=== PATIENT | male | born 1960 | race Caucasian/White ===

== ENCOUNTER 2023-04-14 10:25 | Outpatient (OUT) | payer BC, SELFPAY ==
[2023-04-14 11:15] LABS: Estimated Average Glucose 94 mg/dL; Glycohemoglobin A1C 4.9 % (4.5-6.2)
[2023-04-14 11:43] LABS: Cholesterol 198 mg/dL (<=200); Free T3 2.49 pg/mL (2.18-3.98); HDL Cholesterol 66 mg/dL (40-60); Thyroid Stimulating Hormone 1.339 uIU/mL (0.358-3.740); Triglycerides 112 mg/dL (<=150); VLDL CHOLESTEROL 22.4 mg/dL
[2023-04-14 11:51] LABS: Prostate Specific Antigen Scrn 1.47 ng/mL (<=4.00)
[2023-04-15 11:09] LABS: Insulin 8.8 uIU/mL (2.6-24.9)
== END 2023-04-14 10:26 | disposition home or self-care (01) ==
LOC: LAB 10:29
PROVIDERS: PCP Family Medicine; Visit Provider Family Medicine
DX: Z00.00 Encounter for general adult medical examination without abnormal findings (principal); Z12.5 Encounter for screening for malignant neoplasm of prostate
CPT/HCPCS: 36415; 80061; 83036; 83525; 84436; 84443; 84481; G0103

== ENCOUNTER 2023-04-14 10:32 | Outpatient (OUT) | payer BC, SELFPAY ==
[2023-04-14 11:04] LABS: Basophils Percent Auto 0.5 % (0.2-2.0); Eosinophils Absolute Auto 0.1 10^3/uL (0.0-0.7); Eosinophils Percent Auto 2.1 % (0.9-7.0); Hematocrit 46.2 % (42.0-54.0); Hemoglobin 15.4 g/dL (14.0-18.0); Immature Granulocytes Abs Auto 0.01 10^3/uL (0.00-0.03); Immature Granulocytes Pct Auto 0.2 % (0.0-0.5); Lymphocytes Absolute Auto 2.3 10^3/uL (1.2-3.8); Lymphocytes Percent Auto 39.9 % (20.5-60.0); Mean Corpuscular HGB Conc 33.3 g/dL (29.9-35.2); Mean Corpuscular Hemoglobin 33.3 pg (25.9-34.0); Mean Corpuscular Volume 99.8 fL (80.0-94.0); Mean Platelet Volume 11.2 fL (9.5-13.5); Monocytes Absolute Auto 0.5 10^3/uL (0.3-0.8); Monocytes Percent Auto 9.3 % (1.7-12.0); Neutrophils Absolute Auto 2.8 10^3/uL (1.4-6.5); Platelet Count 226 10^3/uL (150-450); Red Blood Count 4.63 10^6/uL (4.70-6.10); Red Cell Distribution Width 13.1 % (11.0-15.0); White Blood Count 5.8 10^3/uL (4.0-11.0)
[2023-04-14 11:26] LABS: Percent Iron Saturation 47.8 %
[2023-04-14 11:32] LABS: Alanine Aminotransferase 27 U/L (16-63); Albumin Level 3.5 g/dL (3.4-5.0); Alkaline Phosphatase 116 U/L (46-116); Anion Gap 9.7; Aspartate Amino Transferase 23 U/L (15-37); BUN Creatinine Ratio 9.7; Bilirubin Total 0.7 mg/dL (0.2-1.0); Calcium 8.6 mg/dL (8.5-10.1); Carbon Dioxide 32.6 mmol/L (21.0-32.0); Chloride 104 mmol/L (98-107); Estimated GFR (African America >60 (>=60); Estimated GFR (Non-African Ame >60 (>=60); Globulin 3.4 g/dL; Glucose 93 mg/dL (74-106); Magnesium 2.2 mg/dL (1.8-2.4); Phosphorus 3.1 mg/dL (2.6-4.7); Potassium 4.3 mmol/L (3.5-5.1); Sodium 142 mmol/L (136-145); Total Protein 6.9 g/dL (6.4-8.2)
[2023-04-16 19:07] LABS: Vitamin B1 (Thiamine), Blood 147.8 nmol/L (66.5-200.0)
== END 2023-04-14 10:33 | disposition home or self-care (01) ==
LOC: LAB 10:33
PROVIDERS: PCP Family Medicine
DX: Z00.00 Encounter for general adult medical examination without abnormal findings (principal); Z98.84 Bariatric surgery status; K90.9 Intestinal malabsorption, unspecified; E78.5 Hyperlipidemia, unspecified; I10 Essential (primary) hypertension; E79.0 Hyperuricemia without signs of inflammatory arthritis and tophaceous disease; R60.9 Edema, unspecified
CPT/HCPCS: 36415; 80053; 80061; 82306; 82607; 82728; 82746; 83036; 83525; 83540; 83550; 83735; 84100; 84425; 84436; 84443; 84481; 85025; G0103

== ENCOUNTER 2023-04-15 11:25 | Outpatient (REF) | payer BC, SELFPAY ==
[2023-04-15 11:59] LABS: Occult Blood Negative
== END 2023-04-15 11:26 | disposition home or self-care (01) ==
LOC: LAB 11:25
PROVIDERS: PCP Family Medicine; Visit Provider Family Medicine
DX: Z00.00 Encounter for general adult medical examination without abnormal findings (principal)
CPT/HCPCS: G0328

== ENCOUNTER 2024-03-03 08:01 | Outpatient (OUT) | payer OTHER, SELFPAY ==
[2024-03-03 08:38] LABS: Basophils Absolute Auto 0.1 10^3/uL (0.0-0.1); Basophils Percent Auto 0.6 % (0.2-2.0); Eosinophils Absolute Auto 0.2 10^3/uL (0.0-0.7); Eosinophils Percent Auto 1.9 % (0.9-7.0); Hematocrit 43.6 % (42.0-54.0); Immature Granulocytes Abs Auto 0.02 10^3/uL (0.00-0.03); Immature Granulocytes Pct Auto 0.3 % (0.0-0.5); Lymphocytes Absolute Auto 2.8 10^3/uL (1.2-3.8); Lymphocytes Percent Auto 35.9 % (20.5-60.0); Mean Corpuscular HGB Conc 34.4 g/dL (29.9-35.2); Mean Corpuscular Hemoglobin 33.2 pg (25.9-34.0); Mean Corpuscular Volume 96.5 fL (80.0-94.0); Mean Platelet Volume 11.6 fL (9.5-13.5); Monocytes Absolute Auto 0.8 10^3/uL (0.3-0.8); Monocytes Percent Auto 10.8 % (1.7-12.0); Neutrophils Absolute Auto 3.9 10^3/uL (1.4-6.5); Neutrophils Percent Auto 50.5 % (43.0-75.0); Platelet Count 253 10^3/uL (150-450); Red Blood Count 4.52 10^6/uL (4.70-6.10); Red Cell Distribution Width 13.6 % (11.0-15.0); White Blood Count 7.7 10^3/uL (4.0-11.0)
[2024-03-03 09:37] LABS: Alanine Aminotransferase 30 U/L (16-63); Albumin Globulin Ratio 1.2; Albumin Level 3.5 g/dL (3.4-5.0); Alkaline Phosphatase 109 U/L (46-116); Anion Gap 11.2; Aspartate Amino Transferase 25 U/L (15-37); BUN Creatinine Ratio 9.4; Bilirubin Total 0.8 mg/dL (0.2-1.0); Calcium 8.8 mg/dL (8.5-10.1); Carbon Dioxide 30.9 mmol/L (21.0-32.0); Chloride 106 mmol/L (98-107); Chol HDL Ratio 2.9; Cholesterol 151 mg/dL (<=200); Estimated GFR (African America >60 (>=60); Estimated GFR (Non-African Ame >60 (>=60); Free T4 0.94 ng/dL (0.76-1.46); Glucose 96 mg/dL (74-106); HDL Cholesterol 52 mg/dL (40-60); LDL Cholesterol Calculated 83.4 mg/dL; Potassium 4.1 mmol/L (3.5-5.1); Sodium 144 mmol/L (136-145); Thyroid Stimulating Hormone 1.274 uIU/mL (0.358-3.740); Total Protein 6.5 g/dL (6.4-8.2); Triglycerides 78 mg/dL (<=150); VLDL CHOLESTEROL 15.6 mg/dL
[2024-03-03 09:45] LABS: Prostate Specific Antigen Scrn 0.97 ng/mL (<=4.00)
[2024-03-03 10:45] LABS: Estimated Average Glucose 97 mg/dL
== END 2024-03-03 08:02 | disposition home or self-care (01) ==
LOC: LAB 08:04
PROVIDERS: PCP Family Medicine; Visit Provider Family Medicine
DX: N40.0 Benign prostatic hyperplasia without lower urinary tract symptoms (principal); Z12.5 Encounter for screening for malignant neoplasm of prostate; E78.5 Hyperlipidemia, unspecified; R73.09 Other abnormal glucose
CPT/HCPCS: 36415; 80053; 80061; 83036; 84439; 84443; 85025; G0103

== ENCOUNTER 2024-05-24 08:59 | Outpatient (OUT) | payer OTHER, SELFPAY ==
--- OUTSIDE RECORDS SUMMARY | 2024-05-24 09:23 | XMS_ITS | CCD ---
Author Organization [facility] Care Team Providers Care Assistant Tennis Coach Name Role Phone JUAN, DR CASTILLO Admitting Unavailable HOY, DR CASTILLO Attending Unavailable HOY, DR CASTILLO Primary Care Unavailable HOY, DR CASTILLO Consulting Unavailable HOY, DR CASTILLO Admitting Unavailable HOY, DR CASTILLO Attending Unavailable HOY, DR CASTILLO Primary Care Unavailable HOY, DR CASTILLO Consulting Unavailable HOY, DR CASTILLO Admitting Unavailable HOY, DR CASTILLO Attending Unavailable HOY, DR CASTILLO Primary Care Unavailable HOY, DR CASTILLO Consulting Unavailable LALORPATRICIA Admitting Unavailable LALORPATRICIA Attending Unavailable HOY, DR CASTILLO Primary Care Unavailable LALORPATRICIA Consulting Unavailable JUANJOSEY, DR CASTILLO Admitting Unavailable HOY, DR CASTILLO Attending Unavailable HOY, DR CASTILLO Primary Care Unavailable HOY, DR CASTILLO Consulting Unavailable HOY, ANNA M Primary Care Unavailable CHELA HICKEY Attending Unavailable CHELA HICKEY Attending Unavailable CHELA HICKEY Referring Unavailable JUANJOSEYANNA M Primary Care Unavailable HOYANNA M Primary Care Unavailable STEFF FREGOSO Attending Unavailable SHAHLA REED Consulting Unavailable DEBBIE CARCAMO Admitting Unavailable KIM AMATO Consulting Unavailable Allergies Allergy Classification Reported Allergen(s) Allergy Type Date of Onset Reaction(s) Facility (1 source) Erythromycin Drug Allergy 6 [facility] Repository (2 sources) Erythromycin; Translations: [ERYTHROMYCIN LACTOBIONATE] Drug Allergy 1 [facility] Repository (2 sources) AMOXICILLIN-POT CLAVULANATE; Translations: [AMOXICILLIN-POT CLAVULANATE] Propensity to adverse reactions to drug (disorder) 4 [facility] Repository Problems Active Problems Problem Classification Problem Date Documented Da te Episodic/Chronic Abdominal pain (3 sources) Unspecified abdominal pain; Translations: [Flank pain] Onset: 02-16-2024 Episodic Disorders of lipid metabolism (1 source) Hyperlipidemia, unspecified; Translations: [HYPERLIPIDEMIA UNSPECIFIED] Onset: 04-16-2022 Chronic Essential hypertension (1 source) Essential (primary) hypertension; Translations: [ESSENTIAL PRIMARY HYPERTENSION] Onset: 04-16-2022 Chronic Intestinal obstruction without hernia (2 sources) Ileus, unspecified; Translations: [Ileus, unspecified] Onset: 02-16-2024 Episodic Other gastrointestinal disorders (1 source) Bariatric surgery status; Translations: [BARIATRIC SURGERY STATUS] Onset: 04-16-2022 Episodic Other nutritional; endocrine; and metabolic disorders (1 source) Hyperuricemia without signs of inflammatory arthritis and tophaceous disease; Translations: [HU W/O SIGNS IA AND TOPHACEOUS DZ] Onset: 04-16-2022 Episodic Other screening for suspected conditions (not mental disorders or infectious disease) (1 source) Encounter for screening for malignant neoplasm of prostate; Translations: [ENC SCREEN MALIG NEOPLASM PROSTATE] Onset: 04-16-2022 Episodic Residual codes; unclassified (1 source) Edema, unspecified; Translations: [EDEMA UNSPECIFIED] Onset: 04-16-2022 Episodic Unclassified (1 source) Flank Pain; Abdominal Pain Onset: 02-16-2024 Unclassified (1 source) abdominal pain, sent over from [facility] Onset: 02-17-2024 Past or Other Problems Problem Classification Problem Date Documented Da te Episodic/Chronic Other skin disorders (4 sources) Generalized hyperhidrosis; Translations: [GENERALIZED HYPERHIDROSIS] Onset: 06-27-2021 Episodic Results Test Name Value Interpretation Reference Range Facility CBC AND AUTO DIFFon 02-18-20 ABSOLUTE BASOPHIL 0.0 X10E9/L Normal 0.0-0.2 [facility] Comment on above: Performed By: #### C BCA, CMP #### [facility] ([id number]) [address] [place] [address] ABSOLUTE NEUTROPHIL 2.9 X10E9/L Normal 1.5-6.6 [facility] Comment on above: Performed By: #### C BCA, CMP #### [facility] ([id number]) [address], [address] [place] [address] Basophils/100 WBC (Bld) 0.5 % Normal [facility] Comment on above: Performed By: #### C JUAN, CMP #### [facility] ([id number]) [address], [address] [place] [address] Eosinophils (Bld) [#/Vol] 0.2 10*3/uL Normal 0.0-0.4 [facility] Comment on above: Performed By: #### C JUAN, CMP #### [facility] ([id number]) [address], [address] [place] [address] Eosinophils/100 WBC (Bld) 3.3 % Normal [facility] Comment on above: Performed By: #### C JUAN, CMP #### [facility] ([id number]) [address], [address] [place] [address] Erythrocyte distribution width (RBC) [Ratio] 13.5 % Normal 11.5-15.0 [facility] Comment on above: Performed By: #### Scot MARTINEZ, CMP #### [facility] ([id number]) [address], [address] [place] [address] Hematocrit (Bld) [Volume fraction] 39.4 % Normal 39-49 [facility] Comment on above: Performed By: #### C JUAN, CMP #### [facility] ([id number]) [address], [address] [place] [address] Hemoglobin (Bld) [Mass/Vol] 13.8 g/dL Normal 13.0-17.0 [facility] Comment on above: Performed By: #### C JUAN, CMP #### [facility] ([id number]) [address] [address] [place] [address] Lymphocytes (Bld) [#/Vol] 2.7 10*3/uL Normal 1.0-3.5 [facility] Comment on above: Performed By: #### C BCA, CMP #### [facility] ([id number]) [address], [address] [place] [address] Lymphocytes/100 WBC (Bld) 41.4 % Normal [facility] Comment on above: Performed By: #### C BCA, CMP #### [facility] ([id number]) [address], [address] [place] [address] MCH (RBC) [Entitic mass] 33.8 pg Normal 27-34 [facility] Comment on above: Performed By: #### C BCA, CMP #### [facility] ([id number]) [address], [address] [place] [address] MCHC (RBC) [Mass/Vol] 35.0 g/dL Normal 32-36 [facility] Comment on above: Performed By: #### C BCA, CMP #### [facility] ([id number]) [address], [address] [place] [address] MCV (RBC) [Entitic vol] 96 fL Normal 80-100 [facility] Comment on above: Performed By: #### C BCA, CMP #### [facility] ([id number]) [address], [address] [place] [address] Monocytes (Bld) [#/Vol] 0.6 10*3/uL Normal 0-0.9 [facility] Comment on above: Performed By: #### C BCA, CMP #### [facility] ([id number]) [address], [address] [place] [address] Monocytes/100 WBC (Bld) 9.7 % Normal [facility] Comment on above: Performed By: #### C BCA, CMP #### [facility] ([id number]) [address], [address] [place] [address] Neutrophils/100 WBC (Bld) 45.1 % Normal [facility] Comment on above: Performed By: #### C BCA, CMP #### [facility] ([id number]) [address], [facility] [address] [place] [address] Platelet mean volume (Bld) [Entitic vol] 9.6 fL Normal 7-12 [facility] Comment on above: Performed By: #### C BCA, CMP #### [facility] ([id number]) [address], [facility] [address] [place] [address] Platelets (Bld) [#/Vol] 180 10*3/uL Normal 150-450 [facility] Comment on above: Performed By: #### C BCA, CMP #### [facility] ([id number]) [address], [facility] [address] [place] [address] RBC COUNT 4.08 X10E12/L Low 4.10-5.70 [facility] Comment on above: Performed By: #### C BCA, CMP #### [facility] ([id number]) [address] [address] [place] [address] WBC (Bld) [#/Vol] 6.5 10*3/uL Normal 4.0-11.0 [facility] Comment on above: Performed By: #### C BCA, CMP #### [facility] ([id number]) [address], [address] [place] [address] COMPREHENSIVE METABOLIC PANE Ezekiel 02-18-2024 Albumin [Mass/Vol] 3.4 g/dL Normal 3.2-5.3 [facility] Comment on above: Performed By: #### C BCA, CMP #### [facility] ([id number]) [address], [address] [place] [address] ALP [Catalytic activity/Vol] 97 U/L Normal 39-130 [facility] Comment on above: Performed By: #### C BCA, CMP #### [facility] ([id number]) [address], [address] [place] [address] ALT [Catalytic activity/Vol] 25 U/L Normal 0-40 [facility] Comment on above: Performed By: #### C BCA, CMP #### [facility] ([id number]) [address], [address] [place] [address] Anion gap [Moles/Vol] 7 mmol/L Normal 5-15 [facility] Comment on above: Performed By: #### C BCA, CMP #### [facility] ([id number]) [address], [address] [place] [address] AST [Catalytic activity/Vol] 25 U/L Normal 0-41 [facility] Comment on above: Performed By: #### C BCA, CMP #### [facility] ([id number]) [address], [address] [place] [address] Bilirubin [Mass/Vol] 0.7 mg/dL Normal 0.3-1.2 [facility] Comment on above: Performed By: #### C BCA, CMP #### [facility] ([id number]) [address], [address] [place] [address] Calcium [Mass/Vol] 8.2 mg/dL Low 8.5-10.5 [facility] Comment on above: Performed By: #### C BCA, CMP #### [facility] ([id number]) [address], [address] [place] [address] Chloride [Moles/Vol] 107 mmol/L Normal 98-109 [facility] Comment on above: Performed By: #### C BCA, CMP #### [facility] ([id number]) [address], [address] [place] [address] CO2 [Moles/Vol] 27 mmol/L Normal 22-32 [facility] Comment on above: Performed By: #### C BCA, CMP #### [facility] ([id number]) [address] [address] [place] [address] Creatinine [Mass/Vol] 0.70 mg/dL Normal 0.60-1.30 [facility] Comment on above: Result Comment: METH OD TRACEABLE TO IDMS STANDARD Performed By: #### C BCA, CMP #### [facility] ([id number]) [address], [address] [place] [address] eGFR (CKD-EPI) NON-RACE DEPENDENT >90 Normal >59 [facility] Comment on above: Result Comment: Reported eGFR is based on the CKD-EPI 2020 equation that does not use a race coefficient. Performed By: #### C BCA, CMP #### [facility] ([id number]) [address] [address] [place] [address] Glucose [Mass/Vol] 69 mg/dL Normal 65-99 [facility] Comment on above: Performed By: #### C BCA, CMP #### [facility] ([id number]) [address] [address] [place] [address] Potassium [Moles/Vol] 3.9 mmol/L Normal 3.5-5.0 [facility] Comment on above: Performed By: #### C BCA, CMP #### [facility] ([id number]) [address] [address] [place] [address] Protein [Mass/Vol] 5.8 g/dL Low 6.0-8.0 [facility] Comment on above: Performed By: #### C BCA, CMP #### [facility] ([id number]) [address] [address] [place] [address] Sodium [Moles/Vol] 141 mmol/L Normal 134-146 [facility] Comment on above: Performed By: #### C BCA, CMP #### [facility] ([id number]) [address], [address] [place] [address] Urea nitrogen [Mass/Vol] 11 mg/dL Normal 5-27 [facility] Comment on above: Performed By: #### C ZANE MARTINEZ #### [facility] ([id number]) [address] [place] [address] XR ABDOM COMP SERIES W PA CH ESTon 02-18-2024 XR ABDOM COMP SERIES W PA CHEST XR ABDOM COMP SERIES W PA CHEST ABDOMEN RADIOGRAPH 02/18/2024 8:02 AM CLINICAL INDICATION: Abdominal distention, evaluate for obstruction. TECHNIQUE: Multiple abdominal radiographs obtained. Total 5 abdominal radiographs and PA chest. COMPARISON: No comparable prior. FINDINGS: Lungs: Chest radiograph shows normal cardiomediastinal silhouette. No hilar vascular congestion. Linear opacities at left lung base, likely atelectasis. Bilaterally no large effusion or pneumothorax. No focal infiltrates identified. Bowel: Air-filled bowel loops are noted in the epigastric region, where there are also multiple surgical clips clustered in the region of the gastroesophageal junction, and more inferiorly in the left mid abdomen. In both locations anastomotic suture lines are also visible. Compared to prior day's study, the degree of gaseous distention is significantly less. Bowel segments are measured up to 6 cm, and it appears to be transverse colon. Air noted within the distal colon. Single left mid abdomen small bowel loop containing small amount of air, but no air-fluid levels. No free air. No pneumatosis intestinalis. Bones / soft tissue: No acute bony abnormalities. Degenerative changes involving the hip joints and the lower lumbar spine. IMPRESSION: 1. No evident free air or definite obstruction. There are mildly prominent air-filled bowel loops in the epigastric region which appear to be transverse colon, although significantly decreased degree of distention since 02/17/2024. Finalized by [place] Vela MD on 02/18/2024 8:56 AM Normal [facility] CBC AND AUTO DIFFon 02-17-20 24 ABSOLUTE BASOPHIL 0.1 X10E9/L Normal 0.0-0.2 [facility] Comment on above: Performed By: #### C ZANE MARTINEZ, 3040-3 #### [facility] ([id number]) [address], [address] [place] [address] ABSOLUTE NEUTROPHIL 6.2 X10E9/L Normal 1.5-6.6 [facility] Comment on above: Performed By: #### C JUAN CMP, 3039-3 #### [facility] ([id number]) [address], [address] [place] [address] Basophils/100 WBC (Bld) 0.5 % Normal [facility] Comment on above: Performed By: #### C JUAN, CMP, 3039-3 #### [facility] ([id number]) [address], [address] [place] [address] Eosinophils (Bld) [#/Vol] 0.1 10*3/uL Normal 0.0-0.4 [facility] Comment on above: Performed By: #### Scot MARTINEZ CMP, 3039-3 #### [facility] ([id number]) [address], [address] [place] [address] Eosinophils/100 WBC (Bld) 1.2 % Normal [facility] Comment on above: Performed By: #### Scot MARTINEZ, CMP, 3039-3 #### [facility] ([id number]) [address], [address] [place] [address] Erythrocyte distribution width (RBC) [Ratio] 14.1 % Normal 11.5-15.0 [facility] Comment on above: Performed By: #### C JUAN, CMP, 3039-3 #### [facility] ([id number]) [address], [address] [place] [address] Hematocrit (Bld) [Volume fraction] 46.1 % Normal 39-49 [facility] Comment on above: Performed By: #### Scot MARTINEZ, CMP, 3039-3 #### [facility] ([id number]) [address], [address] [place] [address] Hemoglobin (Bld) [Mass/Vol] 15.8 g/dL Normal 13.0-17.0 [facility] Comment on above: Performed By: #### Scot MARTINEZ CMP, 3039-3 #### [facility] ([id number]) [address], [address] [place] [address] Lymphocytes (Bld) [#/Vol] 2.7 10*3/uL Normal 1.0-3.5 [facility] Comment on above: Performed By: #### Scot MARTINEZ CMP, 3039-3 #### [facility] ([id number]) [address], [facility] [address] [place] [address] Lymphocytes/100 WBC (Bld) 26.4 % Normal [facility] Comment on above: Performed By: #### Scot MARTINEZ CMP, 3039-3 #### [facility] ([id number]) [address], [address] [place] [address] MCH (RBC) [Entitic mass] 33.0 pg Normal 27-34 [facility] Comment on above: Performed By: #### Scot MARTINEZ CMP, 3039-3 #### [facility] ([id number]) [address], [address] [place] [address] MCHC (RBC) [Mass/Vol] 34.2 g/dL Normal 32-36 [facility] Comment on above: Performed By: #### Scot MARTINEZ CMP, 3039-3 #### [facility] ([id number]) [address], [address] [place] [address] MCV (RBC) [Entitic vol] 97 fL Normal 80-100 [facility] Comment on above: Performed By: #### Scot MARTINEZ CMP, 3039-3 #### [facility] ([id number]) [address], [address] [place] [address] Monocytes (Bld) [#/Vol] 1.2 10*3/uL High 0-0.9 [facility] Comment on above: Performed By: #### C BCA, CMP, 3039-3 #### [facility] ([id number]) [address], [address] [place] [address] Monocytes/100 WBC (Bld) 11.5 % Normal [facility] Comment on above: Performed By: #### C BCA, CMP, 3039-3 #### [facility] ([id number]) [address], [address] [place] [address] Neutrophils/100 WBC (Bld) 60.4 % Normal [facility] Comment on above: Performed By: #### C BCA, CMP, 3039-3 #### [facility] ([id number]) [address], [address] [place] [address] Platelet mean volume (Bld) [Entitic vol] 9.1 fL Normal 7-12 [facility] Comment on above: Performed By: #### Scot BCA, CMP, 3039-3 #### [facility] ([id number]) [address], [address] [place] [address] Platelets (Bld) [#/Vol] 194 10*3/uL Normal 150-450 [facility] Comment on above: Performed By: #### Scot BCA, CMP, 3039-3 #### [facility] ([id number]) [address], [address] [place] [address] RBC COUNT 4.78 X10E12/L Normal 4.10-5.70 [facility] Comment on above: Performed By: #### C BCA, CMP, 3039-3 #### [facility] ([id number]) [address], [address] [place] [address] WBC (Bld) [#/Vol] 10.3 10*3/uL Normal 4.0-11.0 [facility] Comment on above: Performed By: #### C BCA, CMP, 3040-3 #### [facility] ([id number]) [address], [address] [place] [address] COMPREHENSIVE METABOLIC PANE Ezekiel 02-17-2024 Albumin [Mass/Vol] 4.2 g/dL Normal 3.2-5.3 [facility] Comment on above: Performed By: #### C BCA, CMP, 3039-3 #### [facility] ([id number]) [address], [address] [place] [address] ALP [Catalytic activity/Vol] 101 U/L Normal 39-130 [facility] Comment on above: Performed By: #### C BCA, CMP, 3039-3 #### [facility] ([id number]) [address], [address] [place] [address] ALT [Catalytic activity/Vol] 27 U/L Normal 0-40 [facility] Comment on above: Performed By: #### C BCA, CMP, 3039-3 #### [facility] ([id number]) [address], [address] [place] [address] Anion gap [Moles/Vol] 9 mmol/L Normal 5-15 [facility] Comment on above: Performed By: #### C BCA, CMP, 3039-3 #### [facility] ([id number]) [address], [address] [place] [address] AST [Catalytic activity/Vol] 45 U/L High 0-41 [facility] Comment on above: Performed By: #### C BCA, CMP, 3039-3 #### [facility] ([id number]) [address], [address] [place] [address] Bilirubin [Mass/Vol] 0.7 mg/dL Normal 0.3-1.2 [facility] Comment on above: Performed By: #### C BCA, CMP, 0-3 #### [facility] ([id number]) [address], [address] [place] [address] Calcium [Mass/Vol] 8.2 mg/dL Low 8.5-10.5 [facility] Comment on above: Performed By: #### C BCA, CMP, 3040-3 #### [facility] ([id number]) [address] [facility] [address] [place] [address] Chloride [Moles/Vol] 107 mmol/L Normal 98-109 [facility] Comment on above: Performed By: #### C BCA, CMP, 0-3 #### [facility] ([id number]) [address] [address] [place] [address] CO2 [Moles/Vol] 25 mmol/L Normal 22-32 [facility] Comment on above: Performed By: #### C BCA, CMP, 3039-3 #### [facility] ([id number]) [address] [address] [place] [address] Creatinine [Mass/Vol] 0.79 mg/dL Normal 0.60-1.30 [facility] Comment on above: Result Comment: METH OD TRACEABLE TO IDMS STANDARD Performed By: #### C BCA, CMP, 3039-3 #### [facility] ([id number]) [address] [address] [place] [address] eGFR (CKD-EPI) NON-RACE DEPENDENT >90 Normal >59 [facility] Comment on above: Result Comment: Reported eGFR is based on the CKD-EPI 2020 equation that does not use a race coefficient. Performed By: #### C BCA, CMP, 3040-3 #### [facility] ([id number]) [address] [address] [place] [address] Glucose [Mass/Vol] 83 mg/dL Normal 65-99 [facility] Comment on above: Performed By: #### C BCA, CMP, 3040-3 #### [facility] ([id number]) [address] [address] [place] [address] Potassium [Moles/Vol] 4.0 mmol/L Normal 3.5-5.0 [facility] Comment on above: Performed By: #### C BCA, CMP, 3040-3 #### [facility] ([id number]) [address], [address] [place] [address] Protein [Mass/Vol] 6.8 g/dL Normal 6.0-8.0 [facility] Comment on above: Performed By: #### C BCA, CMP, 3040-3 #### [facility] ([id number]) [address], [address] [place] [address] Sodium [Moles/Vol] 141 mmol/L Normal 134-146 [facility] Comment on above: Performed By: #### C BCA, CMP, 3040-3 #### [facility] ([id number]) [address], [address] [place] [address] Urea nitrogen [Mass/Vol] 13 mg/dL Normal 5-27 [facility] Comment on above: Performed By: #### C BCA, CMP, 3040-3 #### [facility] ([id number]) [address], [address] [place] [address] CT ABDOMEN AND PELVIS WO CON Ton 02-17-2024 CT ABDOMEN AND PELVIS WO CONT CT ABDOMEN AND PELVIS WO CONT CLINICAL INFORMATION: Acute abdominal pain radiating to back, kidney stone suspected. TECHNIQUE: Abdominopelvic CT without contrast. All CT scans at this facility use dose modulation, iterative reconstruction, and/or weight based dosing when appropriate to reduce radiation dose to as low as reasonably achievable. COMPARISON: 02/04/2021. FINDINGS LOWER CHEST: Linear left basilar scarring/atelectasis. HEPATOBILIARY: Unenhanced liver unremarkable. Gallbladder surgically absent. No biliary dilation. PANCREAS: Unenhanced pancreas unremarkable. No pancreatic ductal dilation. SPLEEN: The unenhanced spleen is within normal limits. ADRENAL GLANDS: The unenhanced adrenal glands are within normal limits. KIDNEYS, URETERS, AND BLADDER: Unenhanced kidneys unremarkable. Multiple bilateral punctate nonobstructing renal calculi. No collecting system dilation. GI TRACT AND PERITONEUM: Edgar-en-Y gastric bypass. Prominent gas-filled large bowel. Cecum measures up to 12 cm. Transverse colon measures up to 6.2 cm. Sigmoid normal in caliber. No free air. VASCULATURE: Abdominal aorta is nonaneurysmal. Aortoiliac calcifications present. LYMPH NODES: Not enlarged. REPRODUCTIVE ORGANS: Prostate is unremarkable. MSK: Vertebral body heights and alignment maintained. IMPRESSION: * Gaseous distention of the cecum and proximal colon, may reflect ileus. No evidence of mechanical obstruction. No free air. * Punctate bilateral nonobstructing renal calculi. Approved by Resident Dorian Jordan DO on 02/17/2024 12:21 AM IPortillo MD have personally reviewed the image(s) and agree with and/or edited the report Finalized by Portillo Christopher MD on 02/17/2024 12:34 AM Normal [facility] LIPASEon 02-17-2024 Lipase [Catalytic activity/Vol] 14 U/L Normal - [facility] Comment on above: Performed By: #### C BCA, CMP, 3040-3 #### [facility] ([id number]) [address] [facility], [address] [place] [address] URN MACROSCOPIC NURon 2023 BILIRUBIN HECTOR Small Abnormal NEG [facility] Comment on above: Performed By: #### N UM #### [facility] ([id number]) [address] [place] [address] BLOOD/HGB HECTOR Negative Normal NEG [facility] Comment on above: Performed By: #### N UM #### [facility] ([id number]) [address] [place] [address] GLUCOSE HECTOR Negative Normal NEG [facility] Comment on above: Performed By: #### N UM #### [facility] ([id number]) [address] [place] [address] KETONES HECTOR 15 mg/dL Abnormal NEG [facility] Comment on above: Performed By: #### N UM #### [facility] ([id number]) [address] [place] [address] LEUKOCYTE ESTERASE HECTOR Negative Normal NEG [facility] Comment on above: Performed By: #### N UM #### [facility] ([id number]) [address] [place] [address] NITRITE HECTOR Negative Normal NEG [facility] Comment on above: Performed By: #### N UM #### [facility] ([id number]) [address] [place] [address] PH HECTOR 5.5 Normal 5.0-8.5 [facility] Comment on above: Performed By: #### N UM #### [facility] ([id number]) [address] [place] [address] PROTEIN HECTOR Negative Normal NEG [facility] Comment on above: Performed By: #### N UM #### [facility] ([id number]) [address] [place] [address] SPECIFIC GRAVITY HECTOR >=1.030 Normal 1.003-1.035 [facility] Comment on above: Performed By: #### N UM #### [facility] ([id number]) [address] [place] [address] UROBILINOGEN HECTOR 0.2 eu/dL Normal <1.1 [facility] Comment on above: Performed By: #### N UM #### [facility] ([id number]) [address] [place] [address] Urine collection deviceon ER EXTRA URINES ER EXTRA URINE ORDER IN PROCESS Normal [facility] XR ABDOMEN AP 1 VWon 024 XR ABDOMEN AP 1 VW XR ABDOMEN AP 1 VW Abdomen: HISTORY: Abdominal pain and distention. 4 views of the abdomen were obtained. There is gaseous colonic prominence. Colonic stool burden is moderate. Air-filled small bowel also appreciated. The right colon appears to be distended to approximately 12 cm. Lung bases are clear. IMPRESSION: Gaseous bowel distention, primarily colonic. Consider CT for further evaluation. Finalized by Josué Nielson MD on 02/17/2024 12:50 PM Normal [facility] CBC AND AUTO DIFFon 02-16-20 ABSOLUTE BASOPHIL 0.1 X10E9/L Normal 0.0-0.2 [facility] Comment on above: Performed By: #### C BCA, CMP #### [facility] ([id number]) [address] [place] [address] ABSOLUTE NEUTROPHIL 5.3 X10E9/L Normal 1.5-6.6 [facility] Comment on above: Performed By: #### C BCA, CMP #### [facility] ([id number]) [address] [place] [address]323 Basophils/100 WBC (Bld) 1.0 % Normal [facility] Comment on above: Performed By: #### C BCA, CMP #### [facility] ([id number]) [address] [place] [address]106 Eosinophils (Bld) [#/Vol] 0.1 10*3/uL Normal 0.0-0.4 [facility] Comment on above: Performed By: #### C BCA, CMP #### [facility] ([id number]) [address] [place] [address] 18075 Eosinophils/100 WBC (Bld) 0.8 % Normal [facility] Comment on above: Performed By: #### C BCA, CMP #### [facility] ([id number]) [address] [place] [address]89 Erythrocyte distribution width (RBC) [Ratio] 14.0 % Normal 11.5-15.0 [facility] Comment on above: Performed By: #### C BCA, CMP #### [facility] ([id number]) [address] [place] [address] Hematocrit (Bld) [Volume fraction] 45.5 % Normal 39-49 [facility] Comment on above: Performed By: #### C BCA, CMP #### [facility] ([id number]) [address] [place] [address] 21877 Hemoglobin (Bld) [Mass/Vol] 15.7 g/dL Normal 13.0-17.0 [facility] Comment on above: Performed By: #### C JUAN, CMP #### [facility] ([id number]) [address] [place] [address] 02298 Lymphocytes (Bld) [#/Vol] 2.5 10*3/uL Normal 1.0-3.5 [facility] Comment on above: Performed By: #### C JUAN, CMP #### [facility] ([id number]) [address] [place] [address] 92652 Lymphocytes/100 WBC (Bld) 27.8 % Normal [facility] Comment on above: Performed By: #### C JUAN, CMP #### [facility] ([id number]) [address] [place] [address]5429 MCH (RBC) [Entitic mass] 33.4 pg Normal 27-34 [facility] Comment on above: Performed By: #### C JUAN, CMP #### [facility] ([id number]) [address] [place] [address] [place] [address] MCHC (RBC) [Mass/Vol] 34.4 g/dL Normal 32-36 [facility] Comment on above: Performed By: #### C BCA, CMP #### [facility] ([id number]) [address] [place] [address] 92376 MCV (RBC) [Entitic vol] 97 fL Normal 80-100 [facility] Comment on above: Performed By: #### C JUAN, CMP #### [facility] ([id number]) [address] [place] [address] Monocytes (Bld) [#/Vol] 1.0 10*3/uL High 0-0.9 [facility] Comment on above: Performed By: #### C JUAN, CMP #### [facility] ([id number]) [address] [place] [address] 59915 Monocytes/100 WBC (Bld) 10.7 % Normal [facility] Comment on above: Performed By: #### C JUAN, CMP #### [facility] ([id number]) [address] [place] [address] 43727 Neutrophils/100 WBC (Bld) 59.7 % Normal [facility] Comment on above: Performed By: #### C JUAN, CMP #### [facility] ([id number]) [address] [place] [address] 99195 Platelet mean volume (Bld) [Entitic vol] 10.0 fL Normal 7-12 [facility] Comment on above: Performed By: #### C JUAN, CMP #### [facility] ([id number]) [address] [place] [address] 50696 Platelets (Bld) [#/Vol] 232 10*3/uL Normal 150-450 [facility] Comment on above: Performed By: #### C JUAN, CMP #### [facility] ([id number]) [address] [place] [address] 12977 RBC COUNT 4.69 X10E12/L Normal 4.10-5.70 [facility] Comment on above: Performed By: #### C JUAN, CMP #### [facility] ([id number]) [address] [place] [address] 07367 WBC (Bld) [#/Vol] 8.9 10*3/uL Normal 4.0-11.0 [facility] Comment on above: Performed By: #### C BCA, CMP #### [facility] ([id number]) [address] [place] [address] 28823 COMPREHENSIVE METABOLIC PANE Ezekiel 02-16-2024 Albumin [Mass/Vol] 4.3 g/dL Normal 3.2-5.3 [facility] Comment on above: Performed By: #### C BCA, CMP #### [facility] ([id number]) [address] [place] [address] 48675 ALP [Catalytic activity/Vol] 104 U/L Normal 39-130 [facility] Comment on above: Performed By: #### C BCA, CMP #### [facility] ([id number]) [address] [place] [address] 67367 ALT [Catalytic activity/Vol] 29 U/L Normal 0-40 [facility] Comment on above: Performed By: #### C BCA, CMP #### [facility] ([id number]) [address] [place] [address] 17821 Anion gap [Moles/Vol] 6 mmol/L Normal 5-15 [facility] Comment on above: Performed By: #### C BCA, CMP #### [facility] ([id number]) [address] [place] [address] 66699 AST [Catalytic activity/Vol] 31 U/L Normal 0-41 [facility] Comment on above: Performed By: #### C BCA, CMP #### [facility] ([id number]) [address] [place] [address] 61431 Bilirubin [Mass/Vol] 1.0 mg/dL Normal 0.3-1.2 [facility] Comment on above: Performed By: #### C BCA, CMP #### [facility] ([id number]) [address] [place] [address] [place] [address] Calcium [Mass/Vol] 8.4 mg/dL Low 8.5-10.5 [facility] Comment on above: Performed By: #### C BCA, CMP #### [facility] ([id number]) [address] [place] [address] 48863 Chloride [Moles/Vol] 105 mmol/L Normal 98-109 [facility] Comment on above: Performed By: #### C BCA, CMP #### [facility] ([id number]) [address] [place] [address] 11595 CO2 [Moles/Vol] 23 mmol/L Normal 22-32 [facility] Comment on above: Performed By: #### C BCA, CMP #### [facility] ([id number]) [address] [place] [address] 95722 Creatinine [Mass/Vol] 0.98 mg/dL Normal 0.70-1.20 [facility] Comment on above: Result Comment: METH OD TRACEABLE TO IDMS STANDARD Performed By: #### C BCA, CMP #### [facility] ([id number]) [address] [place] [address] 47829 GFR/1.73 sq M.predicted among non-blacks MDRD (S/P/Bld) [Vol rate/Area] 86 mL/min/{1.73_m2} Normal >59 [facility] Comment on above: Result Comment: Reported eGFR is based on the CKD-EPI 1 equation that does not use a race coefficient. Performed By: #### C BCA, CMP #### [facility] ([id number]) [address] [place] [address] 27516 Glucose [Mass/Vol] 99 mg/dL Normal 65-99 [facility] Comment on above: Performed By: #### C BCA, CMP #### [facility] ([id number]) [address] [place] [address] Potassium [Moles/Vol] 3.5 mmol/L Normal 3.5-5.0 [facility] Comment on above: Performed By: #### C BCA, CMP #### [facility] ([id number]) [address] [place] [address] 76415 Protein [Mass/Vol] 7.5 g/dL Normal 6.0-8.0 [facility] Comment on above: Performed By: #### C BCA, CMP #### [facility] ([id number]) [address] [place] [address] 82957 Sodium [Moles/Vol] 134 mmol/L Normal 134-146 [facility] Comment on above: Performed By: #### C BCA, CMP #### [facility] ([id number]) [address] [place] [address] 63784 Urea nitrogen [Mass/Vol] 15 mg/dL Normal 5-27 [facility] Comment on above: Performed By: #### C BCA, CMP #### [facility] ([id number]) [address] [place] [address] [place] [address] URN MACROSCOPIC NURon 2023 BILIRUBIN HECTOR Small Abnormal NEG [facility] Comment on above: Performed By: #### N UM #### [facility] ([id number]) [address] [place] [address] [place] [address] BLOOD/HGB HECTOR Negative Normal NEG [facility] Comment on above: Performed By: #### N UM #### [facility] ([id number]) [address] [place] [address] [place] [address] GLUCOSE HECTOR Negative Normal NEG [facility] Comment on above: Performed By: #### N UM #### [facility] ([id number]) [address] [place] [address] [place] [address] KETONES HECTRO Trace Abnormal NEG [facility] Comment on above: Performed By: #### N UM #### [facility] ([id number]) [address] [place] [address] 17901 LEUKOCYTE ESTERASE HECTOR Negative Normal NEG [facility] Comment on above: Performed By: #### N UM #### [facility] ([id number]) [address] [place] [address] 50970 NITRITE HECTOR Negative Normal NEG [facility] Comment on above: Performed By: #### N UM #### [facility] ([id number]) [address] [place] [address] 74350 PH HECTOR 5.5 Normal 5.0-8.5 [facility] Comment on above: Performed By: #### N UM #### [facility] ([id number]) [address] [place] [address] 16747 PROTEIN HECTOR Negative Normal NEG [facility] Comment on above: Performed By: #### N UM #### [facility] ([id number]) [address] [place] [address] 72103 SPECIFIC GRAVITY HECTOR >=1.030 Normal 1.003-1.035 [facility] Comment on above: Performed By: #### N UM #### [facility] ([id number]) [address] [place] [address] 75493 UROBILINOGEN HECTOR 0.2 eu/dL Normal <1.1 [facility] Comment on above: Performed By: #### N UM #### [facility] ([id number]) [address] [place] [address] 23447 OCC BLD IMMUNO SCREENon 04-06 OCCULT BLOOD Negative Normal NEGATIVE [facility] Comment on above: Performed By: #### C RP #### [facility] [address] [address] [address] Malika De Los Santos INSULINon 04-16-2022 Insulin 11.5 uIU/mL Normal 2.6-24.9 [facility] Comment on above: Performed By: #### C RP #### [facility] [address] [place] [address] Dr. Malika De Los Santos CBC AUTO DIFFon 04-15-2022 BASO # 0.0 103/ul Normal 0.0-0.1 [facility] Comment on above: Performed By: #### C RP #### [facility] [address] [place] [address] Dr. Malika De Los Santos Basophils/100 WBC (Bld) 0.3 % Normal 0.2-2.0 [facility] Comment on above: Performed By: #### C RP #### [facility] [address] [place] [address] Dr. Malika De Los Santos EO # 0.1 103/ul Normal 0.0-0.7 [facility] Comment on above: Performed By: #### C RP #### [facility] [address] [place] [address] Dr. Malika De Los Santos Eosinophils/100 WBC (Bld) 2.0 % Normal 0.9-7.0 [facility] Comment on above: Performed By: #### C RP #### [facility] [address] [place] [address] Dr. Malika De Los Santos Erythrocyte distribution width (RBC) [Ratio] 13.2 % Normal 11.0-15.0 [facility] Comment on above: Performed By: #### C RP #### [facility] [address] [place] [address] Dr. Malika De Los Santos Hematocrit (Bld) [Volume fraction] 44.8 % Normal 42.0-54.0 [facility] Comment on above: Performed By: #### C RP #### [facility] [address] [place] [address] Dr. Malika De Los Santos Hemoglobin (Bld) [Mass/Vol] 15.1 g/dL Normal 14.0-18.0 [facility] Comment on above: Performed By: #### C RP #### [facility] [address] [place] [address] Dr. Malika De Los Santos IG # 0.01 10e3/ul Normal 0.00-0.03 [facility] Comment on above: Performed By: #### C RP #### [facility] [address] [place] [address] Dr. Malika De Los Santos IG % 0.2 % Normal 0.0-0.5 [facility] Comment on above: Performed By: #### C RP #### [facility] [address] [place] [address] Dr. Malika De Los Santos LYMPH # 2.2 103/ul Normal 1.2-3.8 [facility] Comment on above: Performed By: #### C RP #### [facility] [address] [place] [address] Dr. Malika De Los Santos Lymphocytes/100 WBC (Bld) 36.9 % Normal 20.5-60.0 [facility] Comment on above: Performed By: #### C RP #### [facility] [address] [place] [address] Dr. Malika De Los Santos MANUAL DIFF REQ NO Normal [facility] Comment on above: Performed By: #### C RP #### [facility] [address] [place] [address] Dr. Malika De Los Santos MCH (RBC) [Entitic mass] 33.6 pg Normal 25.9-34.0 [facility] Comment on above: Performed By: #### C RP #### [facility] [address] [place] [address] Dr. Malika De Los Santos MCHC (RBC) [Mass/Vol] 33.7 g/dL Normal 29.9-35.2 [facility] Comment on above: Performed By: #### C RP #### [facility] [address] [place] [address] Dr. Malika De Los Santos MCV (RBC) [Entitic vol] 99.6 fL Critically high 80.0-94.0 [facility] Comment on above: Performed By: #### C RP #### [facility] [address] [place] [address] Dr. Malika De Los Santos MONO # 0.6 103/ul Normal 0.3-0.8 [facility] Comment on above: Performed By: #### C RP #### [facility] [address] [address] [address] Malika De Los Santos Monocytes/100 WBC (Bld) 10.3 % Normal 1.7-12.0 [facility] Comment on above: Performed By: #### C RP #### [facility] [address] [address] [address] Malika De Los Santos NEUT # 3.0 103/ul Normal 1.4-6.5 [facility] Comment on above: Performed By: #### C RP #### [facility] [address] [address] [address] Malika De Los Santos Neutrophils/100 WBC (Bld) 50.3 % Normal 43.0-75.0 [facility] Comment on above: Performed By: #### C RP #### [facility] [address] [place] [address] Dr. Malika De Los Santos Platelet mean volume (Bld) [Entitic vol] 11.5 fL Normal 9.5-13.5 [facility] Comment on above: Performed By: #### C RP #### [facility] [address] [place] [address] Dr. Malika De Los Santos PLT 226 103/ul Normal 150-450 [facility] Comment on above: Performed By: #### C RP #### [facility] [address] [place] [address] Dr. Malika De Los Santos RBC 4.50 106/ul Critically low 4.70-6.10 [facility] Comment on above: Performed By: #### C RP #### [facility] [address] [place] [address] Dr. Malika De Los Santos WBC 5.9 103/ul Normal 4.0-11.0 [facility] Comment on above: Performed By: #### C RP #### [facility] [address] [place] [address] Dr. Malika De Los Santos FERRITINon 04-15-2022 Ferritin [Mass/Vol] 199.0 ng/mL Normal 26.0-388.0 [facility] Comment on above: Performed By: #### B 12FOL, FETIBC, FERR, VITAD #### [facility] [address] [address] [address] Malika De Los Santos GLYCOHEMOGLOBIN A1Con 2021 ADA RECOMMENDATION SEE BELOW Normal [facility] Comment on above: Result Comment: ADA RECOMMENDED LIMIT 4.0 - 6.0 ADA THERAPEUTIC TARGET < 7.0 ACTION SUGGESTED > 7.0 Performed By: #### C RP #### [facility] [address] [address] [address] Malika De Los Santos Glucose [Mass/Vol] 97 mg/dL Normal [facility] Comment on above: Performed By: #### C RP #### [facility] [address] [address] [address] Malika De Los Santos HbA1c (Bld) [Mass fraction] 5.0 % Normal 4.5-6.2 [facility] Comment on above: Performed By: #### C RP #### [facility] [address] [address] [address] Malika De Los Santos IRON AND TIBCon 04-15-2022 % SATURATION 44.0 % Normal [facility] Comment on above: Performed By: #### B 12FOL, FETIBC, FERR, VITAD #### [facility] [address] [address] [address] Malika De Los Santos Iron [Mass/Vol] 131.0 ug/dL Normal 65.0-175.0 [facility] Comment on above: Performed By: #### B 12FOL, FETIBC, FERR, VITAD #### [facility] [address] [place] [address] Dr. Malika De Los Santos TIBC DIRECT 298.0 ug/dL Normal 250.0-450.0 [facility] Comment on above: Performed By: #### B 12FOL, FETIBC, FERR, VITAD #### [facility] [address] [address] [address] Malika De Los Santos LIPID PROFILEon 04-15-2022 CHOL-HDL RATIO NORM SEE BELOW Normal [facility] Comment on above: Result Comment: 3.3 - 4.4 LOW RISK 4.4 - 7.1 AVERAGE RISK 7.1 - 11.0 MODERATE RISK >11.0 HIGH RISK Performed By: #### C RP #### [facility] [address] [place] [address] Dr. Malika De Los Santos Cholesterol [Mass/Vol] 196 mg/dL Normal <=200 [facility] Comment on above: Performed By: #### C RP #### [facility] [address] [address] [address] Malika De Los Santos Cholesterol in HDL [Mass/Vol] 67 mg/dL Critically high 40-60 [facility] Comment on above: Performed By: #### C RP #### [facility] [address] [place] [address] Dr. Malika De Los Santos Cholesterol in LDL [Mass/Vol] 110.2 mg/dL Normal [facility] Comment on above: Performed By: #### C RP #### [facility] [address] [place] [address] Dr. Malika De Los Santos Cholesterol.total/Ch olesterol in HDL [Mass ratio] 2.9 {ratio} Normal [facility] Comment on above: Performed By: #### C RP #### [facility] [address] [place] [address] Dr. Malika De Los Santos HDL NORMAL > or = 60 mg/dl - LO W CARDIOVASCULAR RISK <40 mg/dl - HIGH CARDIOVASCULAR RISK Normal [facility] Comment on above: Performed By: #### C RP #### [facility] [address] [place] [address] Dr. Malika De Los Santos LDL CALC NORMAL SEE BELOW Normal [facility] Comment on above: Result Comment: <100 mg/dl OPTIMAL 100 - 129 mg/dl NEAR OR ABOVE OPTIMAL 130 - 159 mg/dl BORDERLINE HIGH 160 - 189 mg/dl HIGH >190 mg/dl VERY HIGH Performed By: #### C RP #### [facility] [address] [place] [address] Dr. Malika De Los Santos Triglyceride [Mass/Vol] 94 mg/dL Normal <=150 [facility] Comment on above: Performed By: #### C RP #### [facility] [address] [place] [address] Dr. Malika De Los Santos VLDL CALC 18.8 mg/dL Normal [facility] Comment on above: Performed By: #### C RP #### [facility] [address] [place] [address] Dr. Malika De Los Santos MAGNESIUMon 04-15-2022 Magnesium [Mass/Vol] 2.3 mg/dL Normal 1.8-2.4 [facility] Comment on above: Performed By: #### H IV12 #### [facility] [address] [place] [address] Dr. Malika De Los Santos PHOSPHORUSon 04-15-2022 Phosphate [Mass/Vol] 3.0 mg/dL Normal 2.6-4.7 [facility] Comment on above: Performed By: #### C RP #### [facility] [address] [place] [address] Dr. Malika De Los Santos PROF 14(COMP METB)on 022 Albumin [Mass/Vol] 3.6 g/dL Normal 3.4-5.0 [facility] Comment on above: Performed By: #### C RP #### [facility] [address] [place] [address] Dr. Malika De Los Santos Albumin/Globulin [Mass ratio] 1.1 {ratio} Normal [facility] Comment on above: Performed By: #### C RP #### [facility] [address] [place] [address] Dr. Malika De Los Santos ALP [Catalytic activity/Vol] 119 U/L Critically high 46-116 [facility] Comment on above: Performed By: #### C RP #### [facility] [address] [place] [address] Dr. Malika De Los Santos ALT [Catalytic activity/Vol] 29 U/L Normal 16-63 [facility] Comment on above: Performed By: #### C RP #### [facility] [address] [place] [address] Dr. Malika De Los Santos Anion gap [Moles/Vol] 8.1 mmol/L Normal [facility] Comment on above: Performed By: #### C RP #### [facility] [address] [address] [address] Malika De Los Santos AST [Catalytic activity/Vol] 19 U/L Normal 15-37 [facility] Comment on above: Performed By: #### C RP #### [facility] [address] [address] [address] Malika De Los Santos Bilirubin [Mass/Vol] 0.7 mg/dL Normal 0.2-1.0 [facility] Comment on above: Performed By: #### C RP #### [facility] [address] [place] [address] Dr. Malika De Los Santos Calcium [Mass/Vol] 8.5 mg/dL Normal 8.5-10.1 [facility] Comment on above: Performed By: #### C RP #### [facility] [address] [place] [address] Dr. Malika De Los Santos Chloride [Moles/Vol] 104 mmol/L Normal 98-107 [facility] Comment on above: Performed By: #### C RP #### [facility] [address] [place] [address] Dr. Malika De Los Santos CO2 [Moles/Vol] 32.2 mmol/L Critically high 21.0-32.0 [facility] Comment on above: Performed By: #### C RP #### [facility] [address] [place] [address] Dr. Malika De Los Santos Creatinine [Mass/Vol] 0.82 mg/dL Normal 0.70-1.30 [facility] Comment on above: Performed By: #### C RP #### [facility] [address] [place] [address] Dr. Malika De Los Santos EGFR-AF COLOMBIAN >60 Normal >=60 [facility] Comment on above: Performed By: #### C RP #### [facility] [address] [place] [address] Dr. Malika De Los Santos EGFR-NON AF COLOMBIAN >60 Normal >=60 [facility] Comment on above: Performed By: #### C RP #### [facility] [address] [place] [address] Dr. Malika De Los Santos Globulin (S) [Mass/Vol] 3.4 g/dL Normal [facility] Comment on above: Performed By: #### C RP #### [facility] [address] [place] [address] Dr. Malika De Los Santos Glucose [Mass/Vol] 94 mg/dL Normal 74-106 [facility] Comment on above: Performed By: #### C RP #### [facility] [address] [place] [address] Dr. Malika De Los Santos Potassium [Moles/Vol] 4.3 mmol/L Normal 3.5-5.1 [facility] Comment on above: Performed By: #### C RP #### [facility] [address] [place] [address] Dr. Malika De Los Santos Protein [Mass/Vol] 7.0 g/dL Normal 6.4-8.2 [facility] Comment on above: Performed By: #### C RP #### [facility] [address] [place] [address] Dr. Malika De Los Santos Sodium [Moles/Vol] 140 mmol/L Normal 136-145 [facility] Comment on above: Performed By: #### C RP #### [facility] [address] [place] [address] Dr. Malika De Los Santos Urea nitrogen [Mass/Vol] 11.0 mg/dL Normal 7.0-18.0 [facility] Comment on above: Performed By: #### C RP #### [facility] [address] [place] [address] Dr. Malika De Los Santos Urea nitrogen/Creatinine [Mass ratio] 13.4 mg/mg Normal [facility] Comment on above: Performed By: #### C RP #### [facility] [address] [place] [address] Dr. Malika De Los Santos URIC ACID SERUMon 04-15-2022 Urate [Mass/Vol] 5.9 mg/dL Normal 3.5-7.2 [facility] Comment on above: Performed By: #### C RP #### [facility] [address] [place] [address] Dr. Malika De Los Santos VIT B12 AND FOLATEon 022 Cobalamin (Vitamin B12) [Mass/Vol] 380.0 pg/mL Normal 193.0-986.0 [facility] Comment on above: Performed By: #### B 12FOL, FETIBC, FERR, VITAD #### [facility] [address] [place] [address] Dr. Malika De Los Santos FOLATE 13.90 ng/mL Normal 8.60-58.90 [facility] Comment on above: Performed By: #### B 12FOL, FETIBC, FERR, VITAD #### [facility] [address] [place] [address] Dr. Malika De Los Santos VITAMIN D 25 OHon 04-15-2022 VIT D 25-OH 33.9 ng/mL Normal [facility] Comment on above: Performed By: #### B 12FOL, FETIBC, FERR, VITAD #### [facility] [address] [place] [address] Dr. Malika De Los Santos VIT D RANGES SEE BELOW Normal [facility] Comment on above: Result Comment: <20 ng/mL Vit D deficient 20 - <30 ng/mL Vit D insufficient 30 - 100 ng/mL Vit D sufficient >100 ng/mL Potential Toxicity Performed By: #### B 12FOL, FETIBC, FERR, VITAD #### [facility] [address] [place] [address] Dr. Malika De Los Santos QUANTIFERON TB GOLD PLUS (NO N-INC)on 06-29-2021 Comment Incubation performed. Normal [facility] Comment on above: Performed By: #### Q NTTBG #### [facility] [address] [place] [address] Dr. Malika De Los Santos Criteria Comment Normal [facility] Comment on above: Result Comment: The QuantiFERON-TB Gold Plus result is determined by subtracting the Nil value from either TB antigen (Ag) tube. The mitogen tube serves as a control for the test. Performed By: #### Q NTTBG #### [facility] [address] [place] [address] Dr. Malika De Los Santos Mitogen Value >10.00 Normal [facility] Comment on above: Performed By: #### Q NTTBG #### [facility] [address] [address] [address] Malika De Los Santos Nill Value 0.02 IU/mL Normal [facility] Comment on above: Performed By: #### Q NTTBG #### [facility] [address] [address] [address] Malika De Los Santos Quantiferon Gold Plus Negative Normal Negative [facility] Comment on above: Result Comment: Chem iluminescence immunoassay methodology Performed By: #### Q NTTBG #### [facility] [address] [address] [address] Malika De Los Santos TB1 Ag Value 0.02 IU/mL Normal [facility] Comment on above: Performed By: #### Q NTTBG #### [facility] [address] [address] [address] Malika De Los Santos TB2 Ag Value 0.02 IU/mL Normal [facility] Comment on above: Performed By: #### Q NTTBG #### [facility] [address] [address] [address] Malika De Los Santos HIV 1 AND 2 WITH REFLEXon HIV Screen 4th Generation wRfx Non-Reactive Normal Non Reactive [facility] Comment on above: Performed By: #### H IV12 #### [facility] [address] [place] [address] Dr. Malika De Los Santos CRPon 06-27-2021 CRP 5.1 mg/dL Critically high <=1.0 [facility] Comment on above: Performed By: #### C RP #### [facility] [address] [address] [address] Malika De Los Santos SED RATE WESTERGRENon 2020 SED RATE 40 mm/hr Critically high <=20 [facility] Comment on above: Performed By: #### C RP #### [facility] [address] [place] [address] Dr. Malika De Los Santos TESTOSTERONE, TOTALon 2020 Testosterone [Mass/Vol] 801 ng/dL Normal 264-916 [facility] Comment on above: Result Comment: Adul t male reference interval is based on a population of healthy nonobese males (BMI <30) between 19 and 39 years old. joseph Luz.al. JCEM 2017,102;5483-9735. PMID: [id number]. Performed By: #### T ESTTOT #### [facility] [address] [address] [address] Malika De Los Santos CBC AUTO DIFFon 06-12-2021 BASO # 0.0 103/ul Normal 0.0-0.1 [facility] Comment on above: Performed By: #### C BC #### [facility] [address] [address] [address] Malika De Los Santos Basophils/100 WBC (Bld) 0.3 % Normal 0.2-2.0 [facility] Comment on above: Performed By: #### C BC #### [facility] [address] [place] [address] Dr. Malika De Los Santos EO # 0.1 103/ul Normal 0.0-0.7 [facility] Comment on above: Performed By: #### C BC #### [facility] [address] [address] [address] Malika De Los Santos Eosinophils/100 WBC (Bld) 1.9 % Normal 0.9-7.0 [facility] Comment on above: Performed By: #### C BC #### [facility] [address] [place] [address] Dr. Malika De Los Santos Erythrocyte distribution width (RBC) [Ratio] 13.5 % Normal 11.0-15.0 [facility] Comment on above: Performed By: #### C BC #### [facility] [address] [place] [address] Dr. Malika De Los Santos Hematocrit (Bld) [Volume fraction] 44.3 % Normal 42.0-54.0 [facility] Comment on above: Performed By: #### C BC #### [facility] [address] [place] [address] Dr. Malika De Los Santos Hemoglobin (Bld) [Mass/Vol] 14.9 g/dL Normal 14.0-18.0 [facility] Comment on above: Performed By: #### C BC #### [facility] [address] [place] [address] Dr. Malika De Los Santos IG # 0.01 10e3/ul Normal 0.00-0.03 [facility] Comment on above: Performed By: #### C BC #### [facility] [address] [place] [address] Dr. Malika De Los Santos IG % 0.1 % Normal 0.0-0.5 [facility] Comment on above: Performed By: #### C BC #### [facility] [address] [place] [address] Dr. Malika De Los Santos LYMPH # 2.4 103/ul Normal 1.2-3.8 [facility] Comment on above: Performed By: #### C BC #### [facility] [address] [place] [address] Dr. Malika De Los Santos Lymphocytes/100 WBC (Bld) 35.5 % Normal 20.5-60.0 [facility] Comment on above: Performed By: #### C BC #### [facility] [address] [place] [address] Dr. Malika De Los Santos MANUAL DIFF REQ NO Normal [facility] Comment on above: Performed By: #### C BC #### [facility] [address] [place] [address] Dr. Malika De Los Santos MCH (RBC) [Entitic mass] 32.7 pg Normal 25.9-34.0 [facility] Comment on above: Performed By: #### C BC #### [facility] [address] [place] [address] Dr. Malika De Los Santos MCHC (RBC) [Mass/Vol] 33.6 g/dL Normal 29.9-35.2 [facility] Comment on above: Performed By: #### C BC #### [facility] [address] [place] [address] Dr. Malika De Los Santos MCV (RBC) [Entitic vol] 97.1 fL Critically high 80.0-94.0 [facility] Comment on above: Performed By: #### C BC #### [facility] [address] [address] [address] Malika De Los Santos MONO # 0.7 103/ul Normal 0.3-0.8 [facility] Comment on above: Performed By: #### C BC #### [facility] [address] [address] [address] Malika De Los Santos Monocytes/100 WBC (Bld) 10.2 % Normal 1.7-12.0 [facility] Comment on above: Performed By: #### C BC #### [facility] [address] [address] [address] Malika De Los Santos NEUT # 3.6 103/ul Normal 1.4-6.5 [facility] Comment on above: Performed By: #### C BC #### [facility] [address] [place] [address] Dr. Malika De Los Santos Neutrophils/100 WBC (Bld) 52.0 % Normal 43.0-75.0 [facility] Comment on above: Performed By: #### C BC #### [facility] [address] [place] [address] Dr. Malika De Los Santos Platelet mean volume (Bld) [Entitic vol] 11.8 fL Normal 9.5-13.5 [facility] Comment on above: Performed By: #### C BC #### [facility] [address] [place] [address] Dr. Malika De Los Santos PLT 224 103/ul Normal 150-450 [facility] Comment on above: Performed By: #### C BC #### [facility] [address] [address] [address] Malika De Los Santos RBC 4.56 106/ul Critically low 4.70-6.10 [facility] Comment on above: Performed By: #### C BC #### [facility] [address] [address] [address] Malika De Los Santos WBC 6.8 103/ul Normal 4.0-11.0 [facility] Comment on above: Performed By: #### C BC #### [facility] [address] [place] [address] Dr. Malika De Los Santos PROF 14(COMP METB)on 021 Albumin [Mass/Vol] 3.5 g/dL Normal 3.5-5.0 [facility] Comment on above: Performed By: #### C RP #### [facility] [address] [place] [address] Dr. Malika De Los Santos Albumin/Globulin [Mass ratio] 1.1 {ratio} Normal [facility] Comment on above: Performed By: #### C RP #### [facility] [address] [place] [address] Dr. Malika De Los Santos ALP [Catalytic activity/Vol] 122 U/L Normal 38-126 [facility] Comment on above: Performed By: #### C RP #### [facility] [address] [place] [address] Dr. Malika De Los Santos ALT [Catalytic activity/Vol] 26 U/L Normal 21-72 [facility] Comment on above: Performed By: #### C RP #### [facility] [address] [place] [address] Dr. Malika De Los Santos Anion gap [Moles/Vol] 8.9 mmol/L Normal [facility] Comment on above: Performed By: #### C RP #### [facility] [address] [place] [address] Dr. Malika De Los Santos AST [Catalytic activity/Vol] 18 U/L Normal 17-59 [facility] Comment on above: Performed By: #### C RP #### [facility] [address] [place] [address] Dr. Malika De Los Santos Bilirubin [Mass/Vol] 0.8 mg/dL Normal 0.2-1.3 [facility] Comment on above: Performed By: #### C RP #### [facility] [address] [place] [address] Dr. Malika De Los Santos Calcium [Mass/Vol] 8.8 mg/dL Normal 8.4-10.2 [facility] Comment on above: Performed By: #### C RP #### [facility] [address] [address] [address] Malika De Los Santos Chloride [Moles/Vol] 104 mmol/L Normal 98-107 [facility] Comment on above: Performed By: #### C RP #### [facility] [address] [place] [address] Dr. Malika De Los Santos CO2 [Moles/Vol] 31.1 mmol/L Critically high 22.0-30.0 [facility] Comment on above: Performed By: #### C RP #### [facility] [address] [place] [address] Dr. Malika De Los Santos Creatinine [Mass/Vol] 0.90 mg/dL Normal 0.66-1.25 [facility] Comment on above: Performed By: #### C RP #### [facility] [address] [place] [address] Dr. Malika De Los Santos EGFR-AF COLOMBIAN >60 Normal >=60 [facility] Comment on above: Performed By: #### C RP #### [facility] [address] [place] [address] Dr. Malika De Los Santos EGFR-NON AF COLOMBIAN >60 Normal >=60 [facility] Comment on above: Performed By: #### C RP #### [facility] [address] [place] [address] Dr. Malika De Los Santos Globulin (S) [Mass/Vol] 3.1 g/dL Normal [facility] Comment on above: Performed By: #### C RP #### [facility] [address] [place] [address] Dr. Malika De Los Santos Glucose [Mass/Vol] 93 mg/dL Normal 74-106 [facility] Comment on above: Performed By: #### C RP #### [facility] [address] [place] [address] Dr. Malika De Los Santos Potassium [Moles/Vol] 4.0 mmol/L Normal 3.4-5.0 [facility] Comment on above: Performed By: #### C RP #### [facility] [address] [place] [address] Dr. Malika De Los Santos Protein [Mass/Vol] 6.6 g/dL Normal 6.1-8.2 [facility] Comment on above: Performed By: #### C RP #### [facility] [address] [address] [address] Malika De Los Santos Sodium [Moles/Vol] 140 mmol/L Normal 137-145 [facility] Comment on above: Performed By: #### C RP #### [facility] [address] [address] [address] Malika De Los Santos Urea nitrogen [Mass/Vol] 18.0 mg/dL Normal 9.0-20.0 [facility] Comment on above: Performed By: #### C RP #### [facility] [address] [address] [address] Malika De Los Santos Urea nitrogen/Creatinine [Mass ratio] 20.0 mg/mg Normal [facility] Comment on above: Performed By: #### C RP #### [facility] [address] [address] [address] Malika De Los Santos Intra[employer] Documentson 1 07-28-2020 [employer] [id number] 1.00CD:127 Normal [facility] Coding Summary.on 05-25-2021 Coding Summary. CD:[id number] G h0bWw+PGhlYWQ+UI1RNAY yU39tkQEcqU3VP2xYBH6P QINMUWJNAP8ISR8nyRD7Y RgxD0TlvaGq TidqgLJuXL57CRx3NHL3d GqbXNihxC1ysTDfM4s2Gq ZaUM50cW48ZGnaFLOvZtM 3LjZpbjsgbWFy L7ccDuXbwLRoKfh+PHRhY mxlIHdpZHRoPScxMDAlJy JofPphQP4wTq7lYODwWOR vbGxhcHNlOiBj z0osRODuURmpJV3gfZclQ 6ZruXK5MWIvj8g7Nr94xI I+QOTaMME6rDweDPizt54 8DfLvn7ahQAU7 mAHmIVpaGVG2X51sw4S6S XZdQHWfKPB0cVS9yD6hmE lksuxuQ4AzxLNsNsN3TZT 0cSLejV5gvNei okowlO9lYgz+P22XJL8RI HICOY3PTiq8F5QgOimmtM I+KJ27EBCcRI75nHZcnHK sa2zpdRj6CiZn MXSjCHB5pGxyAFwwy0IcI OPlC33mlYWqd5R8OIBowQ lkzVRuHbLcoWA1aE4fUAa getsxi4qibzol Adoss4vjxg74sR40F62aZ NdoJYIpOKK4KEQgMFKmmA ehnb4iwS7pOt5+LPhun4x iq8bllFm1JqUx JYKujgDyyJsjOWC4o0SwP w51F4FygEnst4IySqy6ck 68fVBfh2A2sTH0XEmtDXQ nyI3jLRxiVqU4 MWIoOqVxnT63iLVuDYjaZ d3xkBlfjMstGA7gTWDemi rfUAWtkX3lYBHbjPSdfGl vGD8cRNWtpveu x660FhGlCLI5QXOjjGAyL 1BjlH7cEfJiZPSrWXTyW4 VojPCrJOtfA520OEboSeM 6BQCtgqMhW8Hq TTPtqYowNjW4r7E5Pl7Zf 8IexhqlXZW5VUqkLNFlXd J7IqSzBeP7N7PhJyp0ZEB vaCrkJT1aK4Kk NJPufiijtpbfpDI2ELUpQ KEwfX98rHKoFVbyDa6sw4 B6g870UKQkIEZeeW85Uh7 udDogMTBwdCBU lP1trfrfb2fpvahzRtDgH RCvZOt5KLe2GRWnfBfwUe IcAQD5ZqP8QBN8aDUwmO1 hsUzsrhysaT1e Oyc+R97obM7gZHP8MTR1k qqqSODiocVbRV14QF34F0 RyPjwvdGFibGU+PGRpdiB rlUsmUV0oNbGd f1ios0BdIUbnP6KaAPZnB BdvXxc2KJWxLCW8eAF5kG 6eQPSxGKwfd0I2tKG7A9D ogpLsbp5xc4xy TABqATodA34eiGRez5O1A POpzFD7ZVEcbFnbUrYqrH 93Oyc+KIJhdGkqk0VvGgh qb0khg3ostEi9 IlEzSNUupeTfcErkYPP5g 4PtFa66C51aQRxsSCEwXF KxBNZbLXYvhFsiie3arG9 wIi8+PGNvbCB3 bKS2aI2pRXVfRzA0EFxkI 851DxFlxNKsQknac5dfd6 bbuJd9GdOvVLChmjJmeMk yFUL0y1PfIm28 I05mPKruFQUeESSkWJHvT SVijVdkzv0azQ0tWh9+PC 8hr2rcmz73bU47hTF+PHR gTYP0uLmdHOkm NLPiyH0qLHhgWzO1NXCbZ wCqwE41qCXlVIbjLg2uwP ziwUxoDC0bFBEqyczja31 5DuHsx4dcLBXw vTKeIWxwBPL5G46fj0F9Y YUyOTVoWSE4dEK1lH0zuE lnbjogbGVmdDsgdmVydGl lYCkjBBrdM691 IHRvcDsnPlBhdGllbnQgT pAtVEv5Q5BkPes0ABFmxP uuFN0tcZIjOPevOq0yuCn pzFcmGN7lSWEh gczty361CkTqc6woUOPlm VGxEQdbKMC2C59rd4D3OP IgJZTaJKC2kGY9xP7ueCh nbjogbGVmdDsg ebJeyIcqBYybZIenH710C HRvcDsnPkJpcnRoIERhdG X6XF32ZC17sDXye1J1lJR 0N3CaBXWcbuea vqhweKH2INDjCPQiyS45X t4pfBjoUi3eMSFgHAC7FF UzlZUsG7ErfN8oWuGmJZI gMGZhN6JxsMGc AEgeV922ZPsiNpQ9MBAnq wRrO6SuZNGczQhoCaD2q0 Q3Ou1XN8A8WN03HF82wBY hc8M3wRJ3C8Yr SILzeildxlemjQZ0FKDoD QXueO35Pg0zkSvfXw9fAL FkSAZ6XGKlsYHwY2NxiG9 yOiAjMDAwMDAw V1RwlRMtTQqjC013LXroO iE9IAWwyxArR1KeMKYizD prDgJ6p4R1Nx2LDHt1NX5 5ZA76zEMoq9M6 lOF1E8JoGCQokcumgfpru CA6VHJcLKHupZ25Ub9mbZ bpJs2fYJYuVSW7UANvuID aC3WhwZ5rPlDd GFZjEVHgM6CwqCOwSBydL 912YXwwEbX7YUBxvvRiL3 AjMOXpnAjwDiV3h7F3Lh6 HTMJrXC57SAU4 iWP2QX19RJ29W3PkYtdqp GFibGU+PHRhYmxlIHdpZH RoPScxMDAlJyBzdHlsZT0 rBk9hVCOgITVz sIqoeYZgYcIqd5deOJZpA HxzZU8xsZgcK4EbnZW3SL Xln8d6Nf33T79aH1RniKG +NCKymUL2cBH9 cD6qHxEvCtL9XCubD659D dZprYVzCexck5fax1zuxO o6DxH5YYXxgsVgvMkpDVA 9p0KuYf93O10i IHdpZHRoPSIxNSUiIHZhb Kdbug8ilZ7wTi3+PGNvbC Y8pUH7kS1aGxUcGnB0CWi xL016PyGjbOZu Dofvk7yfb9gpeUm3WuDjX BJyscXeqAqbENU9g8JjEa 71M9HjdXcty6RcJms3ni9 3pXUrm3O6zJU9 P9DqYPNtkuhmoOEwtSuuL R6eJHOhbhqfKHJucY8pEJ GmQ5e1SzBzViF7LVbsE3P zuyG2LXPctMYy MRfjVOJ4C22pe5C4VZNuR SWsRUC0iLY7xN9inJbjdg ogbGVmdDsgdmVydGljYWw nHJzxP500PMLj mTgcXHSbjA3bOWLzbNXic ElkKR1dCOErgszzZhMBTL CVDNXXRN1BDTPsWfgjcMV +QYGwTRA6sLuj PFunWBTdrJ8tAPFrQ6a9P xTbOqL8TGnzT2TgSFKffv bqRd33tB3gPmHzYbV7ASa lM3BnqsV2GATg uVSwNVmrILD6C59uf4E6C WLeEWUpKRE3bJI2fW3qzH lnbjogbGVmdDsgdmVydGl hNLqmRXzeB781 WDCdnEqcEdE4XvX3SdZ0E Xk6E1UlRaz1ZNZppUreSI 9cnLYrDAovBy5vpLljcSk xQK0jNLUolmpy JCAbqM9uAXUvuVCqyMheK T7zTKIjepeml716SiYrDU U6FPLhiYVeA3JjuF5yXtJ aZFFxUDLtA7Qb oLVfXOvmB231WBeiLfH2B DIkysAzN5GqSGXvrGwuKh U7n1B4Qf80PdJPMRFkkqi vdGQ+PHRkIHN0 gBrvAFouUSZogZ2nKUPuU 8k0QbJoLaG1HRmyW1HpLY BmsghhIt14cC2uHzAsAwA 9UMhfG0MgwwV5 KXMroLWtKDbtHON6T13al 3R9ZQIwJVGlSHD2lMU9jL 1hbGlnbjogbGVmdDsgdmV ydGljYWwtYWxp B493GRLhuTepKd0xrPB8M 9KeTph0JUQtdBmkPL5wfS XyXBbqBc3veEeaeMrsCD8 wNTBpbjtwYWRk sE3oTRYenQCtqSbzHM3oK QZsqbghb586FbLfZAS0JS WxfNCkB1XyxC3rOfUzIQH iKLKrK6OpwKXs BUocU032PUvoJeZ8DRXer bShL7AwEZPyhUlpDkF6a7 O0Vt7KxBG3jFJ2x4I0I4N taTImGOZ5PDN5 widhjxd7L4UuHrghxLG+P J18DBVhNL94gKQgeIVdj9 gskIv0RoJyVBIvSMX7wSa uAJqje1MwWNIt L68vsKUik8Q5IYYpkAvqg EWyWbVdtBZ4sW9rZXrxaa zrh5rnfmcfHgrmg0svdn7 8fE84K56yJRuv ZHRoPSIzMCUiIHZhbGlnb b2yuL8mIr9+WUIaeRN0uS C5mI3kPmAlZuT2LRhgP60 9InRvcCIvPjxj n1iiy1ugxVt3XnZnHCKpe lNsiCfgKDO9k0YiSx30L6 9sIHdpZHRoPSIyMCUiIHZ aoPzcfa6bdG3y Ii8+FO3ue0ciyj32aZ82d HI+BDTmZKS5nQduCMlpOV UryR7vLBkxIjB9WUXqWlU fqK51kIFuORdf Ye9cdAhskPbbZE3pMPXme jmxj656YmKfz5ooJTBqvX NpXCbdNUN5M49fp0U1WVB wFMMwHXX0iCX7 jW2opObwyulskHLjaRlfq rFxcZzfECvgEFdhY750SU AzsMyzWsWduZIxK3skdiY LEW2aRerpqYY+ QOGiOZM9sOqmFIygSJOcj W5wRDAvQ8o6FlZhXoH4AU boF3ChjmK5KOVmhGSlFAM vfHMGzM3rixye k9pghckoDeNzGXSaEVd9I Ir3YTMrgIouKpCuGYI7Xo Q6EXX1jXGncT5gzSpchti tbP2mVtv+RklO OjwvdGQ+OTQdKCD5hFceF YjtHVNvcR1sCEHfJ6d1Ha KhOoR4VTjrH9BwkaG5EZC vbGQgMTBwdCBU eB4uicdcc3iplbksUxXcV FLaMJq6AWr8JASwwGrbBz PyIEE7LbK0SMD9uZOabQ9 avLmylumhgY2g Oyc+TVJOOjwvdGQ+PHRkI ZK4sYhqESxdPXRhbT5eOB ChF3j9ClOqQdW3CJjuJ6G alfA2CKHstOVz SJNxcRCOkI4vupima5vij imnWwCwUGJrGOf4TJj0RM PihBinZhIrZSB5NgW9AAR 8xOCzqN8gbXvt qaxjdV9iHxc+GEK3DEU2O M55OU09J2LuZfbcmIGxiW U+PHRhYmxlIHdpZHRoPSc xMDAlJyBzdHls ZT0n (more content not included)... Normal [facility] Coding Summary.on 05-24-2021 Coding Summary. CD:[id number] G h0bWw+PGhlYWQ+VX0YIOC pV45leCUqwZ8KM8xVVO2Y UZTLBIJTTH8LOW0ohOC3A HjqX8DjxvDm GywdySEqXB87IHy4LUB0r EvzAGftqB7juUNnJ8n7Bm CvDY28kM24RYtcFIUyUbW 3LjZpbjsgbWFy X8ixMxJqtXDhWiu+PHRhY mxlIHdpZHRoPScxMDAlJy IvyDncQY0cPw5rSQHcIBB vbGxhcHNlOiBj v0cwGWOkBVpyYV4ulIonD 7AljNH6SENiz3a5Bp47iW I+KLMlORL3sJsmKMlhn91 6YuBpt9lzLJA4 eKXuKVrcCLY1N80lz6H2Y KMaTVMxXDY9hOX2sJ6baE vyyplcG0YqlUNfWyP7GTJ 5aWTqsK1guTso obdntH9nBje+V20LWV4LI KZNJY8CHqh6X9AnLnkniX I+EX83FSHgHK16hPWtdZQ sc4hezCc3ZtXj BKNyUOH3xFyaODnkw8BaY LGyA14jtGNyt6H8GRWumF wyyKOhSeQwyPG7qW7oPXb mimtij1iitxtw Ppawg3lydb80dQ66Q54cI CcrWOSbVKV1KFQlMIJmhY ybzf4nzZ6pQm4+TDomq8e co2oelLz3AzRa LQCbydHziFxqCZU6e0RhN n75Z0WjwBldv0OzBun0yd 98lWPbb9N7hJH8ARriUNC usJ9dUWhbVxA1 ZFFwSyQxyJ44nJYbSMtoH i4ntOagcHytVZ0bZTWwns iuFJIhpE7rUTVtkNJjuNh yMJ0oQLTwetds k644DhWnLHQ5SISrkKPpU 3AbnX1qMmNuYMGeWUAlU7 QdwQZcNFcvQ380BQutMgJ 9NBDpfePzV7Hg IPJhgEurFsC7c0V5Uz4Xl 8DsapfvTGB1AWvnRDSuWa D9CzYkOpC1U7CsVop5KQV lqEptAC9hC9Wf SWZjsimoeohljKN9ULCbH ZWfpU04gISpVKccOb7wd7 F0y115PMVqGIDttM73Nv2 udDogMTBwdCBU wH6ndtkvu3hfnbleWaSkM GPiWDm8FJg3ECLxcHoySn QlMNV6YiF5LWN6eWIriJ0 sqNxcebeedC6h Oyc+Q85ahC5kFAP9MMF5i acyHDYdmmWrAO04XJ83D1 RyPjwvdGFibGU+PGRpdiB zeOlsSK4pZkNu w8tld6WeYBprL0WlRQWmG DwyKve7YRSaQVE4kVM4vT 1hASCkRBnxi0P8oMA0T7D avlXfjl0za8su KIZkEYtmE99hnMIsa7U5T YWvgKQ6IUOnaStaDzLqpP 93Oyc+FMSxoGzeh7CtXam hi0qwd5cwgIx9 NwWyKPNerbIoeVnhDNL6b 2XyYy56I01bBJleHNZyMG CvVWTjUHDtpNbpcn0myF1 wIi8+PGNvbCB3 xOY2lH0kDPRrFpT9HSyuN 560IdBuuPJjKlauw2qdd9 qfdNw9BgWkEKYucpScrRg sXKN4b0EdNx33 L37rOTykJVYsVMYaGEQcV QBpaSgoil8wvP6uPh9+PC 9jx4eoof22aV62rDG+PHR oFAS8rIvdMBqn VEOqiY8aLUtlWqE3MVPeI rKksC13kZLyVUjnIn9xdS bgqPszVB5hWDRukwquq84 9RiQlg6ztPTAf cEAgOIhbBZH2X92bj0Q6C ZMxGIKkKUG8xGM0rA3xmY lnbjogbGVmdDsgdmVydGl yNMszGBlkY823 IHRvcDsnPlBhdGllbnQgT hFlXTj0G5NwDlo1NZVqoP dgGQ2mqESqTDaiKy2hlLy oiUbiEN0wVENb ptcvn252HlMlc0pwITRpx PKhSHxjCAA2H47qa8V5ZK DmZQVjPNY5fHB0aX5raTf nbjogbGVmdDsg ygGlkAonDAotISnwA906G HRvcDsnPkJpcnRoIERhdG S8PK61RV42rXRqv3T4oGA 6X2QfLPUsxmav lfcspUI6ZKAgOMKffR98L w7uxKioNu4tMMInEZC2DJ GkaGPrG1AasM6pJvIuRJR cVRCbY5YidERy CGlmV484NFmcQnG7MASwr aErY1UiQUReuBfsSuF2t1 G0Zb5LH9I4IU84RB97iMA zv2A1sRH0Z6Pj BSNyjqqolyvrcSJ9DOPaU IKsjM15Ju5uiYeaCq6jAY DqBXG6PQOnjLQsD4CteT1 yOiAjMDAwMDAw C1BmkZBcQTtvF435WOsiD dR1KECuqmXuJ4JiZUSyoD coXwS2d3O9Qi8JTYk9YX8 4SZ03kCPol8Q1 lGV6K0BtKDAjaxoghgxqi IX0IWDwUFXjlP14Qw0vyZ loUd9cCPOvQMC3TYHjyVC vE2DklH6uQqYr OLXsRCYhD4ZplBDnPYiiS 867IZljZnX9LNZifcYrI2 PiCJHlsXofRdC6a2E1Qa9 GUGRsMT34IIO8 wCF0YF31LC71G8HbVhyxl GFibGU+PHRhYmxlIHdpZH RoPScxMDAlJyBzdHlsZT0 wOv5oKUGeQLKd cHvrsBSwEqPtt3dsPHDaM DctGS8gsWbkG0KxoXU8PO Txx6j6Px65Z07vE4UngXR +SHCtqGD0rMG6 kX2jEqGjXkC1QBdtT404A dIpjTQcQbxyg1kkz2ggfL u7HmN8WZMbijIszYzuINE 6h7MxOt54O56y IHdpZHRoPSIxNSUiIHZhb Bxmuc3kdI3tUl0+PGNvbC W7oWN6mL1bHrLxPaL2AEr bX745TzNinXZz Kcmda2uyt9xmcCj8SfIcT WUincFpuXyfGMY6k0IhLg 43N5BcoHprq0HcHwy5sl6 3cKDwg5C4nOB0 O7TlEJUqhksraWGkfAnyU L8dXLNxocqcPOFklM4xTM OfT7l6MsEqPdN3HRudY2B revZ5RLBewDVp BBdbBZB4H26za2E9GKQgA CCnLXT2cHW1sD6weVheph ogbGVmdDsgdmVydGljYWw kTEzmX406SWNj dMopAWCccV4wRCXjjRBbv EmtDF3nHYJxlkkuPzHHWT CHUVKCQZ2YCMTrMzqyhJF +DASuDTC8cWnp ZItxEDYugC7cPTXwB8c5D hLmXjR5KSiqM5UcKFAtex rzDh51dF6uGzUhXpS3HUn yM1VrbwV1UWAv pHCqWTctGLM1L31la7F2J NUhAVOvIDX3lCN8oF8zdH lnbjogbGVmdDsgdmVydGl yLQoaQZzzN708 XOVmyLrjWeD9UmM6AvG0E Pm2L7YlAyp1ZUZquGzbKP 3ncQEwUYdzKw4szLvgjRo dFQ1eENTjcugf MNCyrH7mQUXogDXlgIycN U0gTNBizzrmh541UgImSF C6QRWfcHJtG2RasQ2tBmD yBIFtQAXcP0Dx wNXuTIssQ693OSszWdE2Q TUixcNyN3WwMLTlnBdxFx M3h6J7Cd02YgFVXQJklmc vdGQ+PHRkIHN0 oDarCUhfHIGyhF3yZFIfX 7p1RcHvCcH2TFrrM3OtZD KyfybjGh76wN1tQsIjQmM 5DKskJ9MzkqL2 JHIkyNEsNVwnOJY4U02dy 7G1GZAiSHNhLNB8lZV2uM 1hbGlnbjogbGVmdDsgdmV ydGljYWwtYWxp S727DXQksMcrOg2iwDF8M 7GlTcd3XCBzzLgoXU9osH JwLUbhLx4deTxprPapYE6 wNTBpbjtwYWRk sK2jXCCifMPgeQiyML3lW EPqfnptj847YjAgYRP6LJ VlwTHbJ2XskU7bTiApWFI kHNHiI9YgtUNg HObfE987HXkyLyR1OFGvy yZqT8HtFFPgjNvyBfM9h3 Z0Jm4GcJApDMBhWR05AS0 1LU72T1EcYycu dGFibGU+PHRhYmxlIHdpZ HRoPScxMDAlJyBzdHlsZT 9fYl8mORBcREYedPbytBO mEgZvt6puMTPv ERcsSU2cpIelK5KchWD2F GThg8k8Jy49C33kG4JvbO A+OWPphYP9wYS1lQ2xBfY vKnD7JNkiN079 FpZyvJLcJhcxc7phs2qzs Pf8OzThCILtscBacMbcBJ K4b8CcJg42J23fSKpeMIM oPSIyMCUiIHZh hOwqcf7goK1hMw0+PGNvb QO1hXO0lG2yScJlKaB0RX pmR546UlRtpXXrHcbgI85 yD1CadWN+PHRy Rwc3OCDhjGbnVC5agKUhG SpzQh3uSUI2NgVjAwBsTS seE2FiWEXoeflwkrltxNT 0CCQuXHBxuX90 Wu4niLhwDq4uFMUbNFZ5J XOdeSUpV2TbqA7wUvUlMW WlZNOeZ7SsuWQsAYlcF54 4NCqjVvI4EWQd nlXwS7HcUXJneWzgPlD3v 0M4Gx7SsMwyvNQjOJ7sNh YlWAo1N8KuCiu2XQGhdRj sSQ1kbRMwIJku Oy9euMlvcDzwZJ7sADTop qhjv291OoMni3lwQUNdrU CnXWzpIOI0F71cv9N6UMB zNBInIBM4oVU1 yQ9fvPlcokuqsKEpaBgij iDogXslOKlxZSftI739YU VdpWfhUrQDMux3Y3EeUrl 8AGOlfLvqRU8o dQPsLIagXb9owKimhKonK W9sMLUlchiel725KhHdm4 onEHPiqKPaRCuvXJF7C25 nf4P6CAJvIEUz QQE1vFN8hK0hqNtowaoyf GVmdDsgdmVydGljYWwtYW tdN212WHWufYxnMf2KRmw 0Y4SvMjb3NTLw qMnxBL4edNQsYZemHf7ps CbygQlsJS0kXTMipnnmj1 11NaPfg6poJJNtcWNbFOl pZCB7V41nj0E2 KIOjUUYcCPM3qAK5lX0zb GlnbjogbGVmdDsgdmVydG ygJAdbYJeoT216QJLsgSh nPlBheWVyOjwv dGQ+YR60lu92H3HkPchlQ rp1KIEiHAX0xQL3gS2fUS JhPLyfz2D8lLX9E6YywnB fbw5ur2ssWNVw ZTog (more content not included)... Normal [facility] Consent for Anesthesiaon Consent for Anesthesia [id number]# 1.00CD:127 [facility] Consent for Procedure/Surger yon 05-23-2021 Consent for Procedure/Surgery [id number]#1 .00CD:127 [facility] Consent for Procedure/Surgery [id number]# 1.00CD:127 [facility] Discharge Instructionson Discharge Instructions [id number]#1 .00CD:127 [facility] IntraOperative Documentson 1 07-23-2020 IntraOperative Documents [id number]#1 .00CD:127 [facility] IntraOperative Documents [id number]# 1.00CD:127 [facility] Main OR Intraoperative Recor don 05-23-2021 Main OR Intraoperative Record IntraOp Document Type FT Summary Primary Physician: Steven AMBRIZ MD Finalized Date/Time: 05/23/21 14:23:39 Pt. Name: JLOSMAN/Sex: 1960 Male Med Rec #: [id number] Physician: Steven AMBRIZ MD Financial #: [id number] Pt. Type: A Room/Bed: N3/01 Admit/Disch: 05/21/21 15:41:50 - 05/22/21 14:28:00 Institution: Case Times FT Entry 1 Patient Times In Room 05/21/21 19:37:00 Out Room 05/21/21 20:09:00 Procedure Times Start 05/21/21 19:50:00 Stop 05/21/21 20:03:00 Anesthesia Times Start 05/21/21 19:37:00 Stop 05/21/21 20:09:00 Last Modified By: Ross CID, Cassy Squires 05/21/21 20:09:14 General Comments: 05/23/21 Chart opened to review and send charges Bishnu LECHUGA Case Attendance FT Entry 1 Entry 2 Entry 3 Case Attendee Jose Luis Deng DO, Moshe AMBRIZ MD, Steven Freire PRINTING PRESS MACHINIST, Mary Castellon Role Performed Anesthesiologist of Surgeon - Primary Scrub - Primary Record Time In 05/21/21 19:37:00 05/21/21 19:48:00 05/21/21 19:37:00 Time Out 05/21/21 20:09:00 05/21/21 20:05:00 05/21/21 20:09:00 Procedure CYSTOSCOPY W/ HOMIUM CYSTOSCOPY W/ HOMIUM CYSTOSCOPY W/ HOMIUM LASER(Unknown) LASER(Unknown) LASER(Unknown) Comments Last Modified By: Ross RN, Cassy Hawkins RN, Cassy Hawkins RN, Cassy Squires 05/21/21 20:09:18 05/21/21 20:09:18 05/21/21 20:09:18 Entry 4 Entry 5 Entry 6 Case Attendee Ross CID, Cassy Jama RN, Kaitlyn Almeida RT(R), Sandra Davidson Role Performed Outside Parts Sales - Primary Outside Parts Sales - Primary Cylinder Worker Time In 05/21/21 19:37:00 05/21/21 19:37:00 05/21/21 19:37:00 Time Out 05/21/21 20:09:00 05/21/21 20:09:00 05/21/21 20:05:00 Procedure CYSTOSCOPY W/ HOMIUM CYSTOSCOPY W/ HOMIUM CYSTOSCOPY W/ HOMIUM LASER(Unknown) LASER(Unknown) LASER(Unknown) Comments Orientation Precepting Last Modified By: Ross RN, Cassy Hawkins RN, Cassy Hawkins RN, Cassy Squires 05/21/21 20:09:18 05/21/21 20:09:18 05/21/21 20:09:18 Perioperative Protocols FT Pre-Care Text: Implements protective measures prior to operative or invasive procedure, confirms identity before the operative or invasive procedure, verifies operative procedure, surgical site, and laterality Entry 1 Procedure(s) CYSTOSCOPY W/ HOMIUM Patient Identity Birthday, ID Band LASER(Unknown) Verified (select at Check, Patient least 2): Participation Consents / H and P Anesthesia Consent, Operative Site N/A Verified HandP, Surgery/Procedure Marking Verified Consent, Transfusion Consent Surgical Site Yes Laterality Verified Yes Verified Procedure Verified Yes Correct Patient Yes Position Verified Availability Equipment, Medication, Prep Dry n/a Verified (If X-ray Applicable) PreOp Antibiotic No Time Out Jose Luis Deng DOMoshe Given Participants G, NAKIA BELTRE, Steven Ruffin, Tani PRINTING PRESS MACHINIST, Mary E, Ross CID, Cassy Squires, Evita RN, Juan Pablo Morrissey RT(R), Sandra Davidson Time Out Complete 05/21/21 19:49:00 Outcomes Met? Yes Last Modified By: Cassy Hawkins RN 05/21/21 19:50:54 Post-Care Text: The patient is free from signs and symptoms of injury caused by extraneous objects Allergy Information FT Pre-Care Text: Verifies allergies Entry 1 Allergies Reviewed? Yes Allergies Reviewed Self/Patient With Outcomes Met? Yes Last Modified By: Cassy Hawkins RN 05/21/21 19:20:45 Post-Care Text: The patient received appropriate medication(s) safely administered during the perioperative period Surgical Procedures FT Entry 1 Procedure Description Procedure CYSTOSCOPY W/ HOMIUM Modifiers Unknown LASER Surgeon Description CYSTOSCOPY, URETEROSCOPY, REMOVAL RETAINED LEFT URETERAL STENT Primary Procedure Yes Primary Surgeon Steven AMBRIZ MD Start 05/21/21 19:50:00 Stop 05/21/21 20:03:00 Anesthesia Type General Surgical Service Urology Wound Class 2 - Clean-Contaminated Last Modified By: Cassy Hawkins RN 05/21/21 20:06:00 General Case Data FT Pre-Care Text: Classifies surgical wound, implements aseptic technique, initiates traffic control Entry 1 Case Information OR OR 1 FT Case Level Level 3 Wound Class 2 - Clean-Contaminated Specialty Urology ASA Class 3 Preop Diagnosis RETAINED LEFT URETERAL Postop Same As Preop Yes STENT Postop Diagnosis RETAINED LEFT URETERAL Outcomes Met? Yes STENT Last Modified By: Cassy Hawkins RN 05/21/21 20:05:44 Post-Care Text: The patient is free from signs and symptoms of infection Skin Assessment (Pre Procedure) FT Pre-Care Text: Implements protective measures to prevent skin/ tissue injury due to thermal or mechanical sources Evaluates for signs and symptoms of physical injury to skin and tissue Entry 1 Skin Integrity Intact, [place], Warm, and Skin Abnormality No Dry Outcomes Met? Yes Last Modified By: Cassy Hawkins RN 05/21/21 19:29:33 Post-Care Text: The patient is free from signs and symptoms of injury caused by extraneous objects Patient Positioning (more content not included)... Normal [facility] Inpatient Clinical Summaryon 05-22-2021 Inpatient Clinical Summary [address] [address] Clinical Summary Person Information: Name: OSMAN PARIKH Age: 61 Years : 1960 Sex: Male PCP: Anna Martinez MD Marital Status: Race: White Ethnicity: Non- or Language: Malaysian MRN: Visit Id: Visit Reason: RETAIN L URETHRAL STENT Speciality: Acuity: Enc Type: Ambulatory/Same Day Surgery Med Service: Medical Arrival: 05/21/2021 15:41:50 Discharge: Dispo Type: Address: [address] [place] [id number] Provider Notes: Diagnosis: Problems Active BMI 31.0-31.9,adult Nocturia Frequency of urination Gross hematuria Dysuria Hyperlipidemia Hypertension Deafness Gall stone Hydronephrosis with ureteral calculus BPH with urinary obstruction Kidney stone Anxiety Hypercholesterolemia Benign essential hypertension Impotence Smoking Status: Never Smoker Functional Status: Sensory Deficits: Hearing deficit, left ear, Hearing deficit, right ear History of Falls: Mobility Assistance Prior to Admission: Independent ADLs: Independent Current Level of Assistance for Self-Care/Mobility: Cognitive Status: Allergies erythromycin (Rash) NSAIDs (Gastric bypass operation) Measurements: Height: 172.72 cm Weight: 96.4 kg Blood Pressure: 157 mmHg / 71 mmHg BMI: 32.31 kg/m2 Procedures Cystoscopy (05/21/2021) Immunizations No Immunizations Documented This Visit Final Med List: allopurinol (allopurinol 100 mg Tab) 100 Milligram By Mouth every day. amlodipine (Norvasc) 5 Milligram By Mouth every day. calcium carbonate (calcium 500 mg tablets) 1 Tablets By Mouth every day. ciprofloxacin (Cipro 500 mg Tab) 1 Tablets By Mouth 2 times a day. Refills: 0. ciprofloxacin (Cipro 500 mg Tab) Take 1 tab day prior to procedure and 1 tab day of procdure - afterwards. Refills: 0. hyoscyamine (Levsin 0.125 mg oral tablet) 1 Tablets By Mouth 4 times a day as needed for spasm. Refills: 0. multivitamin with minerals (Multivitamin, Therapeutic w/ Minerals) 1 Tablets By Mouth every day. ondansetron (Zofran 4 mg Tab) 1 Tablets By Mouth every 8 hours as needed Nausea/Vomiting. Refills: 0. simvastatin (simvastatin 5 mg Tab) 20 Milligram By Mouth once a day (at bedtime). tamsulosin (Flomax) 0.4 Milligram By Mouth every day. tramadol (traMADOL 50 mg Tab) 1 Tablets By Mouth every 12 hours as needed for pain. Refills: 0. Care Team Members: Attending Physician: Steven AMBRIZ MD Consulting Physician: Referring Physician: Follow up: With: Address: When: Steven AMBRIZ [address] [place], [place] [id number] Business (1) Comments: Call for followup appointment in about six months with an abdominal X-ray prior to your visit. With: Address: When: Anna Martinez [address] [place] [address], [facility] [place] [address] Business (1) Patient Education Information: Cipro Normal [facility] Inpatient Patient Summaryon 05-22-2021 Inpatient Patient Summary [place] [id number] Patient Discharge Instructions PERSON INFORMATION Name: OSMAN PARIKH Date of : 1960 Current Date: 05/22/2021 13:57:46 PHYSICIANS Admitting Physician: Steven AMBRIZ MD Primary Care Physician: Anna Martinez MD PCP Comment: Discharge Diagnosis: Condition at Discharge: Improved OSMAN PARIKH has been given the following list of follow-up instructions, prescriptions, and patient education materials: PATIENT FOLLOW-UP INFORMATION Diet: Regular Discharge Activity: Discharge Restrictions: Wound Care Instructions: Remove Your Dressing In Days Call Your Doctor For: Persistent or heavy bleeding, Temperature above 101.5 degrees IF UNABLE TO CONTACT YOUR PHYSICIAN AND YOU FEEL IT IS AN EMERGENCY, GO TO THE NEAREST EMERGENCY ROOM OR CALL 911 Home Treatment: Devices/Equipment: Special Services: Additional Instructions: Primary Care Physician to provide the following pending test results: None Follow up: With: Address: When: Steven GONZALEZ, [address], [facility] [address] [place] [address] Business (1) Comments: Call for followup appointment in about six months with an abdominal X-ray prior to your visit. With: Address: When: Anna Martinez [address] [place] [address], [place] [address] Business (1) In the event that this physician does not participate in your insurance network, please consult with your insurance company to find a nearby participating provider. Comment: JL Carlson THOMAS W, have received the attached patient education materials/instruction s and have verbalized understanding: Patient Signature Date Clinican/Nurse Signature Date HERE ARE THE MEDICATION CHANGES THAT OCCURRED DURING YOUR HOSPITAL STAY Medications to Continue Taking That Have Changed [employer] [id number], [address] [place], [place] [id number], [phone] START: ciprofloxacin (Cipro 500 mg Tab) 1 Tablets By Mouth 2 times a day. Refills: 0. Last Dose: ____Next Dose: ____ Other Medications START: ciprofloxacin (Cipro 500 mg Tab) Take 1 tab day prior to procedure and 1 tab day of procdure - afterwards. Refills: 0. Last Dose: ____Next Dose: ____ Medications to Continue with No Changes Other Medications allopurinol (allopurinol 100 mg Tab) 100 Milligram By Mouth every day. Last Dose: ____Next Dose: ____ amlodipine (Norvasc) 5 Milligram By Mouth every day. Last Dose: ____Next Dose: ____ calcium carbonate (calcium 500 mg tablets) 1 Tablets By Mouth every day. Last Dose: ____Next Dose: ____ hyoscyamine (Levsin 0.125 mg oral tablet) 1 Tablets By Mouth 4 times a day as needed for spasm. Refills: 0. Last Dose: ____Next Dose: ____ multivitamin with minerals (Multivitamin, Therapeutic w/ Minerals) 1 Tablets By Mouth every day., Opurity multivitamin specific for gastric bypass patients Last Dose: ____Next Dose: ____ ondansetron (Zofran 4 mg Tab) 1 Tablets By Mouth every 8 hours as needed Nausea/Vomiting. Refills: 0. Last Dose: ____Next Dose: ____ simvastatin (simvastatin 5 mg Tab) 20 Milligram By Mouth once a day (at bedtime). Last Dose: ____Next Dose: ____ tamsulosin (Flomax) 0.4 Milligram By Mouth every day. Last Dose: ____Next Dose: ____ tramadol (traMADOL 50 mg Tab) 1 Tablets By Mouth every 12 hours as needed for pain. Refills: 0. Last Dose: ____Next Dose: ____ Comment: MEDICATION LIST PROVIDED FOR YOU IS A LIST OF YOUR CURRENT MEDICATIONS. PLEASE CARRY THIS WITH YOU AT ALL TIMES. allopurinol (allopurinol 100 mg Tab) 100 Milligram By Mouth every day. amlodipine (Norvasc) 5 Milligram By Mouth every day. calcium carbonate (calcium 500 mg tablets) 1 Tablets By Mouth every day. ciprofloxacin (Cipro 500 mg Tab) 1 Tablets By Mouth 2 times a day. Refills: 0. ciprofloxacin (Cipro 500 mg Tab) Take 1 tab day prior to procedure and 1 tab day of procdure - afterwards. Refills: 0. hyoscyamine (Levsin 0.125 mg oral tablet) 1 Tablets By Mouth 4 times a day as needed for spasm. Refills: 0. multivitamin with minerals (Multivitamin, Therapeutic w/ Minerals) 1 Tablets By Mouth every day. ondansetron (Zofran 4 mg Tab) 1 Tablets By Mouth every 8 hours as needed Nausea/Vomiting. Refills: 0. simvastatin (simvastatin 5 mg Tab) 20 Milligram By Mouth once a day (at bedtime). tamsulosin (Flomax) 0.4 Milligram By Mouth every day. tramadol (traMADOL 50 mg Tab) (more content not included)... Normal [facility] Patient Education - Texton 1 07-22-2020 Patient Education - Text ciprofloxacin (oral) (SIP eugenio FLOX a sin) Cipro, Proquin XR What is the most important information I should know about ciprofloxacin? Ciprofloxacin can cause serious side effects, including tendon problems, nerve damage, serious mood or behavior changes, or low blood sugar. Stop using this medicine and call your doctor at once if you have: headache, hunger, irritability, numbness, tingling, burning pain, confusion, agitation, paranoia, problems with memory or concentration, thoughts of suicide, or sudden pain or movement problems in any of your joints. In rare cases, ciprofloxacin may cause damage to your aorta, which could lead to dangerous bleeding or . Get emergency medical help if you have severe and constant pain in your chest, stomach, or back. What is ciprofloxacin? Ciprofloxacin is a fluoroquinolone (usjb-i-SNKU-o-lone) antibiotic, it is used to treat different types of bacterial infections. It is also used to treat people who have been exposed to anthrax or certain types of plague. Ciprofloxacin extended-release is only approved for use in adults. Fluoroquinolone antibiotics can cause serious or disabling side effects that may not be reversible. Ciprofloxacin should be used only for infections that cannot be treated with a safer antibiotic. Ciprofloxacin may also be used for purposes not listed in this medication guide. What should I discuss with my healthcare provider before taking ciprofloxacin? You should not use ciprofloxacin if you are allergic to it, or if: ?? you also take tizanidine; or ? you are allergic to other fluoroquinolones (levofloxacin, moxifloxacin, norfloxacin, ofloxacin). Ciprofloxacin may cause swelling or tearing of a tendon (the fiber that connects bones to muscles in the body), especially in the Achilles' tendon of the heel. This can happen during treatment or several months after you stop taking ciprofloxacin. Tendon problems may be more likely in children and older adults, or people who use steroid medicine or have had an organ transplant. Tell your doctor if you have ever had: ?? arthritis or problems with your tendons, bones or joints (especially in children); ? diabetes, low blood sugar; ? nerve problems; ? an aneurysm or blood circulation problems; ? heart problems, or a heart attack; ? muscle weakness, myasthenia gravis; ? liver or kidney disease; ? a seizure, head injury, or brain tumor; ? trouble swallowing pills; ? long QT syndrome (in you or a family member); or ? low levels of potassium in your blood (hypokalemia). Do not give this medicine to a child without medical advice. It is not known whether this medicine will harm an unborn baby. Tell your doctor if you are . You should not breastfeed while taking ciprofloxacin and for 2 days after your last dose. Ask your doctor about if you take ciprofloxacin for anthrax exposure. How should I take ciprofloxacin? Follow all directions on your prescription label and read all medication guides or instruction sheets. Use the medicine exactly as directed. Take ciprofloxacin at the same time each day, with or without food. Shake the oral suspension (liquid) for 15 seconds before you measure a dose. Use the dosing syringe provided, or use a medicine dose-measuring device (not a kitchen spoon). Do not give ciprofloxacin oral suspension through a feeding tube. Swallow the extended-release tablet whole and do not crush, chew, or break it. Drink plenty of liquids while you are taking ciprofloxacin. Use this medicine for the full prescribed length of time, even if your symptoms quickly improve. Skipping doses can increase your risk of infection that is resistant to medication. Ciprofloxacin will not treat a viral infection such as the flu or a common cold. Do not share ciprofloxacin with another person. Store at room temperature away from moisture and heat. Do not allow the liquid medicine to freeze. Throw away any unused liquid after 14 days. What happens if I miss a dose? If you take regular tablets or oral suspension: Take the medicine as soon as you can, but skip the missed dose if your next dose is due in less than 6 hours. If you take extended-release tablets: Take the medicine as soon as you can, but skip the missed dose if your next dose is due in less than 8 hours. Do not take two doses at one time. What happens if I overdose? Seek emergency medical attention or call the Poison Help line at . What should I avoid while taking ciprofloxacin? Do not take ciprofloxacin with dairy products such as milk or yogurt, or with calcium-fortified juice. You may eat or drink these products with your meals, but do not use them alone when taking ciprofloxacin. Antibiotic medicines can cause diarrhea, which may be a sign of a new infection. If you have diarrhea that is watery or bloody, call your doctor before using anti-diarrhea medicine. Ciprofloxacin could make you sunburn more easily. Avoid sunligh (more content not included)... Normal [facility] Pre-Authorization for Medica l Treatmenton 05-22-2021 Pre-Authorization for Medical Treatment [id number] .00CD:127 Normal [facility] Progress Note-Physicianon Progress Note-Physician Patient: OSMAN PARIKH Age: 61 years Sex: Male : 1960 Associated Diagnoses: None Author: Moshe Amaya Jr., DO Postoperative Information Post Operative Note: Post Anesthesia Care Unit. Anesthetic utilized: General. Health Status Allergies: Allergic Reactions (Selected) Severity Not Documented Erythromycin- Rash. NSAIDs- Gastric bypass operation. Problem list: All Problems Impotence / SNOMED CT 8963181437 / Confirmed Benign essential hypertension / SNOMED CT 1339829 / Confirmed Hypercholesterolemia / SNOMED CT 90431176 / Confirmed Anxiety / SNOMED CT 22088888 / Confirmed Kidney stone / SNOMED CT 457221648 / Confirmed BPH with urinary obstruction / SNOMED CT 8787511099 / Confirmed Hydronephrosis with ureteral calculus / SNOMED CT 6574060146 / Confirmed Gall stone / SNOMED CT 522295773 / Confirmed Deafness / SNOMED CT 84313105 / Confirmed Hypertension / SNOMED CT 9319757224 / Confirmed Hyperlipidemia / SNOMED CT 85771912 / Confirmed Dysuria / SNOMED CT 80118947 / Confirmed Gross hematuria / SNOMED CT 589806899 / Confirmed Frequency of urination / SNOMED CT 127320973 / Confirmed Nocturia / SNOMED CT 045732350 / Confirmed BMI 31.0-31.9,adult / SNOMED CT 818905925 / Confirmed Canceled: Impingement syndrome of shoulder / SNOMED CT 363720246 Canceled: Lipoma of arm / SNOMED CT 4960394716 Physical Examination Vital Signs 05/21/2021 20:36 EST Temperature Temporal Artery 36.6 DegC Heart Rate Monitored 49 bpm LOW Respiratory Rate Monitored 16 br/min Systolic Blood Pressure 154 mmHg HI Diastolic Blood Pressure 77 mmHg Blood Pressure Location Right arm SpO2 97 % 05/21/2021 20:26 EST Heart Rate Monitored 48 bpm LOW Respiratory Rate Monitored 14 br/min Systolic Blood Pressure 153 mmHg HI Diastolic Blood Pressure 75 mmHg Blood Pressure Location Right arm SpO2 98 % 05/21/2021 20:21 EST Heart Rate Monitored 47 bpm LOW Respiratory Rate Monitored 12 br/min Systolic Blood Pressure 147 mmHg HI Diastolic Blood Pressure 77 mmHg Blood Pressure Location Right arm SpO2 98 % 05/21/2021 20:16 EST Heart Rate Monitored 53 bpm LOW Respiratory Rate Monitored 14 br/min Systolic Blood Pressure 145 mmHg HI Diastolic Blood Pressure 79 mmHg Blood Pressure Location Right arm SpO2 99 % 05/21/2021 20:11 EST Temperature Temporal Artery 36.6 DegC Heart Rate Monitored 51 bpm LOW Respiratory Rate Monitored 18 br/min (Modified) Systolic Blood Pressure 144 mmHg HI Diastolic Blood Pressure 73 mmHg Blood Pressure Location Right arm SpO2 97 % Pain assessment: Pain Assessment 05/21/2021 20:36 EST Pain Symptoms Self Report No, able to self report Patient Preferred Pain Tool Numeric rating Numeric Pain Scale 0 = No pain Numeric Pain Score 0 05/21/2021 20:11 EST Pain Symptoms Self Report No, able to self report Patient Preferred Pain Tool Numeric rating Numeric Pain Scale 0 = No pain Numeric Pain Score 0 , Controlled. General: Alert and oriented, No acute distress, No nausea. Adequate hydration.. Respiratory: Adequate air exchange.. Cardiovascular: stable. Neurologic: Normal sensory. Review / Management Condition: Stable. Assessment Anesthetic outcome No anesthetic complications noted. Plan Transfer/ Discharge: Condition stable. Normal [facility] Comment on above: Result Comment: Elec tronically Signed By: Moshe Amaya Jr., DO\.br\Date and Time Signed: 05/22/21 07:43 EST XR Abdomen 1 Viewon 05-22-20 21 XR Abdomen 1 View Exam Date/Time: 05/21/2021 20:24 EST Reason for Exam: kidney stones Report IMPRESSION: Fluoroscopic assistance provided for operative guidance EXAM:XR Abdomen 1 View HISTORY: kidney stones History: A total of 2 fluoroscopic images were obtained by Steven Staples during the left retrograde urogram.. Please refer to operative report for further details. The fluoroscopy time was 0.7 minutes FINAL REPORT Dictated: 05/22/2021 2:00 pm Catalino Ahmadi MD Signed (Electronic Signature): 05/22/2021 2:00 pm Signed by: Catalino Ahmadi MD Transcribed by: ODALIS Technologist: GEORGE Technical Comments Radiation Dose: Ka,r in mGy = 5.2 Normal [facility] Consent for Treatmenton 05-07 Consent for Treatment [id number] .00CD:127 Normal [facility] Consent for Treatment [id number] .00CD:127 Normal [facility] Inpatient Patient Summaryon 05-21-2021 Inpatient Patient Summary [place] [id number] Clinical Summary Person Information Name: OSMAN PARIKH Age: 61 Years : 1960 Sex: Male PCP: Anna Martinez MD Marital Status: Race: White Ethnicity: Non- or Language: Malaysian Visit Id: Visit Reason: KIDNEY STONE Speciality: Acuity: Enc Type: Outpatient Med Service: Surgery Arrival: 05/21/2021 13:35:37 Discharge: Dispo Type: Address: [address] [place] [id number] Provider Notes: Diagnosis: Problems Active BMI 31.0-31.9,adult Nocturia Frequency of urination Gross hematuria Dysuria Hyperlipidemia Hypertension Deafness Gall stone Hydronephrosis with ureteral calculus BPH with urinary obstruction Kidney stone Anxiety Hypercholesterolemia Benign essential hypertension Impotence Smoking Status: Functional Status: Sensory Deficits: History of Falls: Mobility Assistance Prior to Admission: ADLs: Current Level of Assistance for Self-Care/Mobility: Cognitive Status: Allergies erythromycin (Rash) NSAIDs (Gastric bypass operation) Laboratory or Other Results This Visit (last charted value for your 05/21/2021 visit) No Laboratory or Other Results This Visit Measurements: Height: 175 cm Weight: Blood Pressure: Not Valued / Not Valued BMI: Procedures No Procedures Documented Immunizations No Immunizations Documented This Visit Final Med List: amlodipine (Norvasc) 5 Milligram By Mouth every day. calcium carbonate (calcium 500 mg tablets) 1 Tablets By Mouth every day. ciprofloxacin (Cipro 500 mg Tab) Take 1 tab day prior to procedure and 1 tab day of procdure - afterwards. Refills: 0. hyoscyamine (Levsin 0.125 mg oral tablet) 1 Tablets By Mouth 4 times a day as needed for spasm. Refills: 0. multivitamin with minerals (Multivitamin, Therapeutic w/ Minerals) 1 Tablets By Mouth every day. ondansetron (Zofran 4 mg Tab) 1 Tablets By Mouth every 8 hours as needed Nausea/Vomiting. Refills: 0. tamsulosin (Flomax) 0.4 Milligram By Mouth every day. tramadol (traMADOL 50 mg Tab) 1 Tablets By Mouth every 12 hours as needed for pain. Refills: 0. Care Team Members: Attending Physician: Steven AMBRIZ MD Consulting Physician: Referring Physician: Steven AMBRIZ MD Follow up: With: Address: When: Steven AMBRIZ [address], [address], [facility] [address] [place] [address] Business (1) Comments: We will admit you to the hospital and obtain an abdominal X-ray. I will then decide upon the next step. Please do not eat or drink anything for now. Patient Education Information: [facility] Main OR Intraoperative Recor don 05-21-2021 Main OR Intraoperative Record IntraOp Document Type FTURO Summary Primary Physician: Steven AMBRIZ MD Finalized Date/Time: 05/21/21 16:14:24 Pt. Name: OSMAN PARIKH Moshe /Sex: 1960 Male Med Rec #: [id number] Physician: Steven AMBRIZ MD Financial #: [id number] Pt. Type: O Room/Bed: / Admit/Disch: 05/21/21 13:35:37 - Institution: Case Times FTURO Entry 1 Patient Times In Room 05/21/21 14:31:00 Out Room 05/21/21 15:10:00 Procedure Times Start 05/21/21 14:35:00 Stop 05/21/21 14:57:00 Anesthesia Times Last Modified By: Iza RN, CNOR, Anitra Arevalo 05/21/21 15:14:26 General Comments: pateint dressed and sitting in room. stent stuck half in and out. aviles inserted. dr ambriz checking surgical schedulle. pt family called by patient. 1513 r nakia speaking with patient, 1518 PATIENT TO DIRECT ADMIT TO HOSPITAL PER DR AMBRIZ Case Attendance FTURO Entry 1 Entry 2 Entry 3 Case Attendee Steven AMBRIZ MD PRINTING PRESS MACHINIST, Mary Couch RN, CNOR, Anitra Arevalo Role Performed Surgeon - Primary Scrub - Primary Outside Parts Sales - Primary Time In 05/21/21 14:31:00 05/21/21 14:31:00 05/21/21 14:31:00 Time Out 05/21/21 15:02:00 05/21/21 15:02:00 05/21/21 15:02:00 Procedure CYSTOSCOPY LOCAL WITH CYSTOSCOPY LOCAL WITH CYSTOSCOPY LOCAL WITH STENT REMOVAL(Left) STENT REMOVAL(Left) STENT REMOVAL(Left) Comments Last Modified By: Iza RN, FLACOOR, Anitra Couch RN, FLACOOR, Anitra Couch RN, FLACOORAnitra 05/21/21 15:02:33 05/21/21 15:02:33 05/21/21 15:02:33 Surgical Procedures FTURO Entry 1 Procedure Description Procedure CYSTOSCOPY LOCAL WITH Modifiers Left STENT REMOVAL Surgeon Description CYSTOSCOPY LOCAL WITH STENT REMOVAL Primary Procedure Yes Primary Surgeon Steven AMBRIZ MD Start 05/21/21 14:35:00 Stop 05/21/21 14:57:00 Anesthesia Type Local Surgical Service Urology Wound Class 2 - Clean-Contaminated Last Modified By: Iza CID, FLACOOR, Anitra Arevalo 05/21/21 15:02:09 General Case Data FTURO Pre-Care Text: Classifies surgical wound, implements aseptic technique, initiates traffic control Entry 1 Case Information OR URO 2 FT Case Level None Wound Class 2 - Clean-Contaminated Specialty Urology Preop Diagnosis KIDNEY STONE- post Postop Same As Preop No stent placement Postop Diagnosis KIDNEY STONE- post Outcomes Met? Yes stent placement Last Modified By: DAMIAN Couch RN, Lou Ann 05/21/21 14:56:24 Post-Care Text: The patient is free from signs and symptoms of infection EU IntraOp - FTURO Pre-Care Text: Implements protective measures prior to operative or invasive procedure, confirms identity before the operative or invasive procedure, verifies operative procedure, surgical site, and laterality Entry 1 EU Perioperative Protocols Procedure(s) CYSTOSCOPY LOCAL WITH Patient Identity ID Band Check, Patient STENT REMOVAL(Left) Verified (select at Participation least 2): Consents / H and P HandP, Surgery/Procedure Operative Site N/A Verified Consent Marking Verified Surgical Site Yes Laterality Verified Yes Verified Procedure Verified Yes Correct Patient Yes Position Verified Availability Equipment, Medication Time Out Steven AMBRIZ MD, Verified (If Participants Plum BranchMary camilo CST, Applicable) DAMIAN Couch RN, Lou Ann Time Out Complete 05/21/21 14:35:00 Allergies Reviewed? Yes Allergies Reviewed Self/Patient With Body Position Supine Prep Area PENIS Prep Agents Betadine Solution Skin. Condition Warm, Unable to Description CLOTHING ON Visualize Additional Other (See Comment) Specimens Comment STENT DISPOSED OF Specimens Collected Vitals - EU Blood Pressure 162/84 Pulse 78 bpm Respirations 16 br/min SPO2 EBL 0 IandO - EU Total Intake 0 mL Total Output 0 mL Outcomes Met? Yes Last Modified By: DAMIAN Couch RN, Lou Ann 05/21/21 14:35:53 Post-Care Text: The patient is free from signs and symptoms of injury caused by extraneous objects Sign Out FTURO Entry 1 Before Patient Leaves OR Nurse verbally Yes Nurse verbally n/a confirms with the confirms with the team the name of team that the procedure(s) instrument, sponge, recorded and needle counts are correct (or N/A) Nurse verbally n/a Nurse verbally Yes confirms with the confirms with the team how the team whether there specimen is labeled are any equipment (including patient problems to be name), if applicable addressed Sign Out Complete 05/21/21 14:57:00 Last Modified By: DAMIAN Couch RN, Lou Ann 05/21/21 14:57:08 Case Comments Finalized By: DAMIAN Couch RN, Lou Ann Document Signatures Signed By: DAMIAN Couch RN, Lou Ann 05/21/21 15:14 DAMIAN Couch RN, Lou Ann 05/21/21 16:13 DAMIAN Couch RN, Lou Ann 05/21/21 16:14 Normal [facility] Main OR PACU I Recordon 05-07 Main OR PACU I Record PACU Phase I Document Type FT Summary Primary Physician: Steven AMBRIZ MD Finalized Date/Time: 05/21/21 21:07:52 Pt. Name: OSMAN PARIKH/Sex: 1960 Male Med Rec #: [id number] Physician: Steven AMBRIZ MD Financial #: [id number] Pt. Type: O Room/Bed: [facility]/01 Admit/Disch: 05/21/21 15:41:50 - Institution: Case Times PACU I FT Pre-Care Text: Identifies barriers to communication and implements measures to provide psychological support Develops individualized plan of care, and ensures continuity of care Maintains patient's dignity and privacy, and maintains patient confidentiality Identifies and reports philosophical, cultural, and spiritual beliefs and values Identifies individual values and wishes concerning care Implements aseptic technique, and administers prescribed antibiotic therapy and immunizing agents as ordered Evaluates postoperative tissue perfusion Implements thermoregulation measures, and monitors body temperature Evaluates postoperative respiratory status Evaluates postoperative cardiac status Evaluates postoperative neurological status Assesses pain control, collaborated in initiating patient-controlled analgesia and implements alternative methods of pain control Verifies allergies, administers prescribed medications and solutions, evaluates response to medications Entry 1 In PACU I 05/21/21 20:11:00 Discharge from PACU 05/21/21 20:41:00 I Outcomes Met? Yes Last Modified By: Shelia Canales RN 05/21/21 21:07:35 Post-Care Text: The patient demonstrates knowledge of the expected response to the operative or invasive procedure The patient's care is consistent with the individualized perioperative plan of care The patient's right to privacy is maintained The patient's value system, lifestyle, ethnicity, and culture are considered, respected, and incorporated into the perioperative plan of care The patient participates in decisions affecting his or her perioperative plan of care The patient is free from signs and symptoms of infection The patient has wound/tissue perfusion consistent with or improved from baseline levels established preoperatively The patient is at or returning to normothermia at the conclusion of the immediate postoperative period The patient's respiratory function is consistent with or improved from baseline levels established preoperatively The patient's cardiovascular status is consistent with or improved from baseline levels established preoperatively The patient's cardiovascular status is consistent with or improved from baseline levels established preoperatively The patient demonstrates and/or reports adequate pain control throughout the perioperative period The patient received appropriate medication(s), safely administered during the perioperative period Acuity Level PACU I FT Entry 1 Start Time 05/21/21 20:11:00 Stop Time 05/21/21 20:41:00 Acuity Level Acuity Level I Last Modified By: Shelia Canales RN 05/21/21 21:07:51 Finalized By: Shelia Canales RN Document Signatures Signed By: Shelia Canales RN 05/21/21 21:07 Normal [facility] Main OR Preoperative Recordo n 05-21-2021 Main OR Preoperative Record PreOp Document Type FT Summary Primary Physician: Steven AMBRIZ MD Finalized Date/Time: 05/21/21 20:10:54 Pt. Name: OSMAN PARIKH/Sex: 1960 Male Med Rec #: [id number] Physician: Steven AMBRIZ MD Financial #: [id number] Pt. Type: O Room/Bed: 05/ Admit/Disch: 05/21/21 15:41:50 - Institution: Case Times PreOp FT Pre-Care Text: Verifies consent for planned procedure, identifies individual values and wishes concerning care, includes family members in perioperative teaching Entry 1 Patient Times. In Pre Surgery 05/21/21 18:30:00 Out Pre Surgery 05/21/21 19:35:00 Outcomes Met? Yes Last Modified By: Cassy Hawkins RN 05/21/21 20:10:52 Post-Care Text: The patient participates in decisions affecting his or her perioperative plan of care Finalized By: Cassy Hawkins RN Document Signatures Signed By: Cassy Hawkins RN 05/21/21 20:10 Normal [facility] Main OR Preoperative Record Holding Area Document Type FTURO Summary Primary Physician: Steven AMBRIZ MD Finalized Date/Time: 05/21/21 14:33:05 Pt. Name: OSMAN PARIKH/Sex: 1960 Male Med Rec #: [id number] Physician: Steven AMBRIZ MD Financial #: [id number] Pt. Type: O Room/Bed: / Admit/Disch: 05/21/21 13:35:37 - Institution: Case Times Holding FTURO Pre-Care Text: Verifies consent for planned procedure, identifies individual values and wishes concerning care, includes family members in perioperative teaching Secures patient's records' belongings, and valuables, maintains patient's dignity and privacy, and maintains patient confidentiality Entry 1 In Holding 05/21/21 13:53:00 Outcomes Met? Yes Last Modified By: Douglas Arita LPN 05/21/21 13:53:46 Post-Care Text: The patient participates in decisions affecting his or her perioperative plan of care The patient's right to privacy is maintained Surgery Checklist FTURO Entry 1 Patient Birthday, ID Band Procedure History and Physical, Identification: Check, Patient Verification: Surgical Consent, With Participation Patient NPO after Midnight: n/a Personal Items: Glasses, Jewelry Personal Items ring, watch Complaints of Pain: No Comment: Skin Integrity Unable to Visualize Vitals - EU Blood Pressure 162/84 Pulse 78 bpm Respirations 16 br/min SPO2 Additional None RN Reviewed Yes Specimens Collected Last Modified By: DAMIAN Couch RN, Lou Ann 05/21/21 14:33:04 General Comments: Temp 36.4 Finalized By: DAMIAN Couch RN, Lou Ann Document Signatures Signed By: Douglas Arita LPN 05/21/21 14:00 DAMIAN Couch RN, Lou Ann 05/21/21 14:33 Normal [facility] Monitor Recordon 05-21-2021 Monitor Record [id number]# [id number] Normal [facility] Operative Reporton Operative Report Patient: OSMAN PARIKH Age: 61 years Sex: Male : 1960 Associated Diagnoses: None Author: Steven AMBRIZ MD Postoperative Information Date/ Time: 05/21/2021 20:09:00 Postoperative Diagnosis: Kidney stones (TQD46-AY N20.0, Working, Medical), Foreign body in bladder, initial encounter (XHE82-AD T19.1XXA, Working, Medical). Performed by: Steven Ambriz MD. Findings: Procedure: Cystoscopy Left ureteroscopy with basket extraction calculi fragments Removal retained left ureteral stent Anesthesia: General, LMA, Dr. Amaya, 2% Xylocaine jelly per urethra Indications: This is a 61-year-old white male status post cystoscopy left stent and then subsequently ESWL x2. In the hospital outpatient department earlier this afternoon, an attempt was made to for cystoscopy and stent removal but this stent became stuck and could not be removed. Aviles catheter was replaced. I felt it indicated to proceed to the operating room under anesthesia for cystoscopy ureteroscopy possible laser ablation possible stent replacement in an attempt to remove this retained stent. Full informed consent as part of the record. Preoperative antibiotics administered. The patient and his are in agreement with the plan. Procedure: Patient was brought back to the operating room and a timeout was performed. All were in agreement with the operative plan. After the successful induction of general anesthesia by Dr. Amaya, the patient was placed in the modified dorsolithotomy position, prepped in usual fashion with Betadine solution and 2% Xylocaine jelly is placed per urethra. This was after the indwelling Aviles catheter had been removed. The stent was still indwelling. I placed a hemostat onto the end of the stent so as to provide some moderate downward traction. I elected to immediately proceed with ureteroscopy. The ureteroscope was passed into the bladder and although this was a difficult to see I was able to gain access with the aid of a safety wire going up the left orifice. Scope was removed and then replaced into the bladder to go alongside the wire. All the while I was placing gentle traction on the stent and it was beginning to release. Ureteroscopy was carried up into the left distal ureter following the wire and again with gentle traction the entire retained stent was removed. Due to the suspicion that perhaps stone fragments were preventing the early release of this retained stent, I elected to perform ureteroscopy. This was performed all the way up to the level of the kidney. No large stone fragments were noted. There were a fair amount of stent encrustation sediment which had previously been attached to the stent. These were subsequently retrieved later in the case by basket extractor and removed without difficulty. Ureteroscopy had been carried all the way up to the left ureteropelvic junction. The ureter appears intact without any evidence of rent or injury. I elected not to replace the stent. Real-time fluoroscopic imaging demonstrated no evidence of any retained stone fragments either in the kidney or along the course of the ureter. Scope was brought back down into the bladder and subsequently removed. Cystoscope replaced into the bladder to empty the bladder of its contents and the procedure was terminated. He tolerates it well. He is transferred back to PACU in satisfactory condition, stable vital signs. Plan to be for transfer to the floor for postoperative management. He will be monitored overnight and hopefully discharge home in the morning. Plan will be for outpatient antibiotics and a follow-up in about 6 months with a KUB. Discussed all this with his postop and she is in agreement with the plan.. Estimated Blood Loss: 0 ml. Complications: None. Anesthesia type: General. Normal [facility] Comment on above: Result Comment: Elec tronically Signed By: Steven AMBRIZ MD\.br\Date and Time Signed: 05/21/21 20:14 EST Operative Report Patient: OSMAN PARIKH Age: 61 years Sex: Male : 1960 Associated Diagnoses: None Author: Steven AMBRIZ MD Procedure Operative Information Details: Date/ Time: 05/21/2021 15:03:00. Pre-Op Dx: Urethral Stricture - Other Retained ureteral stent, left. Post-Op Dx: Same. Anesthesia Type: Local. Procedure: Local Cystoscopy, attempted stent removal without success. Aviles placement. . Complications: None. Risks/Benefits/Inform ed Consent: Surgical risks, benefits, details of the procedure have been explained to the patient, Full informed consent has been obtained. Intraoperative Information Prepped: Patient is brought back to the endoscopy suite, Patient is placed in supine position, Patient prepped in the usual fashion with Betadine solution, 2% Xylocaine Jelly is placed per Urethra, After waiting several minutes the Cystoscope is introduced. The Urethra is: Normal. The Prostatic Urethra is: Moderate Hypertrophy. The Bladder is: Trabeculated Mild (1), No tumor, no stones. Moderate irritation around left orifice. . The ureteral orifices: Show efflux of clear urine. Devices Implanted. Removal: Cystoscope is removed, Grasped end of stent, removed to level of urethral meatus but could not pull stent further. Initial attempt at Aviles placement unsuccessful, then able to place. Stent tied to Aviles. . Aviles to leg bag. Due to retained stent, will admit to hospital. May need ureteroscopy, laser ablation. Will look at surgical schedule for today or tomorrow. . Postoperative Information Discharge: Patient is discharged home with antibiotic coverage, Follow up arranged. Normal [facility] Comment on above: Result Comment: Elec tronically Signed By: Steven AMBRIZ MD\.br\Date and Time Signed: 05/21/21 15:14 EST Outpatient Surgery Discharge Instructionon 05-21-2021 Outpatient Surgery Discharge Instruction [address] [address] Patient Discharge Instructions PERSON INFORMATION Name: OSMAN PARIKH Date of : 1960 Current Date: 05/21/2021 15:03:45 PHYSICIANS Admitting Physician: Steven AMBRIZ MD Comment: Discharge Diagnosis: OSMAN PARIKH has been given the following list of follow-up instructions, prescriptions, and patient education materials: IF UNABLE TO CONTACT YOUR PHYSICIAN AND YOU FEEL IT IS AN EMERGENCY, GO TO THE NEAREST EMERGENCY ROOM OR CALL 911 Follow up: With: Address: When: Steven AMBRIZ [address] [place] [address], [address], [place] [id number] Business (1) Comments: We will admit you to the hospital and obtain an abdominal X-ray. I will then decide upon the next step. Please do not eat or drink anything for now. Comment: PATIENT EDUCATION INFORMATION Instructions: I, PARIKHOSMAN, have received the attached patient education materials/instruction s and have verbalized understanding: May we do a follow up call? Yes No I was present when discharge instructions were given Patient Signature Date Clinican/Nurse Signature Date You may receive a survey from [employer] asking you to rate your care experience. Your feedback is important and will help us understand what we do well and how we can improve the quality of care we provide to you, your loved ones and our community. It?s an honor to serve you. Thank you for choosing [facility] Normal [facility] Patient Educationon 05-21-20 Patient Education Normal [facility] Progress Note-Physicianon Progress Note-Physician Patient: OSMAN PARIKH Age: 61 years Sex: Male : 1960 Associated Diagnoses: None Author: Moshe Amaya Jr., DO Preoperative Information Time patient last ate or drank:=== (NPO since midnight) Anesthesia history: Patient History: No prior problems with anesthesia.. Re-eval prior to induction: Inital eval reviewed: No significant interval change, Surgical H&P documented and on chart. Surgical consent signed and on chart.. Anesthesia results Review of Systems Cardiovascular: Negative except as documented in history of present illness. Respiratory: Negative. Neurologic: Negative. Health Status Allergies: Allergic Reactions (Selected) Severity Not Documented Erythromycin- Rash. NSAIDs- Gastric bypass operation., Allergies (2) Active Reaction erythromycin Rash NSAIDs Gastric bypass operation Current medications: (Selected) Inpatient Medications Ordered Dilaudid 1 mg/mL injectable solution: 0.5 mg = 0.5 mL, Injection, IV Push, q4hr PRN Pain, Routine, Start date 05/21/21 16:37:00 EST, 05/21/21 16:37:00 EST HYDROmorphone 1 mg/mL injectable solution: 0.4 mg = 0.4 mL, Injection, IV Push, q4min PRN Pain for 5 dose(s), Stop date Limited # of times, Routine, Start date 05/21/21 18:35:00 EST, 05/21/21 18:35:00 EST Lactated Ringers IV Emily 1000 mL 1,000 mL: 1,000 mL, IV, 100 mL/hr, Routine, Start date 05/21/21 18:35:00 EST, 10 hour(s), Total volume (mL): 1,000, 96.4 kg, 2.15, m2 Lactated Ringers IV Emily 1000 mL 1,000 mL: 1,000 mL, IV, 150 mL/hr, Routine, Start date 05/21/21 15:59:00 EST, 6.7 hour(s), Total volume (mL): 1,000, 96 kg, 2.16, m2 Levsin 0.125 mg SL Tab: 0.125 mg = 1 tab(s), Tab, SubLingual, q4hr PRN Pain, Routine, Start date 05/21/21 16:42:00 EST, 05/21/21 16:42:00 EST Norvasc 5 mg Tab: 5 mg = 1 tab(s), Tab, Oral, Daily, Routine, Start date 05/22/21 9:00:00 EST, 05/21/21 16:56:00 EST Phenergan 25 mg/mL Injection: 12.5 mg = 0.5 mL, Injection, IV Push, q2min PRN Other (see comment) for 2 dose(s), Stop date Limited # of times, Routine, Start date 05/21/21 18:35:00 EST, 05/21/21 18:35:00 EST Sodium Chloride 0.9% intravenous solution 1,000 mL: 1,000 mL, IV, 100 mL/hr, Routine, Start date 05/21/21 16:46:00 EST, 10 hour(s), Total volume (mL): 1,000, 96.4 kg, 2.15, m2 Prescriptions Prescribed Cipro 500 mg Tab: See Instructions, Take 1 tab day prior to procedure and 1 tab day of procdure - afterwards, # 2 tab(s), Refills(s) 0, Pharmacy: [id number], 175, cm, 05/01/21 13:21:00 EDT, Height/Length Dosing, 96, kg, 05/01/21 13:21:00 EDT, Weight Dosing... Levsin 0.125 mg oral tablet: 0.125 mg = 1 tab(s), Oral, QID, PRN for spasm, # 40 tab(s), Refills(s) 0, Pharmacy: [id number] Zofran 4 mg Tab: 4 mg = 1 tab(s), Oral, q8hr, PRN Nausea/Vomiting, # 30 tab(s), Refills(s) 0, Pharmacy: [id number] traMADOL 50 mg Tab: 50 mg = 1 tab(s), Oral, q12hr, PRN for pain, # 10 tab(s), Refills(s) 0, Pharmacy: [id number], 172.7, cm, 03/08/21 9:22:00 EDT, Height/Length Dosing, 95.2, kg, 03/08/21 9:22:00 EDT, Weight Dosing Documented Medications Documented Flomax: 0.4 mg, Oral, Daily, Refills(s) 0, Urinary discomfort Multivitamin, Therapeutic w/ Minerals: 1 tab(s), Oral, Daily, Prophylaxis Norvasc: 5 mg, Oral, Daily, Refills(s) 0, High blood pressure allopurinol 100 mg Tab: 100 mg, Oral, Daily, Refills(s) 0 calcium 500 mg tablets: 1,250 mg = 1 tab(s), Oral, Daily, Prophylaxis simvastatin 5 mg Tab: 20 mg, Oral, Once a day (at bedtime), Refills(s) 0 Histories Past Medical History: No active or resolved past medical history items have been selected or recorded. Family History: Asthma Mother Hypertension Father Mother Primary malignant neoplasm of lung Father Diabetes mellitus type 2 Father COPD Mother Primary malignant neoplasm of female breast Mother Hyperlipidemia Father Heart disease Father Diabetes Grandparent Procedure history: ESWL - Extracorporeal shockwave lithotripsy for renal calculus ([id number]) on 04/19/2021 at 61 Years. ESWL (extracorporeal shockwave lithotripsy) of ureteric calculus ([id number]) on 04/19/2021 at 61 Years. ESWL (extracorporeal shockwave lithotripsy) of ureteric calculus ([id number]) on 03/22/2021 at 61 Years. ESWL (extracorporeal shockwave lithotripsy) of ureteric calculus ([id number]) on 03/22/2021 at 61 Years. Cystoscopy ([id number]) on 02/04/2021 at 61 Years. Cystoscopic insertion of ureteric stent ([id number]) on 02/04/2021 at 61 Years. Cholecystectomy ([id number]). Renal lithotripsy ([id number]). Gastric bypass ([id number]). Cholecystectomy ([id number]). Social History Social & Psychosocial Habits Alcohol 02/04/2021 Use: Current Type: Beer, Liquor Frequency: 1-2 times per month Substance Abuse 11/10/2019 Risk Assessment: Denies Substance Abuse Comment: denies - 02/04/2021 14:53 - Christina CID, Norma Squires Tobacco 02/04/2021 Risk Assessment: (more content not included)... [facility] Comment on above: Result Comment: Elec tronically Signed By: Jose Luis Deng DO, Moshe Dumas\.br\Date and Time Signed: 05/21/21 18:38 EST XR Abdomen 1 Viewon 05-21-20 21 XR Abdomen 1 View Exam Date/Time: 05/21/2021 17:09 EST Reason for Exam: Other (please specify) Report IMPRESSION: THE LEFT URETERAL STENT HAS MIGRATED INFERIORLY AND L2 EXTENDING OUT OF THE URINARY MEATUS CLINICAL HISTORY: COMPARISON: KUB from 04/19/2021 FINDINGS: The bowel gas pattern is unremarkable. There are no dilated loops of bowel. There are surgical clips in the region of the GE junction in the right and left upper quadrants. There is thin tubing in the distal portion of the left ureter which mostly migration of the previously noted left urinary stent which is extending through the bladder and penis and out the urinary meatus. FINAL REPORT Dictated: 05/21/2021 5:26 pm Roger Cevallos MD, V. Signed (Electronic Signature): 05/21/2021 5:26 pm Signed by: Roger Cevallos MD, V. Transcribed by: ODALIS Technologist: JED [facility] Pre-Authorization for Medica l Treatmenton 05-02-2021 Pre-Authorization for Medical Treatment [id number]. 00CD:127 [facility] Patient Educationon 05-01-20 Patient Education Kidney Stones Kidney stones are rock-like masses that form inside of the kidneys. Kidneys are organs that make pee (urine). A kidney stone may move into other parts of the urinary tract, including: ? The tubes that connect the kidneys to the bladder (ureters). ? The bladder. ? The tube that carries urine out of the body (urethra). Kidney stones can cause very bad pain and can block the flow of pee. The stone usually leaves your body (passes) through your pee. You may need to have a doctor take out the stone. What are the causes? Kidney stones may be caused by: ? A condition in which certain glands make too much parathyroid hormone (primary hyperparathyroidism). ? A buildup of a type of crystals in the bladder made of a chemical called uric acid. The body makes uric acid when you eat certain foods. ? Narrowing (stricture) of one or both of the ureters. ? A kidney blockage that you were born with. ? Past surgery on the kidney or the ureters, such as gastric bypass surgery. What increases the risk? You are more likely to develop this condition if: ? You have had a kidney stone in the past. ? You have a family history of kidney stones. ? You do not drink enough water. ? You eat a diet that is high in protein, salt (sodium), or sugar. ? You are overweight or very overweight (obese). What are the signs or symptoms? Symptoms of a kidney stone may include: ? Pain in the side of the belly, right below the ribs (flank pain). Pain usually spreads (radiates) to the groin. ? Needing to pee often or right away (urgently). ? Pain when going pee (urinating). ? Blood in your pee (hematuria). ? Feeling like you may vomit (nauseous). ? Vomiting. ? Fever and chills. How is this treated? Treatment depends on the size, location, and makeup of the kidney stones. The stones will often pass out of the body through peeing. You may need to: ? Drink more fluid to help pass the stone. In some cases, you may be given fluids through an IV tube put into one of your veins at the hospital. ? Take medicine for pain. ? Make changes in your diet to help keep kidney stones from coming back. Sometimes, medical procedures are needed to remove a kidney stone. This may involve: ? A procedure to break up kidney stones using a beam of light (laser) or shock waves. ? Surgery to remove the kidney stones. Follow these instructions at home: Medicines ? Take tpof-cej-xohfwob and prescription medicines only as told by your doctor. ? Ask your doctor if the medicine prescribed to you requires you to avoid driving or using heavy machinery. Eating and drinking ? Drink enough fluid to keep your pee pale yellow. You may be told to drink at least 8?10 glasses of water each day. This will help you pass the stone. ? If told by your doctor, change your diet. This may include: ? Limiting how much salt you eat. ? Eating more fruits and vegetables. ? Limiting how much meat, poultry, fish, and eggs you eat. ? Follow instructions from your doctor about eating or drinking restrictions. General instructions ? Collect pee samples as told by your doctor. You may need to collect a pee sample: ? 24 hours after a stone comes out. ? 8?12 weeks after a stone comes out, and every 6?12 months after that. ? Strain your pee every time you pee (urinate), for as long as told. Use the strainer that your doctor recommends. ? Do not throw out the stone. Keep it so that it can be tested by your doctor. ? Keep all follow-up visits as told by your doctor. This is important. You may need follow-up tests. How is this prevented? To prevent another kidney stone: ? Drink enough fluid to keep your pee pale yellow. This is the best way to prevent kidney stones. ? Eat healthy foods. ? Avoid certain foods as told by your doctor. You may be told to eat less protein. ? Stay at a healthy weight. Where to find more information ? National Kidney Foundation (NKF): www.kidney.org ? [employer] (UCF): www.urologyhealth.org Contact a doctor if: ? You have pain that gets worse or does not get better with medicine. Get help right away if: ? You have a fever or chills. ? You get very bad pain. ? You get new pain in your belly (abdomen). ? You pass out (faint). ? You cannot pee. Summary ? Kidney stones are rock-like masses that form inside of the kidneys. ? Kidney stones can cause very bad pain and can block the flow of pee. ? The stones will often pass out of the body through peeing. ? Drink enough fluid to keep your pee pale yellow. This information is not intended to replace advice given to you by your health care provider. Make sure you discuss any questions you have with your health care provider. Document Released: 12/09/2008 Document Revised: 11/09/2019 Document Reviewed: 11/09/2019 [email or web address] Patient Education ? 2019 [employer]. Urology Kidney Stones (Inserted (more content not included)... Normal [facility] Urology Office/Clinic Noteon 05-01-2021 Urology Office/Clinic Note Chief Complaint Pt is here for a PO ESWL HPI Staff Osman is a 61 y.o. male here for PO ESWL. Previous Dx: BPH w/ urinary obstruction, dysuria, frequency of urination, gross hematuria, hydronephrosis w/ ureteral calculus, impotence, kidney stone, nocturia. S/P ESWL done on 04/19/21. KUB done today, image only. Dysuria: a little Incomplete bladder emptying: denies Hematuria: denies Frequency: yes Urgency: denies Nocturia: 3-4x a night Stream: steady stream Leaking: denies Post void dripping: denies Wearing pads/ Depends: denies Urge incontinence: denies Stress incontinence: denies Incontinence without Sensory Awareness: denies Abdominal pain: denies Flank pain: denies Sexual complaints: _ History of Present Illness staff HPI reviewed and agree. Review of Systems PHQ Score Initial Depression Screen Score: 0 no fever, chills, malaise, myalgia. no rash/lesions. no chest pain, palpitations, or SOB. no abdominal pain, nausea, vomiting. no unilateral calf swelling, redness, pain Physical Exam Vitals & Measurements HR: 72(Peripheral) BP: 140/87 HT: 175.0 cm HT: 175 cm WT: 96.0 kg WT: 96 kg BMI: 31.35 General: nontoxic, NAD Mouth: moist mucosa Lungs: normal respiratory effort Cardio: regular rate, good distal perfusion Abdomen: nondistended, no suprapubic distention or tenderness, no CVA tenderness Neurologic: Grossly normal Skin: No rashes or suspicious lesions Assessment/Plan 1. Kidney stone (N20.0: Calculus of kidney) KUB done today at [facility] reviewed by myself and [facility] at today's visit - stones broke up nicely, difficult to see any remaining fragments. no indication for further lithotripsy. will schedule for stent removal. pt is gastric bypass pt - will need metabolic work-up ordered after stent removed. Ordered: Office Visit No Charge Follow-up With When Contact Information Juan BELTRE, [address] [place] [address]- Additional Instructions: Patient Education Kidney Stones, [id number] Kidney Stones, Yarp-ww-Dxbo Problem List/Past Medical History Ongoing Anxiety Benign essential hypertension BMI 31.0-31.9,adult BPH with urinary obstruction Deafness Dysuria Frequency of urination Gall stone Gross hematuria Hydronephrosis with ureteral calculus Hypercholesterolemia Hyperlipidemia Hypertension Impotence Kidney stone Nocturia Historical No qualifying data Procedure/Surgical History ESWL (extracorporeal shockwave lithotripsy) of ureteric calculus (04/19/2021), ESWL - Extracorporeal shockwave lithotripsy for renal calculus (04/19/2021), ESWL (extracorporeal shockwave lithotripsy) of ureteric calculus (03/22/2021), ESWL (extracorporeal shockwave lithotripsy) of ureteric calculus (03/22/2021), Cystoscopic insertion of ureteric stent (02/04/2021), Cystoscopy (02/04/2021), Cholecystectomy, Cholecystectomy, Gastric bypass, Renal lithotripsy. Medications calcium 500 mg tablets, 1250 mg= 1 tab(s), Oral, Daily Flomax, 0.4 mg, Oral, Daily Levsin 0.125 mg oral tablet, 0.125 mg= 1 tab(s), Oral, QID, PRN Multivitamin, Therapeutic w/ Minerals, 1 tab(s), Oral, Daily Norvasc, 5 mg, Oral, Daily oxybutynin 5 mg Tab, 5 mg= 1 tab(s), Oral, BID, 1 refills traMADOL 50 mg Tab, 50 mg= 1 tab(s), Oral, q12hr, PRN, Not taking Zofran 4 mg Tab, 4 mg= 1 tab(s), Oral, q8hr, PRN, Not taking Allergies NSAIDs (Gastric bypass operation) erythromycin (Rash) Social History Alcohol Current, Beer, Liquor, 1-2 times per month, 02/04/2021 Substance Abuse - Denies Substance Abuse, 11/10/2019 Tobacco - Denies Tobacco Use, 02/04/2021 Never (less than 100 in lifetime) Tobacco Use:. Never Smokeless Tobacco Use:., 05/01/2021 Never (less than 100 in lifetime) Tobacco Use:. Never Smokeless Tobacco Use:., 02/20/2021 Family History Asthma: Mother. COPD: Mother. Diabetes: Grandparent. Diabetes mellitus type 2: Father. Heart disease: Father. Hyperlipidemia: Father. Hypertension: Mother and Father. Primary malignant neoplasm of female breast: Mother. Primary malignant neoplasm of lung: Father. Immunizations Vaccine Date Status SARS-CoV-2 (COVID-19) Ad26 vaccine 10/31/2020 Recorded SARS-CoV-2 (COVID-19) Ad26 vaccine 10/12/2020 Recorded Normal [facility] Comment on above: Result Comment: Elec tronically Signed By: SREEDHAR THORNTON PA-C\.br\Date and Time Signed: 05/01/21 14:20 EDT IntraOperative Documentson 1 IntraOperative Documents [id number] .00CD:127 Normal [facility] Coding Summary.on 04-24-2021 Coding Summary. [id number] G h0bWw+PGhlYWQ+VI8SUZM zR91iqPNasY8WI4oCBR0L UBGOAAYBNV4RFV9riFW5Q JbxL0TateEd ZyaplAJmBS86WNi8VYG4d LslULfabZ6smFReK7c7Sw JlZS72uL21HMvoGNCaUeY 3LjZpbjsgbWFy U4ckArOlfSZgEdd+PHRhY mxlIHdpZHRoPScxMDAlJy JazYqzWK1hBj5jFJUwZGC vbGxhcHNlOiBj c3miYEGqKFyvMG7knZmeO 9QtyRK4YFUfk7b0Ni53pO I+GRIwVNM3zNkhKBdse62 1LxDen2viEIL6 eFXiCMyvWYX3M76th0R2U IVvGKFwWHI7sAT8vB4eyL nrkwjlX7DvvLQnEtG2HEN 5yBGehW5qoIqj dggbrJ8aSve+A72WPT0CM PSTSB5SOrv8R8VwBvmgcY I+TZ03QMVxMP57zRQjhFO so0nahOk9HgIi DIZhTMP0qEswECxdg6GaS ZJmZ21unEEnb8Z6HUNrjU sewXLuTsXriRD8xA8yNIc tjewpg0gheyfd Qfiur0smjl69gM90I58zQ SkzBWLqWMP6XYZnEIHjoU klzh1njI2dEo2+IRfct9l th3pvpNv5ApYj TOPpsfCevQuvTSS5l2ByT y96C2GrzQnzm7YsSbd2kk 52zSVep7H4wID3MCnsEHX qdA7jJGrwMzS5 LLFfAgQwnR15bDSsMQgsV p1ujPqjiPfwDZ4rLPTkak qfOWYceE7rSMLruHEdoTv gAY6oZHFuibji v694BgJnKDV3NPIfnVUmV 7IvvJ0wAaCiAJLtHXQvO8 OcfXVqMDmbP024CLqtKrY 6JMBctuFpQ1Zl LYXybNdgWqM5p3R2Tj8Vf 7NlxznyFQO5YQgsXIUyQz W7LaTpJdZ7K3MgWwx3CIY abLvnIU3wJ1Ae BWWychojfrgpfJS7BLBsV RPieG44oNElRLrjSj5lf8 K4l946YOPbQOHziN18Co4 udDogMTBwdCBU xD1jlbvvh1rbcsqwOfUjH LCrTDo9DBp2LSObzYftKh BvUJS8WlO6CBW5tJPsaZ0 eqTvpdbwpsQ6y Oyc+R39luP8bQNQ5IFK3m lyoVWBohzTcAO06ZI31W2 RyPjwvdGFibGU+PGRpdiB pnQjnZH0tJsFo z6ozn5TiWFclN2DvGCKgT KdjCuw4MBAjAUV0dBB2cE 1iSJFzVNhlk9U1cHX5T2L yeqZovc1zp8na MMXtBWwdT85xnZGzu5A2Z YCjhOH6LHPnuCeqXoFjmV 93Oyc+EQZxjEyiu5KjDpd bs3mtu2rxfYv8 FxNqUZJhxgWakBcmZXG4k 5ZtMd90J26rLTfjDXVfGX TpHHPdDSAfjWepmd1hdB6 wIi8+PGNvbCB3 mGG6hR3pRZVqTkG5CJdpX 506VvFqwAClFesjn7yzy5 ehfZi1CaStMTKpwuKrhIu lUKD8j9SyNv06 M57pZArlPHFiLZGkFLQoD DAefTrpgi3qkO3vJm0+PC 7bw4yvtl84qX64bPO+PHR yVDH7wOnxJDae XBHfyP5kDJcqBoS8MMDjR nJioV00qIAlJGzkOm5rwS dwfPlvJM6lKLCwlafdc47 3AvLkr9ntCVXc mTJrKXuyFVD4J57ny8U4U KOkGFTrTIC4uNB3dN2mlH lnbjogbGVmdDsgdmVydGl jKNbxIIimH929 IHRvcDsnPlBhdGllbnQgT cLaTWt9F5WzTpx5ERCkyE hlRV1oaMOxMFvdLw9qzBw poSgoFI4bZVGw hhuoi235TuDbk9yvNLUal VQyUJqxYDG2F59fa3Y7DA CaGFAlHMO3eIX7iI1ajDj nbjogbGVmdDsg xlLrnGchYYheHJzeA617H HRvcDsnPkJpcnRoIERhdG G1VA53SH12jDOms7Q5uPF 1C6EqRQJpfgea yecgsQZ5YKIwVOQrpV30W q8eeJfeYb7aGFMpZJK9AX AnvEXyT8RmwB1cUkWjIFV aAKEjX2KqcZVf SVzxN823DOupDyD3RRYuo tBpA0LwFPBicRrpLfQ3u5 D0Uw7YT6X0IJ82RA63tIB xg8Z6rHL3V5Jg PMLmimeqbvbymOV3WMIoA FNdtV56Sn8jqWyjNc0oYN XaTQW0FCEimRTfW4KrfN8 yOiAjMDAwMDAw P4XfjNYqZJzjI559JYliG bC2IFTpahPnR1DuATVbvJ nxQhA9m2M3Ui5NFEo1SF7 3NS75hWKbm0M1 zZA9S7RwGEEtuxnqzuzze WR5WIIoHFYikQ15Ty4iaP wrCi1nSYYmPYM0RPDcgHU xH7AwyM0gBpIg IGCtCSWpJ5JiaHCeSEbiM 816PUdwJrY0GBQjkeEwN7 CdNPDnqQrxWuB7m1O8Cm2 PHHTvWW92MRP3 xWV8LW08TU32S8NuFpanq GFibGU+PHRhYmxlIHdpZH RoPScxMDAlJyBzdHlsZT0 dYn1eHWUmEMJk oEjciVPuTiRyj3qbBUOzG RyjIX2lrJyrF6JhjOF5HD Rfw8j4Nb59Y34oS4OpmXN +AZDzlDH1zMB5 eT9oLuFjVrW3JEarH901D eEvoOLlMlxio0plg9ujcM n9LoD7CCBlweUdfRvoEWU 1w3TbOa34E27a IHdpZHRoPSIxNSUiIHZhb Vgbla3csX0iJp9+PGNvbC M9aZF7vX8dAhSuCmD0ICx nX893GjYicABu Hebuv8amf6ugrHj0TwPyN EPyesKukPcbZSY4w1NyHd 33M8WgkRhyz1MtVsb1dc0 2tQRad0I6oLI1 Y7PrZNFoqnqnyHWvyZdnJ J9mXZSnjpsdRHZgxL2aEX TcV3w7VmZjFcP6ZQjdW4B asmR7LVEqlDPe MUswMXS2L21mk1U2NCTzD UAiSPK7iJD2uE1boKyffw ogbGVmdDsgdmVydGljYWw uODivK404OQWx fLmaIGQtkU7yPUFovFImk LfgOV2gLJQvloihCiSEFS ZLELPILM0WUPWsQlczhLE +WUDnKVZ2qLbw ZXucGHHapX1yQZYlC7z3Q vQlMaD2HQxbH9SmTHUggt sfWi61kB0nVdYiKsB9THv xG1EanmE2YKRw fCCeKOuaFCT2W43qi7Y8G TMnXEKlOMQ1sRO9mG4umJ lnbjogbGVmdDsgdmVydGl oHWjnXStqO643 IHDwwHrbWcW1ToV0IvN5A Ha2L7ZkDgv0ORCwfQorMX 3gyBFwMDpeWd0rgHnebQk aMR2vBXFeqxmv GWBnfI5jVCLacDOgkErbF Y3pGTPgcimhv294VsAsAP U3SFMubNYhN9TtzG8rFuT qVLGyPNDbZ9Xv uOCrIUozM704DHfeZnT9A VKiwxOdO9KfTVPuwFbuUg C6o6T3Up58LdOHGZPrjdb vdGQ+PHRkIHN0 rXjeMCbiYKRajO2qOFGiC 9a3BuUpJlP1ZIptV5DdCG QzdbqfBh22dC6wGcMvGnK 2HGqxA2GuijL8 GBSuiUApTFiyRKH1D92lb 8X2PIQdWXUzYYK5iDR9eT 1hbGlnbjogbGVmdDsgdmV ydGljYWwtYWxp N588ESYsgUznZz9tvPE4V 9LnVao8YDIumOycHT4puE StZBjfDm7vuPulvMkiKB4 wNTBpbjtwYWRk xA1lKDOseZQeoNsyOV8lA HCmbxrws075LyObQOE6HZ RghPSoZ9DckJ4wTbVtSYX jRZYxA0EimOUh PEkoL363KSfeJcZ2LUHix tBnV7RiRCAptPzqXmS4y3 R7Ti8EwSP2pRV1w4L8L9X ttAObUOA0FYZ9 ndogtdx0U6MvJerrwUG+P U49QPSdWG46iDUmqUHrk8 ixuEl6KyEnPWVvMCB1gAq bUCbjt4KpESUx O26mcQDor7L1SYLfzKdef EKgFrNtlRS6kX5vVUthik ggy4scocfiPlxga5qbtm9 8bW04C90jMTac ZHRoPSIzMCUiIHZhbGlnb n3iaA8vCt9+CQNabZA5hW S6bO4sYzXyVoG7LWbjV76 9InRvcCIvPjxj j3rtf4lauEf5IqKhFEKzv dDgdGqxCYO8o9GjNp10Z8 9sIHdpZHRoPSIyMCUiIHZ qdUennc8xiF3p Ii8+TV7ec8qbpk78uO05i HI+KOPdQOF2uDyvGGmzIF ZiyX6cNFueYjE8LZUpMuJ djN45vJNuGPfy Ug1igDyhlNekIE6eKMFbk unpm502OjLvn6rcPWWsyN BfCKfpEMO3N37mb8A1FHB wQTEvXHM3jYM2 aX6qfCimrzkvfLXfrUtca zLbmAecNYvcYDqvX653CI MhxZteKnMkuLBwN3cjyuR BRO5bMceqvOE+ OYXwTVE9pUjlYUehNFWtp P2wMOCgA1p7ZrAwQwB1WE caW3WwarL8OFZsmSLeCUO hdMRAtX2lkrum b2mqggovToOmEKHuFDk9E Pv7CROynCbnZgBgPWX2Ep Q3ONK0uONubH9ccEyninj trK0aKfh+RklO OjwvdGQ+VKYsAQV3aXqxU XtlTNWjhS1vZQBgL3r2Px ReIwT4OZdtF7LuhfW3FIM vbGQgMTBwdCBU cL5aoedtp4gdixmgVhMnF MHpVXa9PWq7STWzmHamWf LcIGG5VrB8PTB1iCLrpY7 ogQihdghzsK9r Oyc+TVJOOjwvdGQ+PHRkI LA3fAnjPVpbGRVelJ2tGU BqH6e6GmKmVqO0LPyhQ6T zzaZ3DAFjuROb FNRkpCXIqZ1kmvhbq2ehx gzyJsCqBHVkFOa5MAk1EK IvoTcfVcKoIOY6ZxE2QEM 6oHOzcR6sxXif xmzgxI9bRod+AKX3OJJ2J I82OB05I5OcCbfsuLRlkQ U+PHRhYmxlIHdpZHRoPSc xMDAlJyBzdHls ZT0n (more content not included)... Normal [facility] Main OR Intraoperative Recor don 04-24-2021 Main OR Intraoperative Record IntraOp Document Type FT Summary Primary Physician: Steven AMBRIZ MD Finalized Date/Time: 04/24/21 13:57:51 Pt. Name: OSMAN PARIKHO.B./Sex: 1960 Male Med Rec #: [id number] Physician: Steven AMBRIZ MD Financial #: [id number] Pt. Type: A Room/Bed: [facility] Admit/Disch: 04/19/21 10:55:06 - 04/19/21 15:00:00 Institution: Case Times FT Entry 1 Patient Times In Room 04/19/21 12:34:00 Out Room 04/19/21 13:08:00 Procedure Times Start 04/19/21 12:42:00 Stop 04/19/21 13:05:00 Anesthesia Times Start 04/19/21 12:34:00 Stop 04/19/21 13:08:00 Last Modified By: Shamika Victor RN, I 04/19/21 13:08:54 General Comments: 04/24/21 Chart opened to review and send charges Bishnu LECHUGA Case Attendance FT Entry 1 Entry 2 Entry 3 Case Attendee NAKIA BELTRE, Steven Wilson RN, Aisha Fisher CST, Yuliet Squires Role Performed Surgeon - Primary [employer] - Primary Scrub - Primary Time In 04/19/21 12:34:00 04/19/21 12:34:00 04/19/21 12:34:00 Time Out 04/19/21 13:08:00 04/19/21 13:08:00 04/19/21 13:08:00 Procedure EXTRACORPOREAL SHOCK EXTRACORPOREAL SHOCK EXTRACORPOREAL SHOCK WAVE LITHOTRIPSY(Left) WAVE LITHOTRIPSY(Left) WAVE LITHOTRIPSY(Left) Comments Last Modified By: Shamika Victor RN, RN, Shamika Curiel RN, I 04/19/21 13:08:56 04/19/21 13:08:56 04/19/21 13:08:56 Entry 4 Entry 5 Case Attendee Arturo RUBIO, Shamika Dawson RN, I Role 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 Ball Last Modified By: Shamika Victor RN, RN, Dana I 04/19/21 13:08:56 04/19/21 13:08:56 General Comments: Vendor : Dilan Mahmood ESWL Perioperative Protocols FT Pre-Care Text: Implements protective measures prior to operative or invasive procedure, confirms identity before the operative or invasive procedure, verifies operative procedure, surgical site, and laterality Entry 1 Procedure(s) EXTRACORPOREAL SHOCK Patient Identity Birthday, ID Band WAVE LITHOTRIPSY(Left) Verified (select at Check, Patient least 2): Participation Consents / H and P Anesthesia Consent, Operative Site Other/See Comments Verified HandP, Surgery/Procedure Marking Verified Consent Surgical Site Yes Laterality Verified Yes Verified Procedure Verified Yes Correct Patient Yes Position Verified Availability Equipment, X-ray Prep Dry n/a Verified (If Applicable) PreOp Antibiotic Yes Time Out Aisha Wilson RN, Given Participants Shamika Vitcor RN, I, Maya Soto COOK MD, Gregory P Time Out Complete 04/19/21 12:40:00 Outcomes Met? Yes Last Modified By: Shamika Victor RN, I 04/19/21 12:52:36 Post-Care Text: The patient is free from signs and symptoms of injury caused by extraneous objects General Comments: laterality verified verbally during time out - dic 002 Allergy Information FT Pre-Care Text: Verifies allergies Entry 1 Allergies Reviewed? Yes Allergies Reviewed Self/Patient With Outcomes Met? Yes Last Modified By: Shamika Victor RN, I 04/19/21 12:44:34 Post-Care Text: The patient received appropriate medication(s) safely administered during the perioperative period Surgical Procedures FT Entry 1 Procedure Description Procedure EXTRACORPOREAL SHOCK Modifiers Left WAVE LITHOTRIPSY Surgeon Description LEFT ESWL Primary Procedure Yes Primary Surgeon Steven AMBRIZ MD Start 04/19/21 12:42:00 Stop 04/19/21 13:05:00 Anesthesia Type MAC Surgical Service Urology Wound Class 1 - Clean Last Modified By: Shamika Victor RN, I 04/19/21 13:06:11 General Case Data FT Pre-Care Text: Classifies surgical wound, implements aseptic technique, initiates traffic control Entry 1 Case Information OR OR 5 FT Case Level Level 2 Wound Class 1 - Clean Specialty Urology ASA Class 2 Preop Diagnosis LEFT KIDNEY STONE Postop Same As Preop Yes Postop Diagnosis LEFT KIDNEY STONE Outcomes Met? Yes Last Modified By: Shamika Victor RN, I 04/19/21 12:44:53 Post-Care Text: The patient is free from signs and symptoms of infection Skin Assessment (Pre Procedure) FT Pre-Care Text: Implements protective measures to prevent skin/ tissue injury due to thermal or mechanical sources Evaluates for signs and symptoms of physical injury to skin and tissue Entry 1 Skin Integrity Intact, [place], Warm, and Skin Abnormality No Dry Outcomes Met? Yes Last Modified By: Shamika Victor RN, I 04/19/21 12:45:37 Post-Care Text: The patient is free from signs and symptoms of injury caused by extraneous objects Patient Positioning FT Pre-Care Text: Identifies physical alterations that require additional precautions for procedure-specific positioning, verifies presence of prosthetics or corrective devices, positions the patient, evaluates the patient for signs (more content not included)... Normal [facility] Postoperative Documentson Postoperative Documents [id number] 1.00CD:127 Normal [facility] Progress Note-Physicianon Progress Note-Physician Patient: OSMAN PARIKH Age: 61 years Sex: Male : 1960 Associated Diagnoses: None Author: Dandre Ball MD Preoperative Information Anesthesia history: Patient History: No personal or Family history of problems with anesthesia. Re-eval prior to induction: Inital eval reviewed: No significant interval change. Review of Systems Constitutional: Negative. Cardiovascular: Cardiovascular risk stratafacation reviewed, 1 FOS without difficulty, No chest pain. Respiratory: No SOB. Hematology/Lymphatics : Negative. Gastrointestinal: Negative. Musculoskeletal: Negative. Neurologic: Negative. Health Status Allergies: Allergic Reactions (Selected) Severity Not Documented Erythromycin- Rash. NSAIDs- Gastric bypass operation. Current medications: (Selected) Inpatient Medications Ordered Lactated Ringers IV Emily 1000 mL 1,000 mL: 1,000 mL, IV, 150 mL/hr, Routine, Start date 04/19/21 11:00:00 EDT, 6.7 hour(s), Total volume (mL): 1,000, 96 kg, 2.14, m2 Prescriptions Prescribed Levsin 0.125 mg oral tablet: 0.125 mg = 1 tab(s), Oral, QID, PRN for spasm, # 40 tab(s), Refills(s) 0, Pharmacy: [id number] Zofran 4 mg Tab: 4 mg = 1 tab(s), Oral, q8hr, PRN Nausea/Vomiting, # 30 tab(s), Refills(s) 0, Pharmacy: [id number] oxybutynin 5 mg Tab: 5 mg = 1 tab(s), Oral, BID, X 30 day(s), # 60 tab(s), Refills(s) 1, Pharmacy: [id number], 175, cm, 02/20/21 8:55:00 EDT, Height/Length Dosing, 96.4, kg, 02/20/21 8:55:00 EDT, Weight Dosing traMADOL 50 mg Tab: 50 mg = 1 tab(s), Oral, q12hr, PRN for pain, # 10 tab(s), Refills(s) 0, Pharmacy: [id number], 172.7, cm, 03/08/21 9:22:00 EDT, Height/Length Dosing, 95.2, kg, 03/08/21 9:22:00 EDT, Weight Dosing Documented Medications Documented Flomax: 0.4 mg, Oral, Daily, Refills(s) 0, Urinary discomfort Multivitamin, Therapeutic w/ Minerals: 1 tab(s), Oral, Daily, Prophylaxis Norvasc: 5 mg, Oral, Daily, Refills(s) 0, High blood pressure calcium 500 mg tablets: 1,250 mg = 1 tab(s), Oral, Daily, Prophylaxis Problem list: All Problems Hypertension / SNOMED CT 3634292436 / Confirmed Kidney stone / SNOMED CT 740098745 / Confirmed Impotence / SNOMED CT 4394336273 / Confirmed Nocturia / SNOMED CT 268890614 / Confirmed Hypercholesterolemia / SNOMED CT 11338506 / Confirmed Frequency of urination / SNOMED CT 264494752 / Confirmed BMI 31.0-31.9,adult / SNOMED CT 667374002 / Confirmed Deafness / SNOMED CT 76809331 / Confirmed Gross hematuria / SNOMED CT 945684842 / Confirmed Benign essential hypertension / SNOMED CT 1113473 / Confirmed Hydronephrosis with ureteral calculus / SNOMED CT 5841022870 / Confirmed Gall stone / SNOMED CT 790779617 / Confirmed BPH with urinary obstruction / SNOMED CT 7690572249 / Confirmed Anxiety / SNOMED CT 69087221 / Confirmed Dysuria / SNOMED CT 62532953 / Confirmed Hyperlipidemia / SNOMED CT 10165832 / Confirmed Canceled: Impingement syndrome of shoulder / SNOMED CT 915474741 Canceled: Lipoma of arm / SNOMED CT 3940585976 Histories Past Medical History: No active or resolved past medical history items have been selected or recorded. Procedure history: ESWL (extracorporeal shockwave lithotripsy) of ureteric calculus ([id number]) on 03/22/2021 at 61 Years. ESWL (extracorporeal shockwave lithotripsy) of ureteric calculus (0754242154) on 03/22/2021 at 61 Years. Cystoscopy (08634943) on 02/04/2021 at 61 Years. Cystoscopic insertion of ureteric stent (594354776) on 02/04/2021 at 61 Years. Cholecystectomy (45699415). Renal lithotripsy (021805961). Gastric bypass (2958551959). Cholecystectomy (74090154). Social History Social & Psychosocial Habits Alcohol 02/04/2021 Use: Current Type: Beer, Liquor Frequency: 1-2 times per month Substance Abuse 11/10/2019 Risk Assessment: Denies Substance Abuse Comment: angelika - 02/04/2021 14:53 Norma Britt RN Tobacco 02/04/2021 Risk Assessment: Denies Tobacco Use 02/20/2021 Tobacco Use: Never (less than 100 in l Smokeless tobacco use: Never Comment: angelika - 02/04/2021 14:53 Norma Britt RN 03/30/2021 Tobacco Use: Never (less than 100 in l Smokeless tobacco use: Never . Physical Examination Pain assessment: Self-reports no pain. Airway: Mallampati classification: II (soft palate, fauces, uvula visible). Distance: Adequate. Mouth: Adequate opening. Neck: Full range of motion. Respiratory: Respirations are non-labored. Cardiovascular: Regular rhythm. Neurologic: Alert, Oriented. Review / Management Results review: No qualifying data available . Plan [place] [employer] (ASA) physical status classification: Class II. Anesthetic Preoperative Plan Anesthesia: General. . Anesthetic plan, risks, benefits, and alternatives discussed with the patient and/or family. Patient verbalized understanding. Pt agrees with anesthet (more content not included)... Normal [facility] Comment on above: Result Comment: Elec tronically Signed By: Dandre Ball MD\.br\Date and Time Signed: 04/23/21 16:41 EDT Progress Note-Physician Patient: OSMAN PARIKH Age: 61 years Sex: Male : 1960 Associated Diagnoses: None Author: Dandre Ball MD Postoperative Information Post Operative Note: Post Anesthesia Care Unit. Anesthetic utilized: General. Health Status Allergies: Allergic Reactions (All) Severity Not Documented Erythromycin- Rash. NSAIDs- Gastric bypass operation. Canceled/Inactive Reactions (All) No Known Allergies Problem list: All Problems Hypertension / SNOMED CT 7231118390 / Confirmed Kidney stone / SNOMED CT 241396491 / Confirmed Impotence / SNOMED CT 1663024709 / Confirmed Nocturia / SNOMED CT 518026552 / Confirmed Hypercholesterolemia / SNOMED CT 18900417 / Confirmed Frequency of urination / SNOMED CT 146973151 / Confirmed BMI 31.0-31.9,adult / SNOMED CT 850497752 / Confirmed Deafness / SNOMED CT 44991990 / Confirmed Gross hematuria / SNOMED CT 866690227 / Confirmed Benign essential hypertension / SNOMED CT 1896459 / Confirmed Hydronephrosis with ureteral calculus / SNOMED CT 9424283978 / Confirmed Gall stone / SNOMED CT 544606949 / Confirmed BPH with urinary obstruction / SNOMED CT 3822725330 / Confirmed Anxiety / SNOMED CT 16185004 / Confirmed Dysuria / SNOMED CT 60201028 / Confirmed Hyperlipidemia / SNOMED CT 88122937 / Confirmed Canceled: Impingement syndrome of shoulder / SNOMED CT 843236413 Canceled: Lipoma of arm / SNOMED CT 3383548643 Physical Examination Intake and Output adequate hydration Vital Signs 04/19/2021 14:43 EDT Temperature Oral 36.5 DegC Heart Rate Monitored 45 bpm LOW Respiratory Rate 16 br/min Systolic Blood Pressure 148 mmHg HI Diastolic Blood Pressure 79 mmHg Blood Pressure Location Right arm Mean Arterial Pressure, Monitered 102 mmHg SpO2 97 % 04/19/2021 14:43 EDT BP/Pulse Patient Position Supine 04/19/2021 13:50 EDT Temperature Oral 36.4 DegC Heart Rate Monitored 42 bpm LOW Respiratory Rate 16 br/min Systolic Blood Pressure 167 mmHg HI Diastolic Blood Pressure 84 mmHg Blood Pressure Location Right arm Mean Arterial Pressure, Monitered 112 mmHg SpO2 100 % BP/Pulse Patient Position Supine 04/19/2021 13:35 EDT Temperature Temporal Artery 36.2 DegC LOW Heart Rate Monitored 44 bpm LOW Respiratory Rate Monitored 15 br/min Systolic Blood Pressure 160 mmHg HI Diastolic Blood Pressure 77 mmHg Blood Pressure Location Right arm SpO2 99 % 04/19/2021 13:25 EDT Heart Rate Monitored 44 bpm LOW Respiratory Rate Monitored 13 br/min Systolic Blood Pressure 142 mmHg HI Diastolic Blood Pressure 79 mmHg Blood Pressure Location Right arm SpO2 96 % 04/19/2021 13:20 EDT Heart Rate Monitored 48 bpm LOW Respiratory Rate Monitored 19 br/min Systolic Blood Pressure 143 mmHg HI Diastolic Blood Pressure 80 mmHg Blood Pressure Location Right arm SpO2 96 % 04/19/2021 13:15 EDT Heart Rate Monitored 49 bpm LOW Respiratory Rate Monitored 18 br/min Systolic Blood Pressure 133 mmHg Diastolic Blood Pressure 90 mmHg Blood Pressure Location Right arm SpO2 96 % 04/19/2021 13:10 EDT Temperature Temporal Artery 36.4 DegC Heart Rate Monitored 52 bpm LOW Respiratory Rate Monitored 20 br/min Systolic Blood Pressure 126 mmHg Diastolic Blood Pressure 79 mmHg Blood Pressure Location Right arm SpO2 94 % Pain assessment: Self-reports no pain. General: Alert and oriented, No acute distress. HENT: Oral mucosa is moist, dentition unchanged. Respiratory: Respirations: Are within normal limits. Pattern: Regular. Cardiovascular: Normal rate. Neurologic: Alert, Oriented. Review / Management Lines and Tubes: Peripheral catheter. ECG interpretation: Within normal limits. Condition: Stable. Assessment Anesthetic outcome No anesthetic complications noted. Adequate pain relief. No Complaint of nausea and vomiting. Plan Transfer/ Discharge: Patient can be discharged from PACU when criteria met, Patient can be discharged from anesthesia care. Condition stable. Normal [facility] Comment on above: Result Comment: Elec tronically Signed By: Quinn BELTRE, Dandre\.br\Date and Time Signed: 04/23/21 16:39 EDT Consent for Anesthesiaon Consent for Anesthesia [id number] .00CD:127 Normal [facility] Discharge Instructionson Discharge Instructions [id number]#1 .00CD:127 Normal [facility] IntraOperative Documentson 1 IntraOperative Documents [id number] .00CD:127 [facility] Preoperative Documentson Preoperative Documents [id number]#1 .00CD:127 [facility] Consent for Procedure/Surger yon 04-19-2021 Consent for Procedure/Surgery [id number]# 1.00CD:127 [facility] Consent for Treatmenton 04-06 Consent for Treatment [id number]#1 .00CD:127 [facility] H&P Updateon 04-19-2021 H&P Update [id number] .00CD:127 [facility] Inpatient Patient Summaryon 04-19-2021 Inpatient Patient Summary [place] [id number] [facility] Clinical Discharge Instructions PERSON INFORMATION Name: OSMAN PARIKH PHYSICIANS Admitting Physician: Steven AMBRIZ MD Attending Physician: Steven AMBRIZ MD PCP: Juan BELTRE, Anna Discharge Diagnosis: Comment: PATIENT EDUCATION INFORMATION Instructions: Lithotripsy, Care After; Post Op Patient Instructions - FT (CUSTOM) Medication Leaflets: Follow up: With: Address: When: Steven AMBRIZ [address], [address], [facility] [address] [place] [address] Business (1) Within 7 to 10 days Comments: Call for followup appointment with an abdominal X-ray prior to that visit. MEDICATION LIST New Medications [facility]72, [address] [place] [id number], [phone] acetaminophen-hydroco done (acetaminophen-hydroc odone 325 mg-5 mg oral tablet) 1 Tablets By Mouth every 4 hours as needed Pain for 3 Days. N20.0. Refills: 0. Medications to Continue with No Changes Other Medications amlodipine (Norvasc) 5 Milligram By Mouth every day. calcium carbonate (calcium 500 mg tablets) 1 Tablets By Mouth every day. hyoscyamine (Levsin 0.125 mg oral tablet) 1 Tablets By Mouth 4 times a day as needed for spasm. Refills: 0. multivitamin with minerals (Multivitamin, Therapeutic w/ Minerals) 1 Tablets By Mouth every day., Opurity multivitamin specific for gastric bypass patients ondansetron (Zofran 4 mg Tab) 1 Tablets By Mouth every 8 hours as needed Nausea/Vomiting. Refills: 0. oxybutynin (oxybutynin 5 mg Tab) 1 Tablets By Mouth 2 times a day for 30 Days. Refills: 1. tamsulosin (Flomax) 0.4 Milligram By Mouth every day. tramadol (traMADOL 50 mg Tab) 1 Tablets By Mouth every 12 hours as needed for pain. Refills: 0. Comment: Manda [facility] Main OR PACU I Recordon 04-06 Main OR PACU I Record PACU Phase I Document Type FT Summary Primary Physician: Steven AMBRIZ MD Finalized Date/Time: 04/19/21 14:08:13 Pt. Name: OSMAN PARIKH/Sex: 1960 Male Med Rec #: [id number] Physician: Steven AMBRIZ MD Financial #: [id number] Pt. Type: A Room/Bed: Admit/Disch: 04/19/21 10:55:06 - Institution: Case Times PACU I FT Pre-Care Text: Identifies barriers to communication and implements measures to provide psychological support Develops individualized plan of care, and ensures continuity of care Maintains patient's dignity and privacy, and maintains patient confidentiality Identifies and reports philosophical, cultural, and spiritual beliefs and values Identifies individual values and wishes concerning care Implements aseptic technique, and administers prescribed antibiotic therapy and immunizing agents as ordered Evaluates postoperative tissue perfusion Implements thermoregulation measures, and monitors body temperature Evaluates postoperative respiratory status Evaluates postoperative cardiac status Evaluates postoperative neurological status Assesses pain control, collaborated in initiating patient-controlled analgesia and implements alternative methods of pain control Verifies allergies, administers prescribed medications and solutions, evaluates response to medications Entry 1 In PACU I 04/19/21 13:10:00 Discharge from PACU 04/19/21 13:40:00 I Outcomes Met? Yes Last Modified By: Beth Wolff RN 04/19/21 14:07:35 Post-Care Text: The patient demonstrates knowledge of the expected response to the operative or invasive procedure The patient's care is consistent with the individualized perioperative plan of care The patient's right to privacy is maintained The patient's value system, lifestyle, ethnicity, and culture are considered, respected, and incorporated into the perioperative plan of care The patient participates in decisions affecting his or her perioperative plan of care The patient is free from signs and symptoms of infection The patient has wound/tissue perfusion consistent with or improved from baseline levels established preoperatively The patient is at or returning to normothermia at the conclusion of the immediate postoperative period The patient's respiratory function is consistent with or improved from baseline levels established preoperatively The patient's cardiovascular status is consistent with or improved from baseline levels established preoperatively The patient's cardiovascular status is consistent with or improved from baseline levels established preoperatively The patient demonstrates and/or reports adequate pain control throughout the perioperative period The patient received appropriate medication(s), safely administered during the perioperative period Acuity Level PACU I FT Entry 1 Start Time 04/19/21 13:10:00 Stop Time 04/19/21 13:40:00 Acuity Level Acuity Level I Last Modified By: Beth Wolff RN 04/19/21 14:08:12 Finalized By: Beth Wolff RN Document Signatures Signed By: Beth Wolff RN 04/19/21 14:08 [facility] Main OR PACU II Recordon Main OR PACU II Record PACU Phase II Document Type FT Summary Primary Physician: Steven AMBRIZ MD Finalized Date/Time: 04/19/21 15:12:28 Pt. Name: OSMAN PARIKH /Sex: 1960 Male Med Rec #: [id number] Physician: Steven AMBRIZ MD Financial #: [id number] Pt. Type: A Room/Bed: 02 Admit/Disch: 04/19/21 10:55:06 - Institution: Case Times PACU II FT Pre-Care Text: Identifies barriers to communication and implements measures to provide psychological support and determines knowledge level Develops individualized plan of care, and ensures continuity of care Maintains patient's dignity and privacy, and maintains patient confidentiality Identifies and reports philosophical, cultural, and spiritual beliefs and values Identifies individual values and wishes concerning care administers prescribed antibiotic therapy and immunizing agents as ordered, Evaluates postoperative tissue perfusion Implements thermoregulation measures, and monitors body temperature Evaluates postoperative respiratory status Evaluates postoperative cardiac status Evaluates postoperative neurological status Assesses pain control, collaborated in initiating patient-controlled analgesia and implements alternative methods of pain control Verifies allergies, administers prescribed medications and solutions, evaluates response to medications Entry 1 In PACU II 04/19/21 13:45:00 Discharge from PACU 04/19/21 15:00:00 II Outcomes Met? Yes Last Modified By: Freda Ndiaye RN 04/19/21 15:09:46 Post-Care Text: The patient demonstrates knowledge of the expected response to the operative or invasive procedure The patient's care is consistent with the individualized perioperative plan of care The patient's right to privacy is maintained The patient's value system, lifestyle, ethnicity, and culture are considered, respected, and incorporated into the perioperative plan of care The patient participates in decisions affecting his or her perioperative plan of care. The patient is free from signs and symptoms of infection The patient has wound/tissue perfusion consistent with or improved from baseline levels established preoperatively The patient is at or returning to normothermia at the conclusion of the immediate postoperative period The patient's respiratory function is consistent with or improved from baseline levels established preoperatively The patient's cardiovascular status is consistent with or improved from baseline levels established preoperatively The patient's neurological status is consistent with or improved from baseline levels established preoperatively The patient demonstrates and/or reports adequate pain control throughout the perioperative period The patient received appropriate medication(s), safely administered during the perioperative period Finalized By: Esha Victoria RN Document Signatures Signed By: Esha Victoria RN 04/19/21 15:12 Normal [facility] Main OR Preoperative Recordo n 04-19-2021 Main OR Preoperative Record PreOp Document Type FT Summary Primary Physician: Steven AMBRIZ MD Finalized Date/Time: 04/19/21 12:58:00 Pt. Name: OSMAN PARIKH /Sex: 1960 Male Med Rec #: [id number] Physician: Steven AMBRIZ MD Financial #: [id number] Pt. Type: A Room/Bed: [place] [address] Admit/Disch: 04/19/21 10:55:06 - Institution: Case Times PreOp FT Pre-Care Text: Verifies consent for planned procedure, identifies individual values and wishes concerning care, includes family members in perioperative teaching Entry 1 Patient Times. In Pre Surgery 04/19/21 11:25:00 Out Pre Surgery 04/19/21 12:31:00 Outcomes Met? Yes Last Modified By: Shamika Victor RN, I 04/19/21 12:57:53 Post-Care Text: The patient participates in decisions affecting his or her perioperative plan of care Finalized By: Shamika Victor RN, I Document Signatures Signed By: Shamika Victor RN, I 04/19/21 12:57 Normal [facility] Monitor Recordon 04-19-2021 Monitor Record [id number]# 1.00CD:127 Normal [facility] Operative Reporton Operative Report Patient: OSMAN PARIKH Age: 61 years Sex: Male : 1960 Associated Diagnoses: None Author: Steven AMBRIZ MD Postoperative Information Date/ Time: 04/19/2021 13:17:00 Postoperative Diagnosis: Kidney stones (FCG15-EQ N20.0, Working, Medical). Performed by: Steven Ambriz MD. Findings: Procedure: ESWL left renal calculi Anesthesia:MAC, Dr. Ball Indications: This is a 61-year-old male with multiple stones in the left kidney. He originally had a left-sided UPJ calculus which had been pushed into the kidney at the time of stent placement. Approximately 1 month ago he had a ESWL of the left upper pole renal calculus which now resides as fragments in the lower pole along with 2 other stones. I extensively discussed the options with the patient and his and they wish me to proceed with the recommended ESWL of the left lower pole calculi with the inherent risk of bleeding, infection, bleeding around the kidney, need for additional procedures, heart and lung problems under anesthesia, among others. He understands the remote risk of exposure to COVID-19 virus while hospitalized as well. Despite all these risks he wishes to proceed and agrees with the plan. He did receive preoperative antibiotics he does have sequential compression devices in place and functional in the bilateral lower extremities throughout the case. Procedure: The patient was brought back to the operating room and after a timeout was performed, all were in agreement with the operative plan. After the successful induction of monitored anesthesia with IV sedation, he is placed in the supine position on the Dornier delta 3 lithotripsy table. The stones were easily seen in the left lower pole. A total of 2500 shocks are given, per protocol up to level 10. Shocks are dispersed mainly amongst the lower pole and the lower midportion of the left kidney. There appears to be excellent stone fragmentation. He tolerates it well. He is transferred to the [place] and then back to PACU in satisfactory condition, stable vital signs. Plan IV for discharge home with plans to follow-up in the office within the next 2 to 3 weeks with a KUB. Discussed all this with the patient's postoperatively and she is in agreement with the plan. I did provide a refill of 10 pills of [place] for postoperative pain management.. Estimated Blood Loss: 0 ml. Complications: None. Anesthesia type: General. Shock level should read: up to level 7 Normal [facility] Comment on above: Result Comment: Elec tronically Signed By: Steven AMBRIZ MD\.br\Date and Time Signed: 04/19/21 14:02 EDT Outpatient Surgery Discharge Instructionon 10-14-2021 Outpatient Surgery Discharge Instruction [address] [address] Patient Discharge Instructions PERSON INFORMATION Name: OSMAN PARIKH Date of : 1960 Current Date: 04/19/2021 14:02:26 PHYSICIANS Admitting Physician: Steven AMBRIZ MD Discharge Diagnosis: OSMAN PARIKH has been given the following list of follow-up instructions, prescriptions, and patient education materials: PATIENT FOLLOW-UP INFORMATION Diet: Regular Discharge Activity: Arrange for a responsible adult supervision for 24 hours, Expect mild pain, Expect minimal amount of drainage and/or bleeding Discharge Restrictions: No driving, Do not operate machinery or tools, Do not make important decisions for 24 hours, Do not drink alcoholic beverages for 24 hours Call Your Doctor For: Persistent or heavy bleeding, Temperature above 101.5 degrees Additional Instructions: No strenuous activity. Push the fluids to keep the urine clear. I did send a prescription to your pharmacy for some pain medication. I will see you next week with an abdominal x-ray prior to the visit. IF UNABLE TO CONTACT YOUR PHYSICIAN AND YOU FEEL IT IS AN EMERGENCY, GO TO THE NEAREST EMERGENCY ROOM OR CALL 911 I, PARIKHOSMAN HAYNES, have received the attached patient education materials/instruction s and have verbalized understanding: May we do a follow up call? Yes No I was present when discharge instructions were given Patient Signature Date Clinican/Nurse Signature Date Follow up: With: Address: When: Steven AMBRIZ [address] [place] [address] [address], [address], [address] [address] Business (1) Within 7 to 10 days Comments: Call for followup appointment with an abdominal X-ray prior to that visit. Pharmacy Information: Other: [facility] You may receive a survey from [facility] asking you to rate your care experience. Your feedback is important and will help us understand what we do well and how we can improve the quality of care we provide to you, your loved ones and our community. It?s an honor to serve you. Thank you for choosing [facility] HERE ARE THE MEDICATION CHANGES THAT OCCURRED DURING YOUR HOSPITAL STAY New Medications [facility]72, [address] [place] [id number], [phone] acetaminophen-hydroco done (acetaminophen-hydroc odone 325 mg-5 mg oral tablet) 1 Tablets By Mouth every 4 hours as needed Pain for 3 Days. N20.0. Refills: 0. Medications to Continue with No Changes Other Medications amlodipine (Norvasc) 5 Milligram By Mouth every day. calcium carbonate (calcium 500 mg tablets) 1 Tablets By Mouth every day. hyoscyamine (Levsin 0.125 mg oral tablet) 1 Tablets By Mouth 4 times a day as needed for spasm. Refills: 0. multivitamin with minerals (Multivitamin, Therapeutic w/ Minerals) 1 Tablets By Mouth every day., Opurity multivitamin specific for gastric bypass patients ondansetron (Zofran 4 mg Tab) 1 Tablets By Mouth every 8 hours as needed Nausea/Vomiting. Refills: 0. oxybutynin (oxybutynin 5 mg Tab) 1 Tablets By Mouth 2 times a day for 30 Days. Refills: 1. tamsulosin (Flomax) 0.4 Milligram By Mouth every day. tramadol (traMADOL 50 mg Tab) 1 Tablets By Mouth every 12 hours as needed for pain. Refills: 0. PATIENT EDUCATION INFORMATION Instructions: Lithotripsy, Care After This sheet gives you information about how to care for yourself after your procedure. Your health care provider may also give you more specific instructions. If you have problems or questions, contact your health care provider. What can I expect after the procedure? After the procedure, it is common to have: ? Some blood in your urine. This should only last for a few days. ? Soreness in your back, sides, or upper abdomen for a few days. ? Blotches or bruises on your back where the pressure wave entered the skin. ? Pain, discomfort, or nausea when pieces (fragments) of the kidney stone move through the tube that carries urine from the kidney to the bladder (ureter). Stone fragments may pass soon after the procedure, but they may continue to pass for up to 4?8 weeks. ? If you have severe pain or nausea, contact your health care provider. This may be caused by a large stone that was not broken up, and this may mean that you need more treatment. ? Some pain or discomfort during urination. ? Some pain or discomfort in the lower abdomen or (in men) at the base of the penis. Follow these instructions at home: Medicines ? Take [id number] and prescription medicines only as told by your health care provider. ? If you were prescribed an antibiotic medici (more content not included)... Normal [facility] Patient Education - Texton 1 Patient Education - Text Nephrology Lithotripsy, Care After This sheet gives you information about how to care for yourself after your procedure. Your health care provider may also give you more specific instructions. If you have problems or questions, contact your health care provider. What can I expect after the procedure? After the procedure, it is common to have: ? Some blood in your urine. This should only last for a few days. ? Soreness in your back, sides, or upper abdomen for a few days. ? Blotches or bruises on your back where the pressure wave entered the skin. ? Pain, discomfort, or nausea when pieces (fragments) of the kidney stone move through the tube that carries urine from the kidney to the bladder (ureter). Stone fragments may pass soon after the procedure, but they may continue to pass for up to 4?8 weeks. ? If you have severe pain or nausea, contact your health care provider. This may be caused by a large stone that was not broken up, and this may mean that you need more treatment. ? Some pain or discomfort during urination. ? Some pain or discomfort in the lower abdomen or (in men) at the base of the penis. Follow these instructions at home: Medicines ? Take ylyy-vnh-hrqxccq and prescription medicines only as told by your health care provider. ? If you were prescribed an antibiotic medicine, take it as told by your health care provider. Do not stop taking the antibiotic even if you start to feel better. ? Do not drive for 24 hours if you were given a medicine to help you relax (sedative). ? Do not drive or use heavy machinery while taking prescription pain medicine. Eating and drinking ? Drink enough water and fluids to keep your urine clear or pale yellow. This helps any remaining pieces of the stone to pass. It can also help prevent new stones from forming. ? Eat plenty of fresh fruits and vegetables. ? Follow instructions from your health care provider about eating and drinking restrictions. You may be instructed: ? To reduce how much salt (sodium) you eat or drink. Check ingredients and nutrition facts on packaged foods and beverages. ? To reduce how much meat you eat. ? Eat the recommended amount of calcium for your age and gender. Ask your health care provider how much calcium you should have. General instructions ? Get plenty of rest. ? Most people can resume normal activities 1?2 days after the procedure. Ask your health care provider what activities are safe for you. ? Your health care provider may direct you to lie in a certain position (postural drainage) and tap firmly (percuss) over your kidney area to help stone fragments pass. Follow instructions as told by your health care provider. ? If directed, strain all urine through the strainer that was provided by your health care provider. ? Keep all fragments for your health care provider to see. Any stones that are found may be sent to a medical lab for examination. The stone may be as small as a grain of salt. ? Keep all follow-up visits as told by your health care provider. This is important. Contact a health care provider if: ? You have pain that is severe or does not get better with medicine. ? You have nausea that is severe or does not go away. ? You have blood in your urine longer than your health care provider told you to expect. ? You have more blood in your urine. ? You have pain during urination that does not go away. ? You urinate more frequently than usual and this does not go away. ? You develop a rash or any other possible signs of an allergic reaction. Get help right away if: ? You have severe pain in your back, sides, or upper abdomen. ? You have severe pain while urinating. ? Your urine is very dark red. ? You have blood in your stool (feces). ? You cannot pass any urine at all. ? You feel a strong urge to urinate after emptying your bladder. ? You have a fever or chills. ? You develop shortness of breath, difficulty breathing, or chest pain. ? You have severe nausea that leads to persistent vomiting. ? You faint. Summary ? After this procedure, it is common to have some pain, discomfort, or nausea when pieces (fragments) of the kidney stone move through the tube that carries urine from the kidney to the bladder (ureter). If this pain or nausea is severe, however, you should contact your health care provider. ? Most people can resume normal activities 1?2 days after the procedure. Ask your health care provider what activities are safe for you. ? Drink enough water and fluids to keep your urine clear or pale yellow. This helps any remaining pieces of the stone to pass, and it can help prevent new stones from forming. ? If directed, strain your urine and keep all fragments for your health care provider to see. Fragments or stones may be as small as a grain of salt. ? Get help ri (more content not included)... Normal [facility] XR Abdomen 1 Viewon 04-19-20 21 XR Abdomen 1 View Exam Date/Time: 04/19/2021 11:27 EDT Reason for Exam: Kidney stone Report IMPRESSION: A FEW BILATERAL RENAL CALCULI MEASURING UP TO 8 MM. CLINICAL HISTORY: Kidney stone COMPARISON: 03/22/2021. FINDINGS: AP supine abdomen using 2 images shows left ureteral stent in place. There are a few renal calculi measuring up to 8 mm in the lower portion of the left kidney. A tiny punctate renal calculus in the middle portion of the right kidney. There are multiple surgical clips in the bilateral upper abdomen and a few surgical clips in the right middle and left pelvic abdomen. Gas pattern of bowel is unremarkable. FINAL REPORT Dictated: 04/19/2021 11:38 am Gilbert Gaxiola M.D. Signed (Electronic Signature): 04/19/2021 11:38 am Signed by: Gilbert Gaxiola M.D. Transcribed by: ODALIS Technologist: JED Singleton [facility] Progress Note-Physicianon Progress Note-Physician Patient: OSMAN PARIKH Age: 61 years Sex: Male : 1960 Associated Diagnoses: None Author: Dandre Ball MD Preoperative Information Anesthesia history: Patient History: No personal or Family history of problems with anesthesia. Re-eval prior to induction: Inital eval reviewed: No significant interval change. Review of Systems Constitutional: Negative. Cardiovascular: Cardiovascular risk stratafacation reviewed, 1 FOS without difficulty, No chest pain. Respiratory: No SOB. Hematology/Lymphatics : Negative. Gastrointestinal: Negative. Musculoskeletal: Negative. Neurologic: Negative. Health Status Allergies: Allergic Reactions (Selected) Severity Not Documented Erythromycin- Rash. NSAIDs- Gastric bypass operation. Current medications: (Selected) Inpatient Medications Ordered Lactated Ringers IV Emily 1000 mL 1,000 mL: 1,000 mL, IV, 150 mL/hr, Routine, Start date 04/19/21 11:00:00 EDT, 6.7 hour(s), Total volume (mL): 1,000, 96 kg, 2.14, m2 Prescriptions Prescribed Levsin 0.125 mg oral tablet: 0.125 mg = 1 tab(s), Oral, QID, PRN for spasm, # 40 tab(s), Refills(s) 0, Pharmacy: [id number] Zofran 4 mg Tab: 4 mg = 1 tab(s), Oral, q8hr, PRN Nausea/Vomiting, # 30 tab(s), Refills(s) 0, Pharmacy: [id number] oxybutynin 5 mg Tab: 5 mg = 1 tab(s), Oral, BID, X 30 day(s), # 60 tab(s), Refills(s) 1, Pharmacy: [id number], 175, cm, 02/20/21 8:55:00 EDT, Height/Length Dosing, 96.4, kg, 02/20/21 8:55:00 EDT, Weight Dosing traMADOL 50 mg Tab: 50 mg = 1 tab(s), Oral, q12hr, PRN for pain, # 10 tab(s), Refills(s) 0, Pharmacy: [id number], 172.7, cm, 03/08/21 9:22:00 EDT, Height/Length Dosing, 95.2, kg, 03/08/21 9:22:00 EDT, Weight Dosing Documented Medications Documented Flomax: 0.4 mg, Oral, Daily, Refills(s) 0, Urinary discomfort Multivitamin, Therapeutic w/ Minerals: 1 tab(s), Oral, Daily, Prophylaxis Norvasc: 5 mg, Oral, Daily, Refills(s) 0, High blood pressure calcium 500 mg tablets: 1,250 mg = 1 tab(s), Oral, Daily, Prophylaxis Problem list: All Problems Hypertension / SNOMED CT 0759608657 / Confirmed Kidney stone / SNOMED CT 389283226 / Confirmed Impotence / SNOMED CT 7978545748 / Confirmed Nocturia / SNOMED CT 922882900 / Confirmed Hypercholesterolemia / SNOMED CT 37386211 / Confirmed Frequency of urination / SNOMED CT 763218384 / Confirmed BMI 31.0-31.9,adult / SNOMED CT 032787284 / Confirmed Deafness / SNOMED CT 47330403 / Confirmed Gross hematuria / SNOMED CT 230833015 / Confirmed Benign essential hypertension / SNOMED CT 9224944 / Confirmed Hydronephrosis with ureteral calculus / SNOMED CT 6379256119 / Confirmed Gall stone / SNOMED CT 818249689 / Confirmed BPH with urinary obstruction / SNOMED CT 9649299380 / Confirmed Anxiety / SNOMED CT 64048259 / Confirmed Dysuria / SNOMED CT 33990993 / Confirmed Hyperlipidemia / SNOMED CT 24013904 / Confirmed Canceled: Impingement syndrome of shoulder / SNOMED CT 692500251 Canceled: Lipoma of arm / SNOMED CT 3561167718 Histories Past Medical History: No active or resolved past medical history items have been selected or recorded. Procedure history: ESWL (extracorporeal shockwave lithotripsy) of ureteric calculus (9651504150) on 03/22/2021 at 61 Years. ESWL (extracorporeal shockwave lithotripsy) of ureteric calculus (7026090532) on 03/22/2021 at 61 Years. Cystoscopy (42496675) on 02/04/2021 at 61 Years. Cystoscopic insertion of ureteric stent ([id number]) on 02/04/2021 at 61 Years. Cholecystectomy (48458175). Renal lithotripsy (279166373). Gastric bypass (3518896638). Cholecystectomy (25351302). Social History Social & Psychosocial Habits Alcohol 02/04/2021 Use: Current Type: Beer, Liquor Frequency: 1-2 times per month Substance Abuse 11/10/2019 Risk Assessment: Denies Substance Abuse Comment: angelika - 02/04/2021 14:53 - Norma Vasquez RN Tobacco 02/04/2021 Risk Assessment: Denies Tobacco Use 02/20/2021 Tobacco Use: Never (less than 100 in l Smokeless tobacco use: Never Comment: angelika - 02/04/2021 14:53 Norma Britt RN 03/30/2021 Tobacco Use: Never (less than 100 in l Smokeless tobacco use: Never . Physical Examination Pain assessment: Self-reports no pain. Airway: Mallampati classification: II (soft palate, fauces, uvula visible). Distance: Adequate. Mouth: Adequate opening. Neck: Full range of motion. Respiratory: Respirations are non-labored. Cardiovascular: Regular rhythm. Neurologic: Alert, Oriented. Review / Management Results review: No qualifying data available . Plan [place] [employer] (ASA) physical status classification: Class II. Anesthetic Preoperative Plan Anesthesia: General. . Anesthetic plan, risks, benefits, and alternatives discussed with the patient and/or family. Patient verbalized understanding. Pt agrees with anesthet (more content not included)... Normal [facility] Comment on above: Result Comment: Elec tronically Signed By: Dandre Ball MD 04-03-2021 [facility] [id number] .[id number]:127 Normal [facility] Ambulatory Clinical Summaryo n 03-30-2021 Ambulatory Clinical Summary {[id number]}CD:[id number] Normal [facility] Patient Educationon 03-30-20 Patient Education Nutrition Calorie Counting for Weight Loss Calories are units of energy. Your body needs a certain amount of calories from food to keep you going throughout the day. When you eat more calories than your body needs, your body stores the extra calories as fat. When you eat fewer calories than your body needs, your body durbin fat to get the energy it needs. Calorie counting means keeping track of how many calories you eat and drink each day. Calorie counting can be helpful if you need to lose weight. If you make sure to eat fewer calories than your body needs, you should lose weight. Ask your health care provider what a healthy weight is for you. For calorie counting to work, you will need to eat the right number of calories in a day in order to lose a healthy amount of weight per week. A dietitian can help you determine how many calories you need in a day and will give you suggestions on how to reach your calorie goal. ? A healthy amount of weight to lose per week is usually 1?2 lb (0.5?0.9 kg). This usually means that your daily calorie intake should be reduced by 500?750 calories. ? Eating 1,200 ? 1,500 calories per day can help most women lose weight. ? Eating 1,500 ? 1,800 calories per day can help most men lose weight. What is my plan? My goal is to have calories per day. If I have this many calories per day, I should lose around pounds per week. What do I need to know about calorie counting? In order to meet your daily calorie goal, you will need to: ? Find out how many calories are in each food you would like to eat. Try to do this before you eat. ? Decide how much of the food you plan to eat. ? Write down what you ate and how many calories it had. Doing this is called keeping a food log. To successfully lose weight, it is important to balance calorie counting with a healthy lifestyle that includes regular activity. Aim for 150 minutes of moderate exercise (such as walking) or 75 minutes of vigorous exercise (such as running) each week. Where do I find calorie information? The number of calories in a food can be found on a Nutrition Facts label. If a food does not have a Nutrition Facts label, try to look up the calories online or ask your dietitian for help. Remember that calories are listed per serving. If you choose to have more than one serving of a food, you will have to multiply the calories per serving by the amount of servings you plan to eat. For example, the label on a package of bread might say that a serving size is 1 slice and that there are 90 calories in a serving. If you eat 1 slice, you will have eaten 90 calories. If you eat 2 slices, you will have eaten 180 calories. How do I keep a food log? Immediately after each meal, record the following information in your food log: ? What you ate. Don't forget to include toppings, sauces, and other extras on the food. ? How much you ate. This can be measured in cups, ounces, or number of items. ? How many calories each food and drink had. ? The total number of calories in the meal. Keep your food log near you, such as in a small notebook in your pocket, or use a mobile tamika or website. Some programs will calculate calories for you and show you how many calories you have left for the day to meet your goal. What are some calorie counting tips? ? Use your calories on foods and drinks that will fill you up and not leave you hungry: ? Some examples of foods that fill you up are nuts and nut butters, vegetables, lean proteins, and high-fiber foods like whole grains. High-fiber foods are foods with more than 5 g fiber per serving. ? Drinks such as sodas, specialty coffee drinks, alcohol, and juices have a lot of calories, yet do not fill you up. ? Eat nutritious foods and avoid empty calories. Empty calories are calories you get from foods or beverages that do not have many vitamins or protein, such as candy, sweets, and soda. It is better to have a nutritious high-calorie food (such as an avocado) than a food with few nutrients (such as a bag of chips). ? Know how many calories are in the foods you eat most often. This will help you calculate calorie counts faster. ? Pay attention to calories in drinks. Low-calorie drinks include water and unsweetened drinks. ? Pay attention to nutrition labels for low fat or fat free foods. These foods sometimes have the same amount of calories or more calories than the full fat versions. They also often have added sugar, starch, or salt, to make up for flavor that was removed with the fat. ? Find a way of tracking calories that works for you. Get creative. Try different apps or programs if writing down calories does not work for you. What are some portion control tips? ? Know how many calories are in a serving. This will help you know how many servings of a certain food you can have. ? Use a measuring cup to measure serving sizes. You could (more content not included)... Normal [facility] Pre-Authorization for Medica l Treatmenton 03-30-2021 Pre-Authorization for Medical Treatment [id number]# 1.00CD:127 Normal [facility] Urology Office/Clinic Noteon 03-30-2021 Urology Office/Clinic Note Chief Complaint Pt is here for PO ESWL w/ KUB HPI Staff Osman is a 61 y.o. male here for PO LT ESWL w/ KUB. Previous Dx: BPH w/ urinary obstruction, dysuria, frequency of urination, gross hematuria, hydronephrosis w/ ureteral calculus, impotence, kidney stone, nocturia. S/P ESWL done on 03/22/21. KUB done on 03/30/21. Dysuria: yes burning Incomplete bladder emptying: denies Hematuria: denies Frequency: yes Urgency: denies Nocturia: yes Stream: steady stream Leaking: denies Post void dripping: denies Wearing pads/ Depends: denies Urge incontinence: denies Stress incontinence: denies Incontinence without Sensory Awareness: denies Abdominal pain: denies Flank pain: denies Sexual complaints: _ History of Present Illness Reviewed KUB. There have been no associated fever, chills, flank pain or blood in the urine. Pt. denies any pain/burning with urination at this time. Review of Systems PHQ Score Initial Depression Screen Score: 0 ROS - Provider Constitutional: denies weight loss, denies hot flashes. Eyes: denies eye problems. Gastrointestinal: denies nausea, denies vomiting. Cardiovascular: denies chest pain or angina. Integumentary: no dryness Musculoskeletal: denies musculoskeletal symptoms. ENMT: denies otolaryngeal symptoms. Respiratory: no shortness of breath. Heme/Lymph: denies easy bleeding tendency, denies easy bruising tendency. Psychiatric: no confusion, no anxiety. Genitourinary: denies dysuria, denies hematuria, denies discharge, denies urinary frequency, denies urinary hesitancy, denies nocturia, denies incontinence, denies genital sores, denies decreased libido, and denies erectile dysfunction. Physical Exam Vitals & Measurements HR: 68(Peripheral) BP: 140/82 HT: 175 cm HT: 175.0 cm WT: 96 kg WT: 96.0 kg BMI: 31.35 General Appearance: alert, no distress, well nourished, well developed male. Genitourinary: normal scrotum, normal testes, normal urethra, normal epididymis, normal vas deferens/spermatic cord. Flank Pain: none. Bladder: nonpalpable Assessment/Plan 1. Kidney stone (N20.0: Calculus of kidney) S/P Lt ESWL done on 03/22/2021. Current KUB report shows few left renal calculi measuring up to 8mm. There were previously three stones, now there are two. Will schedule left ESWL. The procedure risks, benefits, details and treatment alternatives have been discussed with the patient. These include blood in the urine, infection, bleeding around the kidney, kidney bruising, inability to break up the stone, need for blood transfusion, blockage from stone fragments, and need for additional procedures, among others. Full informed consent has been obtained. Will order General anesthesia. 2. BPH with urinary obstruction (N40.1: Benign prostatic hyperplasia with lower urinary tract symptoms) Continue Flomax 0.4mg QD. I have reviewed the previous health record information and history for this pt. from Dr. Ambriz. The patient is here with his today. I had a long discussion with them comparing the preoperative KUB to the current KUB. At the time of the lithotripsy there were 3 stones within the kidney itself. I now only see 2. I believe that the mid renal calculus which most likely reside within the renal pelvis now lies in the lower pole which is in the exact location of the previously treated calculus. In summary we now have 2 kidney stones to deal with and fragments from the treated stone. I feel this justifies a repeat lithotripsy with a tentative plan to split the shocks between the upper pole and lower pole calculus. They still understand that a ureteroscopic and nephroscopic approach may still be indicated with possible laser ablation and basket extraction in the future. Follow-up With When Contact Information NAIKA BELTRE, Steven Ruffin, URL [address] [facility] [address]- Additional Instructions: Patient Education Calorie Counting for Weight Loss ITonja , personally scribed for Dr. Ambriz on 03/30/2021 10:51:11. . Documentation recorded by the scribe, Tonja Moeller, accurately reflects the services(s) I performed and decisions made by me. Authenticated by Dr. Ambriz on 03/30/2021 10:57:13. Problem List/Past Medical History Ongoing Anxiety Benign essential hypertension BMI 31.0-31.9,adult BPH with urinary obstruction Deafness Dysuria Frequency of urination Gall stone Gross hematuria Hydronephrosis with ureteral calculus Hypercholesterolemia Hyperlipidemia Hypertension Impotence Kidney stone Nocturia Historical No qualifying data Procedure/Surgical History ESWL (extracorporeal shockwave lithotripsy) of ureteric calculus (03/22/2021), ESWL (extracorporeal shockwave lithotripsy) of ureteric calculus (03/22/2021), Cystoscopic insertion of ureteric stent (02/04/2021), Cystoscopy (02/04/2021), Cholecystectomy, Cholecystectomy, Gastric bypass, Renal lithotr (more content not included)... Normal [facility] Comment on above: Result Comment: Elec tronically Signed By: Steven AMBRIZ MD\.br\Date and Time Signed: 03/30/21 10:58 EDT\.br\Electronically Co-Signed By: Tonja Moeller MA\.br\Date and Time Co-Signed: 03/30/21 10:51 EDT Coding Summary.on 03-27-2021 Coding Summary. [id number] G h0bWw+PGhlYWQ+JY3TLAV vI73wvLJtaX6EE9wOLS7E NRAVUSOUWR5HDL0vxMA1C KtjA4GmycHp VgwsuWUdEH95NTq7ZNA5h CuqMAlacR4wbMAxV4k4Rq VuUL87aG34NOktRQBlLfS 3LjZpbjsgbWFy Q4lxRaGnaPEaHfw+PHRhY mxlIHdpZHRoPScxMDAlJy TtpZlhQW8zBv9fTUTbQLA vbGxhcHNlOiBj c0vnUSPuWZglZH8igDkcS 5SilQG8EXCmz9c7En08qH I+ZFFiDSD5oVpnIYhfu90 1WpTvk7nvOBK5 qIGrAMjeCWM1L90el7V0I MPsORAvIKJ1uQB2sX5vcZ dwcvwvE4YbfPVkUiY8TGE 5rNWneD9jrWvy yqokvT8rOwg+N34UWF9KQ THWCP4XHzj0Y6UzVpvkpW I+VR12UUXkMY98fPCicLX zl3vkkDi3GyBy IWYkFEZ2iZypCFuwa9OoM SFaA89dbGKtx5C8EKIftW cazUIlOtXpcEL6xF8oKSm nkbmbv6ngrtol Rjjti3sywd92lF16P51iC CvsZRPhFML9WGBaJZBbcM ihmh8soW0qUz9+GKjwq4f xj3yqiCg3MwIf CPAtguHntPipPYQ5h5AjN t25X0RpjUcgi3RdUyg2oe 81zIBxz0T0aUY6OQmgCQU rcW7cTOstYfW0 MBOvAjCwjA35sFInRImeP v5zkXcmgTvyYG3iUTGrhc ioFWDxeJ3zIJDdbKFfpCh pZZ9xRZHdcspm t330CrBaGAZ3QMQyeMUxF 0CayO3yKxDeUJCmQCVjI5 QcfSRvAAukD722BEcqBfL 5DOJuwjWnX9Ca WCLdiNkyOkH5u9A0Jl4Xl 8ZkjxkdKUN8WEcsIQW3Fa RtWcAoPqV3P2BmGcw0WPN kdQqnHI7zY5Sd NSXrguvdbvkoxGK3GBKeH NTibM90lTFvLExiCv9yj0 L4y258PDWrTVJxvL46Qt0 udDogMTBwdCBU vP4mkifte7armovvKzAjE ZUnJUe8KRr7ZGSgvPjlAz BaEJH7OwB3NCE2wWZerV8 mePoxpwbwsY7f Oyc+S70nqV0iMHN3LNA9d xynYGOiwnXoPN58MM38Y2 RyPjwvdGFibGU+PGRpdiB xeZaoNA2fZtYg r4uya9OmLMzyF3HuRJDiS KfbDbk0WGLyXEA5uBW1zM 3dHFNxUJhal6D1qWK0H6F rfhYgsu7ky4hq HPHgSBswE51ezQZnb3F6G NAhtBO5RDMazMpeZtMzrW 93Oyc+VPEhvNfyv7JrPyi bz4qax9pmuZw5 TcBzHNFtqbKlaHqmKDR9h 7ZpNt54T40jQSbjVQGrNP OcYJYlOMFqhNyqod4niT9 wIi8+PGNvbCB3 rKE0hC2tSZYeLjW1DDucW 025VbSaoLEdBokuv8wfj9 byzHt0VjNlYUZvweVqmHj gSXO9i2IcMh42 T69mYFmtUFSlZSTsPWHuP QVrhYlsoz7keZ6rXd4+PC 0gk7lxjp74mY37sCM+PHR eEGT7zJqtWWhb VTLvyW8bJFpxRgQ0BLBbJ xUxbG80pYZdXJfgZf4avV bahYszBC4pZZTyndztk97 9IfGom2viWMWm qXNvYNuoETF1E53zz4X8C INyORYwDSV7eEP3mX2raR lnbjogbGVmdDsgdmVydGl lSCyrRZcaG499 IHRvcDsnPlBhdGllbnQgT lMiDKz5N5FgLwj6COLaeC eyGN6vaBAnRUqiUb9zvEl gyRrgOT9qWZGy jjzjf227LfEva1lkBWZxs XVpGGxlYVE5G72od0L5DB ZjPXToAIY8kLT5sU7xuKt nbjogbGVmdDsg yhShxVemVJceOLmfZ875I HRvcDsnPkJpcnRoIERhdG X7IQ21IS52pVRiz8T3mDV 0O5KgJTQoubbp oqgzkBN7SLFpSEOpwM24R x9qpHzrLn2gGTYfYCW4MX TeqARwY3AfvW4gYfMoPCS tHOFyX0EylEIj GYjrR106RGwnCuX8AUFdj zHwY3OzTDFzvSvnJjA8x3 T8Ji4ZB0M8GC60EJ18uUV is3B3kVX2V2Gl SRGldvmeipeemSL8PISbF TQcpC76Tg5buQjnIc5tVH BgIFM2WHZbfCBzE8EzqQ7 yOiAjMDAwMDAw J4BknXOaVXkoI986QDxgD lH2CDZnneFfA9IpKODvvG kaCfO7b4E2Sm4FWSm8QI0 5VE10qQSvc6D8 xTC6G1NqLGAzsrdyflcna QH1TYZmWIYvmU54Au6ayX mkJw1wTXHfMRZ5SEYwvOF qE7EsbQ9xSkMn PQYrIUKsG2EdxLAvNUrvY 946WAjyHnB3NLOilmFsT0 BdNMYldTvnFkS1p2B3Cd5 NRPWhPZ81WFD0 cMF3TT56WN43T2ZgRsmjv GFibGU+PHRhYmxlIHdpZH RoPScxMDAlJyBzdHlsZT0 mIm1rWVRdUTZc iZmufOBmMjBjg7qhIBWhT QypRS2vlIhzK7PzpGT4EW Jml3o8Vp34G70nJ6WryYA +LOHkyDD6kMY2 gK8tRuVrWwY0YXtpY785H oStzUCiTcrvb5eog1kpzH x4ErE4JZNpnuLyfCwfPNV 8c7IxZq43B79e IHdpZHRoPSIxNSUiIHZhb Ycqgx3pvF0lNo8+PGNvbC V5hRV8pR0jJoLkHbQ5POr kF425MxBewINi Bjbgr9wye2vcaLl6LjVrA JMbmnRzjUgsQCJ8l6YaHg 26Z2GohIohr2EuWhm7hp9 5mFKde4W1mZJ5 C2LrECDkqynwpZOnzCmaH G6zIOVjjtubEBVrnX7tQM EzU4g3SkNpJzK9VRnmA1C cqpR8NOGfaSZb VLtiXCF4K25qd0W1KDDwD EZeBUW1uAD4cF4hgLnpdc ogbGVmdDsgdmVydGljYWw xREmiK575VDOu aLrrFUSddN1sRGLqlIBeh NqhXO4cSIFawkrsVqUOYP RPVDHNFN5AAGOgNguukNJ +HQSlDHQ6sXls KMycMCNmmJ2jUTClT1v8M zBgGeZ6WFgmU8IwMLIssz twKz86kQ9gKvTcBiX6SDg qZ5RyifV1SPLi bMFqZNkhCXK3I28uz5R5L TXlMCNcUMS7cNU8kC2ssV lnbjogbGVmdDsgdmVydGl sMZhwKDeiJ318 XKDnzZoyChS0RuR3ZgU7D Zh9U1DuNim7GNKtpLspRH 5seQTtQLgpYb4ruFoqbMi zWF2dBTDwdpfv YOOhdH6tAAKfcZTexCzcO L4vFUJymkcos402OsAoHX K1GCPmeLCgA8RjdK8bDzG fUNVoZLWkG2Qu iWBtBLdnZ999WBahAiF3K WQvvpZnJ3TvPWSqdPsfDw Q9n4N7Lf30GySQLPDqxer vdGQ+PHRkIHN0 jDhvBYmoBJSkxB0rKJGvH 5y4AdAxToW9DBavH5AyCU OuyqwcAi18nH8rXdWiFbP 4QNdfG9VueeB9 NCFkkFYtYOibHPQ5U80wi 9U4SXQeVCZzXNZ6kWB1rA 1hbGlnbjogbGVmdDsgdmV ydGljYWwtYWxp B918JOVoyAwdRu5aoVG6Z 8AuTaf6AIVbfRprNR8tkA UkMLcbAo7gxLjtiXmuPC0 wNTBpbjtwYWRk cM0dJAVrwDWzrWowER6zL EKktdgeq365ZpDmATN1MK RqfDSrX8FtyJ4gHkYnWME vUIRyF1OtvUEg HYimU509PRjzPpA0UVEfv uYfR7OrANXipIzkEqG6o3 L6Am7ZrRUoWCUiOU57CL5 1OM01P9SfUdvq dGFibGU+PHRhYmxlIHdpZ HRoPScxMDAlJyBzdHlsZT 0vQv1nMRHyOEFhwWoyiYE qDuSzk6pjMKDx XSlcRD1usFgdU3MpoLI7I QRdo1f6Uv91A30tM0IcuU A+PXWisWW0hNL2bO5jYrW kHcL0KEllY372 BlFttTNuPtvrw0jdz4gre Dh1TkBwRLUpdlChdRfiIL M9i8WbGd16L26lSHknHDR oPSIyMCUiIHZh gHhwpb9miE8jRz3+PGNvb UN5lHW8eL9sPkIcOxW2CL shZ622QnXrlWBnUoisZ44 xL7IegXV+PHRy Hff8GBPmjHtdAW7pcNTlJ YukDi7wIEG4XsEjRbBhHT rmP7CbCXEmynneqwqvwSP 5VJZlCFDmlW45 Iz7sxGrmRd5nKNCtMTV0L TIwxXRhN9NldJ7rYmUyJO WuPFDvG0AkeKElAZljV46 3HCfhYnT7QLKu iwOvX9NmFCNmdOimAlF7l 8Y2Bq8BhAoagBRaVU0aRw CoYTv6N1NvXry5YFTfmBd pJP3pfLKaPKgy Xb0kjDrufUfvOF4eRPYiw xxip335GiVgh6iuQXBqnJ FxCYbcPPL6O61zt6O4HCO iDQXtGUR4xRB0 oO2bbGetyhdjlMXqhSpix yRnxLesWFpvPNadB660FQ RecHaoKfQWDvj5K1ElBud 9GHBoaEsuRC0o eYVjMJydKh2jhXndcRnrL W7wCQGlcgvaa706RlQmf4 hsLXKxrWTiWYcqKKO7T43 zx8H7HELwQGNa GWJ9lAN8gM5iyBcmlpemp GVmdDsgdmVydGljYWwtYW siF861NUVtmLttRo8QKpl 3Z5SxCtb7ZPKd xGheGY5feFBiWDuiHz3ju KypqUqmDV2oTQLhdmdaf4 35DgAdi6vnWZGzqMEgZQi aEDB5L83tv1U0 CAMeTTCgFXI9zGT8lZ9nr GlnbjogbGVmdDsgdmVydG puWNbbFJfkU589XMJveVk nPlBheWVyOjwv dGQ+DB20ka13B7VoFygcK lf1TLEkQMT9yGT2xN1sQY XuTEwdg7I1sCN1Q5GgluO owh2vl2lbQATo ZTog (more content not included)... Normal [facility] IntraOperative Documentson 0 03-26-2021 IntraOperative Documents [id number]# 1.00CD:127 [facility] Postoperative Documentson Postoperative Documents [id number]# 1.00CD:127 Normal [facility] Coding Summary.on 03-23-2021 Coding Summary. CD:[id number] G h0bWw+PGhlYWQ+GM1CRSI kA81ofFKsoR5IZ5oRQI0Q UAKFVJETXX0GFV6vuLI5U GjmZ5AfihEr WhivvFIoHZ34ARw1INC8m HcwVKepoO3qhPKmE4t0Mj VuOM61fZ12CLhnEQEzAkY 3LjZpbjsgbWFy A7ixZnBxoEEaKdd+PHRhY mxlIHdpZHRoPScxMDAlJy PktAziBV2lFb8pYEMoCLO vbGxhcHNlOiBj c9gpDZGhVItbEU7ypTeuH 2DhzTI3QUAgk8q2Iz81gO I+UKSdTJU4tJspODark09 3SoNxn4vzMRG8 tNGtANqjFZQ1G94tg7T2R IKyEKDyNYE0fLH1lM1wlM oqlqkxY0RiwEMiIqE1LAT 3jCPkrF8uaVpd eugsdO0jImq+S70OUK8AZ OKOYR5ALdc1B1UzRvrmdT I+FJ26HXWmWN61dLZjfKT gp8bqwUs8AzKl RYPmGFJ5zFnlFXvwf4AiY VKtN50dpXQzr8X7CREnjV femYCvKxHlkFV8iR5sBOv dehxzf8vltgxn Pvxhu9ghva74pA98D18aE DnvTUHtBEI5ONTeVZPwhE xddk6oiY2hYe4+DUkpf1b fh2ykvLj8MhRc HROdwzJuvEibMMC4d5ExS b86P9XqhOdix3VdJqe8pj 57jEGuq1F9xFB2LKwlWZS hpF3vRGekFpY8 ZSOkHmLldK61jQBlYKaeF a9uzXifbLnfGJ8cNNImcj isZOBtoB7yGVFakJBfwQf iYG5sABEjkmbu l243OwYxAKO0IDBssZNyB 2FkfD9eHoVlSRZxISBuE0 WruPTfKGpzN764SIgsYuG 5UXHxteKgR8Wx FSWguKtsLuL2j2E0Dl6Uf 3NtdbefVBL4NPkbZWU0Rk Q3IoFaKiY2L4HxXul6KBQ lcHkeNH0xK7Wa VHVgfbnukwkroLT2WIRhE IIxmJ10tIPfWJagZr1qu2 N5r613NXGsMOVtyG33Gy7 udDogMTBwdCBU zW3qvpogw3nwqcuyWhFhU OKsDMe6MDb2URJawAwdYu PqKOQ3BjU4WSC3jFJaxM6 jqNecjywfuH8y Oyc+L50evZ3vJVP9RUY4r lppIFEiuiNpAC71VW06J3 RyPjwvdGFibGU+PGRpdiB fyDpvYZ8vQgXc j4gyz7AtWXcjD7LgWMUxY DrvYtq1MMSwVBA5lGZ6pN 4xOMDzHMtas6S4mQJ2O8T untIrii4nx3gz IZJoQWmcW38odAShu0Z3I PBugMN6SDYkvBfgDgIdsE 93Oyc+BJEngYgmt0VlSjk ng6fsh4hufZf5 TxPqURWrffOjySzvLUP5p 8CwZo75V10oWVqhTNJxFN RhOWXnXHMrpPhufh4rtY3 wIi8+PGNvbCB3 dPN8uU9zZNTiHhQ9XRdmM 967LuHjwHAyYelko1rjs6 lvzUq8HzZuOVLpkySqbGd bKNV5h2XvAl98 Z08bABwaAQUdUPTwJMEfT RFuaEaadw7haH3uYq5+PC 1gv0jqzn11wT21wZK+PHR kSWB1kUobQFnm FZPgpA8sEDzzZkW1ZJObT bDjzG36mUBgVMiuUw5naD gvxXfwXF0ePCAbwubgi60 4JxWop2fyTBEl zRQdEEpuTNQ6U92xm1V5S KCsJPWsSUW1kOT6wU2urD lnbjogbGVmdDsgdmVydGl nHUvvJHlcB134 IHRvcDsnPlBhdGllbnQgT bRxCUb4M0HbRbu2UNYlxX luMW4hkIMuWCktRi0ffFa ciMnvHQ6tSOBl xzdwc424JiSti2qwMMFsg CJqLHzgZFD1B41ix7W2CX OnTFEyTUO1xIN8hV2bxGr nbjogbGVmdDsg juYelYcvWXxnIWksH601D HRvcDsnPkJpcnRoIERhdG M2AA67QY79aGBnv0U6iGB 4E9LsAIHvbjvh rpkgpQS6LRAaYNJjwF35N k5lqRveDs1vOJXiAAN7CT AlmSClK0XwgK5qZaJoWBZ aZDRxH9SbuLDg UXlgJ054WHemMiX4OHSek kPqF1MrJIRusXvlZcX4b1 T2An2RI4X3PX58WX11bXM vp1Y8yXF2K8He JKVmekkdlxsezOG0EONpT YFijX43Qv3rtIhxSj1lWM ZiYOP9WQZkiHRoD4XpqI3 yOiAjMDAwMDAw X5OqbPNkINebX013SVheR vX4NZUhifPjD9PlJAFdgE afDxP4f7X6Mz8NTDi2IZ8 8QN85oAZma0O2 uQL6T5EfYIRafdlbtewoq VA0ETWnCDAycF89Sy3miC awZl5dIDIoKXH0UMGcgWU vF8SoiZ8lExAm RKFiNOJiG3FxyBTqPMpnK 215SFcvElB8NOAxfpFyK8 QgTWZodVdeOhT3x9E3Pc3 WYAJiSQ38JVZ8 wOE7OA34XC87Y5PdLqzgd GFibGU+PHRhYmxlIHdpZH RoPScxMDAlJyBzdHlsZT0 nSq4tKGFjYDRu aHiclUFkOsGgt2lgIKQfE LflGQ2ezDpiK2KmrQH2JQ Pka9g6Uo15E09hI3XciPJ +RONqtSF1iYK0 tZ1lLuLlPqO1YFijZ411I iBdiBMfZfrbc7jvl8xzoA t9DcZ9HBYtvcEfpBwqSLW 2i4VtEg05M72z IHdpZHRoPSIxNSUiIHZhb Qcihp0maH9qKp0+PGNvbC W0kAX7zX8gHtRxFzH9KGq lC106EeLspKOe Mqlru0doj4bslBz1TfOfQ QJrhxSqwQxjWYK4p0KpMs 21L1PegBatq8XbOop6aj5 8uKIfy6I9vQU2 E8BmENFnztwkkXLbxSvuI S9rHVPpbptzSKPlgP0zWI DmM4s1VgLjWgN8AFlvT3I wffG4BQRtoTVz ASmeOXR1V24ot0V4VJKhT PRfUQG9oNF4kO3mnFkmfb ogbGVmdDsgdmVydGljYWw jZNwnT130RYRw hWjdKSUdqR6sQFZahGTof TdjSH0hQFRxlyrwXiPOXA EWAIBZCO0WABOxKkssgSA +CKTgZOH6yPpq MLbtSWMcjZ0pEAHzO0k6O hIfBsB8LXncK5OhKMOejj uzLg74xA8cYeIlKvX0XIh uT4BtiqZ2BLSw vPFhZXrgGBR6D08id4D9Z YLyADKjCDF4qAJ8eR0htE lnbjogbGVmdDsgdmVydGl mIKedPEmdV791 ZDKetCrpVaT4UgS2DtH8A Pf8C3XqOmx9FYBnyBuwWL 9yxXSuUAziCa8fzGoqsTi lOD1xWKYkoiqa YUCtdE2jXLJojECdfXfdS N3mALRiqzzto602UbLoHO G2SHNqqYTnG0JwmQ7dGjZ lETIzROVwX7Cx pHOwYUyaS169OMlpMuU7W QPnhkIiO0OzETCytMrdOu R2z3E0Vk67EpXYOIJbprf vdGQ+PHRkIHN0 eToqHPfqKSBhvP7uHAIkU 1x8RuRiZeY8ZSvaC3TcSZ FozdxaQo58yU4bWbEvRbI 0HQruY2WjbwF9 CSIxqYLlGBabRAL8B56kn 9V7GQErKWEyJZY2gII9wI 1hbGlnbjogbGVmdDsgdmV ydGljYWwtYWxp S761ORUwgMjjDz0tiRW3V 5EwCur2ABTagWdwXU2okY EdZOgpUx9sqXxheYnpER3 wNTBpbjtwYWRk gY8pBONfvMTdrQqfSM0kK RBlyvahe876PdVdGBZ2NC NjlPXwE0KkkQ2pUeLtHBJ yGOYgD7MebNNg ZOiuK092XNvrJwC3XQNbx eCtG5ScLJEonVvaLgN9o9 H2Bf3DbLH8dGM9w9J3X3F pxAClRTV1YCI3 muinkzh0G6HsXbllrYH+P K71PQMiNE64dSFlyDWtz1 gpvYt6AhJsHWDjEYC8qYe qLZxfn4AzDVJu D76zcQMhm4D8KEJxmBwnt YQkEmJtxFV6zW2hGFqyck ypd2bpwtntBkynd9vuzu7 7kV82C32cSMed ZHRoPSIzMCUiIHZhbGlnb k0gkC7eWh3+UHXmgUF9nX X7kC2tPuNbLqU5DChpA51 9InRvcCIvPjxj u6fpn1qejYr7SgNxIAWxe fEnsOhyGSU3e7NeKm43A3 9sIHdpZHRoPSIyMCUiIHZ xdKzzis5iuU5e Ii8+EC7zc5ecdo45iJ73d HI+EGUaHPM3sYpqAWfuEA EfrZ0fAJkrDxJ5JJYzYoM xkT95mYIfBTlq Lo7iqFilwKazNE9vVWTco pjgc996ZfJfy7zkNHFhsB IrMLerTEU6C49of8P5WZC pQYPyQEL5pPQ2 xM1rlKbfeebhdSWhrAsvt jBjwErjKQcaERnoU240DI NcbXalHgIviKRgQ2hwffR HXF1aOeryhXE+ BGImCIW5yHeiIDrlOKKfs K5oSVQzI5h7WkUoDyZ7QY ezO4KoluK6RMGcxPDcIZF qtJKZmX9iowyw i6jsvpncAiGiBJEdDIi9O Vm6KGZreFwrGsRnRZH2Ds E8SHU1pKKsmE0otAmjcyn owD0mZkb+RklO OjwvdGQ+DZHuULY6eCznH FjkVRYvhQ4fDKQkQ8w7Mt TxNnU5QLxnK4AsshR7FIO vbGQgMTBwdCBU dF4kpdzob8dyyzdcLvWfZ QJgIXd9SLw5WSUbfRweRr XqPVI5XpK1ZUS7aQSxbD2 jkNumqvvnnH5b Oyc+TVJOOjwvdGQ+PHRkI WX1pRouKRkfASEmxT9yOO VwZ8o9GbUwJaC8ZUoaA0H tqfR3CXBckWFw YQXhcMBKbA3lnzbhe0pex izbAlVgCECuQKd9OEn0HC HtlHjdHpIhECJ2QvV3ZNW 4wBFrkI6lwGrh ywcwhL1uIuj+ATF6VPF6Q U41GH06C8AyIiejkYBsjF U+PHRhYmxlIHdpZHRoPSc xMDAlJyBzdHls ZT0n (more content not included)... Normal [facility] Consent for Anesthesiaon Consent for Anesthesia [id number]#1 .00CD:127 Normal [facility] Discharge Instructionson Discharge Instructions [id number]#1 .00CD:127 Normal [facility] Main OR Intraoperative Recor don 03-23-2021 Main OR Intraoperative Record IntraOp Document Type FT Summary Primary Physician: Steven AMBRIZ MD Finalized Date/Time: 03/23/21 08:32:26 Pt. Name: OMSAN PARIKH /Sex: 1960 Male Med Rec #: [id number] Physician: Steven AMBRIZ MD Financial #: [id number] Pt. Type: A Room/Bed: [place] [address] Admit/Disch: 03/22/21 05:45:57 - 03/22/21 11:50:00 Institution: Case Times FT Entry 1 Patient Times In Room 03/22/21 09:13:00 Out Room 03/22/21 09:52:00 Procedure Times Start 03/22/21 09:21:00 Stop 03/22/21 09:49:00 Anesthesia Times Start 03/22/21 09:13:00 Stop 03/22/21 09:52:00 Last Modified By: SREEDHAR HAAS RN 03/22/21 09:54:01 General Comments: 03/23/21 Chart opened to review and send charges Bishnu LECHUGA Case Attendance FT Entry 1 Entry 2 Entry 3 Case Attendee Rina PERKINS, Danielle AMBRIZ MD, Steven HAAS RN, SREEDHAR Bright Role Performed Anesthesiologist Surgeon - Primary Outside Parts Sales - Primary Grinder Operator Surface Tool Time In 03/22/21 09:13:00 03/22/21 09:13:00 03/22/21 09:13:00 Time Out 03/22/21 09:53:00 03/22/21 09:49:00 03/22/21 09:53:00 Procedure EXTRACORPOREAL SHOCK EXTRACORPOREAL SHOCK EXTRACORPOREAL SHOCK WAVE LITHOTRIPSY(Left) WAVE LITHOTRIPSY(Left) WAVE LITHOTRIPSY(Left) Comments Dr. 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 Perioperative Protocols FT Pre-Care Text: Implements protective measures prior to operative or invasive procedure, confirms identity before the operative or invasive procedure, verifies operative procedure, surgical site, and laterality Entry 1 Procedure(s) EXTRACORPOREAL SHOCK Patient Identity Birthday, ID Band WAVE LITHOTRIPSY(Left) Verified (select at Check, Patient least 2): Participation Consents / H and P Anesthesia Consent, Operative Site Present Verified HandP, Surgery/Procedure Marking Verified Consent Surgical Site Yes Laterality Verified Yes Verified Procedure Verified Yes Correct Patient Yes Position Verified Availability Equipment, Medication, Prep Dry n/a Verified (If X-ray Applicable) PreOp Antibiotic Yes Time Out Danielle Flynn CRNA, Given Participants Steven AMBRIZ MD, HORN RN, JENNIFER J Time Out Complete 03/22/21 09:18:00 Outcomes Met? Yes Last Modified By: SREEDHAR HAAS RN 03/22/21 09:21:52 Post-Care Text: The patient is free from signs and symptoms of injury caused by extraneous objects Allergy Information FT Pre-Care Text: Verifies allergies Entry 1 Allergies Reviewed? Yes Allergies Reviewed Self/Patient With Outcomes Met? Yes Last Modified By: SREEDHAR HAAS RN 03/22/21 09:22:02 Post-Care Text: The patient received appropriate medication(s) safely administered during the perioperative period Surgical Procedures FT Entry 1 Procedure Description Procedure EXTRACORPOREAL SHOCK Modifiers Left WAVE LITHOTRIPSY Surgeon Description LEFT ESWL Primary Procedure Yes Primary Surgeon Steven AMBRIZ MD Start 03/22/21 09:21:00 Stop 03/22/21 09:49:00 Anesthesia Type General Surgical Service Urology Wound Class 1 - Clean Last Modified By: SREEDHAR HAAS RN 03/22/21 09:53:44 General Case Data FT Pre-Care Text: Classifies surgical wound, implements aseptic technique, initiates traffic control Entry 1 Case Information OR OR 5 FT Case Level Level 2 Wound Class 1 - Clean Specialty Urology ASA Class 3 Preop Diagnosis KIDNEY STONE Postop Same As Preop Yes Postop Diagnosis KIDNEY STONE Outcomes Met? Yes Last Modified By: SREEDHAR HAAS RN 03/22/21 09:23:09 Post-Care Text: The patient is free from signs and symptoms of infection Skin Assessment (Pre Procedure) FT Pre-Care Text: Implements protective measures to prevent skin/ tissue injury due to thermal or mechanical sources Evaluates for signs and symptoms of physical injury to skin and tissue Entry 1 Skin Integrity Intact, [place], Warm, and Skin Abnormality No Dry Outcomes Met? Yes Last Modified By: SREEDHAR HAAS RN 03/22/21 09:23:22 Post-Care Text: The patient is free from signs and symptoms of injury caused by extraneous objects Patient Positioning FT Pre-Care Text: Identifies physical alterations that require additional precautions for procedure-specific positioning, verifies presence of prosthetics or corrective devices, positions the patient, evaluates the patient for signs and symptoms of injury as a result of positioning Entry 1 Procedure EXTRACORPOREAL SHOCK Body Position Supine WAVE (more content not included)... Normal [facility] Preoperative Documentson Preoperative Documents [id number]#1 .00CD:127 Normal [facility] Consent for Procedure/Surger yon 03-22-2021 Consent for Procedure/Surgery [id number]#1 .00CD:127 Normal [facility] H&P Updateon 03-22-2021 H&P Update [id number]#1 .00CD:127 Normal [facility] Inpatient Patient Summaryon 03-22-2021 Inpatient Patient Summary [address] [address] [facility] Clinical Discharge Instructions PERSON INFORMATION Name: OSMAN PARIKH [facility]#:[id number] PHYSICIANS Admitting Physician: Steven AMBRIZ MD Attending Physician: Steven AMBRIZ MD PCP: Juan BELTRE, Anna Discharge Diagnosis: Comment: PATIENT EDUCATION INFORMATION Instructions: Post Op Patient Instructions - FT (Custom) (Custom) Medication Leaflets: Follow up: With: Address: When: Steven AMBRIZ [address] [place] [address], [address], [place] [id number] [facility] (1) Within 7 to 10 days Comments: Call for followup appointment with an abdominal X-ray prior to your visit. MEDICATION LIST New Medications [facility] [address], [address] [phone], [phone] acetaminophen-hydroco done (acetaminophen-hydroc odone 325 mg-5 mg oral tablet) 1 Tablets By Mouth every 4 hours as needed Pain for 3 Days. Refills: 0. Medications to Continue with No Changes Other Medications amlodipine (Norvasc) 5 Milligram By Mouth every day. calcium carbonate (calcium 500 mg tablets) 1 Tablets By Mouth every day. hyoscyamine (Levsin 0.125 mg oral tablet) 1 Tablets By Mouth 4 times a day as needed for spasm. Refills: 0. multivitamin with minerals (Multivitamin, Therapeutic w/ Minerals) 1 Tablets By Mouth every day., Opurity multivitamin specific for gastric bypass patients ondansetron (Zofran 4 mg Tab) 1 Tablets By Mouth every 8 hours as needed Nausea/Vomiting. Refills: 0. oxybutynin (oxybutynin 5 mg Tab) 1 Tablets By Mouth 2 times a day for 30 Days. Refills: 1. tamsulosin (Flomax) 0.4 Milligram By Mouth every day. tramadol (traMADOL 50 mg Tab) 1 Tablets By Mouth every 6 hours as needed for pain. Refills: 0. tramadol (traMADOL 50 mg Tab) 1 Tablets By Mouth every 12 hours as needed for pain. Refills: 0. Comment: Manda [facility] Main OR PACU I Recordon 03-07 Main OR PACU I Record PACU Phase I Document Type FT Summary Primary Physician: Steven AMBRIZ MD Finalized Date/Time: 03/22/21 10:49:22 Pt. Name: OSMAN PARIKH/Sex: 1960 Male Med Rec #: [id number] Physician: Steven AMBRIZ MD Financial #: [id number] Pt. Type: A Room/Bed: [facility]/ Admit/Disch: 03/22/21 05:45:57 - Institution: Case Times PACU I FT Pre-Care Text: Identifies barriers to communication and implements measures to provide psychological support Develops individualized plan of care, and ensures continuity of care Maintains patient's dignity and privacy, and maintains patient confidentiality Identifies and reports philosophical, cultural, and spiritual beliefs and values Identifies individual values and wishes concerning care Implements aseptic technique, and administers prescribed antibiotic therapy and immunizing agents as ordered Evaluates postoperative tissue perfusion Implements thermoregulation measures, and monitors body temperature Evaluates postoperative respiratory status Evaluates postoperative cardiac status Evaluates postoperative neurological status Assesses pain control, collaborated in initiating patient-controlled analgesia and implements alternative methods of pain control Verifies allergies, administers prescribed medications and solutions, evaluates response to medications Entry 1 In PACU I 03/22/21 09:54:00 Discharge from PACU 03/22/21 10:24:00 I Outcomes Met? Yes Last Modified By: Jackie Motley RN 03/22/21 10:42:57 Post-Care Text: The patient demonstrates knowledge of the expected response to the operative or invasive procedure The patient's care is consistent with the individualized perioperative plan of care The patient's right to privacy is maintained The patient's value system, lifestyle, ethnicity, and culture are considered, respected, and incorporated into the perioperative plan of care The patient participates in decisions affecting his or her perioperative plan of care The patient is free from signs and symptoms of infection The patient has wound/tissue perfusion consistent with or improved from baseline levels established preoperatively The patient is at or returning to normothermia at the conclusion of the immediate postoperative period The patient's respiratory function is consistent with or improved from baseline levels established preoperatively The patient's cardiovascular status is consistent with or improved from baseline levels established preoperatively The patient's cardiovascular status is consistent with or improved from baseline levels established preoperatively The patient demonstrates and/or reports adequate pain control throughout the perioperative period The patient received appropriate medication(s), safely administered during the perioperative period Acuity Level PACU I FT Entry 1 Start Time 03/22/21 09:54:00 Stop Time 03/22/21 10:24:00 Acuity Level Acuity Level I Last Modified By: Jackie Motley RN 03/22/21 10:42:48 Finalized By: Jackie Motley RN Document Signatures Signed By: Jackie Motley RN 03/22/21 10:49 Normal [facility] Main OR PACU II Recordon Main OR PACU II Record PACU Phase II Document Type FT Summary Primary Physician: Steven AMBRIZ MD Finalized Date/Time: 03/22/21 17:20:00 Pt. Name: OSMAN PARIKH /Sex: 1960 Male Med Rec #: [id number] Physician: Steven AMBRIZ MD Financial #: [id number] Pt. Type: A Room/Bed: [facility]/ Admit/Disch: 03/22/21 05:45:57 - Institution: Case Times PACU II FT Pre-Care Text: Identifies barriers to communication and implements measures to provide psychological support and determines knowledge level Develops individualized plan of care, and ensures continuity of care Maintains patient's dignity and privacy, and maintains patient confidentiality Identifies and reports philosophical, cultural, and spiritual beliefs and values Identifies individual values and wishes concerning care administers prescribed antibiotic therapy and immunizing agents as ordered, Evaluates postoperative tissue perfusion Implements thermoregulation measures, and monitors body temperature Evaluates postoperative respiratory status Evaluates postoperative cardiac status Evaluates postoperative neurological status Assesses pain control, collaborated in initiating patient-controlled analgesia and implements alternative methods of pain control Verifies allergies, administers prescribed medications and solutions, evaluates response to medications Entry 1 In PACU II 03/22/21 10:25:00 Discharge from PACU 03/22/21 11:50:00 II Outcomes Met? Yes Last Modified By: Jazmin Solis RN 03/22/21 17:19:59 Post-Care Text: The patient demonstrates knowledge of the expected response to the operative or invasive procedure The patient's care is consistent with the individualized perioperative plan of care The patient's right to privacy is maintained The patient's value system, lifestyle, ethnicity, and culture are considered, respected, and incorporated into the perioperative plan of care The patient participates in decisions affecting his or her perioperative plan of care. The patient is free from signs and symptoms of infection The patient has wound/tissue perfusion consistent with or improved from baseline levels established preoperatively The patient is at or returning to normothermia at the conclusion of the immediate postoperative period The patient's respiratory function is consistent with or improved from baseline levels established preoperatively The patient's cardiovascular status is consistent with or improved from baseline levels established preoperatively The patient's neurological status is consistent with or improved from baseline levels established preoperatively The patient demonstrates and/or reports adequate pain control throughout the perioperative period The patient received appropriate medication(s), safely administered during the perioperative period Finalized By: Jazmin Solis RN Document Signatures Signed By: Jazmin Solis RN 03/22/21 17:20 Normal [facility] Main OR Preoperative Recordo n 03-22-2021 Main OR Preoperative Record PreOp Document Type FT Summary Primary Physician: Steven AMBRIZ MD Finalized Date/Time: 03/22/21 09:28:09 Pt. Name: OSMAN PARIKH /Sex: 1960 Male Med Rec #: [id number] Physician: Steven AMBRIZ MD Financial #: [id number] Pt. Type: A Room/Bed: [facility] Admit/Disch: 03/22/21 05:45:57 - Institution: Case Times PreOp FT Pre-Care Text: Verifies consent for planned procedure, identifies individual values and wishes concerning care, includes family members in perioperative teaching Entry 1 Patient Times. In Pre Surgery 03/22/21 06:15:00 Out Pre Surgery 03/22/21 09:11:00 Outcomes Met? Yes Last Modified By: SREEDHAR HAAS RN 03/22/21 09:28:07 Post-Care Text: The patient participates in decisions affecting his or her perioperative plan of care Finalized By: SREEDHAR HAAS RN Document Signatures Signed By: SREEDHAR HAAS RN 03/22/21 09:28 [facility] Monitor Recordon 03-22-2021 Monitor Record [id number]# 1.00CD:127 [facility] Operative Reporton 1 Operative Report Patient: OSMAN PARIKH Age: 61 years Sex: Male : 1960 Associated Diagnoses: None Author: Steven ABMRIZ MD Postoperative Information Date/ Time: 03/22/2021 10:18:00 Postoperative Diagnosis: Kidney stones (AIT20-YN N20.0, Working, Medical). Performed by: Steven Ambriz MD. Findings: Procedure: ESWL left renal calculus Anesthesia: MAC, Amaya Indications: This is a 61-year-old male status post cystoscopy and a left double-J stent secondary to an obstructing 6 to 7 mm calculus. The patient already had 2 large stones in the left kidney already. Today's KUB confirms 3 stones. The stone which had been obstructing at the UPJ at the time of stent placement actually resides in the lower pole just superior to the more inferiorly located calculus. He also has about a 6 to 7 mm stone in the left upper pole. Decision made to treat the upper pole stone first in the hopes of bleeding that and if fragments exist these will fall to the lower pole which can then be treated at the time of lower pole calculi lithotripsy. The patient and his understand this and agree with the plan. They understand the risk of bleeding, infection, bleeding around the kidney, need for further procedures which is likely. He did receive preoperative antibiotics and he does have sequential compression devices in place and functional bilateral lower extremities throughout the case. Procedure: The patient is brought back to the operating room and a timeout was performed. All were in agreement with the operative plan. After the successful induction of monitored anesthesia with IV sedation he is placed in the supine position on the Dornier delta 3 lithotripter table. Under a combination of C arm fluoroscopic imaging and real-time ultrasound of the stone is visualized in the left upper pole as are the stones in the lower pole. The entire shockwave treatment was applied to the left upper pole per protocol up to level 6. There appears to be excellent fragmentation of this calculus. The stent is remaining in adequate position. Tolerates the procedure well and is transferred back to the [facility] and then back to PACU in satisfactory condition, stable vital signs. Plan to be for discharge home with plans to follow-up in the office within the next 7 to 10 days with a KUB. Discussed all this with his postop. Prescription sent for [place] for postoperative pain and discomfort and he already has tramadol and oxybutynin at home.. Estimated Blood Loss: 0 ml. Complications: None. Anesthesia type: General. Normal [facility] Comment on above: Result Comment: Elec tronically Signed By: NAKIA BELTRE, Steven Lopez.br\Date and Time Signed: 03/22/21 10:23 EDT Outpatient Surgery Discharge Instructionon 03-22-2021 Outpatient Surgery Discharge Instruction [address] [address] Patient Discharge Instructions PERSON INFORMATION Name: OSMAN PARIKH Date of : 1960 Current Date: 03/22/2021 10:22:28 PHYSICIANS Admitting Physician: Steven AMBRIZ MD Discharge Diagnosis: OSMAN PARIKH has been given the following list of follow-up instructions, prescriptions, and patient education materials: PATIENT FOLLOW-UP INFORMATION Diet: Regular Discharge Activity: Arrange for a responsible adult supervision for 24 hours, Expect mild pain, Expect minimal amount of drainage and/or bleeding Discharge Restrictions: No driving, Do not operate machinery or tools, Do not make important decisions for 24 hours, Do not drink alcoholic beverages for 24 hours Call Your Doctor For: Persistent or heavy bleeding, Temperature above 101.5 degrees Additional Instructions: No strenuous activity for at least 48 hrs. . Push fluids to keep the urine clear. IF UNABLE TO CONTACT YOUR PHYSICIAN AND YOU FEEL IT IS AN EMERGENCY, GO TO THE NEAREST EMERGENCY ROOM OR CALL 911 I, OSMAN PARIKH, have received the attached patient education materials/instruction s and have verbalized understanding: May we do a follow up call? Yes No I was present when discharge instructions were given Patient Signature Date Clinican/Nurse Signature Date Follow up: With: Address: When: Steven AMBRIZ [address] [place], [place] [address], [address], [address] [address] Business (1) Within 7 to 10 days Comments: Call for followup appointment with an abdominal X-ray prior to your visit. Pharmacy Information: Other: [facility] You may receive a survey from Byron Valencia asking you to rate your care experience. Your feedback is important and will help us understand what we do well and how we can improve the quality of care we provide to you, your loved ones and our community. It?s an honor to serve you. Thank you for choosing [facility] HERE ARE THE MEDICATION CHANGES THAT OCCURRED DURING YOUR HOSPITAL STAY New Medications [id number], [address] [place] [id number], [phone] acetaminophen-hydroco done (acetaminophen-hydroc odone 325 mg-5 mg oral tablet) 1 Tablets By Mouth every 4 hours as needed Pain for 3 Days. Refills: 0. Medications to Continue with No Changes Other Medications amlodipine (Norvasc) 5 Milligram By Mouth every day. calcium carbonate (calcium 500 mg tablets) 1 Tablets By Mouth every day. hyoscyamine (Levsin 0.125 mg oral tablet) 1 Tablets By Mouth 4 times a day as needed for spasm. Refills: 0. multivitamin with minerals (Multivitamin, Therapeutic w/ Minerals) 1 Tablets By Mouth every day., Opurity multivitamin specific for gastric bypass patients ondansetron (Zofran 4 mg Tab) 1 Tablets By Mouth every 8 hours as needed Nausea/Vomiting. Refills: 0. oxybutynin (oxybutynin 5 mg Tab) 1 Tablets By Mouth 2 times a day for 30 Days. Refills: 1. tamsulosin (Flomax) 0.4 Milligram By Mouth every day. tramadol (traMADOL 50 mg Tab) 1 Tablets By Mouth every 6 hours as needed for pain. Refills: 0. tramadol (traMADOL 50 mg Tab) 1 Tablets By Mouth every 12 hours as needed for pain. Refills: 0. PATIENT EDUCATION INFORMATION Instructions: Medication Leaflets: Normal [facility] Patient Education - Texton 0 03-22-2021 Patient Education - Text Normal [facility] Progress Note-Physicianon Progress Note-Physician Patient: OSMAN PARIKH Age: 61 years Sex: Male : 1960 Associated Diagnoses: None Author: Moshe Amaya Jr., DO Postoperative Information Post Operative Note: Post Anesthesia Care Unit. Anesthetic utilized: General. Health Status Allergies: Allergic Reactions (Selected) Severity Not Documented Erythromycin- Rash. NSAIDs- Gastric bypass operation. Problem list: All Problems Hypertension / SNOMED CT 4940679482 / Confirmed Kidney stone / SNOMED CT 420110560 / Confirmed Impotence / SNOMED CT 7094221271 / Confirmed Nocturia / SNOMED CT 192482191 / Confirmed Hypercholesterolemia / SNOMED CT 34709926 / Confirmed Frequency of urination / SNOMED CT 277239713 / Confirmed BMI 31.0-31.9,adult / SNOMED CT 452005814 / Confirmed Deafness / SNOMED CT 70768779 / Confirmed Gross hematuria / SNOMED CT 901652511 / Confirmed Benign essential hypertension / SNOMED CT 1622779 / Confirmed Hydronephrosis with ureteral calculus / SNOMED CT 1226480461 / Confirmed Gall stone / SNOMED CT 265918720 / Confirmed BPH with urinary obstruction / SNOMED CT 2765782660 / Confirmed Anxiety / SNOMED CT 63457345 / Confirmed Dysuria / SNOMED CT 65776778 / Confirmed Hyperlipidemia / SNOMED CT 59895155 / Confirmed Canceled: Impingement syndrome of shoulder / SNOMED CT 453748250 Canceled: Lipoma of arm / SNOMED CT 2295571474 Physical Examination Vital Signs 03/22/2021 11:41 EDT Heart Rate Monitored 46 bpm LOW Respiratory Rate 16 br/min Systolic Blood Pressure 160 mmHg HI Diastolic Blood Pressure 61 mmHg Blood Pressure Location Right arm Mean Arterial Pressure, Monitered 94 mmHg SpO2 99 % BP/Pulse Patient Position Sitting 03/22/2021 10:33 EDT Temperature Oral 36.5 DegC Heart Rate Monitored 43 bpm LOW Respiratory Rate 16 br/min Systolic Blood Pressure 166 mmHg HI Diastolic Blood Pressure 74 mmHg Blood Pressure Location Right arm Mean Arterial Pressure, Monitered 105 mmHg SpO2 98 % BP/Pulse Patient Position Supine 03/22/2021 10:20 EDT Temperature Temporal Artery 36.7 DegC Heart Rate Monitored 42 bpm LOW Respiratory Rate 18 br/min Systolic Blood Pressure 145 mmHg HI Diastolic Blood Pressure 74 mmHg Blood Pressure Location Right arm SpO2 99 % BP/Pulse Patient Position Sitting 03/22/2021 10:10 EDT Heart Rate Monitored 45 bpm LOW Respiratory Rate 20 br/min Respiratory Rate Monitored 14 br/min Systolic Blood Pressure 136 mmHg Diastolic Blood Pressure 73 mmHg Blood Pressure Location Left arm SpO2 98 % BP/Pulse Patient Position Supine 03/22/2021 10:05 EDT Heart Rate Monitored 46 bpm LOW Respiratory Rate 20 br/min Respiratory Rate Monitored 15 br/min Systolic Blood Pressure 136 mmHg Diastolic Blood Pressure 73 mmHg Blood Pressure Location Left arm SpO2 96 % BP/Pulse Patient Position Supine 03/22/2021 10:00 EDT Heart Rate Monitored 52 bpm LOW Respiratory Rate 18 br/min Respiratory Rate Monitored 11 br/min Systolic Blood Pressure 130 mmHg Diastolic Blood Pressure 72 mmHg Blood Pressure Location Left arm SpO2 97 % BP/Pulse Patient Position Supine 03/22/2021 9:54 EDT Temperature Temporal Artery 36.2 DegC LOW Heart Rate Monitored 47 bpm LOW Respiratory Rate 20 br/min Respiratory Rate Monitored 28 br/min Systolic Blood Pressure 123 mmHg Diastolic Blood Pressure 65 mmHg Blood Pressure Location Left arm SpO2 96 % BP/Pulse Patient Position Supine Pain assessment: Pain Assessment 03/22/2021 11:41 EDT Preliminary Pain Scale 0 03/22/2021 10:33 EDT Preliminary Pain Scale 2 03/22/2021 10:33 EDT Primary Pain Location Flank (Modified) Primary Pain Laterality Left Numeric Pain Scale 2 03/22/2021 10:10 EDT Pain Symptoms Self Report No, able to self report 03/22/2021 9:54 EDT Pain Symptoms Self Report No, able to self report . General: Alert and oriented, No acute distress, No nausea. Adequate hydration.. Respiratory: Adequate air exchange.. Cardiovascular: stable. Neurologic: Normal sensory. Review / Management Condition: Stable. Assessment Anesthetic outcome No anesthetic complications noted. Plan Transfer/ Discharge: Condition stable. Normal [facility] Comment on above: Result Comment: Elec tronically Signed By: Moshe Amaya Jr., DO\.br\Date and Time Signed: 03/22/21 15:17 EDT Progress Note-Physician Patient: OSMAN PARIKH Age: 61 years Sex: Male : 1960 Associated Diagnoses: None Author: Moshe Amaya Jr., DO Preoperative Information Time patient last ate or drank:=== (NPO since midnight) Anesthesia history: Patient History: No prior problems with anesthesia.. Re-eval prior to induction: Inital eval reviewed: No significant interval change, Surgical H&P documented and on chart. Surgical consent signed and on chart.. Anesthesia results Review of Systems Cardiovascular: Negative except as documented in history of present illness. Respiratory: Negative. Neurologic: Negative. Health Status Allergies: Allergic Reactions (Selected) Severity Not Documented Erythromycin- Rash. NSAIDs- Gastric bypass operation., Allergies (2) Active Reaction erythromycin Rash NSAIDs Gastric bypass operation Current medications: (Selected) Inpatient Medications Ordered HYDROmorphone 1 mg/mL injectable solution: 0.4 mg = 0.4 mL, Injection, IV Push, q4min PRN Pain for 5 dose(s), Stop date Limited # of times, Routine, Start date 03/22/21 7:40:00 EDT, 03/22/21 7:40:00 EDT Lactated Ringers IV Emily 1000 mL 1,000 mL: 1,000 mL, IV, 100 mL/hr, Routine, Start date 03/22/21 7:40:00 EDT, 10 hour(s), Total volume (mL): 1,000, 95.2 kg, 2.14, m2 Lactated Ringers IV Emily 1000 mL 1,000 mL: 1,000 mL, IV, 150 mL/hr, Routine, Start date 03/22/21 6:30:00 EDT, 6.7 hour(s), Total volume (mL): 1,000, 95.2 kg, 2.14, m2 Phenergan 25 mg/mL Injection: 12.5 mg = 0.5 mL, Injection, IV Push, q2min PRN Other (see comment) for 2 dose(s), Stop date Limited # of times, Routine, Start date 03/22/21 7:40:00 EDT, 03/22/21 7:40:00 EDT cefazolin additive + premix generic diluent 100 mL: 2 gram = 100 mL, Soln-IV, IV Piggyback, PREOP, Routine, Start date 03/22/21 6:30:00 EDT, 200 mL/hr, Infuse over 30 minute(s) Prescriptions Prescribed Levsin 0.125 mg oral tablet: 0.125 mg = 1 tab(s), Oral, QID, PRN for spasm, # 40 tab(s), Refills(s) 0, Pharmacy: [id number] Zofran 4 mg Tab: 4 mg = 1 tab(s), Oral, q8hr, PRN Nausea/Vomiting, # 30 tab(s), Refills(s) 0, Pharmacy: [facility] oxybutynin 5 mg Tab: 5 mg = 1 tab(s), Oral, BID, X 30 day(s), # 60 tab(s), Refills(s) 1, Pharmacy: [facility], 175, cm, 02/20/21 8:55:00 EDT, Height/Length Dosing, 96.4, kg, 02/20/21 8:55:00 EDT, Weight Dosing traMADOL 50 mg Tab: 50 mg = 1 tab(s), Oral, q12hr, PRN for pain, # 10 tab(s), Refills(s) 0, Pharmacy: [facility], 172.7, cm, 03/08/21 9:22:00 EDT, Height/Length Dosing, 95.2, kg, 03/08/21 9:22:00 EDT, Weight Dosing traMADOL 50 mg Tab: 50 mg = 1 tab(s), Oral, q6hr, PRN for pain, # 20 tab(s), Refills(s) 0, Pharmacy: [facility] Documented Medications Documented Flomax: 0.4 mg, Oral, Daily, Refills(s) 0, Urinary discomfort Multivitamin, Therapeutic w/ Minerals: 1 tab(s), Oral, Daily, Prophylaxis Norvasc: 5 mg, Oral, Daily, Refills(s) 0, High blood pressure calcium 500 mg tablets: 1,250 mg = 1 tab(s), Oral, Daily, Prophylaxis Histories Past Medical History: No active or resolved past medical history items have been selected or recorded. Family History: Asthma Mother Hypertension Father Mother Primary malignant neoplasm of lung Father Diabetes mellitus type 2 Father COPD Mother Primary malignant neoplasm of female breast Mother Hyperlipidemia Father Heart disease Father Diabetes Grandparent Procedure history: Cystoscopy (27774214) on 02/04/2021 at 61 Years. Cystoscopic insertion of ureteric stent (181817910) on 02/04/2021 at 61 Years. Cholecystectomy (30659783). Renal lithotripsy (168075386). Gastric bypass (4626274829). Cholecystectomy (46257219). Social History Social & Psychosocial Habits Alcohol 02/04/2021 Use: Current Type: Beer, Liquor Frequency: 1-2 times per month Substance Abuse 11/10/2019 Risk Assessment: Denies Substance Abuse Comment: denies - 02/04/2021 14:53 - Norma Vasquez RN Tobacco 11/10/2019 Tobacco Use: Never (less than 100 in l Smokeless tobacco use: Never 02/04/2021 Risk Assessment: Denies Tobacco Use 02/20/2021 Tobacco Use: Never (less than 100 in l Smokeless tobacco use: Never Comment: dennadir - 02/04/2021 14:53 Norma Britt RN . Physical Examination Airway: Mallampati classification: II (soft palate, fauces, uvula visible). Respiratory: Lungs are clear to auscultation. Cardiovascular: Regular rhythm. Review / Management Results review: Lab results 03/08/2021 9:42 EDT WBC 5.7 E9/L RBC 4.6 E12/L Hgb 14.9 gm/dL Hct 43.7 % MCV 95.7 fL MCH 32.7 pg MCHC 34.1 gm/dL RDW 14.1 % Platelet 222.0 E9/L MPV 9.8 fL Neutro Auto 52.4 % Lymph Auto 35.9 % [place] Auto 8.8 % Eos Auto 2.4 % Basophil Auto 0.5 % Neutro Absolute 3.0 E9/L Lymph Absolute 2.1 E9/L [place] Absolute 0.5 E9/L Eos Absolute 0.1 E9/L Basophil Absolute 0.0 E9/L PT 12. (more content not included)... Normal [facility] Comment on above: Result Comment: Elec tronically Signed By: Moshe Amaya Jr., DO\.br\Date and Time Signed: 03/22/21 07:43 EDT XR Abdomen 1 Viewon 03-22-20 XR Abdomen 1 View Exam Date/Time: 03/22/2021 06:14 EDT Reason for Exam: Kidney stone Report IMPRESSION: A FEW LEFT RENAL CALCULI MEASURING UP TO 8 MM. CLINICAL HISTORY: Kidney stone COMPARISON: NONE. FINDINGS: AP supine abdomen shows left ureteral stent in good position. There are a few left renal calculi measuring up to 8 mm. The right kidney is obliterated by overlying bowel gas and fecal materials. There are a few surgical clips in the right upper, right middle and right pelvic abdomen. 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 Gas pattern of bowel is unremarkable. FINAL REPORT Dictated: 03/22/2021 9:47 am Gilbert Gaxiola M.D. Signed (Electronic Signature): 03/22/2021 9:47 am Signed by: Gilbert Gaxiola M.D. Transcribed by: ODALIS Technologist: LAURA Normal [facility] Immunization Recordson 03-13 Immunization Records [id number]:127 Normal [facility] C Urineon 03-10-2021 Bacteria identified Cx Nom (U) Microbiology PROCEDURE: Urine Culture [R1] SOURCE: U CleanCatch BODY SITE: COLLECTED DATE/TIME: 03/08/2021 09:42 EDT RECEIVED DATE/TIME: 03/08/2021 11:06 EDT START DATE/TIME: 03/08/2021 11:06 EDT FREE TEXT SOURCE: NAKIA BELTRE, Steven AMBRIZ MD, Steven Ruffin FINAL REPORTS Final Report [] Verified Date/Time: 03/10/2021 09:46 EDT 100 cfu/ml Mixed skin contaminants Performing Locations R1: This test was performed at: [facility], [address] [place] [address], [address] , , Normal [facility] Comment on above: Performed By: #### 2 [id number], [id number] ####[facility] [address] [place] [address] XR Chest 2 Viewson XR Chest 2 Views Exam Date/Time: 03/08/2021 10:04 EDT Reason for Exam: Pre Op Report IMPRESSION: NO EVIDENCE OF ACTIVE CHEST DISEASE. CLINICAL HISTORY: Pre Op. COMMENT: The heart is normal in size. The mediastinum is unremarkable. The lungs appear clear. No infiltration nor pleural effusion is evident. FINAL REPORT Dictated: 03/09/2021 7:42 am Nain Saxena M.D. Signed (Electronic Signature): 03/09/2021 7:42 am Signed by: Nain Saxena M.D. Transcribed by: ODALIS Technologist: Normal [facility] Auto Diffon 03-08-2021 Basophils/100 WBC (Bld) 0.5 % Normal 0.0-2.0 [facility] Comment on above: Order Comment: Order Added by Discern Expert. Performed By: #### 2 220861, 23112701, 7567256, 07441144, 1193888 ####[facility] [address] [place] [address] Basophils/Leukocytes Auto (Bld) [Pure # fraction] 0.0 E9/L Normal 0.0-0.2 [facility] Comment on above: Order Comment: Order Added by Discern Expert. Performed By: #### 2 095874, 12653350, 0836588, 01369766, 8955414 ####[facility] [address] [place] [address] Eosinophils/100 WBC (Bld) 2.4 % Normal 0.0-8.0 [facility] Comment on above: Order Comment: Order Added by Discern Expert. Performed By: #### 2 362521, 69032709, 0683934, 29087846, 6883225 ####[facility] [address] [place] [address] Eosinophils/Leukocyt es Auto (Bld) [Pure # fraction] 0.1 E9/L Normal 0.0-0.5 [facility] Comment on above: Order Comment: Order Added by Discern Expert. Performed By: #### 2 739868, 07319905, 4762297, 80733348, 5127140 ####[facility] [address] [place] [address] Lymphocytes/100 WBC (Bld) 35.9 % Normal 14.0-50.0 [facility] Comment on above: Order Comment: Order Added by Darlene Expert. Performed By: #### 2 878602, 49015187, 6816615, 36981101, 3082796 ####[facility] [address] [place] [address] Lymphocytes/Leukocyt es Auto (Bld) [Pure # fraction] 2.1 E9/L Normal 1.0-4.0 [facility] Comment on above: Order Comment: Order Added by Darlene Expert. Performed By: #### 2 458791, 42848081, 5945646, 22961167, 3628462 ####[facility] [address] [place] [address] Monocytes/100 WBC (Bld) 8.8 % Normal 4.0-14.0 [facility] Comment on above: Order Comment: Order Added by Darlene Expert. Performed By: #### 2 441259, 19937890, 2995335, 39262049, 2157509 ####[facility] [address] [place] [address] Monocytes/Leukocytes Auto (Bld) [Pure # fraction] 0.5 E9/L Normal 0.2-1.0 [facility] Comment on above: Order Comment: Order Added by Darlene Expert. Performed By: #### 2 590522, 00810608, 4138051, 20804580, 4387803 ####[facility] [address] [place] [address] Neutrophils/100 WBC (Bld) 52.4 % Normal 36.0-75.0 [facility] Comment on above: Order Comment: Order Added by Discern Expert. Performed By: #### 2 380011, 20630463, 3059279, 98809536, 9703947 ####[facility] [address] [place] [address] Neutrophils/Leukocyt es Auto (Bld) [Pure # fraction] 3.0 E9/L Normal 2.0-7.5 [facility] Comment on above: Order Comment: Order Added by Discern Expert. Performed By: #### 2 788012, 69791415, 4850940, 92589234, 3299825 ####[facility] [address] [place] [address] BMPon 03-08-2021 Anion gap [Moles/Vol] 12 mmol/L Normal 6-16 [facility] Comment on above: Performed By: #### 2 047547, 40654067, 1682906, 37985576, 4805320 ####[facility] [address] [place] [address] Calcium [Mass/Vol] 8.9 mg/dL Normal 8.9-11.1 [facility] Comment on above: Performed By: #### 2 861115, 64386213, 2936624, 29045616, 8870478 ####[facility] [address] [place] [address] Chloride [Moles/Vol] 106 mmol/L Normal 101-111 [facility] Comment on above: Performed By: #### 2 848816, 72874710, 3892641, 42938498, 0741069 ####[facility] [address] [place] [address] CO2 [Moles/Vol] 28 mmol/L Normal 21-31 [facility] Comment on above: Performed By: #### 2 980509, 04331635, 1567814, 46158636, 6172424 ####[facility] [address] [place] [address] Creatinine [Mass/Vol] 0.8 mg/dL Normal 0.5-1.3 [facility] Comment on above: Performed By: #### 2 892982, 04426640, 3231831, 94600011, 0323943 ####[facility] [address] [place] [address] Glucose [Mass/Vol] 95 mg/dL Normal 55-199 [facility] Comment on above: Result Comment: If t his glucose result represents a fasting glucose, interpretation should refer to the following reference range: 55-99 mg/dL Performed By: #### 2 363195, 85853885, 8620871, 15039669, 0312199 ####[facility] [address] [place] [address] Potassium [Moles/Vol] 3.7 mmol/L Normal 3.5-5.3 [facility] Comment on above: Performed By: #### 2 150441, 80180497, 7955107, 57600137, 7331415 ####[facility] [address] [place] [address] Sodium [Moles/Vol] 142 mmol/L Normal 135-145 [facility] Comment on above: Performed By: #### 2 122204, 96655362, 7070628, 87279133, 1673256 ####[facility] [address] [place] [address] Urea nitrogen [Mass/Vol] 10 mg/dL Normal 5-21 [facility] Comment on above: Performed By: #### 2 931736, 04258062, 3235342, 41613540, 2309334 ####[facility] [address] [place] [address] Urea nitrogen/Creatinine [Mass ratio] 12 No Units Normal 10-20 [facility] Comment on above: Performed By: #### 2 822739, 92626745, 7089133, 15591852, 4003750 ####[facility] [address] [place] [address] CBC w/ Auto Diffon 1 Erythrocyte distribution width (RBC) [Ratio] 14.1 % Normal 10.9-14.2 [facility] Comment on above: Performed By: #### 2 064235, 05779918, 5222247, 40519740, 9261606 ####[facility] [address] [place] [address] Hematocrit (Bld) [Volume fraction] 43.7 % Normal 37.7-49.0 [facility] Comment on above: Performed By: #### 2 733887, 56787500, 3217465, 56910275, 8738184 ####[facility] [address] [place] [address] Hemoglobin (Bld) [Mass/Vol] 14.9 g/dL Normal 13.5-17.5 [facility] Comment on above: Performed By: #### 2 169777, 16858846, 0014470, 62739490, 2828842 ####[place] 9[address]457 MCH (RBC) [Entitic mass] 32.7 pg Normal 27.0-34.0 [facility] Comment on above: Performed By: #### 2 469992, 41662946, 2136015, 06469029, 5962262 ####[facility] [address] [place] [address] MCHC (RBC) [Mass/Vol] 34.1 g/dL Normal 31.4-36.0 [facility] Comment on above: Performed By: #### 2 028222, 37920078, 8973529, 43007931, 2054528 ####[facility] [address] [place] [address] MCV (RBC) [Entitic vol] 95.7 fL Normal 80.0-100.0 [facility] Comment on above: Performed By: #### 2 811614, 36483395, 3773738, 89297681, 9643890 ####[facility] [address] [place] [address] Platelet mean volume (Bld) [Entitic vol] 9.8 fL Normal 6.4-10.8 [facility] Comment on above: Performed By: #### 2 821146, 33405946, 3686268, 55330927, 1002904 ####[facility] [address] [place] [address] Platelets (Bld) [#/Vol] 222.0 E9/L Normal 150.0-500.0 [facility] Comment on above: Performed By: #### 2 813775, 29898568, 0429988, 19083236, 4879366 ####[facility] [address] [place] [address] RBC (Bld) [#/Vol] 4.6 E12/L Normal 4.3-5.9 [facility] Comment on above: Performed By: #### 2 381897, 32872333, 8374657, 13518841, 3597875 ####[facility] [address] [place] [address] WBC corrected for nucl RBC Auto (Bld) [#/Vol] 5.7 E9/L Normal 4.0-11.0 [facility] Comment on above: Performed By: #### 2 548205, 35879452, 2491091, 91624535, 4345088 ####[facility] [address] [place] [address] Consent for Treatmenton Consent for Treatment [id number] .[id number]:127 Normal [facility] PT & PTTon 03-08-2021 aPTT Coag (PPP) [Time] 36.1 second(s) Normal 25.1-36.5 [facility] Comment on above: Result Comment: Hepa rin therapeutic range (represented by Anti-Factor Xa activity of 0.2 - 0.4 U/mL) corresponds to PTT of 56.6 - 109.0 sec. Performed By: #### 2 434627, 05067905, 2889387, 88057570, 8150498 ####[facility] [address] [place] [address] INR Coag (PPP) [Relative time] 1.1 {INR} Invalid Interpretation Code [facility] Comment on above: Result Comment: INR results are specifically intended to assess patients stabilized on long-term Anticoagulation therapy suggested INR?s ?Less Intensive Anticoagulation? 2.0 ? 3.0 Conventional Range 3.0 ? 4.5 Performed By: #### 2 399963, 61221913, 0717386, 60969981, 9702196 ####[facility] [address] [place] [address] PT Coag (PPP) [Time] 12.8 second(s) Normal 10.2-12.9 [facility] Comment on above: Performed By: #### 2 975694, 64112110, 4914608, 34197058, 0718990 ####[facility] [address] [place] [address] UA With Cult Reflexon 2020 Bacteria LM Ql (Urine sed) 3+ /HPF Abnormal Trace [facility] Comment on above: Performed By: #### 2 [id number], [id number] ####[facility] [address] [place] [address] Bilirubin Ql (U) 1+ Abnormal Negative [facility] Comment on above: Performed By: #### 2 [id number], [id number] ####[facility] [address] [place] [address] Clarity (U) CLOUDY Abnormal Clear [facility] Comment on above: Performed By: #### 2 [id number], [id number] ####[facility] [address] [place] [address] Color (U) DARK YELLO Abnormal Yellow [facility] Comment on above: Performed By: #### 2 714681, [id number] ####[facility] [address] [place] [address] Epithelial cells.squamous LM.HPF (Urine sed) [#/Area] 0-2 Normal 0-2 [facility] Comment on above: Performed By: #### 2 932239, [id number] ####[facility] [address] [place] [address] Glucose Test strip (U) [Mass/Vol] Negative Normal Negative [facility] Comment on above: Performed By: #### 2 987449, [id number] ####[facility] [address] [place] [address] Hemoglobin Ql (U) 3+ Abnormal Negative [facility] Comment on above: Performed By: #### 2 696234, [id number] ####[facility] [address] [place] [address] Ketones (U) [Mass/Vol] Negative Normal Negative [facility] Comment on above: Performed By: #### 2 [id number], [id number] ####[facility] [address] [place] [address] [place].plasma/Lithi um.RBC (Bld) [Mass ratio] >75 Abnormal 0-3 [facility] Comment on above: Performed By: #### 2 509168, [id number] ####[facility] [address] [place] [address] Mucus Ql (Urine sed) 1+ Normal [facility] Comment on above: Performed By: #### 2 515462, [id number] ####[facility] [address] [place] [address] Nitrite Ql (U) Negative Normal Negative [facility] Comment on above: Performed By: #### 2 093316, [id number] ####[facility] [address] [place] [address] pH (U) 5.5 [pH] Invalid Interpretation Code 5.0-9.0 [facility] Comment on above: Performed By: #### 2 799189, [id number] ####[facility] [address] [place] [address] Protein (U) [Mass/Vol] 2+ Abnormal Negative [facility] Comment on above: Performed By: #### 2 738865, [id number] ####[facility] [address] [place] [address] Specific gravity (U) [Rel density] 1.025 Invalid Interpretation Code 1.005-1.030 [facility] Comment on above: Performed By: #### 2 322869, [id number] ####[facility] [address] [place] [address] Type of Urine collection method Clean Catch Normal [facility] Comment on above: Performed By: #### 2 583282, [id number] ####[facility] [address] [place] [address] Urobilinogen Qn (U) 0.2 {Mary Anne'U}/dL Normal 0.0-1.0 [facility] Comment on above: Performed By: #### 2 698868, [id number] ####[facility] [address] [place], [place] [id number] WBC Auto Ql (U) 1+ Abnormal Negative [facility] Comment on above: Performed By: #### 2 987394, [id number] ####[facility] [address] [place] [address] WBC LM.HPF (Urine sed) [#/Area] 6-15 Abnormal 0-5 [facility] Comment on above: Performed By: #### 2 595461, [id number] ####[facility] [address] [place] [address] eGFRon 03-08-2021 GFR/1.73 sq M.predicted among blacks MDRD (S/P/Bld) [Vol rate/Area] mL/min/{1.73_m2} Normal >=59 [facility] Comment on above: Order Comment: Order added by Discern Expert. Result Comment: eGFR is race adjusted. AA=. Performed By: #### 2 599620, [id number], [id number], [id number], [id number] ####[facility] [address] [place] [address] GFR/1.73 sq M.predicted among non-blacks MDRD (S/P/Bld) [Vol rate/Area] mL/min/{1.73_m2} Normal >=59 [facility] Comment on above: Order Comment: Order added by Discern Expert. Result Comment: Trekking Guide surya kidney disease could be indicated at eGFR's of less than 60 mL/min/1.73m2. Kidney failure is indicated at less than 15 mL/min/1.73m2. Performed By: #### 2 359625, [id number], 7106761, [id number], [id number] ####[facility] [address] [place] [address] Pre-Authorization for Medica l Treatmenton 02-26-2021 Pre-Authorization for Medical Treatment [id number]# 1.00CD:127 Normal [facility] Formson 02-21-2021 Forms [id number]# 1.00CD:127 Normal [facility] RAD - MISCon 02-21-2021 RAD - MISC [id number] .00CD:127 [facility] - MISC [id number]#1 .00CD:127 Normal [facility] Ambulatory Clinical Summaryo n 02-20-2021 Ambulatory Clinical Summary {[id number]}CD:[id number] [facility] Patient Educationon 02-21-20 21 Patient Education Nutrition Calorie Counting for Weight Loss Calories are units of energy. Your body needs a certain amount of calories from food to keep you going throughout the day. When you eat more calories than your body needs, your body stores the extra calories as fat. When you eat fewer calories than your body needs, your body durbin fat to get the energy it needs. Calorie counting means keeping track of how many calories you eat and drink each day. Calorie counting can be helpful if you need to lose weight. If you make sure to eat fewer calories than your body needs, you should lose weight. Ask your health care provider what a healthy weight is for you. For calorie counting to work, you will need to eat the right number of calories in a day in order to lose a healthy amount of weight per week. A dietitian can help you determine how many calories you need in a day and will give you suggestions on how to reach your calorie goal. ? A healthy amount of weight to lose per week is usually 1?2 lb (0.5?0.9 kg). This usually means that your daily calorie intake should be reduced by 500?750 calories. ? Eating 1,200 ? 1,500 calories per day can help most women lose weight. ? Eating 1,500 ? 1,800 calories per day can help most men lose weight. What is my plan? My goal is to have calories per day. If I have this many calories per day, I should lose around pounds per week. What do I need to know about calorie counting? In order to meet your daily calorie goal, you will need to: ? Find out how many calories are in each food you would like to eat. Try to do this before you eat. ? Decide how much of the food you plan to eat. ? Write down what you ate and how many calories it had. Doing this is called keeping a food log. To successfully lose weight, it is important to balance calorie counting with a healthy lifestyle that includes regular activity. Aim for 150 minutes of moderate exercise (such as walking) or 75 minutes of vigorous exercise (such as running) each week. Where do I find calorie information? The number of calories in a food can be found on a Nutrition Facts label. If a food does not have a Nutrition Facts label, try to look up the calories online or ask your dietitian for help. Remember that calories are listed per serving. If you choose to have more than one serving of a food, you will have to multiply the calories per serving by the amount of servings you plan to eat. For example, the label on a package of bread might say that a serving size is 1 slice and that there are 90 calories in a serving. If you eat 1 slice, you will have eaten 90 calories. If you eat 2 slices, you will have eaten 180 calories. How do I keep a food log? Immediately after each meal, record the following information in your food log: ? What you ate. Don't forget to include toppings, sauces, and other extras on the food. ? How much you ate. This can be measured in cups, ounces, or number of items. ? How many calories each food and drink had. ? The total number of calories in the meal. Keep your food log near you, such as in a small notebook in your pocket, or use a mobile tamika or website. Some programs will calculate calories for you and show you how many calories you have left for the day to meet your goal. What are some calorie counting tips? ? Use your calories on foods and drinks that will fill you up and not leave you hungry: ? Some examples of foods that fill you up are nuts and nut butters, vegetables, lean proteins, and high-fiber foods like whole grains. High-fiber foods are foods with more than 5 g fiber per serving. ? Drinks such as sodas, specialty coffee drinks, alcohol, and juices have a lot of calories, yet do not fill you up. ? Eat nutritious foods and avoid empty calories. Empty calories are calories you get from foods or beverages that do not have many vitamins or protein, such as candy, sweets, and soda. It is better to have a nutritious high-calorie food (such as an avocado) than a food with few nutrients (such as a bag of chips). ? Know how many calories are in the foods you eat most often. This will help you calculate calorie counts faster. ? Pay attention to calories in drinks. Low-calorie drinks include water and unsweetened drinks. ? Pay attention to nutrition labels for low fat or fat free foods. These foods sometimes have the same amount of calories or more calories than the full fat versions. They also often have added sugar, starch, or salt, to make up for flavor that was removed with the fat. ? Find a way of tracking calories that works for you. Get creative. Try different apps or programs if writing down calories does not work for you. What are some portion control tips? ? Know how many calories are in a serving. This will help you know how many servings of a certain food you can have. ? Use a measuring cup to measure serving sizes. You could (more content not included)... Normal [facility] Urology Office/Clinic Noteon 02-20-2021 Urology Office/Clinic Note Chief Complaint New Pt. 2 week follow up HPI Staff New Pt. 2 week follow up to Cysto/stent placement on 02/04/2021. KUB done 02/19/21 Dysuria: yes pain and burning Incomplete bladder emptying: yes Hematuria: yes had visible blood for the first 3 days Frequency: yes every hour Urgency: denies Nocturia: yes every hour Stream: denies hesitancy, denies weak stream Leaking: denies Post void dripping: denies Wearing pads/ Depends: denies Urge incontinence: denies Stress incontinence: denies Incontinence without Sensory Awareness: denies Abdominal pain: denies Flank pain: denies Sexual complaints: denies History of Present Illness Pt is here for Follow up to Cysto/Lt Stent Placement due to Lt Kidney Stones Reviewed KUB Pt has no associated symptoms, no fever, no chills, no flank pain. I have reviewed the previous health record information and history for this patient from Dr. ambriz Review of Systems ROS - Provider Constitutional: denies weight loss, denies hot flashes. Eyes: denies eye problems. Gastrointestinal: denies nausea, denies vomiting. Cardiovascular: denies chest pain or angina. Integumentary: no dryness Musculoskeletal: denies musculoskeletal symptoms. ENMT: denies otolaryngeal symptoms. Respiratory: no shortness of breath. Heme/Lymph: denies easy bleeding tendency, denies easy bruising tendency. Psychiatric: no confusion, no anxiety. Genitourinary: denies dysuria, moderate hematuria, denies discharge, moderate urinary frequency, denies urinary hesitancy, moderate nocturia, denies incontinence, denies genital sores, denies decreased libido, and denies erectile dysfunction. Physical Exam Vitals & Measurements HR: 55(Peripheral) RR: 16 BP: 138/78 HT: 175 cm HT: 175.0 cm WT: 96.4 kg WT: 96.4 kg BMI: 31.48 General Appearance: alert, no distress, well nourished, well developed male. Assessment/Plan 1. Kidney stone (N20.0: Calculus of kidney) S/P Cysto/Lt Stent Placement Will schedule ESWL left. The procedure risks, benefits, details and treatment alternatives have been discussed with the patient. These include blood in the urine, infection, bleeding around the kidney, kidney bruising, inability to break up the stone, need for blood transfusion, blockage from stone fragments, and need for additional procedures, among others. Full informed consent has been obtained. Will order General anesthesia. Risks and Benefits were discussed with the patient. These include bleeding, infection, pain, and need for additional procedures. Pre-op consent reviewed with and obtained from patient. Order General anesthesia. 2. BPH with urinary obstruction (N40.1: Benign prostatic hyperplasia with lower urinary tract symptoms) Discussed with pt the effectiveness of current BPH medications. Pt is currently on Tamsulosin 0.4mg qd 3. Dysuria (R30.0: Dysuria) Moderate, due to to stent 4. Gross hematuria (R31.0: Gross hematuria) Moderate, due to to stent 5. Frequency of urination (R35.0: Frequency of micturition) Moderate, due to to stent 6. Nocturia (R35.1: Nocturia) Moderate, due to to stent Patient is here with his today. He is status post cystoscopy and left stent. KUB is reviewed and demonstrates what appears to be at least 3 stones the largest of which is about an 8mm nearly surrounded by the curl of the stent within the left renal pelvis. After being given the options they wish to proceed with the recommended lithotripsy. This may be a staged procedure, especially since we are dealing with multiple stones. The stone in question itself could need at least 3000 shocks on its own and then he has 2 other stones in the kidney. This may necessitate a repeat lithotripsy and most likely an eventual retrograde ureteroscopic/nephros copic approach as well. He will finish the current tamsulosin without a refill on this medication. Follow-up With When Contact Information NAKIA BELTRE, Steven Ruffin, URL Additional Instructions: Patient Education Kidney Stones, Mbja-lf-Naug Calorie Counting for Weight Loss Melia Carlson, personally scribed for Dr. Ambriz on 02/20/2021 09:16:41. . Documentation recorded by the scribe, Melia Almazan, accurately reflects the services(s) I performed and decisions made by me. Authenticated by Dr. Ambriz on 02/20/2021 09:21:12. Problem List/Past Medical History Ongoing Anxiety Benign essential hypertension BMI 31.0-31.9,adult BPH with urinary obstruction Deafness Dysuria Frequency of urination Gall stone Gross hematuria Hydronephrosis with ureteral calculus Hypercholesterolemia Hyperlipidemia Hypertension Impingement syndrome of shoulder Impotence Kidney stone Lipoma of arm Nocturia Historical No qualifying data Procedure/Surgical History Cystoscopic insertion of ureteric stent (02/04/2021), Cystoscopy (02/04/2021), Cholecystectomy, Cholecystectomy, Gastric byp (more content not included)... Normal [facility] Comment on above: Result Comment: Elec tronically Signed By: Steven AMBRIZ MD\.br\Date and Time Signed: 02/20/21 09:22 EDT\.br\Electronically Co-Signed By: Melia Sun\.br\Date and Time Co-Signed: 02/20/21 09:17 EDT Coding Summary.on 02-13-2021 Coding Summary. [id number] G h0bWw+PGhlYWQ+SJ3HQWU nK46igCLesI7DF9qSNS5Q MXGTHDCCZK3GYK8ccYJ5C YrxG6StlpSd ZkomxFCqAY62OPj0BXC6d WqiMNmvgJ9qrYLiV8m0Hj NnQQ31aS11LNdoFRRnSyA 3LjZpbjsgbWFy A3icCjNzcGLtYsn+PHRhY mxlIHdpZHRoPScxMDAlJy YqaUytGO7qZr3uUURgSKZ vbGxhcHNlOiBj y6plMHXaOCdnOX9zgJtxX 2LrzJK0KUYzp2o5Zl85mM I+WBVsUZF4bYweTBrmo67 1OgXpr6vgQEC0 pESpPRvxPCD3L98mq7J4X POeUCGzOXO3aDS4uA2btD kjgcbxT3GpnFPjTyP8LFV 4rOHdkH7siQrv pnqjdE0rYmg+A11FBM1VU CEPYG0EXch8B2DzSqjtgD I+HP24ICEoHM55wERftVX jc7ezuYf2CaGk WSQcLEQ6gOdoYChlm4VcH ALcY90ifXQdu2S7TQDypJ qweXLbImJrwCG1rY5fGDn oulpnk1oohktt Vylnd7yjpj65uI79S16nL BaxDEZrLBN7PJKnZLMhpP trcu4gyK8mFe7+PHnpf6n xu4hjpJh4ClBh MRVikkTobPrlPTD4j9OtF g33X2LyhOrrd5LfLnk2tk 75uOJln8A7yPO3AZdhVES peW7zLCuhErS0 VWSuZwBqjD75oGZuNTczS w3noWzfbQziCK4gEVZpbz ksREYnvY6kKURlnBWjqIg iVD5cWQLrulce e512GbEcOUT7IVQzvMJdK 5LxbB5kNcRgJQMdZIQxZ4 HsmMNyHXspT150PBemUjG 4DPMguhZvP6Fn PCTzdFgnIaO4q7B8Gk9Gt 4HjvdjuHRY0OYtoZAP0Ns KkJqJfEyK7K1WhBje1AXS tpTjaFW9mX5Pm RCMnuapdssaioBY1GGBfS CImxU94uOCyPGulPm4dm2 J4p022VCIiWPOmfB82Sf3 udDogMTBwdCBU eV9tmfryw9nhfyusOvEfC UIxVPh9QUf3UMDrjYpuJy HjTDY4TtQ1SIC9bWWyyF4 xfOjxmtucpJ9h Oyc+S64geE4eIXA3NXI3m posFWMgeuMxKL74VN49V8 RyPjwvdGFibGU+PGRpdiB znKozAN5tRbQm m8gfp4RcIWvrZ3SlOGKyJ FblUlm6URGnUOD1tUL9rM 1kSVZcUTlcx5F2mQF6F0W yroJypo9pg4ye DJLdQGguW06zkFTtq5C2V IMmvJT0KZAkwOmzKcSdhL 93Oyc+FPRsjRxki4BcCpi jy5eic5tgwKu0 VnIzIWXyoaTukNkpNRT5t 1TlQu52Z21qHSbfJZEoJG XuISJqTAPaeYceyl2cfV4 wIi8+PGNvbCB3 lGI1iU1cPXCnLcA1VNqwX 016TwHtnUStMpwxk4eqg1 ynxPp2LgItNAPjmhGyjJq aKOM3m7EqVd19 Q20xXAiyOVFuMFHtOXFnE ZFnfIwzda6iaX5wZc0+PC 7uc3dttq46oS40wKM+PHR dODQ7gLlsGRwh DZLacO5nPQfkQfV2OVZaW qFxtC97uMZhHLnfMd6aiV ghcTvpJV2tKWVqydyud43 9LeKcw6vnNGZq dMVeLTttZUT8T26hy7P1M BCpPIZpXMI8fBW9xR9reW lnbjogbGVmdDsgdmVydGl uMVdiLWsqG201 IHRvcDsnPlBhdGllbnQgT pYoCUw4Q7VjZnt4ZNWalG jkLV7lwMNhJKknYr1egSi uxUksZO8uIBZq tmsor416RaEoq2hzYQDff XPsFBlxRRY1A82vc3F8WN ApBXZxEEY8jNU8jI9hoXq nbjogbGVmdDsg bzDcrQfeFPfzSTdjW469K HRvcDsnPkJpcnRoIERhdG K7HK75BA46gKLex1S9bZN 9G3QvLEDnpcld dtjixZF2SPKuWUCbiZ74W p2dhKktLw0kCMXvXEL1TD CwdMEhR3KdbO1zDaKqZQT nSMEkV4LvxFVm IUftJ308JEetMnE0LOPlw vHsT0MzXMNxlWbnKrE3u1 K4Ag3PF0Q6VG75KI27fGT ad0Q5nLJ7J8Ly IXXctuivswfqiWZ9BFUyW EFvqJ63Ax1vxLesGi3yXE AoPOS8AYIetQKhE1WpeG6 yOiAjMDAwMDAw J4WxzKJjSRlpG958DKlqE xR3WCRkozUaM4SiOSXnpW pgBfZ2c2F0Ox0SYQg4XZ0 3UJ07iQDml9L3 iSX9U0IvYCYyrydsxhjln PQ8APMuOFChbY12Gi6xpO enLg4lKPNeJIV2SNZktKG vO3XrvL6tNiUd OEAbQKRcP4FbpAUaYWcuJ 569RWuyTnV1XGPpcqFkL6 KwGQOmgMamMvK2b4H6Hb9 AZXMnHH65NVI8 oQS3PA27EE44E4RqTqlyb GFibGU+PHRhYmxlIHdpZH RoPScxMDAlJyBzdHlsZT0 mKt7gLLJgBLFx hFxjiGXcXxUew0qmDQUmP XrgCS6ppTfuX0EjsUX8SZ Eql7r4Lw33Z65pX6SyqWU +GYNpbPZ3dKJ2 oX3kDtYfHpH2UCedR144K qHjdCWhPggvb4lkq5xvtH t3YvD5YIHyixUomFraYLD 0l4MrDz34E79s IHdpZHRoPSIxNSUiIHZhb Hyrpn2jiM2yXl6+PGNvbC S6vFO3oG8gGeOhKrT0BAb vA558QdGwpYHw Ddzbj6awo7xxfRn4RrDhL IOtxpOgtYyrJYS6d3YySy 27C5EyxMerr6TkTkb9ha4 9gMNqo2W5gQL0 A2DcZUFcrsxveXCjrEtrZ G7xWEFpsjetSYYasD1vEL AvL4r6GiStXfE9ZWbfV7K nrgW3KFWqkRDw HVocSWB3Y35hl8E6IIAdE PPqNIV9kHI9eX4wbLuhvr ogbGVmdDsgdmVydGljYWw fWNagY893IKZv zBpfRSUpfO1iTIWktAOzk SreQM2lFONfcppaGfJZHS OSXVXUES9MCSUgLztdhXF +EFTfZIS2wTmq YAtpFYDsaR8oFTWwU4w4R mWqSmO2LIvaX7FoIFAdqd pxWw44kY7lHvSrTxG3EUz wB8OczgE3SNTs gOPjSKxbSQE1F52tw0C6X SQjGVCsUQR3mJX1xK2clW lnbjogbGVmdDsgdmVydGl tAKkoDBafV819 VHIbzXbkGbZ8DeP9ZiY5O Um0Q2FwYtd3WAVrxIfyMI 5xuRVjBWldVd5ueVedcEh uML2qEAJgktua PBNiuO4sPEDanXFvlLnjX N2bJYUnhtkmj665NyDgQK X3HQQfdZBpZ0FywI4gQpY gYYDzABXkI4Yp fHYtCCduU705EDyuHlN2U EJvdyDfW8HyWUFbfZnoYd R7k5B5Sa67TzQKWNYymnj vdGQ+PHRkIHN0 wNtkKHdxYIHzlA2cXNMcN 2l5QaJeEeK4PPwpH1DcPS DtcwbiLi93xE7fAyCqSoW 4SAysR3MeeeH2 VXXbmHQeXKbdRBZ5K20ec 8L3KQBiRIWeJKJ3nIC2iO 1hbGlnbjogbGVmdDsgdmV ydGljYWwtYWxp H669UZDjgJcrTj9tbIO3N 5FiJmn7DWNycSxfAS4apM AyPAjuHe2nvLbgnKckHN7 wNTBpbjtwYWRk yJ2fMZRvlZVhoIkbHO9dF AEvptmii266GjVfDJB6TC JutGSuM1SdeF7vFpQbOXQ rRZGtE5TusGBl OXzhC084ZSotOkZ1FJLdk eXrK0OfWPEhlNuxOpP5p4 X2Px6TkWY3kWM7q0K2Y3M zyPBtUQW2UKP9 ufzrmcy2W7OvXvnjwVB+P B11OZQiHJ04hGQbmMOcg6 bdxYk9EmNcJBXhLNY7aSz nSBwlm0LhIXPy P11qaTQgy7I8ORDoeOuyg APsEiQneES4xM5eVOvrud lhi6ebracxQnoty8zqwy5 1mN62F37lVQdo ZHRoPSIzMCUiIHZhbGlnb d7xzE4nVv3+HGZmlOV8mV K6sV5kYxNmIxU8NQmoG05 9InRvcCIvPjxj t0ari2pnpVq4CkYvZWPnb iHbkEugQPN1s4WrRr62I6 9sIHdpZHRoPSIyMCUiIHZ fnOywvi9feD9a Ii8+EV0kb9zmcy96jI92b HI+OXWkINV5pYejAQraCW PwfS4zHAboLaL6NIVoNgD ojM37fGAaFRgb Ii9fnFlcgZwnFM2tSINkq aicv650NlPev4uiRGTlfH XjGMwxZJD1H47bg6I0ZMP sBGAaQJT9pZH2 fP1miJtyenomyPAwpEiax uCmlXmvLJbwWGuyO949NK CgoZqsKsEisZFiE9ydheI TEJ3iIfzybYL+ MRGfPCR4jVvyTYhkIURqb T9pMOXlQ2k0InFsYpU9CG eqV2PolxM2WSRruAFwKSO mjKVElX8hoiel t2ntfecfWkOxLWIfBPj7D Fx8BRGhwLhfJwCwWIU8Ug A1GCF8mLWxgN0xtUnlpph knD8iJzq+RklO OjwvdGQ+MDVgQAQ9gUchC ZarUARvcL0sPXWbT5f6Pd VbSjN7HHydL8OpzzY6ICV vbGQgMTBwdCBU zB7wctvtp1lzukydKsAuI MPdQLi7OJd0UMRglZvdMu OaKUH8WlA4RQB4wBVbxU3 jjTckuoxgwY9u Oyc+TVJOOjwvdGQ+PHRkI QP9hZpiDJmmFITooI6lCM CtT1e4IcKqOdG8TCuqG9A zyjU2JJNytCNa WARdbKIPzN9icmcgl6xzm uawEvSvODQvYWy4VLm0FE UbgHjeWtNoHBU4TcP5VMR 3pBEtpC7cwVwn stykzJ3nQov+UMG7WJP2H C46AS78C8YkMdirzUZpsZ U+PHRhYmxlIHdpZHRoPSc xMDAlJyBzdHls ZT0n (more content not included)... Normal [facility] Progress Note-Physicianon Progress Note-Physician Patient: OSMAN PARIKH Age: 61 years Sex: Male : 1960 Associated Diagnoses: None Author: Aakash Mcdaniels Jr, DO Preoperative Information Time patient last ate or drank:=== (npo 8 hours) Anesthesia history: Patient history: No prior anesthesia problems. Re-evaluation prior to induction: Completed, Initial evaluation reviewed. Review of Systems Respiratory: No shortness of breath. Cardiovascular: No chest pain. Hematology/Lymphatics : No bruising tendency, No bleeding tendency. Health Status Allergies: Allergic Reactions (All) Severity Not Documented Erythromycin- Rash. Canceled/Inactive Reactions (All) No Known Allergies Current medications: (Selected) Inpatient Medications Ordered Al hydroxide/Mg hydroxide/simethicone 200 mg-200 mg-20 mg/5 mL oral suspension: 30 mL, Susp-Oral, Oral, q6hr PRN Indigestion, Routine, Start date 02/04/21 12:13:00 EDT Dilaudid 1 mg/mL injectable solution: 0.5 mg = 0.5 mL, Injection, IV Push, q2hr PRN Pain, Routine, Start date 02/04/21 13:31:00 EDT, 02/04/21 13:31:00 EDT Flomax 0.4 mg Cap: 0.4 mg = 1 cap(s), Cap, Oral, Daily, Routine, Start date 02/05/21 9:00:00 EDT, 02/04/21 13:36:00 EDT NS 1000 mL Soln-IV 1,000 mL: 1,000 mL, IV, 75 mL/hr, Routine, Start date 02/04/21 12:13:00 EDT, 13.3 hour(s), Total volume (mL): 1,000 Norvasc 5 mg Tab: 5 mg = 1 tab(s), Tab, Oral, Daily, Routine, Start date 02/05/21 9:00:00 EDT, 02/04/21 13:36:00 EDT Zofran 4 mg/2 mL Injection: 4 mg = 2 mL, Injection, IV Push, q6hr PRN Nausea, Routine, Start date 02/04/21 12:13:00 EDT acetaminophen 325 mg Tab: 650 mg = 2 tab(s), Tab, Oral, q6hr PRN Pain, Routine, Start date 02/04/21 12:13:00 EDT allopurinol 100 mg Tab: 100 mg = 1 tab(s), Tab, Oral, Daily, Routine, Start date 02/05/21 9:00:00 EDT, 02/04/21 13:36:00 EDT ceftriaxone additive + Sodium Chloride 0.9% intravenous solution 50 mL: 1,000 mg = 1 EA, Injection, IV Piggyback, q24hr, Routine, Start date 02/04/21 13:00:00 EDT, 100 mL/hr, Infuse over 30 minute(s) hydrALAZINE 20 mg/mL Inj: 10 mg = 0.5 mL, Injection, IV Push, q6hr PRN Other (see comment), Routine, Start date 02/04/21 12:13:00 EDT ketorolac 15 mg/mL Inj: 15 mg = 1 mL, Injection, IV Push, q6hr PRN Pain for 5 day(s), Stop date 02/09/21 13:30:00 EDT, Routine, Start date 02/04/21 13:31:00 EDT, 02/04/21 13:31:00 EDT simvastatin 10 mg Tab: 20 mg = 2 tab(s), Tab, Oral, Once a day (at bedtime), Routine, Start date 02/04/21 21:00:00 EDT, 02/04/21 13:36:00 EDT Prescriptions Prescribed Keflex 500 mg Cap: 500 mg = 1 cap(s), Oral, q8hr, X 7 day(s), # 21 cap(s), Refills(s) 0, Pharmacy: [id number] Levsin 0.125 mg oral tablet: 0.125 mg = 1 tab(s), Oral, QID, PRN for spasm, # 40 tab(s), Refills(s) 0, Pharmacy: [id number] Zofran 4 mg Tab: 4 mg = 1 tab(s), Oral, q8hr, PRN Nausea/Vomiting, # 30 tab(s), Refills(s) 0, Pharmacy: [id number] traMADOL 50 mg Tab: 50 mg = 1 tab(s), Oral, q6hr, PRN for pain, # 20 tab(s), Refills(s) 0, Pharmacy: [id number] Documented Medications Documented Flomax: 0.4 mg, Oral, Daily, Refills(s) 0, Urinary discomfort Norvasc: 5 mg, Oral, Daily, Refills(s) 0, High blood pressure allopurinol: 100 mg, Oral, Daily, Keep taking the medication if you were taking prior to admission at [facility] [facility], Refills(s) 0, Gout pain simvastatin: 20 mg, Oral, Once a day (at bedtime), Keep taking the medication if you were taking prior to admission at [facility], Refills(s) 0, High cholesterol Problem list: All Problems Anxiety / SNOMED CT 58886817 / Confirmed Benign essential hypertension / SNOMED CT 9733338 / Confirmed 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 Family History: Hypertension Father Mother Primary malignant neoplasm of lung Father Diabetes mellitus type 2 Father COPD Mother Primary malignant neoplasm of female breast Mother Procedure history: Cholecystectomy (89888902). Renal lithotripsy (642019389). Gastric bypass (3583976074). Social History Social & Psychosocial Habits Alcohol 02/04/2021 Use: Current Type: Beer, Liquor Frequency: 1-2 times per month Substance Abuse 11/10/2019 Risk Assessment: Denies Substance Abuse Comment: angelika - 02/04/2021 14:53 - Norma Vasquze RN Tobacco 11/10/2019 Tobacco Use: Never (less than 100 in l Smokeless tobacco use: Never Comment: angelika - 02/04/2021 14:53 - Norma Vasquez RN 02/04/2021 Risk Assessment: Denies Tobacco Use . Physical Examination Vital Signs 02/04/2021 15:20 EDT Hourly Rounding Yes Promise to Return Yes 02/04/2021 15:07 EDT Systolic Blood Pressure 146 mmHg HI Diast (more content not included)... Normal [facility] Comment on above: Result Comment: Elec tronically Signed By: Aakash Mcdaniels Jr, DO\.br\Date and Time Signed: 02/12/21 07:49 EDT Progress Note-Physician Patient: OSMAN PARIKH Age: 61 years Sex: Male : 1960 Associated Diagnoses: None Author: Aakash Mcdaniels Jr, DO Postoperative Information Post Operative Note: Post Anesthesia Care Unit. Anesthetic utilized: General. Health Status Allergies: Allergic Reactions (Selected) Severity Not Documented Erythromycin- Rash. Problem list: All Problems Anxiety / SNOMED CT 85850398 / Confirmed Benign essential hypertension / SNOMED CT 1111332 / Confirmed Lipoma of arm / SNOMED CT 0047126469 / Confirmed Hypercholesterolemia / SNOMED CT 16215621 / Confirmed Impingement syndrome of shoulder / SNOMED CT 587878489 / Confirmed Impotence / SNOMED CT 2192702883 / Confirmed Physical Examination Vital Signs 02/04/2021 16:00 EDT Hourly Rounding Yes 02/04/2021 15:20 EDT Hourly Rounding Yes Promise to Return Yes 02/04/2021 15:07 EDT Systolic Blood Pressure 146 mmHg HI Diastolic Blood Pressure 67 mmHg Blood Pressure Location Left arm 02/04/2021 14:00 EDT Hourly Rounding Yes Promise to Return Yes 02/04/2021 13:45 EDT Temperature Oral 36.8 DegC Peripheral Pulse Rate 57 bpm LOW Systolic Blood Pressure 145 mmHg HI Diastolic Blood Pressure 70 mmHg Blood Pressure Location Left arm SpO2 98 % 02/04/2021 13:00 EDT Respiratory Rate 16 br/min Hourly Rounding Yes Promise to Return Yes Vital Signs (last 24 hrs) Last Charted Temp Oral 36.8 DegC (FEB 04 13:45) Heart Rate Peripheral L 57bpm (FEB 04 13:45) SBP H 146mmHg (FEB 04 15:07) DBP 67 mmHg (FEB 04 15:07) SpO2 98 % (FEB 04 13:45) Weight 96.6 kg (FEB 04 15:12) Height 172 cm (FEB 04 15:12) BMI 32.65 (FEB 04 14:33) Pain assessment: Pain Assessment 02/04/2021 15:06 EDT Pain Symptoms Self Report Yes, able to self report Primary Pain Location Abdomen lower Primary Pain Laterality Left Patient Preferred Pain Tool Numeric rating Numeric Pain Scale 6 Numeric Pain Score 6 . General: Alert and oriented, No acute distress. Respiratory: Lungs are clear to auscultation. Cardiovascular: Normal rate, Regular rhythm. Neurologic: Normal sensory. Review / Management Condition: Stable. Assessment Anesthetic outcome No anesthetic complications noted. Adequate pain relief. TOLERATING PO INTAKE. voiding w/o diff.. No Complaint of nausea and vomiting. Plan Transfer/ Discharge: Condition stable. Normal [facility] Comment on above: Result Comment: Elec tronically Signed By: Arslan Crabtree DO, Aakash Squires\.br\Date and Time Signed: 02/12/21 07:49 EDT Insurance Correspondenceon 0 02-09-2021 Insurance Correspondence ED: osman H/P: elva Profit: done PIS (OBS/IN): ASU/Mis D/C PACU 02/04 1732 Chgs: done D/C: done VTE: 3 hep - done MCG: - obs renal (02/04 not review/complete per TC UR) Tele: no ICU: no >2mn: <2mn Insurance: Mis PAT (tests): cysto sent to PAT 02/09 MM: done Normal [facility] IntraOperative Documentson 0 02-06-2021 IntraOperative Documents [id number] .00CD:127 [facility] Consent for Anesthesiaon Consent for Anesthesia [id number]# 1.00CD:127 [facility] Consent for Procedure/Surger yon 02-05-2021 Consent for Procedure/Surgery [id number]# 1.00CD:127 [facility] Discharge Instructionson Discharge Instructions [id number] .00CD:127 [facility] Insurance Correspondence Off iceon 02-05-2021 Insurance Correspondence Office [id number] .00CD:127 [facility] IntraOperative Documentson 0 02-05-2021 IntraOperative Documents [id number]# 1.00CD:127 [facility] Main OR Intraoperative Recor don 02-05-2021 Main OR Intraoperative Record IntraOp Document Type FT Summary Primary Physician: Steven AMBRIZ MD Finalized Date/Time: 02/05/21 14:32:32 Pt. Name: OSMAN PARIKH D.O.B./Sex: 1960 Male Med Rec #: [id number] Physician: Conor STEVENSON MD Financial #: [id number] Pt. Type: O Room/Bed: [place] [address] Admit/Disch: 02/04/21 11:41:19 - 02/04/21 19:12:00 Institution: Case Times FT Entry 1 Patient Times In Room 02/04/21 16:33:00 Out Room 02/04/21 17:01:00 Procedure Times Start 02/04/21 16:46:00 Stop 02/04/21 16:56:00 Anesthesia Times Start 02/04/21 16:33:00 Stop 02/04/21 17:01:00 Last Modified By: WALDO CID, SREEDHAR Bright 02/04/21 17:01:07 General Comments: 02/05/2021 Chart opened to review and send charges. Annalise HUFF. Case Attendance FT Entry 1 Entry 2 Entry 3 Case Attendee NAKIA BELTRE, Steven HAAS RN, SREEDHAR Myers PRINTING PRESS MACHINIST, Kaitlyn Squires Role Performed Surgeon - Primary Outside Parts Sales - Primary Scrub - Primary Time In 02/04/21 16:33:00 02/04/21 16:33:00 02/04/21 16:33:00 Time Out 02/04/21 17:01:00 02/04/21 17:01:00 02/04/21 17:01:00 Procedure CYSTOSCOPY RETROGRADE CYSTOSCOPY RETROGRADE CYSTOSCOPY RETROGRADE STENT INSERTION STENT INSERTION STENT INSERTION Comments Last Modified By: WALDO CID, SREEDHAR HAAS RN, SREEDHAR HAAS RN, SREEDHAR Bright 02/04/21 17:11:34 02/04/21 17:11:34 02/04/21 17:11:34 Entry 4 Entry 5 Case Attendee Arslan Crabtree DO, Cora Carbajal Role Performed Anesthesiologist of Cylinder Worker Record Time In 02/04/21 16:33:00 02/04/21 16:33:00 Time Out 02/04/21 17:01:00 02/04/21 17:01:00 Procedure CYSTOSCOPY RETROGRADE CYSTOSCOPY RETROGRADE STENT INSERTION STENT INSERTION Comments Last Modified By: WALDO CID, SREEDHAR HAAS RN, SREEDHAR Bright 02/04/21 17:11:34 02/04/21 17:11:34 Perioperative Protocols FT Pre-Care Text: Implements protective measures prior to operative or invasive procedure, confirms identity before the operative or invasive procedure, verifies operative procedure, surgical site, and laterality Entry 1 Procedure(s) CYSTOSCOPY RETROGRADE Patient Identity Birthday, ID Band STENT INSERTION Verified (select at Check, Patient least 2): Participation Consents / H and P Anesthesia Consent, Operative Site N/A Verified HandP, Surgery/Procedure Marking Verified Consent Surgical Site Yes Laterality Verified n/a Verified Procedure Verified Yes Correct Patient Yes Position Verified Availability Equipment, Implant, Prep Dry Yes Verified (If Medication, X-ray Applicable) PreOp Antibiotic See Comments Time Out Steven AMBRIZ MD, Given Participants SREEDHAR HAAS RN, Louis HUFF, Arslan Gutiérrez Jr, DO, Guillermo Jefferson Amy Time Out Complete 02/04/21 16:46:00 Outcomes Met? Yes Last Modified By: SREEDHAR HAAS RN 02/04/21 17:21:07 Post-Care Text: The patient is free from signs and symptoms of injury caused by extraneous objects General Comments: CEFTRIAXONE GIVEN AT 1441. SAILAJA COTE RN Allergy Information FT Pre-Care Text: Verifies allergies Entry 1 Allergies Reviewed? Yes Allergies Reviewed Self/Patient With Outcomes Met? Yes Last Modified By: SREEDHAR HAAS RN 02/04/21 16:54:17 Post-Care Text: The patient received appropriate medication(s) safely administered during the perioperative period Surgical Procedures FT Entry 1 Procedure Description Procedure CYSTOSCOPY RETROGRADE Surgeon Description cystoscopy retrograde STENT INSERTION stent insertion left side Primary Procedure Yes Primary Surgeon Steven AMBRIZ MD Start 02/04/21 16:46:00 Stop 02/04/21 16:56:00 Anesthesia Type General Surgical Service Urology Wound Class 2 - Clean-Contaminated Last Modified By: SREEDHAR HAAS RN 02/04/21 17:11:53 General Case Data FT Pre-Care Text: Classifies surgical wound, implements aseptic technique, initiates traffic control Entry 1 Case Information OR OR 1 FT Case Level Level 3 Wound Class 2 - Clean-Contaminated Specialty Urology ASA Class 2E Preop Diagnosis obstructive stone left Postop Same As Preop Yes ureter Postop Diagnosis obstructive stone left Outcomes Met? Yes ureter Last Modified By: SREEDHAR HAAS RN 02/04/21 16:55:46 Post-Care Text: The patient is free from signs and symptoms of infection Skin Assessment (Pre Procedure) FT Pre-Care Text: Implements protective measures to prevent skin/ tissue injury due to thermal or mechanical sources Evaluates for signs and symptoms of physical injury to skin and tissue Entry 1 Skin Integrity Intact, [place], Warm, and Skin Abnormality No Dry Outcomes Met? Yes Last Modified By: SREEDHAR HAAS RN 02/04/21 17:12:07 Post-Care Text: The patient is free from signs and symptoms of injury caused by extraneous objects Patient Positioning FT Pre-Care Text: Identifies physical alterations that require additional precautions for procedure-specific positioning, verifies presence of prosthetics or corrective devices, positions the patient, ev (more content not included)... Normal [facility] Outside Recordson 02-05-2021 Outside Records [id number] .00CD:127 Normal [facility] Consent for Treatmenton Consent for Treatment [id number] .00CD:127 Normal [facility] Consultation Noteon 02-05-20 Consultation Note Patient: OSMAN PARIKH Age: 61 years Sex: Male : 1960 Associated Diagnoses: None Author: Steven AMBRIZ MD Chief Complaint 02/04/2021 14:33 EDT Flank pain Thank for consultation on this 61-year-old white male who has a positive prior history of kidney stones, having been seen by Dr. Lam about 4 to 5 years ago. Patient presented to the [place] emergency room where a CT scan was performed demonstrating about an 8 mm left ureteral calculus with hydronephrosis. The patient's states she was told the patient had a low-lying kidney stone. The patient has had pain radiating down into the testicle. The pain began yesterday and became worse prompting his visit to the emergency room. Patient's pain was severe and he requested transfer to [facility]. I had spoken with the emergency room physician and then with Dr. Monzon, who agreed to admit the patient to his service. The patient has not had associated fever, chills. Entire past medical history, past surgical history, systems review, family history, social history, medications, allergies are as noted in history and physical dictated by Dr. Monzon earlier today and are unchanged. Health Status Allergies: Allergic Reactions (Selected) Severity Not Documented Erythromycin- Rash., Allergies (1) Active Reaction erythromycin Rash Current medications: (Selected) Prescriptions Prescribed Keflex 500 mg Cap: 500 mg = 1 cap(s), Oral, q8hr, X 7 day(s), # 21 cap(s), Refills(s) 0, Pharmacy: [facility] Levsin 0.125 mg oral tablet: 0.125 mg = 1 tab(s), Oral, QID, PRN for spasm, # 40 tab(s), Refills(s) 0, Pharmacy: [facility] Zofran 4 mg Tab: 4 mg = 1 tab(s), Oral, q8hr, PRN Nausea/Vomiting, # 30 tab(s), Refills(s) 0, Pharmacy: [facility] traMADOL 50 mg Tab: 50 mg = 1 tab(s), Oral, q6hr, PRN for pain, # 20 tab(s), Refills(s) 0, Pharmacy: [facility] Documented Medications Documented Flomax: 0.4 mg, Oral, Daily, Refills(s) 0, Urinary discomfort Norvasc: 5 mg, Oral, Daily, Refills(s) 0, High blood pressure allopurinol: 100 mg, Oral, Daily, Keep taking the medication if you were taking prior to admission at [facility], Refills(s) 0, Gout pain simvastatin: 20 mg, Oral, Once a day (at bedtime), Keep taking the medication if you were taking prior to admission at [facility], Refills(s) 0, High cholesterol, Home Medications (8) Active allopurinol 100 mg, Oral, Daily Flomax 0.4 mg, Oral, Daily Keflex 500 mg Cap 500 mg = 1 cap(s), Oral, q8hr Levsin 0.125 mg oral tablet 0.125 mg = 1 tab(s), PRN, Oral, QID Norvasc 5 mg, Oral, Daily simvastatin 20 mg, Oral, Once a day (at bedtime) traMADOL 50 mg Tab 50 mg = 1 tab(s), PRN, Oral, q6hr Zofran 4 mg Tab 4 mg = 1 tab(s), PRN, Oral, q8hr Problem list: All Problems Impingement syndrome of shoulder / SNOMED CT 684556840 / Confirmed Impotence / SNOMED CT 7985393499 / Confirmed Benign essential hypertension / SNOMED CT 5982711 / Confirmed Hypercholesterolemia / SNOMED CT 87284018 / Confirmed Anxiety / SNOMED CT 00375970 / Confirmed Lipoma of arm / SNOMED CT 1008449056 / Confirmed, Active Problems (6) Anxiety Benign essential hypertension Hypercholesterolemia Impingement syndrome of shoulder Impotence Lipoma of arm Histories Past Medical History: No active or resolved past medical history items have been selected or recorded. Family History: Hypertension Father Mother Primary malignant neoplasm of lung Father Diabetes mellitus type 2 Father COPD Mother Primary malignant neoplasm of female breast Mother Procedure history: Cholecystectomy (94698750). Renal lithotripsy (546548990). Gastric bypass (8741687831). Social History Social & Psychosocial Habits Alcohol 02/04/2021 Use: Current Type: Beer, Liquor Frequency: 1-2 times per month Substance Abuse 11/10/2019 Risk Assessment: Denies Substance Abuse Comment: angelika - 02/04/2021 14:53 - Norma Vasquez RN Tobacco 11/10/2019 Tobacco Use: Never (less than 100 in l Smokeless tobacco use: Never Comment: angelika - 02/04/2021 14:53 - Norma Vasquez RN 02/04/2021 Risk Assessment: Denies Tobacco Use . Physical Examination General: Alert and oriented. Eye: Pupils are equal, round and reactive to light. HENT: Normocephalic. Neck: Supple. Respiratory: Lungs are clear to auscultation. Cardiovascular: Normal rate, Regular rhythm, No murmur. Gastrointestinal: Soft, Non-tender, Non-distended. Vital Signs 02/04/2021 15:07 EDT Systolic Blood Pressure 146 mmHg HI Diastolic Blood Pressure 67 mmHg 02/04/2021 13:45 EDT Temperature Oral 36.8 DegC Peripheral Pulse Rate 57 bpm LOW Measurements from flowsheet : Measurements 02/04/2021 13:45 EDT Weight Measured 96.6 kg Genitourinary: Normal genitalia for age and sex. Kidney: No costovertebral angle tenderness. Groin/ inguinal region: Bi (more content not included)... Normal [facility] Comment on above: Result Comment: Elec tronically Signed By: NAKIA BELTRE, Steven Lopez.shaheed\Date and Time Signed: 02/04/21 16:33 EDT Inpatient Clinical Summaryon 02-04-2021 Inpatient Clinical Summary [place] [id number] Clinical Summary Person Information: Name: OSMAN PARIKH Age: 61 Years : 1960 Sex: Male PCP: Anna Martinez MD Marital Status: Race: White Ethnicity: Non- or Language: Malaysian MRN: [id number] Visit Id: Visit Reason: Urital Stone Speciality: Acuity: Enc Type: Observation Med Service: Medical Arrival: 02/04/2021 11:41:19 Discharge: Dispo Type: Address: [address] [place] [id number] Provider Notes: Diagnosis: 1:Kidney stone; 2:Hydronephrosis; 3:Benign essential hypertension; 4:Hypercholesterolemi a; 5:BPH (benign prostatic hyperplasia); 6:Chronic GERD; 7:Gout; 8:Sequential compression device (SCD) in place on patient Problems Active Lipoma of arm Anxiety Hypercholesterolemia Benign essential hypertension Impotence Impingement syndrome of shoulder Smoking Status: Never Smoker Functional Status: Sensory Deficits: Hearing deficit, left ear, Hearing deficit, right ear History of Falls: Mobility Assistance Prior to Admission: Independent ADLs: Independent Current Level of Assistance for Self-Care/Mobility: Cognitive Status: Oriented x 3 Allergies erythromycin (Rash) Measurements: Height: 172 cm Weight: 96.6 kg Blood Pressure: 138 mmHg / 70 mmHg BMI: 32.65 kg/m2 Procedures Gastric bypass Cystoscopy (02/04/2021) Immunizations No Immunizations Documented This Visit Final Med List: allopurinol 100 Milligram By Mouth every day. Keep taking the medication if you were taking prior to admission at [facility]. amlodipine (Norvasc) 5 Milligram By Mouth every day. cephalexin (Keflex 500 mg Cap) 1 Capsules By Mouth every 8 hours for 7 Days. Refills: 0. hyoscyamine (Levsin 0.125 mg oral tablet) 1 Tablets By Mouth 4 times a day as needed for spasm. Refills: 0. ondansetron (Zofran 4 mg Tab) 1 Tablets By Mouth every 8 hours as needed Nausea/Vomiting. Refills: 0. simvastatin 20 Milligram By Mouth once a day (at bedtime). Keep taking the medication if you were taking prior to admission at [facility]. tamsulosin (Flomax) 0.4 Milligram By Mouth every day. tramadol (traMADOL 50 mg Tab) 1 Tablets By Mouth every 6 hours as needed for pain. Refills: 0. Care Team Members: Attending Physician: Nicolás BELTRE, Yunior Nichole Consulting Physician: Steven AMBRIZ MD Referring Physician: Follow up: With: Address: When: Steven AMBRIZ [address] [place] [address] Business (1) Within 2 weeks Comments: Call for followup appointment Call physician if symptoms worsen With: Address: When: Anna Martinez [address] [place] [address] [place] [address] Business (1) Within 1 week Patient Education Information: Laser Therapy for Kidney Stones, Care After; Kidney Stones Keflex, hyoscyamine Normal [facility] Inpatient Patient Summaryon 02-04-2021 Inpatient Patient Summary [address] [address] Patient Discharge Instructions PERSON INFORMATION Name: OSMAN PARIKH Date of : 1960 Current Date: 02/04/2021 18:34:29 PHYSICIANS Admitting Physician: Nicolás BELTRE, Yunior Nichole Primary Care Physician: Anna Martinez MD PCP Comment: Discharge Diagnosis: 1:Kidney stone; 2:Hydronephrosis; 3:Benign essential hypertension; 4:Hypercholesterolemi a; 5:BPH (benign prostatic hyperplasia); 6:Chronic GERD; 7:Gout; 8:Sequential compression device (SCD) in place on patient Condition at Discharge: Stable OSMAN PARIKH has been given the following list of follow-up instructions, prescriptions, and patient education materials: PATIENT FOLLOW-UP INFORMATION Diet: Low Sodium- 2000 mg Discharge Activity: Discharge Restrictions: No restrictions Wound Care Instructions: Remove Your Dressing In Days Call Your Doctor For: IF UNABLE TO CONTACT YOUR PHYSICIAN AND YOU FEEL IT IS AN EMERGENCY, GO TO THE NEAREST EMERGENCY ROOM OR CALL 911 Home Treatment: Devices/Equipment: Special Services: Additional Instructions: Primary Care Physician to provide the following pending test results: None Follow up: With: Address: When: [facility] [address], [facility] [address] [place] [address] Business (1) Within 2 weeks Comments: Call for followup appointment Call physician if symptoms worsen With: Address: When: Anna Martinez [address] [facility], [place] [address] Business (1) Within 1 week In the event that this physician does not participate in your insurance network, please consult with your insurance company to find a nearby participating provider. Comment: JL Carlson THOMAS W, have received the attached patient education materials/instruction s and have verbalized understanding: Patient Signature Date Clinican/Nurse Signature Date HERE ARE THE MEDICATION CHANGES THAT OCCURRED DURING YOUR HOSPITAL STAY Medications to Continue Taking That Have Changed Other Medications START: allopurinol 100 Milligram By Mouth every day. Keep taking the medication if you were taking prior to admission at [facility]. Last Dose: ____Next Dose: ____ STOP: allopurinol 100 Milligram By Mouth every day. START: simvastatin 20 Milligram By Mouth once a day (at bedtime). Keep taking the medication if you were taking prior to admission at [facility]. Last Dose: ____Next Dose: ____ STOP: simvastatin 20 Milligram By Mouth once a day (at bedtime). Medications to Continue with No Changes [facility], [address] [place] [id number], [phone] cephalexin (Keflex 500 mg Cap) 1 Capsules By Mouth every 8 hours for 7 Days. Refills: 0. Last Dose: ____Next Dose: ____ hyoscyamine (Levsin 0.125 mg oral tablet) 1 Tablets By Mouth 4 times a day as needed for spasm. Refills: 0. Last Dose: ____Next Dose: ____ ondansetron (Zofran 4 mg Tab) 1 Tablets By Mouth every 8 hours as needed Nausea/Vomiting. Refills: 0. Last Dose: ____Next Dose: ____ tramadol (traMADOL 50 mg Tab) 1 Tablets By Mouth every 6 hours as needed for pain. Refills: 0. Last Dose: ____Next Dose: ____ Other Medications amlodipine (Norvasc) 5 Milligram By Mouth every day. Last Dose: ____Next Dose: ____ tamsulosin (Flomax) 0.4 Milligram By Mouth every day. Last Dose: ____Next Dose: ____ Comment: MEDICATION LIST PROVIDED FOR YOU IS A LIST OF YOUR CURRENT MEDICATIONS. PLEASE CARRY THIS WITH YOU AT ALL TIMES. allopurinol 100 Milligram By Mouth every day. Keep taking the medication if you were taking prior to admission at [facility]. amlodipine (Norvasc) 5 Milligram By Mouth every day. cephalexin (Keflex 500 mg Cap) 1 Capsules By Mouth every 8 hours for 7 Days. Refills: 0. hyoscyamine (Levsin 0.125 mg oral tablet) 1 Tablets By Mouth 4 times a day as needed for spasm. Refills: 0. ondansetron (Zofran 4 mg Tab) 1 Tablets By Mouth every 8 hours as needed Nausea/Vomiting. Refills: 0. simvastatin 20 Milligram By Mouth once a day (at bedtime). Keep taking the medication if you were taking prior to admission at [facility]. tamsulosin (Flomax) 0.4 Milligram By Mouth every day. tramadol (traMADOL 50 mg Tab) 1 Tablets By Mouth every 6 hours as needed for pain. Refills: 0. Pharmacy Information: Other: [facility] Comment: PATIENT EDUCATION INFORMATION Instructions: Laser Therapy for Kidney Stones, Care After This sheet gives you information about how to care for yourself afte (more content not included)... Normal [facility] Main OR PACU I [facility]ordon Main OR PACU I Record PACU Phase I Document Type FT Summary Primary Physician: Steven AMBRIZ MD Finalized Date/Time: 02/04/21 17:34:28 Pt. Name: OSMAN PARIKH/Sex: 1960 Male Med Rec #: [id number] Physician: Nicolás BELTRE, Yunior Nichole Financial #: [id number] Pt. Type: O Room/Bed: [facility]/ Admit/Disch: 02/04/21 11:41:19 - Institution: Case Times PACU I FT Pre-Care Text: Identifies barriers to communication and implements measures to provide psychological support Develops individualized plan of care, and ensures continuity of care Maintains patient's dignity and privacy, and maintains patient confidentiality Identifies and reports philosophical, cultural, and spiritual beliefs and values Identifies individual values and wishes concerning care Implements aseptic technique, and administers prescribed antibiotic therapy and immunizing agents as ordered Evaluates postoperative tissue perfusion Implements thermoregulation measures, and monitors body temperature Evaluates postoperative respiratory status Evaluates postoperative cardiac status Evaluates postoperative neurological status Assesses pain control, collaborated in initiating patient-controlled analgesia and implements alternative methods of pain control Verifies allergies, administers prescribed medications and solutions, evaluates response to medications Entry 1 In PACU I 02/04/21 17:02:00 Discharge from PACU 02/04/21 17:32:00 I Outcomes Met? Yes Last Modified By: Stacey San RN 02/04/21 17:34:21 Post-Care Text: The patient demonstrates knowledge of the expected response to the operative or invasive procedure The patient's care is consistent with the individualized perioperative plan of care The patient's right to privacy is maintained The patient's value system, lifestyle, ethnicity, and culture are considered, respected, and incorporated into the perioperative plan of care The patient participates in decisions affecting his or her perioperative plan of care The patient is free from signs and symptoms of infection The patient has wound/tissue perfusion consistent with or improved from baseline levels established preoperatively The patient is at or returning to normothermia at the conclusion of the immediate postoperative period The patient's respiratory function is consistent with or improved from baseline levels established preoperatively The patient's cardiovascular status is consistent with or improved from baseline levels established preoperatively The patient's cardiovascular status is consistent with or improved from baseline levels established preoperatively The patient demonstrates and/or reports adequate pain control throughout the perioperative period The patient received appropriate medication(s), safely administered during the perioperative period Acuity Level PACU I FT Entry 1 Start Time 02/04/21 17:02:00 Stop Time 02/04/21 17:32:00 Acuity Level Acuity Level I Last Modified By: Stacey San RN 02/04/21 17:34:27 Finalized By: Stacey San RN Document Signatures Signed By: Stacey San RN 02/04/21 17:34 Normal [facility] Monitor Recordon 02-04-2021 Monitor Record [id number]# 1.00CD:127 Normal [facility] Operative Reporton Operative Report Patient: OSMAN PARIKH Age: 61 years Sex: Male : 1960 Associated Diagnoses: None Author: Steven AMBRIZ MD Postoperative Information Date/ Time: 02/04/2021 17:01:00 Postoperative Diagnosis: Status post gastric bypass for obesity (QZU14-QD Z98.84, Working, Medical), Hydronephrosis with ureteral calculus (AYM70-HY N13.2, Working, Medical), BPH (benign prostatic hyperplasia) (QTR37-SZ N40.0, Discharge, Medical). Performed by: Steven Ambriz MD.. Findings: Procedure: Cystoscopy Left retrograde pyelogram Left double-J stent placement under fluoroscopic guidance Anesthesia: General, LMA, Dr. Mcdaniels, 2% Xylocaine jelly per urethra Indications: This is a 61-year-old white male with a history of kidney stones in the past. He is status post gastric bypass back in April 2020. He had presented to the emergency room at [facility] and then subsequently transferred to [facility] for further management. I discussed the case with the emergency room physician and with here at [facility]. The patient and his are fully aware the risk benefits details of this procedure including risk of bleeding, infection, need for additional procedures, stent pain and irritation, heart and lung problems under anesthesia, among others. They wish me to proceed. He is already on antibiotic prophylaxis with ceftriaxone received earlier today he does have sequential compression devices in place and functional bilateral lower extremities throughout the case Procedure: Patient was brought back to the operating room and a timeout was performed. All were in agreement with the operative plan. After the successful induction of general anesthesia by Dr. Richardson she is placed in a modified dorsolithotomy position. He is prepped in usual fashion with Betadine solution draped appropriately and 2% Xylocaine jelly is placed per urethra. A well-lubricated 22 Tanzanian cystourethroscope with 30 degree lens then passed into the bladder without difficulty. Anterior urethra was within normal limits. No lesions and no scar. The prostatic urethra is minimally hypertrophied in the lateral lobes. But this is not a close bladder outlet. 3 cm long. Once into the bladder panendoscopy reveals no tumors, no stones, no diverticuli. Orifices normal x2. There is no inflammation around the left ureteral orifice. Utilizing a 6 Tanzanian open-ended ureteral catheter left retrograde pyelogram was performed. The ureter is normal without filling defect all the way up to the level of the left ureteropelvic junction area where there is a filling defect noted consistent with the stone previously seen on CAT scan. Apparently there was confusion relaying the message to the patient and his where the stone was located. The stone was not well visualized, raising the possibility of a uric acid constituents he. With this finding and with hydronephrosis documented, I placed a 0.035 guidewire through the open-ended catheter up into the kidney. Over that then a 4.7 Tanzanian Bard inlay double-J stent is then passed over the wire into the kidney beyond the stone and into the left renal pelvis. The wire was removed and there is good curl of the stent within the left renal pelvis and the urinary bladder. There is no obvious purulent drainage. The patient tolerates it well. The bladder was emptied scope removed and the procedure was terminated. He is transferred to the [place] and then back to PACU in satisfactory condition, stable vital signs. Plan will be for transfer back to the floor for postoperative management. Depending on how he does clinically, he could theoretically be discharged later this evening or tomorrow and then followed up in the office for further evaluation and management. KUB should be obtained to be sure this is not a calcium stone and again as noted suspicion high for uric acid stone. Discussed all this with his postoperatively and she is in agreement with the plan.. Estimated Blood Loss: 0 ml. Complications: None. Anesthesia type: General. Normal [facility] Comment on above: Result Comment: Elec tronically Signed By: Steven AMBRIZ MD\.shaheed\Date and Time Signed: 02/04/21 17:06 EDT Patient Education - Texton 0 02-04-2021 Patient Education - Text Nephrology Laser Therapy for Kidney Stones, Care After This sheet gives you information about how to care for yourself after your procedure. Your health care provider may also give you more specific instructions. If you have problems or questions, contact your health care provider. What can I expect after the procedure? After the procedure, it is common to have: ? Pain. ? A burning sensation while urinating. ? Small amounts of blood in your urine. ? A need to urinate frequently. ? Pieces of kidney stone in your urine. ? Mild discomfort when urinating that may be felt in the back. You may experience this if you have a flexible tube (stent) in your ureter. Follow these instructions at home: Medicines ? Take tsxz-vgy-yxscswj and prescription medicines only as told by your health care provider. ? If you were prescribed an antibiotic medicine, take it as told by your health care provider. Do not stop taking the antibiotic even if you start to feel better. ? Ask your health care provider if the medicine prescribed to you: ? Requires you to avoid driving or using heavy machinery. ? Can cause constipation. You may need to take actions to prevent or treat constipation, such as: ? Take cqjy-whc-dnokoqs or prescription medicines. ? Eat foods that are high in fiber, such as beans, whole grains, and fresh fruits and vegetables. ? Limit foods that are high in fat and processed sugars, such as fried or sweet foods. Activity ? Return to your normal activities as told by your health care provider. Ask your health care provider what activities are safe for you. ? Do not drive for 24 hours if you were given a sedative during your procedure. General instructions ? If your health care provider approves, you may take a warm bath to ease discomfort and burning. ? Drink enough fluid to keep your urine pale yellow. Your health care provider may recommend drinking two 8 oz (237 mL) glasses of water per hour for a few hours after your procedure. ? You may be asked to strain your urine to collect any stone fragments that you pass. These fragments may be tested. ? Keep all follow-up visits as told by your health care provider. This is important. If you have a stent, you will need to return to your health care provider to have the stent removed. Contact a health care provider if you: ? Have pain or a burning feeling that lasts more than 2 days. ? Feel nauseous. ? Vomit more and more often. ? Have difficulty urinating. ? Have pain that gets worse or does not get better with medicine. Get help right away if: ? You are unable to urinate, even if your bladder feels full. ? You have: ? Bright red blood or blood clots in your urine. ? More blood in your urine. ? Severe pain or discomfort. ? A fever or shaking chills. ? Abdominal pain. ? Difficulty breathing. ? Swelling in your legs. Summary ? After the procedure, it is common to have a burning sensation while urinating and small amounts of blood in your urine. ? Take ejvm-hdw-zdzvjom and prescription medicines only as told by your health care provider. ? Drink enough fluid to keep your urine pale yellow. ? Keep all follow-up visits as told by your health care provider. This is important. This information is not intended to replace advice given to you by your health care provider. Make sure you discuss any questions you have with your health care provider. Document Released: 07/19/2016 Document Revised: 03/04/2019 Document Reviewed: 03/04/2019 [employer] Patient Education ? 2020 [employer]. Kidney Stones Kidney stones are solid, rock-like deposits that form inside of the kidneys. The kidneys are a pair of organs that make urine. A kidney stone may form in a kidney and move into other parts of the urinary tract, including the tubes that connect the kidneys to the bladder (ureters), the bladder, and the tube that carries urine out of the body (urethra). As the stone moves through these areas, it can cause intense pain and block the flow of urine. Kidney stones are created when high levels of certain minerals are found in the urine. The stones are usually passed out of the body through urination, but in some cases, medical treatment may be needed to remove them. What are the causes? Kidney stones may be caused by: ? A condition in which certain glands produce too much parathyroid hormone (primary hyperparathyroidism), which causes too much calcium buildup in the blood. ? A buildup of uric acid crystals in the bladder (hyperuricosuria). Uric acid is a chemical that the body produces when you eat certain foods. It usually exits the body in the urine. ? Narrowing (stricture) of one or both of the ureters. ? A kidney blockage that is present at (congenital obstruction). ? Past surgery on the kidney or the ureters, such as gastric bypass surgery. What increases the risk? The following factors ma (more content not included)... Normal [facility] XR Urography Retrograde Left on 02-04-2021 XR Urography Retrograde Left Exam Date/Time: 02/04/2021 17:10 EDT Reason for Exam: Kidney stone Report IMPRESSION: FLUOROSCOPIC ASSISTANCE IS PROVIDED DURING RETROGRADE PYELOGRAM PLEASE REFER TO THE OPERATIVE REPORT CLINICAL HISTORY: Kidney stone. COMPARISON: None available. FINDINGS: Fluoroscopic assistance was provided during retrograde pyelogram. Total radiation dose is 10.6mGy Fluoroscopy time is 1.1 minutes FINAL REPORT Dictated: 02/04/2021 5:50 pm Roger Cevallos MD, V. Signed (Electronic Signature): 02/04/2021 5:50 pm Signed by: Roger Cevallos MD, V. Transcribed by: ODALIS Technologist: JED Technical Comments Radiation Dose: Nicolasar in mGy = 1.1 Normal [facility] Encounters Encounter Date Encounter Type Care Provider Facility Start: 02-17-2024 End: 02-18-2024 ambulatory ANNA MARTINEZ [facility] Start: 02-16-2024 End: 02-18-2024 Emergency department patient visit CHELA HICKEY [facility] Start: 04-17-2022 End: 04-17-[address] ANNA MARTINEZ Facility:[facility] Start: 04-16-2022 Encounter for genera l adult medical examination without abnormal findings PATRICIA LEMON [facility] Start: 04-15-2022 End: 04-16-2022 Encounter for general adult medical examination without abnormal findings PATRICIA LEMON Facility:[facility] Start: 04-15-2022 End: 04-16-2022 ambulatory PATRICIA LEMON Facility:[facility] Start: 06-27-2021 End: 06-28-[address] ANNA MARTINEZ Facility:[facility] Start: 06-12-2021 End: 06-13-[address] ANNA MARTINEZ Facility:[facility] Procedures Date Procedure Procedure Detail Performing Clinician Start: 04-15-[address] GENI MARTINEZ Comment on above: Performed By: #### [facility] #### [facility] [address] [place] [address] Dr. Malika De Los Santos Payers Date Payer Category Payer Medicare [id number] 1960 Unknown [id number] 1960 Unknown [id number] 2.16.84 [id number] 1960 Unknown [id number] 2.16.84 [id number] 1960 Unknown [id number] 2.16.84 [id number] 1960 Unknown [id number] 2.16.84 [id number] 1960 Unknown [id number] 2.16.84 [id number] 1960 Unknown [id number] 2.16.8 [id number] 1960 Unknown [id number] 2.16.8 [id number] 1960 Unknown [id number] 2.16.8 [id number] History and physical note 05-23-2021 Note Date & Type Note Facility 05-23-2021 Note [id number] #[id number]:127 [facility] Clinical Note 05-22-2021 Note Date & Type Note Facility 05-22-2021 Note RONNI Rogers entered t he room to discuss dc planning. DME discussed. PCP/Insurance reviewed. Patient is alert and involved in plan of care. Contact information provided and whiteboard updated. OBS status discussed. No further needs. Patient lives with who will transport at [place]. [place] 05/22. CRM to follow. [facility] Comment on above: Result Comment: Elec tronically Signed By: Sue Lopez\.br\Date and Time Signed: 05/22/21 09:37 EST History and physical note 05-21-2021 Note Date & Type Note Facility 05-21-2021 Note Patient: STEPHANIE PARIKH Age: 61 years Sex: Male : 1960 Associated Diagnoses: None Author: NAKIA BELTRE, Steven Ruffin Chief Complaint This patient was just seen over at the hospital outpatient department for cystoscopy and a left double-J stent removal. The stent could not be removed. A Aviles catheter was placed and that portion which was removed to the level of the urethra was taped to the indwelling catheter. He is having moderate pain and discomfort from this retained stent after the manipulation today. He said no fever, no chills. He has a significant history of cystoscopy and a left double-J stent placement back in February of this year. He is now status post ESWL with an excellent result. Review of Systems Constitutional: No fever, No chills, No weakness. Eye: No double vision, No visual disturbances. Ear/Nose/Mouth/Throat: No decreased hearing. Respiratory: No shortness of breath, No cough, No sputum production. Cardiovascular: No chest pain, No tachycardia. Gastrointestinal: No nausea, No vomiting, No diarrhea, No constipation. Genitourinary: No dysuria, No hematuria. Hematology/Lymphatics: No bruising tendency, No bleeding tendency, No swollen lymph glands. Endocrine: No excessive thirst, No polyuria. Immunologic: Not immunocompromised, No recurrent fevers. Musculoskeletal: No back pain, No joint pain, No muscle pain. Integumentary: No rash, No pruritus, No abrasions. Neurologic: Alert and oriented X4, No abnormal balance, No confusion, No numbness, No tingling, No headache. Psychiatric: No anxiety, No depression. Health Status Allergies: Allergic Reactions (Selected) Severity Not Documented Erythromycin- Rash. NSAIDs- Gastric bypass operation., Allergies (2) Active Reaction erythromycin Rash NSAIDs Gastric bypass operation Current medications: (Selected) Inpatient Medications Ordered Lactated Ringers IV Emily 1000 mL 1,000 mL: 1,000 mL, IV, 150 mL/hr, Routine, Start date 05/21/21 15:59:00 EST, 6.7 hour(s), Total volume (mL): 1,000, 96 kg, 2.16, m2 Prescriptions Prescribed Cipro 500 mg Tab: See Instructions, Take 1 tab day prior to procedure and 1 tab day of procdure - afterwards, # 2 tab(s), Refills(s) 0, Pharmacy: [id number], 175, cm, 05/01/21 13:21:00 EDT, Height/Length Dosing, 96, kg, 05/01/21 13:21:00 EDT, Weight Dosing... Levsin 0.125 mg oral tablet: 0.125 mg = 1 tab(s), Oral, QID, PRN for spasm, # 40 tab(s), Refills(s) 0, Pharmacy: [id number] Zofran 4 mg Tab: 4 mg = 1 tab(s), Oral, q8hr, PRN Nausea/Vomiting, # 30 tab(s), Refills(s) 0, Pharmacy: [id number] traMADOL 50 mg Tab: 50 mg = 1 tab(s), Oral, q12hr, PRN for pain, # 10 tab(s), Refills(s) 0, Pharmacy: [id number], 172.7, cm, 03/08/21 9:22:00 EDT, Height/Length Dosing, 95.2, kg, 03/08/21 9:22:00 EDT, Weight Dosing Documented Medications Documented Flomax: 0.4 mg, Oral, Daily, Refills(s) 0, Urinary discomfort Multivitamin, Therapeutic w/ Minerals: 1 tab(s), Oral, Daily, Prophylaxis Norvasc: 5 mg, Oral, Daily, Refills(s) 0, High blood pressure calcium 500 mg tablets: 1,250 mg = 1 tab(s), Oral, Daily, Prophylaxis, Home Medications (8) Active calcium 500 mg tablets 1,250 mg = 1 tab(s), Oral, Daily Cipro 500 mg Tab See Instructions Flomax 0.4 mg, Oral, Daily Levsin 0.125 mg oral tablet 0.125 mg = 1 tab(s), PRN, Oral, QID Multivitamin, Therapeutic w/ Minerals 1 tab(s), Oral, Daily Norvasc 5 mg, Oral, Daily traMADOL 50 mg Tab 50 mg = 1 tab(s), PRN, Oral, q12hr Zofran 4 mg Tab 4 mg = 1 tab(s), PRN, Oral, q8hr Problem list: All Problems Impotence / SNOMED CT 8658342214 / Confirmed Benign essential hypertension / SNOMED CT 5541175 / Confirmed Hypercholesterolemia / SNOMED CT 71305283 / Confirmed Anxiety / SNOMED CT 50702848 / Confirmed Kidney stone / SNOMED CT 427706319 / Confirmed BPH with urinary obstruction / SNOMED CT 3776533390 / Confirmed Hydronephrosis with ureteral calculus / SNOMED CT 7702459601 / Confirmed Gall stone / SNOMED CT 830135830 / Confirmed Deafness / SNOMED CT 22397134 / Confirmed Hypertension / SNOMED CT 4185027849 / Confirmed Hyperlipidemia / SNOMED CT 44656641 / Confirmed Dysuria / SNOMED CT 69103518 / Confirmed Gross hematuria / SNOMED CT 074453697 / Confirmed Frequency of urination / SNOMED CT 641291653 / Confirmed Nocturia / SNOMED CT 824359056 / Confirmed BMI 31.0-31.9,adult / SNOMED CT 797505373 / Confirmed Canceled: Impingement syndrome of shoulder / SNOMED CT 884206313 Canceled: Lipoma of arm / SNOMED CT 5200324130, Active Problems (16) Anxiety Benign essential hypertension BMI 31.0-31.9,adult BPH with urinary obstruction Deafness Dysuria Frequency of urination Gall stone Gross hematuria Hydronephrosis with ureteral calculus Hypercholesterolemia Hyperlipidemia Hypertension Impotence Kidney stone Nocturia Histories Past Medical His (more content not included)... [facility] Comment on above: Result Comment: Elec tronically Signed By: NAKIA BELTRE, Steven Ruffin\.br\Date and Time Signed: 05/21/21 16:23 EST History and physical note 04-03-2021 Note Date & Type Note Facility 04-03-2021 Note [id number] #[id number]:127 [facility] History and physical note 03-13-2021 Note Date & Type Note Facility 03-13-2021 Note [id number] #[id number]:127 [facility] History and physical note 02-05-2021 Note Date & Type Note Facility 02-05-2021 Note Basic Information Accompanied by: Family member Source of History: Self Present at Bedside: Family member Referral Source: OSH History Limitation: None History of Present Illness 61-year-old male with past medical history of hypertension, gout, GERD, hyperlipidemia, BPH presents from outside facility due to kidney stone. Patient was found to have hydronephrosis with UPJ stone. Case was discussed with Dr. Ambriz who will be taking patient to the OR for procedure today. Review of Systems Constitutional: no fever, no chills, no sweats, no weakness Respiratory: no shortness of breath, no cough, no orthopnea, no wheezing Cardiovascular: no chest pain, no palpitations, no edema Additional ROS info: Except as noted in the above Review of Systems and in the History of Present Illness all other systems have been reviewed and are negative or noncontributory. Physical Exam General: alert, no acute distress ENMT: TM's clear, oral mucosa moist, no pharyngeal erythema or exudate Cardiovascular: regular rate and rhythm, normal peripheral perfusion Respiratory: Lungs CTA, respirations non labored Abdomen: Soft, nontender, without rebound or rigidity, positive bowel sounds Extremities: no deformity, no trauma Neurological: oriented x 4, LOC appropriate for age, CN II-XII intact, motor strength equal & normal bilaterally, sensation equal & normal bilaterally, speech normal Lab Results No qualifying data available. Diagnostic Results White count elevated at 11 Creatinine at 1 Urinalysis is not showing any signs of UTI Images Outside hospital CT scan is reviewed Assessment/Plan 61-year-old male with past medical history of hypertension, gout, GERD, hyperlipidemia, history of gastric sleeve surgery, BPH presents from outside facility due to kidney stone. Patient was found to have Moderate to severe L hydronephrosis with 8mm UPJ stone. Case was discussed with Dr. Ambriz who will be taking patient to the OR for procedure today. 1. Kidney stone (N20.0: Calculus of kidney) Admit patient under observation care as I do not anticipate that patient will require greater than 2 midnight stay Urology consult N.p.o. Plan for OR later today Pain control IV fluids Ceftriaxone 1 g daily for instrumentation Outside hospital CT scan is reviewed along with blood work No antibiotics were given there We will send antispasmodic, Keflex, tramadol, nausea medication to pharmacy now for potential discharge later today Ordered: tramadol, 50 mg = 1 tab(s), Oral, q6hr, PRN for pain, # 20 tab(s), Refills(s) 0, Pharmacy: [facility] 2. Hydronephrosis (N13.30: Unspecified hydronephrosis) Management as mentioned above 3. Benign essential hypertension (I10: Essential (primary) hypertension) Amlodipine 4. Hypercholesterolemia (E78.00: Pure hypercholesterolemia, unspecified) Simvastatin 5. BPH (benign prostatic hyperplasia) (N40.0: Benign prostatic hyperplasia without lower urinary tract symptoms) Flomax 6. Chronic GERD (K21.9: Gastro-esophageal reflux disease without esophagitis) We will continue chronic medication once verified 7. Gout (M10.9: Gout, unspecified) Allopurinol 8. Sequential compression device (SCD) in place on patient (Z78.9: Other specified health status) SCDs Orders: acetaminophen, 650 mg = 2 tab(s), Tab, Oral, q6hr PRN Pain, Routine, Start date 02/04/21 12:13:00 EDT Al hydroxide/Mg hydroxide/simethicone, 30 mL, Susp-Oral, Oral, q6hr PRN Indigestion, Routine, Start date 02/04/21 12:13:00 EDT ceftriaxone + Sodium Chloride 0.9% intravenous solution 50 mL, 1,000 mg = 1 EA, Injection, IV Piggyback, q24hr, Routine, Start date 02/04/21 13:00:00 EDT, 100 mL/hr, Infuse over 30 minute(s) cephalexin, 500 mg = 1 cap(s), Oral, q8hr, X 7 day(s), # 21 cap(s), Refills(s) 0, Pharmacy: [facility] hydrALAZINE, 10 mg = 0.5 mL, Injection, IV Push, q6hr PRN Other (see comment), Routine, Start date 02/04/21 12:13:00 EDT HYDROmorphone, 0.5 mg = 0.5 mL, Injection, IV Push, q2hr PRN Pain, Routine, Start date 02/04/21 13:31:00 EDT, 02/04/21 13:31:00 EDT hyoscyamine, 0.125 mg = 1 tab(s), Oral, QID, PRN for spasm, # 40 tab(s), Refills(s) 0, Pharmacy: [facility] ketorolac, 15 mg = 1 mL, Injection, IV Push, q6hr PRN Pain for 5 day(s), Stop date 02/09/21 13:30:00 EDT, Routine, Start date 02/04/21 13:31:00 EDT, 02/04/21 13:31:00 EDT ondansetron, 4 mg = 1 tab(s), Oral, q8hr, PRN Nausea/Vomiting, # 30 tab(s), Refills(s) 0, Pharmacy: [id number] ondansetron, 4 mg = 2 mL, Injection, IV Push, q6hr PRN Nausea, Routine, Start date 02/04/21 12:13:00 EDT Sodium Chloride 0.9% intravenous solution 1,000 mL, 1,000 mL, IV, 75 mL/hr, Routine, Start date 02/04/21 12:13:00 EDT, 13.3 hour(s), Total volume (mL): 1,000 Ambulate with Assistance Basic Metabolic Panel Below the Knee Intermittent Pneumatic Compression Device CBC w/ Auto Diff Consult to Urology Intake and Output (more content not included)... [facility] Comment on above: Result Comment: Elec tronically Signed By: ELVA BELTRE, Conor P\.br\Date and Time Signed: 02/05/21 09:04 EDT Summary Purpose Family History No Family History Records FoundNo Family History Records FoundNo Family History Records FoundNo Family History Records Found Advance Directives No Advanced Directives Records FoundNo Advanced Directives Records FoundNo Advanced Directives Records FoundNo Advanced Directives Records Found Additional Source Comments (unrecognized sect ion and content) No Status Records FoundNo Status Records FoundNo Status Records FoundNo Status Records Found INFORMATION SOURCE (unrecogn ized section and content) DATE CREATED AUTHOR 08/11/2021 [facility] DATE CREATED AUTHOR AUTHOR'S ORGANIZ ATION 04/17/2022 [facility] DATE CREATED AUTHOR AUTHOR'S ORGANIZ ATION 02/18/2024 [facility] DATE CREATED AUTHOR AUTHOR'S ORGANIZ ATION 02/18/2024 [facility] FOR RECORDS PERTAINING TO PATIENTS WHO ARE OR HAVE BEEN ENROLLED IN A CHEMICAL DEPENDENCY/SUBSTANCEABUSE PROGRAM, SOME INFORMATION MAY BE OMITTED. This clinical summary was aggregated from multiple sources. Caution should be exercised in using it in the provision of clinical care. This summary normalizes information from multiple sources, and as a consequence, information in this document may materially change the coding, format and clinical context of patient data. In addition, data may be omitted in some cases. CLINICAL DECISIONS SHOULD BE BASED ON THE PRIMARY CLINICAL RECORDS. [facility]. provides no warranty or guarantee of the accuracy or completeness of information in this document.
[2024-05-24 09:29] LABS: Bilirubin Urine NEGATIVE (NEGATIVE); Blood Urine NEGATIVE (NEGATIVE); Clarity Urine CLEAR (CLEAR); Color Urine LT. YELLOW (YELLOW); Glucose Urine UA NEGATIVE (NEGATIVE); Ketones Urine NEGATIVE (NEGATIVE); Leukocyte Esterase Urine NEGATIVE (NEGATIVE); Nitrite Urine NEGATIVE (NEGATIVE); Protein Urine NEGATIVE (NEG/TRACE); Specific Gravity Urine <=1.005 (1.005-1.025); Urobilinogen Urine 0.2 EU/dL (0.2-1.0)
[2024-05-24 09:54] LABS: Bacteria Urine TRACE #/HPF (NONE SEEN); Cast Seen? NONE SEEN #/LPF (NONE SEEN); Crystals Seen? None Seen #/HPF (None Seen); Mucus Urine NONE SEEN (NONE SEEN); RBC Urine 0-2 #/HPF (0-2); Squamous Epithelial Cell Urine FEW #/LPF (NONE/RARE); WBC Urine 0-2 #/HPF (NONE SEEN)
== END 2024-05-24 09:00 | disposition home or self-care (01) ==
LOC: LAB 09:00
PROVIDERS: PCP Family Medicine; Visit Provider Family Medicine
DX: R36.1 Hematospermia (principal)
CPT/HCPCS: 81001; 87086

== ENCOUNTER 2025-05-09 10:05 | Outpatient (OUT) | payer MEDICARE, SELFPAY ==
--- OUTSIDE RECORDS SUMMARY | 2023-04-24 04:30 | XMS_ITS | Continuity of Care Document ---
Author Organization [employer] [facility] Address [address] [facility] [place] [address] Phone Care Team Providers Care Assembly Adjuster Name Role Phone Marcela Kaur CNP Unavailable Unavailable Procedures Procedure Date OFFICE/OUTPATIENT VISIT, EST OFFICE/OUTPATIENT VISIT, EST OFFICE/OUTPATIENT VISIT, EST OFFICE/OUTPATIENT VISIT, EST POSTOP FOLLOW-UP VISIT POSTOP FOLLOW-UP VISIT Gastric Bypass LAP GASTRIC BYPASS/CHRIS-EN-Y OFFICE/OUTPATIENT VISIT, EST PSYCH DIAGNOSTIC EVALUATION PSYCL/NRPSYC TST PHY/QHP [facility] PSYCL/NRPSYC TST PHY/QHP OFFICE/OUTPATIENT VISIT, [facility] Advance Directives Directive Yes / No Effective Date File Name No Information Encounters Encounter Description Practice Location Reason(s) For Visit Diagnoses Date Provider Providers Copied on Encounter OFFICE/OUTPATI ENT VISIT, [facility] [employer] [facility], [address], [place], [place], [id number], [place] tel:[phone] [facility] No Information Natasha Medrano. [address] [facility] [address], [place], [place], [address], [place]. tel:[phone] Referring Provider: Marcela Kaur, [address] [facility] [address], [place], [address]. tel:[phone] OFFICE/OUTPATI ENT VISIT, [facility] [employer] [facility], [address] [place] [address] [address], [place], [place], [id number], [place] tel:[phone] [facility] No Information Natasha Garciaa. [address] [place] [address] [address], [place], [place], [address], [place]. tel:[phone] Referring Provider: Marcela Kaur, [address] [place] [address] [address], [place], [address]. tel:[phone] OFFICE/OUTPATI ENT VISIT, [facility] [employer] [facility], [address] [place] [address] [address], [place], [place], [address], [place] tel:[phone] [facility] No Information Natasha Medrano. [address] [place] [address] [address], [place], [place], [address], [place]. tel:[phone] Referring Provider: Marcela Kaur, [address] [place] [address] [address], [place], [address]. tel:[phone] OFFICE/OUTPATI ENT VISIT, [facility] [employer] [facility], [address] [place] [address] B, [place], [place], [id number], [place] tel:[phone] [facility] No Information Natasha Medrano. [address] [place] [address] [address], [place], [place], [address], [place]. tel:[phone] Referring Provider: Marcela Kaur, [address] [facility] [address], [place], [address]. tel:[phone] [employer] [facility], [address] [place] [address] B, [place], [place], [address], [place] tel:[phone] [facility] No Information Hector Reeder. [address] [place] [address] [address], [place], [place], [address], [place]. tel:[phone] Referring Provider: Varinder Aguilar, [address], [place], [address]. tel:[phone] [employer] [facility], [address] [place] [address] [address], [place], [place], [address], [place] tel:[phone] [facility] No Information Hector Reeder. [address], [place], [place], [address], [place]. tel:[phone] Referring Provider: Varinder Aguilar, [address], [place], [address]. tel:[phone] [employer] [facility], [address] [place] [address] [address], [place], [place], [address], [place] tel:[phone] [facility] IP No Information Natasha Medrano. [address], [place], [place], [address], [place]. tel:[phone] Referring Provider: Marcela Kaur, [address], [place], [address]. tel:[phone] [employer] [facility], [address] [place] [address] [address], [place], [address], [place] tel:[phone] [facility] IP No Information Hector Reeder. [address], [place], [place], [address], [place]. tel:[phone] Referring Provider: Varinder Aguilar, [address], [place], [address]. tel:[phone] OFFICE/OUTPATI ENT VISIT, [facility] [employer] [facility], [address] [place] [address] [address], [place], [place], [id number], [place] tel:[phone] [facility] No Information Hector Reeder. [address], [place], [place], [address], [place]. tel:[phone] Referring Provider: Varinder Aguilar, [address] [facility] [address], [place], [address]. tel:[phone] PSYCH DIAGNOSTIC EVALUATION [facility], [address] [place] [address] B, [place], [place], [id number], tel:[phone] [facility] No Information Shyam Mejia. [address] [address], [place], [place], [address], [place]. tel:[phone] Referring Provider: Jackie Howe, [address] [address], [place], [address]. tel:[phone] OFFICE/OUTPATI ENT VISIT, [facility], [address] [place] [address] B, [place], [place], [id number], [place] tel:[phone] [facility] No Information Hector Reeder. [address] [place] [address], [place], [place], [id number], [place]. tel:[phone] Referring Provider: Varinder Aguilar, [address] [address], [place], [address]. tel:[phone] Family History Family Member Type Diagnosis Age At Onset No Information Payers Payer name Insurance type Covered constitution party ID barb helton(sMitch PARIKH [id number] Social History Type Description Quantity Date Captured [...]
--- OUTSIDE RECORDS SUMMARY | 2025-05-09 10:22 | XMS_ITS | Patient Health Record ---
Author Organization [facility] in [place] Address [address] [place] [address] Care Team Providers Care Water Well Driller Name Role Phone Neymar Palacio Primary Care Provider Allergies Allergen (clinical drug ingredient) Drug/Non Drug Allergy documented on EMR Reaction Allergy Type Onset Date Status erythromycin Erythromycin rash Drug Allergy Active Results Component Value Reference Range Notes UA RANDOM W or MICROSCOPIC Reviewed date:05/24/2024 01:02:06 PM Interpretation: Performing Lab: Notes/Report: [facility] , Color Urine LT. YELLOW YELLOW Clarity UrineCLEARCLEARSpecific Norco Urine<=1.0051.005-1.025pH Urine6.0 5.0-9.0Protein UrineNEGATIVENEG/TRACE mg/dLGlucose Urine UANEGATIVENEGATIVE mg/dLBilirubin UrineNEGATIVENEGATIVEKetones UrineNEGATIVENEGATIVE mg/dLBlood UrineNEGATIVENEGATIVENitrite UrineNEGATIVENEGATIVEUrobilinogen Urine0.20.2-1.0 EU/dLLeukocyte Esterase UrineNEGATIVENEGATIVEWBC Urine0-2NONE SEEN #/HPFRBC Urine0-20-2 #/HPFBacteria UrineTRACENONE SEEN #/HPFMucus UrineNONE SEENNONE SEEN Squamous Epithelial Cell UrineFEWNONE/RARE #/LPFCrystals Seen?None SeenNone Seen #/HPFCast Seen?NONE SEENNONE SEEN #/LPFPerforming Lab:see noteML - [facility] LBUrine Culture, Routine Reviewed date:05/25/2024 08:30:34 PM Interpretation: Performing Lab: Notes/Report: [facility] ,Urine Culture, RoutineSee Below For Report Urine Culture, Routine Urine Culture, RoutineNo growth Urine Culture, Routine Urine Culture, RoutinePerformed at: - [facility] [place] Urine Culture, Routine Urine Culture, [address] [place], [place] [id number] Urine Culture, Routine Urine Culture, RoutineLab Director: Josué Velazco PhD, Phone: [phone] Urine Culture, Routine Performing Lab:see note LC - [facility] LB SEE REPORT - Legal Financial Specialist Id information not found for OBX-specific executive producer promos legend Reason For Referral Diagnosis 1 Nevus (D22.9) Referral Organization [facility] Referring Provider First Name Neymar Referring Provider Last Name Hakeem [facility] Referred Provider Alex Land Referred Provider Specialty General Surg britni Referral Priority Routine Medications Medication SIG (Take, Route, Frequency, Duration) [...] year?2 to 4 times a month (2 points)Rppway4Ypucsiljjcbafk Negative Problems Problem Type SNOMED Code ICD Code Onset Dates Problem Status W/U Status Risk Notes Problem Mixed hyperlipidemia (437050326) Mixed hy perlipidemia (E78.2) ActiveconfirmedProblemHemospermia (97619675)Hematospermia (R36.1)Activeconfirmed ProblemFatigue (50764079)Fatigue (R53.83)ActiveconfirmedProblemHypertension (02650210)Hypertension (I10)ActiveconfirmedProblemAnxiety (37392886)Anxiety (F41.9)ActiveconfirmedProblemDiastolic heart failure (566391234)Diastolic heart failure (I50.30)ActiveconfirmedProblemKidney stone (89501931)Kidney stone (N20.0)ActiveconfirmedProblemObese (358194865)Obese (E66.9)Activeconfirmed ProblemImpingement syndrome of shoulder region (307217575)Shoulder impingement (M75.40)ActiveconfirmedProblemBenign prostatic hyperplasia (193062252)Benign prostatic hyperplasia (N40.0)ActiveconfirmedProblemAdult health examination (316092451)Well adult exam (Z00.00)ActiveconfirmedProblemErectile dysfunction (disorder) (793435962)Impotence (N52.9)ActiveconfirmedProblemProstatitis (7708545)Prostatitis (N41.9)ActiveconfirmedProblemAortic aneurysm (disorder) (18153707)Enlarged aorta (I77.89)ActiveconfirmedProblemhypercholesterolemia (disorder) (06759643)Hypercholesteremia (E78.00)Activeconfirmed Vital Signs Blood pressure diastolic 88 mm Hg 05/09/2025 Dymlup37 in05/09/2025lood pressure jotkfjge593 mm Hg05/09/20255416Vgeqml181.8 lbs 05/09/2025BMI34.11 kg/m205/09/2025 Encounters Encounter Location Date Provider Diagnosis [facility] [address] [place] [address] 05/27/2024 Neymar Palacio [facility] [place] [address] 07/20/2024Doug HoyBenign prostatic hyperplasia N40.0[facility] [place] [address]/18/2024[facility] [place] [address]/03/2025Doug HoyMixed hyperlipidemia E78.2 ; Hypertension I10 ; Diastolic heart failure I50.30 ; Benign prostatic hyperplasia N40.0 and Nevus D22.9 Assessments Encounter Date Diagnosis (ICD Code) Assessment Notes Treatment Notes Treatment Clinical Notes Section Notes 05/24/2024 Hematospermia (ICD-10 - R36.1) 05/09/2025Mixed hyperlipidemia (ICD-10 - E78.2)05/09/2025Hypertension (ICD-10 - I10)07/20/2024enign prostatic hyperplasia (ICD-10 - N40.0)05/09/2025Diastolic heart failure (ICD-10 - I50.30)05/09/2025enign prostatic hyperplasia (ICD-10 - N40.0)05/09/2025Nevus (ICD-10 - D22.9) Plan Of Treatment Pending Test Test Name Order Date CMP (COMPLETE METABOLIC PANEL) 3 HEMOGLOBIN A1C (GLYCO) 04/11/2023 HEMOGLOBIN A1C (GLYCO) 05/09/2025 INSULIN, TOTAL 05/09/2025 INSULIN, TOTAL 04/11/2023 LIPID PANEL (CHOL/TRIG/HDL/LDL) 04/11/20 23 LIPID PANEL (CHOL/TRIG/HDL/LDL) 05/09/20 25 CBC WITH DIFF 04/11/2023 PSA, PROSTATE-SPECIFIC ANTIGEN 3 Urinalysis Microscopic 05/24/2024 PSA, TOTAL 02/05/2024 CHLAMYDIA AND GC (URINE, VAG, OR SWAB) - IH 05/24/2024 STOOL OCCULT BLOOD 04/11/2023 STOOL OCCULT BLOOD 05/09/2025 CBC AUTO DIFF 02/05/2024 CULTURE URINE 05/24/2024 GLYCOHEMOGLOBIN A1C 02/05/2024 LIPID PROFILE 02/05/2024 LIPID PROFILE 03/30/2024 LIVER PROFILE 03/30/2024 PROF 14(COMP METB) 02/05/2024 THYROID PROFILE WITH TSH 02/05/2024 THYROID PANEL (T4/TSH/FREE T3) 3 THYROID PANEL (T4/TSH/FREE T3) PSA, SCREENING 05/09/2025 CMP (COMP MET RAMIRES) w/eGFR CKD-EPI 2024 CBC WITH DIFF 05/09/2025 Insurance Providers Payer Name Payer Address Payer Phone Subscriber Number Group Number Insured Name Patient Relationship to Insured Coverage Start Date Coverage End Date MMO ADVANTAGE CHOICE MEDICAR E HMO [address] [place] [id number] Arin Kim - patient is the insured Medical (General) History Medical History History ICD Code Kidney stone N20.0 Diastolic heart failure I50.30 Enlarged aorta I77.89 Mixed hyperlipidemia E78.2 Benign prostatic hyperplasia N40.0 Shoulder impingement M75.40 Fatigue R53.83 Impotence N52.9 Hypertension I10 Prostatitis N41.9 Hypercholesteremia E78.00 Obese E66.9 Anxiety F41.9 Surgical History Surgery Date(Month/Year) LRYGB morbid obesity Dr. Young 2019 Kidney stones GallbladderHospitalization History Reason Date(Month/Year) [facility] 02/27
--- OUTSIDE RECORDS SUMMARY | 2025-05-09 10:22 | XMS_ITS | Clinical Summary ---
Author Organization [facility] Address [address] [place] [address] Care Team Providers Care Autocad Detailer Name Role Phone Unavailable Primary Care Provider Unavailabl e Social History Tobacco UseTypesPacks/DayYears UsedDateSmoking Tobacco: Never AssessedSex and Gender InformationValueDate RecordedSex Assigned at BirthNot on fileLegal Sex Male09/18/2022 11:21 PM EDTGender IdentityNot on fileSexual OrientationNot on file Plan of Treatment Not on file Insurance * Guarantor: Jarrod Kim TypeRelation to PatientDate of BirthPhone Billing AddressPersonal/CojqybDcgl1960 [address] [address]
--- OUTSIDE RECORDS SUMMARY | 2025-05-09 10:22 | XMS_ITS | Clinical Summary ---
Author Organization [facility] Address [address] [place] [address] Care Team Providers Care Epic Ambulatory Analyst Name Role Phone Unavailable Primary Care Provider Unavailabl e Social History Tobacco UseTypesPacks/DayYears UsedDateSmoking Tobacco: Never AssessedSex and Gender InformationValueDate RecordedSex Assigned at BirthNot on fileLegal Sex Male01/02/2022 9:42 PM EDTGender IdentityNot on fileSexual OrientationNot on file Last Filed Vital Signs Vital SignReadingTime TakenCommentsBlood Pressure--Pulse--Temperature-- Respiratory Rate--Oxygen Saturation--Inhaled Oxygen Concentration--Iyjydc269 kg (285 lb)03/15/2020 9:53 AM BCBJlmvyd911.7 cm (5' 8 )03/15/2020 9:53 AM EDTBody Mass Index43.3309 9:53 AM EDT Plan of Treatment Not on file
--- OUTSIDE RECORDS SUMMARY | 2025-05-09 10:22 | XMS_ITS | Clinical Summary ---
Author Organization [facility] tem Address [id number] [address] [place] [address] Care Team Providers Care Merchandiser Retail Representative Name Role Phone Troy Palacio MD Primary Care Provider [phone] Allergies Active AllergyReactionsCriticalityNoted DateCommentsAmoxicillin-Pot Clavulanate Dsxgwqwv47/12/2024Erythromycin Jtifhxrhopmi10/01/2021 Medications MedicationSigDispense QuantityRefillsLast FilledStart DateEnd DateStatus tamsulosin (FLOMAX) 0.4 mg capsule daily.Active amLODIPine (NORVASC) 5 mg tablet daily.Active calcium carb and citrate-vitD3 (CITRACAL + D SLOW REL) 600 mg calcium- 500 units tablet extended release Citracal-D3 Slow Release 600 mg calc-12.5 mcg (500 unit)tablet,ext rel Take 1 tablet twice a day by oral route.Active multivit-min/ferrous fumarate (MULTI VITAMIN ORAL) Take by mouth.Active Active Problems ProblemNoted DateDiagnosed IerzOiuwk81/13/2024 Social History Tobacco UseTypesPacks/DayYears UsedDateSmoking Tobacco: NeverSmokeless Tobacco: NeverAHC UtilitiesAnswerDate RecordedIn the past 12 months has the electric, gas, oil, or water company threatened to shut off services in your home?No 02/17/2024RAPARE - TransportationAnswerDate RecordedIn the past 12 months, has lack of transportation kept you from medical appointments or from getting medications?No02/17/2024In the past 12 months, has lack of transportation kept you from meetings, work, or from getting things needed for daily living?No 02/17/2024Housing InstabilityAnswerDate RecordedAre you worried or concerned that in the next two months you may not have stable housing that you own, rent or stay in as a part of a household?No02/17/2024hildcareAnswerDate Recorded XpszncvmdArvefmj54/12/2019EmploymentAnswerDate RecordedEmploymentUnknown 12/16/2018Hunger ScreeningAnswerDate RecordedWithin the past 12 months we worried whether our food would run out before we got money to buy more.Never True02/17/2024Within the past 12 months the food we bought just didn't last and we didn't have money to get more.Never True02/17/2024urpose - LifeAnswerDate RecordedPurpose and direction in rdvyObbfwwt28/11/2021ex and Gender Information ValueDate RecordedSex Assigned at BirthNot on fileLegal SppPsuu3302/09/2015 11:36 AM EDTGender IdentityNot on fileSexual OrientationNot on file Last Filed Vital Signs Vital SignReadingTime TakenCommentsBlood Qctggobi464/7402/18/2024 12:00 PM EDT Dlgfz942802/18/2024 12:00 PM ZIFRngflktucof29.7 ??C (98.1 ??F)02/18/2024 12:00 PM EDTRespiratory Wiiu312902/18/2024 12:00 PM EDTOxygen Mehqendezj10%02/18/2024 12:00 PM EDTInhaled Oxygen Concentration--Npyzxe770.5 kg (232 lb 8 oz)02/17/2024 9:00 PM BQRJuzgqj487.7 cm (5' 8 )02/17/2024 9:21 PM EDTBody Mass Index35.35002/17/2024 9:00 PM EDT Plan of Treatment Health MaintenanceDue DateLast DoneCommentsDepression Bdljfllut41/18/1971 DTaP,Tdap and Td Vaccines (1 - Tdap)1978Zoster (Shingles) Vaccine (1 of 2) 2009Fall Risk Prclmzklq86/18/2024dult BMI Ipeqeqbla18/ Tobacco Sxofwlqgr26OVID-19 Vaccine (2024- season) 504/, 10/12/2020Influenza Ccltscf0503/07/2025RSV ( or age 60+ yrs) (1 - 1-dose 75+ series)2034 Medical Devices Not on file Insurance * Guarantor: Jarrod Kimccnick TypeRelation to PatientDate of PhoneBilling AddressPersonal/JztyygSqbe1960 [address] [address] Advance Directives * Full Code (Latest Code Status on File) Date ActivatedDate InactivatedComments02/17/2024 5:50 PM02/18/2024 4:49 PM Care Teams Team MemberRelationshipSpecialtyStart DateEnd Date Troy Palacio MD [address] [place] [address] PCP - GeneralFamily Medicine02/16/24
[2025-05-09 11:21] LABS: Hematocrit 46.4 % (42.0-54.0); Hemoglobin 15.8 g/dL (14.0-18.0); Immature Granulocytes Abs Auto 0.02 10^3/uL (0.00-0.03); Immature Granulocytes Pct Auto 0.3 % (0.0-0.5); Lymphocytes Absolute Auto 2.0 10^3/uL (1.2-3.8); Mean Corpuscular HGB Conc 34.1 g/dL (29.9-35.2); Mean Corpuscular Hemoglobin 33.8 pg (25.9-34.0); Mean Corpuscular Volume 99.1 fL (80.0-94.0); Platelet Count 213 10^3/uL (150-450); Red Blood Count 4.68 10^6/uL (4.70-6.10); White Blood Count 5.9 10^3/uL (4.0-11.0)
[2025-05-09 11:28] LABS: Alanine Aminotransferase 24 U/L (16-63); Albumin Globulin Ratio 1.1; Albumin Level 3.7 g/dL (3.4-5.0); Alkaline Phosphatase 109 U/L (46-116); Anion Gap 10.4; Aspartate Amino Transferase 19 U/L (15-37); Blood Urea Nitrogen 12.0 mg/dL (7.0-18.0); Calcium 8.7 mg/dL (8.5-10.1); Carbon Dioxide 28.9 mmol/L (21.0-32.0); Chloride 106 mmol/L (98-107); Cholesterol 177 mg/dL (<=200); Estimated GFR (African America >60 (>=60 mL/min/1.73m^2); Estimated GFR (Non-African Ame >60 (>=60 mL/min/1.73m^2); Free T3 2.37 pg/mL (2.18-3.98); Globulin 3.3 g/dL; Glucose 93 mg/dL (74-106); HDL Cholesterol 64 mg/dL (40-60); Potassium 4.3 mmol/L (3.5-5.1); Sodium 141 mmol/L (136-145); Thyroid Stimulating Hormone 1.235 uIU/mL (0.358-3.740); Total Protein 7.0 g/dL (6.4-8.2); Triglycerides 67 mg/dL (<=150); VLDL CHOLESTEROL 13.4 mg/dL
== END 2025-05-09 10:06 | disposition home or self-care (01) ==
PROVIDERS: PCP Family Medicine; Visit Provider Family Medicine
DX: E78.2 Mixed hyperlipidemia (principal); I50.30 Unspecified diastolic (congestive) heart failure; N40.0 Benign prostatic hyperplasia without lower urinary tract symptoms; E78.5 Hyperlipidemia, unspecified; R73.09 Other abnormal glucose; Z12.12 Encounter for screening for malignant neoplasm of rectum; E03.9 Hypothyroidism, unspecified; Z12.5 Encounter for screening for malignant neoplasm of prostate; D50.9 Iron deficiency anemia, unspecified; I11.0 Hypertensive heart disease with heart failure
CPT/HCPCS: 36415; 80053; 80061; 83036; 83525; 84436; 84443; 84481; 85025; G0103

== ENCOUNTER 2025-05-10 08:30 | Outpatient (REF) | payer MEDICARE, SELFPAY ==
--- OUTSIDE RECORDS SUMMARY | 2023-04-24 04:30 | XMS_ITS | Continuity of Care Document ---
Author Organization [email or web address] [facility] Address [address] [facility] [place] [address] Phone Care Team Providers Care Lapeler Name Role Phone Marcela Kaur CNP Unavailable Unavailable Procedures Procedure Date OFFICE/OUTPATIENT VISIT, EST OFFICE/OUTPATIENT VISIT, EST OFFICE/OUTPATIENT VISIT, EST OFFICE/OUTPATIENT VISIT, EST POSTOP FOLLOW-UP VISIT POSTOP FOLLOW-UP VISIT Gastric Bypass LAP GASTRIC BYPASS/CHRIS-EN-Y OFFICE/OUTPATIENT VISIT, EST PSYCH DIAGNOSTIC EVALUATION PSYCL/NRPSYC TST PHY/QHP [facility] PSYCL/NRPSYC TST PHY/QHP OFFICE/OUTPATIENT VISIT, [facility] Advance Directives Directive Yes / No Effective Date File Name No Information Encounters Encounter Description Practice Location Reason(s) For Visit Diagnoses Date Provider Providers Copied on Encounter OFFICE/OUTPATI ENT VISIT, [facility] [email or web address] [facility], [address], [place], [place], [id number], [place] tel:[phone] [facility] No Information Natasha Medrano. [address] [facility] [address], [place], [place], [id number], [place]. tel:[phone] Referring Provider: Marcela Kaur, [address] [facility] [address], [place], [address]. tel:[phone] OFFICE/OUTPATI ENT VISIT, [facility] [employer] [facility], [address] [place] [address] [address], [place], [place], [id number], [place] tel:[phone] [facility] No Information Natasha Garciaa. [address] [place] [address] [address], [place], [place], [id number], [place]. tel:[phone] Referring Provider: Marcela Kaur, [address] [place] [address] [address], [place], [address]. tel:[phone] OFFICE/OUTPATI ENT VISIT, [facility] [employer] [facility], [address] [place] [address] [address], [place], [place], [id number], [place] tel:[phone] [facility] No Information Natasha Medrano. [address] [place] [address] [address], [place], [place], [id number], [place]. tel:[phone] Referring Provider: Marcela Kaur, [address] [place] [address] [address], [place], [address]. tel:[phone] OFFICE/OUTPATI ENT VISIT, [facility] [employer] [facility], [address] [place] [address] B, [place], [place], [id number], [place] tel:[phone] [facility] No Information Natasha Medrano. [address] [place] [address] [address], [place], [place], [id number], [place]. tel:[phone] Referring Provider: Marcela Kaur, [address] [facility] [address], [place], [address]. tel:[phone] [email or web address] [facility], [address] [place] [address] B, [place], [place], [id number], [place] tel:[phone] [facility] No Information Hector Reeder. [address] [place] [address] [address], [place], [place], [id number], [place]. tel:[phone] Referring Provider: Varinder Aguilar, [address], [place], [address]. tel:[phone] [email or web address] [facility], [address] [place] [address] [address], [place], [place], [address], [place] tel:[phone] [facility] No Information Hector Reeder. [address], [place], [place], [id number], [place]. tel:[phone] Referring Provider: Varinder Aguilar, [address], [place], [address]. tel:[phone] [email or web address] [facility], [address] [place] [address] [address], [place], [place], [address], [place] tel:[phone] [facility] IP No Information Natasha Medrano. [address], [place], [place], [address], [place]. tel:[phone] Referring Provider: Marcela Kaur, [address], [place], [address]. tel:[phone] [email or web address] [facility], [address] [place] [address] [address], [place], [place], [id number], [place] tel:[phone] [facility] IP No Information Hector Reeder. [address], [place], [place], [address], [place]. tel:[phone] Referring Provider: Varinder Aguilar, [address], [place], [address]. tel:[phone] OFFICE/OUTPATI ENT VISIT, [facility] [employer] [facility], [address] [place] [address] [address], [place], [place], [id number], [place] tel:[phone] [facility] No Information Hector Reeder. [address], [place], [place], [id number], [place]. tel:[phone] Referring Provider: Varinder Aguilar, [address] [facility] [address], [place], [address]. tel:[phone] PSYCH DIAGNOSTIC EVALUATION [facility], [address] [place] [address] B, [place], [place], [address], tel:[phone] [facility] No Information Shyam Mejia. [address] [address], [place], [place], [address], [place]. tel:[phone] Referring Provider: Jackie Howe, [address] [address], [place], [address]. tel:[phone] OFFICE/OUTPATI ENT VISIT, [facility], [address] [place] [address] B, [place], [place], [address], [place] tel:[phone] [facility] No Information Hector Reeder. [address] [place] [address], [place], [place], [id number], [place]. tel:[phone] Referring Provider: Varinder Aguilar, [address] [address], [place], [address]. tel:[phone] Family History Family Member Type Diagnosis Age At Onset No Information Payers Payer name Insurance type Covered green party ID barb helton(sMitch PARIKH [id number] Social History Type Description Quantity Date Captured Comments Sex Male Smoking Status No Information Chief Complaint And Reason For Visit No Information Reason For Referral Reason For Referral No Information History Of Present Illness Encounter Date Complaint History Of Prese nt Illness No Information Functional Status Date Functional Assessmen t No Information Instructions Date Instruction Additional Infor mation No Information Assessments Type Assessment Date No Information Patient Care Teams Name Effective Dates (start - stop) Status Members No Information
--- OUTSIDE RECORDS SUMMARY | 2025-05-09 04:45 | XMS_ITS ---
Author Organization [facility] in [place] Address [address] [place] [address] Care Team Providers Care In Tube Conversion Technician Name Role Phone Hakeem Neymar Primary Care Provider Allergies Allergen (clinical drug ingredient) Drug/Non Drug Allergy documented on EMR Reaction Allergy Type Onset Date Status erythromycin Erythromycin rash Drug Allergy Active Reason For Referral Diagnosis 1 Nevus (D22.9) Referral Organization [facility] Medicine Referring Provider First Name Neymar Referring Provider Last Name Hakeem Referring Provider Speciality Family Med meño Referred Provider Alex Land Referred Provider Specialty General Surg britni Referral Priority Routine REASON FOR VISIT Presents to office alone for yearly check up Medications Medication SIG (Take, Route, Frequency, Duration) Notes Start Date End Date Status amLODIPine Besylate 5 mg 1 tablet orally daily; Duration: 90 days ActivetiZANidine HCl 4 MG 1 tablet Orally three times a day; Duration: 90 days As needed 02/10/2024ctiveSimvastatin 20 MG1 tablet in the evening Orally Once a day; Duration: 90 days03/30/2024Not-TakingTamsulosin HCl 0.4 mgTAKE 1 CAPSULE oral daily; Duration: 90 daysActive Social History Tobacco Use: Social History Observation Description Date Details (start date - stop date) Never Smoker NA - NA Tobacco Use/Smoking Question Answer Notes Patient is a nonsmoker AUDIT-C (Standard) Question Answer Notes Did you have a drink containing alcohol in the p ast year? Yes How often did you have six or more drinks on one occasion in the past year?Never (0 point)How many drinks did you have on a typical day when you were drinking in the past year?1 or 2 drinks (0 point)How often did you have a drink containing alcohol in the past year?2 to 4 times a month (2 points)Rinzxn1Uxakvgdryuxlzj Negative Vital Signs Weight 217.8 lbs 05/09/2025 Height 67 in 05/09/2025 Blood pressure systolic 148 mm Hg 05/09/20 25 Blood pressure diastolic 88 mm Hg 025 BMI 34.11 kg/m2 05/09/2025 Encounters Encounter Location Date Provider Diagnosis [facility] [address] [place] [address] 05/09/2025 Neymar Hoy Mixed hyperlipidemia E78.2 ; Hypertension I10 ; Diastolic heart failure I50.30 ; Benign prostatic hyperplasia N40.0 and Nevus D22.9 Assessments Encounter Date Diagnosis (ICD Code) Assessment Notes Treatment Notes Treatment Clinical Notes Section Notes 05/09/2025 Mixed hyperlipidemia (ICD-10 - E 78.2) 05/09/2025Hypertension (ICD-10 - I10)05/09/2025Diastolic heart failure (ICD-10 - I50.30)05/09/2025enign prostatic hyperplasia (ICD-10 - N40.0)05/09/2025Nevus (ICD-10 - D22.9) Plan Of Treatment Medication Medication Name Sig Start Date Stop Date Notes amLODIPine Besylate 5 mg 1 tablet orally daily; Duration: 90 days Tamsulosin HCl 0.4 mgTAKE 1 CAPSULE oral daily; Duration: 90 daysPending Test Test Name Order Date HEMOGLOBIN A1C (GLYCO) 05/09/2025 INSULIN, TOTAL 05/09/2025 LIPID PANEL (CHOL/TRIG/HDL/LDL) 05/09/20 25 STOOL OCCULT BLOOD 05/09/2025 THYROID PANEL (T4/TSH/FREE T3) PSA, SCREENING 05/09/2025 CMP (COMP MET RAMIRES) w/eGFR CKD-EPI 2024 CBC WITH DIFF 05/09/2025 Referrals Referral Date Details 05/09/2025 05/09/2025, Alex Land Progress Notes * Jarrod PARIKH WDOB: [birth year] (65 yo M)Acc No.[id number]:05/09/2025 UNLOCKED PROGRESS NOTE Progress Note Patient: Jarrod UPTON :?Troy PerezHermilo Hakeem ([facility]), MDDOB:1960???Age: 65 Y???Sex:MaleDate:05/09/2025Phone:[phone]:[address] [place] [address] [facility]IUM[facility]-[id number] In:09:26 AM ESTCheck Out:09:57 AM EST Subjective: * Chief Complaints: * 1 . Presents to office alone for yearly check up. * HPI: ???General:? Spo on back discessed weih loss - down 17 mor pounds cisucsssed? hol - may jonathan meds. ???Depression Screening:?PHQ-2 (2015 Edition)?Little interest or pleasure in doing things? Not at all ?Feeling down, depressed, or hopeless??Not at all ?Total Score?0 * ROS: ???EENT:?hearing changes?denies.?visual changes?denies. non-healing mouth sores?denies.?swollen glands or neck lumps?denies.?hoarseness?denies.?sore throat?denies.?difficulty swallowing?denies.?nose bleeds?denies.?nasal congestion?denies.?ear ache?denies.?ear discharge denies.?ringing in ears?denies.?light sensitivity?denies.?eye pain?denies.?blurring?denies.?eye irritation?denies.?double vision?denies. vision loss?denies.?General/Constitutional:?Sweats:?Denies.?Fatigue?denies.?Sleep proble ms?denies.?Anorexia?denies.?Malaise?denies.?Weight loss?denies. Fatigue or Weakness?denies.?Fever or Chills?denies.?Cardiovascular:?Shortness of Breath w/lying flat?denies.?Lightheadedne ss/dizziness?denies.?Chest tightness/ heavy pressure?denies.?Swelling of legs, a nkles, or feet?denies.?Waking up with shortness of breath?denies.?Chest pain&#16 0;denies.?Palpitations?denies.?Weight gain?denies.?Respiratory:?Chronic or frequent cough?denies.?Coughing up blood&#1 60;denies.?Difficulty breathing?denies.?Productive cough?denies.?Snoring&#1 60;denies.?Shortness of breath that awakens from sleep (PND)?denies.?Chest pain? denies.?Sputum production?denies.?Wheezing?denies.?Musculoskeletal:?Joint pain?denies.?Joint Fluid?denies.?Backpain?denies.?Knee pain?denies.?Neck pain?denies.?Joint Stiffness?denies.?Muscle cramps?denies.?Weakness of muscles?denies.?Arthritis?denies.?Muscle aches?denies.?Pain in shoulder(s)?denies.?Swollen joints?denies.? * Medical History: K idney stone, Diastolic heart failure, Enlarged aorta, Mixed hyperlipidemia, Benign prostatic hyperplasia, Shoulder impingement, Fatigue, Impotence, Hypertension, Prostatitis, Hypercholesteremia, Obese, Anxiety. * Surgical History: L RYGB morbid obesity Dr. Young 2020, Gallbladder , Kidney stones . * Hospitalization/Major Diagno stic Procedure: [facility]. * Family History: F ather: , lung ca, diagnosed with Cancer. M other: , breast ca, diagnosed with Cancer, Diabetes. B rother(s): alive, diagnosed with Heart Disease. S ister(s): alive, diagnosed with Heart Disease. 2 brother(s) , 1 sister(s) - healthy. 2 son(s) , 2 daughter(s) - healthy. . * Social History: ???Tobacco Use:?Tobacco Use/Smoking?Patient is a?nonsmoker ???Drug/Alcohol:?AUDIT-C (Standard)?Did you have a drink containing alcohol in the past year??Yes ?How often did you have six or more drinks on one occasion in the past year??Never (0 point) ?How many drinks did you have on a typical daywhen you were drinking in the past year??1 or 2 drinks (0 point) ?How often did you have a drink containing alcohol in the past year??2 to 4 times a month (2 points) ?Points?2 ?Interpretation?Negative * Medications: T aking amLODIPine Besylate 5 mg Tablet 1 tablet orally daily , Taking Tamsulosin HCl 0.4 mg Capsule TAKE 1 CAPSULE oral daily , Taking tiZANidine HCl 4 MG Tablet 1 tablet Orally three times a day As needed, Not-Taking/PRN Simvastatin 20 MG Tablet 1 tablet in the evening Orally Once a day , Discontinued Ciprofloxacin HCl 500 MG Tablet 1 tablet Orally every 12 hrs , Medication List reviewed and reconciled with the patient * Allergies: E rythromycin: rash. Objective: * Vitals: W t:217.8lbs, Ht: 67 in, BP:148/88mm Hg, BMI:34.11Index, Ht-cm: 170.18 cm, Wt-k.79 kg. * Examination: ???Physical Exam: ?GENERAL:?well developed, well nourished, in no acute distress ?On back - pooissib pbasal cell - bigger thqn prvious.?HEAD:?normocephalic/atraumatic.?EYES:?pupils equal, round and reactive to light, conjunctivae and sclerae normal.?EARS:?no deformity or lesion of external ear, canals and TM appear normal bilaterally, TM's intact, not inflamed with normal light reflex, hearing grossly normal to conversational speech.?NOSE:?no deformity, discharge, inflammation, or lesions. ?MOUTH:?mucous membranes moist, normal oropharynx and posterior pharynx without lesions or exudates, tongue normal, dentition normal.?NECK:?neck supple, no masses or palpable cervical nodes, trachea midline, thyroid without nodules, masses, tenderness, or enlargement.?CHEST:?no chest wall deformity, no chest wall tenderness. ?LUNGS:?normal respiratory effort and clear to auscultation, no wheezes, rales, or rhonchi, good air exchange.?CARDIO:?regular rate and rhythm, normal S1 and S2, nor murmur, rub, or gallop.?PULSES:?normal capillary refill.?ABDOMEN:?soft, non-distended, non-tender, no masses.?MUSCULOSKELETAL:?no deformity or scoliosis noted, normal range of motion, joints normal, no erythema, edema, effusion, or ecchymosis.?EXTREMITY:?no clubbing, cyanosis, edema, or deformity withnormal ROM in both upper and lower bilateral extremities.?NEUROLOGIC:?grossly normal.?SKIN:?no rashes, ulcerations, or suspicious lesions.?LYMPH NODES:?no cervical adenopathy, nodes normal.?MENTAL STATUS:?alert and oriented x3, normal mood and affect.?Prostate: ?Prostate Symmetry?Symmetrical Lobes.?Prostate Tenderness?Right Lobe no tenderness, Left lobe notenderness.?Prostate Consistency?Left lobe normal consistency, Right lobe normal consistency.?Prostate Size?40 grams.?Prostate Nodule?No prostate Nodule.? Assessment: * Assessment: 1.?Mixed hyperlipidemia - E78.2 (Primary)???2.?Hypertension - I10?&#16 0;?3.?Diastolic heart failure - I50.30???4.?Benign prostatic hyperplasia - N40.0???5.?Nevus - D22.9??? Plan: * Treatment: Refill amLODIPine Besylate Tablet, 5 mg, 1 tablet, orally, daily, 90 days, 90 Tablet, Refills 3; Refill Tamsulosin HCl Capsule, 0.4 mg, TAKE 1 CAPSULE, oral, daily, 90 days, 90, Refills 3.?LAB: HEMOGLOBIN A1C (GLYCO) ?LAB: INSULIN, TOTAL ?LAB: LIPID PANEL (CHOL/TRIG/HDL/LDL) ?LAB: STOOL OCCULT BLOOD ?LAB: THYROID PANEL (T4/TSH/FREE T3) ?LAB: PSA, SCREENING ?LAB: CMP (COMP MET RAMIRES) w/eGFR CKD-EPI ?LAB: CBC WITH DIFF2.?Hypertension?LAB: HEMOGLOBIN A1C (GLYCO) ?LAB: INSULIN, TOTAL ?LAB: LIPID PANEL (CHOL/TRIG/HDL/LDL) ?LAB: STOOL OCCULT BLOOD ?LAB: THYROID PANEL (T4/TSH/FREE T3) ?LAB: PSA, SCREENING ?LAB: CMP (COMP MET RAMIRES) w/eGFR CKD-EPI ?LAB: CBC WITH DIFF3.?Diastolic heart failure?LAB: HEMOGLOBIN A1C (GLYCO) ?LAB: INSULIN, TOTAL ?LAB: LIPID PANEL (CHOL/TRIG/HDL/LDL) ?LAB: STOOL OCCULT BLOOD ?LAB: THYROID PANEL (T4/TSH/FREE T3) ?LAB: PSA, SCREENING ?LAB: CMP (COMP MET RAMIRES) w/eGFR CKD-EPI ?LAB: CBC WITH DIFF4.?Benign prostatic hyperplasia?LAB: HEMOGLOBIN A1C (GLYCO) ?LAB: INSULIN, TOTAL ?LAB: LIPID PANEL (CHOL/TRIG/HDL/LDL) ?LAB: STOOL OCCULT BLOOD ?LAB: THYROID PANEL (T4/TSH/FREE T3) ?LAB: PSA, SCREENING ?LAB: CMP (COMP MET RAMIRES) w/eGFR CKD-EPI ?LAB: CBC WITH DIFF5.?Nevus? Referral To:Alex Land??General Surgery ?Reason: * Preventive Medicine: ??Screenings/Counseling:?BMI ACTION PLAN?Above Normal BMI Follow-up?Dietary management education, guidance, and counseling See treatment section of progress note for complete details of management plan. ?FALL RISK SCREENING?Fall Risk Assessment:?No falls in the past year * * Electronic signature of Neymar Palacio MD, [id number] on 05/10/2025 at 08:35 AM EST Sign off status: PendingVisit Status:?CHK (Check Out) * Provider: Toma Palacio (TTC)MD Date: 1 07/09/2024 Generated for Printing/Faxing/eTransmitting on:?05/10/2025 08:35 AM EST History and Physical Notes * HPI (History of Present Illness) CategorySub-CategoryDetailNotesCategory NotesGeneral Spo on back discessed weih loss - down 17 mor pounds cisucsssed hol - may jonathan meds Depression ScreeningPHQ-2 (2015 Edition)Little interest or pleasure in doing things?: Not at allFeeling down, depressed, or hopeless?: Not at allTotal Score: 0 Examination CategorySub-CategoryDetailNotesCategory NotesProstateProstate Symmetry Symmetrical LobesProstate TendernessRight Lobe no tenderness, Left lobe no tendernessProstate ConsistencyLeft lobe normal consistency, Right lobe normal consistencyProstate Size40 gramsProstate NoduleNo prostate NodulePhysical Exam GENERAL:well developed, well nourished, in no acute distress On back - pooissib pbasal cell - bigger thqn prviousHEAD:normocephalic/atraumaticEYES:pupils equal, round and reactive to light, conjunctivae and sclerae normalEARS:no deformity or lesion of external ear, canals and TM appear normal bilaterally, TM's intact, not inflamed with normal light reflex, hearing grossly normal to conversational speechNOSE:no deformity, discharge, inflammation, or lesionsMOUTH:mucous membranes moist, normal oropharynx and posterior pharynx without lesions or exudates, tonguenormal, dentition normalNECK:neck supple, no masses or palpable cervical nodes, trachea midline, thyroid without nodules, masses, tenderness, or enlargementCHEST:no chest wall deformity, no chest wall tendernessLUNGS:normal respiratory effort and clear to auscultation, no wheezes, rales, or rhonchi, good air exchangeCARDIO:regular rate and rhythm, normal S1 and S2, nor murmur, rub, or gallopPULSES:normal capillary refillABDOMEN:soft, non-distended, non- tender, no massesRECTAL:MUSCULOSKELETAL:no deformity or scoliosis noted, normal range of motion, joints normal, no erythema, edema, effusion, or ecchymosis EXTREMITY:no clubbing, cyanosis, edema, or deformity with normal ROM in both upper and lower bilateral extremitiesNEUROLOGIC:grossly normalSKIN:no rashes, ulcerations, or suspicious lesionsLYMPH NODES:no cervical adenopathy, nodes normalMENTAL STATUS:alert and oriented x3, normal mood and affect Consultation Request Notes Referral Date Referring Provider Referred Provider Ezio rojas 05/09/2025 Neymar Palacio Michael
--- OUTSIDE RECORDS SUMMARY | 2025-05-10 08:36 | XMS_ITS | Patient Health Record ---
Author Organization [facility] [place] Address [address] [place] [address] Care Team Providers Care Water Softener Installer Name Role Phone Neymar Palacio Primary Care Provider Allergies Allergen (clinical drug ingredient) Drug/Non Drug Allergy documented on EMR Reaction Allergy Type Onset Date Status erythromycin Erythromycin rash Drug Allergy Active Results Component Value Reference Range Notes INSULIN (Not yet reviewed by provider) Interpretation: Performing Lab: Notes/Report: [facility] , Insulin 5.2 2.6-24.9 uIU/mL Performed at: - [facility] [address] [id number] Children'S Service Worker: Josué Velazco PhD, Phone: [phone] Performing Lab: see note - [facility] LBCBC AUTO DIFF Reviewed date:05/09/2025 07:22:42 PM Interpretation: Performing Lab: Notes/Report: [facility] ,White Blood Count5.94.0-11.0 10 3/uLRed Blood Count4.684.70-6.10 10 6/uL Eozsxktmfh77.814.0-18.0 g/cPZxjqkqgipw00.442.0-54.0 %Mean Corpuscular Wmgtwy97.1 80.0-94.0 fLMean Corpuscular Vxofomdiae47.825.9-34.0 pgMean Corpuscular HGB Conc 34.129.9-35.2 g/dLRed Cell Distribution Width13.211.0-15.0 %Platelet Sxzuw642 150-450 10 3/uLMean Platelet Luaukd46.79.5-13.5 fLNeutrophils Percent Auto54.8 43.0-75.0 %Lymphocytes Percent Auto34.220.5-60.0 %Monocytes Percent Auto8.91.7- 12.0 %Eosinophils Percent Auto1.50.9-7.0 %Basophils Percent Auto0.30.2-2.0 % Immature Granulocytes Pct Auto0.30.0-0.5 %Neutrophils Absolute Auto3.31.4-6.5 10 3/uLLymphocytes Absolute Auto2.01.2-3.8 10 3/uLMonocytes Absolute Auto0.50.3-0.8 10 3/uLEosinophils Absolute Auto0.10.0-0.7 10 3/uLBasophils Absolute Auto0.00.0- 0.1 10 3/uLImmature Granulocytes Abs Auto0.020.00-0.03 10 3/uLPerforming Lab:see noteML - [facility] LBFREE T3 Reviewed date:05/09/2025 07:22:42 PM Interpretation: Performing Lab: Notes/Report: [facility] ,Free T32.372.18-3.98 pg/mLPerforming Lab:see noteML - [facility] LB LIPID PROFILE Reviewed date:05/09/2025 07:22:42 PM Interpretation: Performing Lab: Notes/Report: [facility] ,Qjgycuxluhmam15<=150 mg/kYSpdigstqubp645<=200 mg/dLHDL Dcbcsojvdvz3078-82 mg/dL > or =60 mg/dl - LOW CARDIOVASCULAR RISK <40 mg/dl - HIGH CARDIOVASCULAR RISK LDL Cholesterol Honqakxcxy751.0 <100 mg/dl OPTIMAL 100-129 mg/dl NEAR OR ABOVE OPTIMAL 130-159 mg/dl BORDERLINE HIGH 160-189 mg/dl HIGH >190 mg/dl VERY HIGH VLDL VTUUAPORVLT87.4Chol HDL Ratio2.8 3.3 - 4.4 LOW RISK 4.4 - 7.1 AVERAGE RISK 7.1 - 11.0 MODERATE RISK >11.0 HIGH RISK Performing Lab:see noteML - [facility] LBPROF 14(COMP METB) Reviewed date:05/09/2025 07:22:42 PM Interpretation: Performing Lab: Notes/Report: [facility] ,Xzjobz980984-644 mmol/LPotassium4.33.5-5.1 mmol/UJnzuolln62928-908 mmol/LCarbon Plrzamz74.921.0-32.0 mmol/LAnion Gap10.0Xizsutt7592-838 mg/dLBlood Urea Nitrogen 12.07.0-18.0 mg/dLCreatinine0.900.70-1.30 mg/dLEstimated GFR ( Peggy>60 >=60 mL/min/1.73m 2Estimated GFR (Non- Page>60>=60 mL/min/1.73m 2BUN Creatinine Ratio13.7Klgsihl1.78.5-10.1 mg/dLBilirubin Total0.70.2-1.0 mg/dL Aspartate Amino Qxyqodpjetj8950-42 U/LAlanine Cgyauscwlikzywgo3141-98 U/L Alkaline Vrshnctkdkd09907-288 U/LTotal Protein7.06.4-8.2 g/dLAlbumin Level3.7 3.4-5.0 g/dLGlobulin3.3Albumin Globulin Ratio1.1Performing Lab:see noteML - [facility] LBT4 Reviewed date:05/09/2025 07:22:42 PM Interpretation: Performing Lab: Notes/Report: [facility] ,T4 Thyroxine7.904.50-12.10 ug/dLPerforming Lab:see noteML - [facility] LBTSH Reviewed date:05/09/2025 07:22:42 PM Interpretation: Performing Lab: Notes/Report: [facility] ,Thyroid Stimulating Hormone1.2350.358-3.740 uIU/mLPerforming Lab:see noteML - [facility] LBUrine Culture, Routine Reviewed date:05/25/2024 08:30:34 PM Interpretation: Performing Lab: Notes/Report: [facility] ,Urine Culture, RoutineSee Below For Report Urine Culture, Routine Urine Culture, RoutineNo growth Urine Culture, Routine Urine Culture, RoutinePerformed at: - [facility] Anthony Urine Culture, Routine Urine Culture, [address] [place], [place] [id number] Urine Culture, Routine Urine Culture, RoutineLab Director: Josué Velazco PhD, Phone: [phone] Urine Culture, Routine Performing Lab:see note LC - [facility] LB SEE REPORT - Organizational Research Consultant Id information not found for OBX-specific licensed sales producer legend UA RANDOM W or MICROSCOPIC Reviewed date:05/24/2024 01:02:06 PM Interpretation: Performing Lab: Notes/Report: [facility] ,Color UrineLT. YELLOWYELLOWClarity UrineCLEARCLEARSpecific [place] Urine<=1.005 1.005-1.025pH Urine6.05.0-9.0Protein UrineNEGATIVENEG/TRACE mg/dLGlucose Urine UANEGATIVENEGATIVE mg/dLBilirubin UrineNEGATIVENEGATIVEKetones UrineNEGATIVE NEGATIVE mg/dLBlood UrineNEGATIVENEGATIVENitrite UrineNEGATIVENEGATIVE Urobilinogen Urine0.20.2-1.0 EU/dLLeukocyte Esterase UrineNEGATIVENEGATIVEWBC Urine0-2NONE SEEN #/HPFRBC Urine0-20-2 #/HPFBacteria UrineTRACENONE SEEN #/HPF Mucus UrineNONE SEENNONE SEENSquamous Epithelial Cell UrineFEWNONE/RARE #/LPF Crystals Seen?None SeenNone Seen #/HPFCast Seen?NONE SEENNONE SEEN #/LPF Performing Lab:see noteML - [facility] LBPSA SCREENING Reviewed date:05/09/2025 07:22:42 PM Interpretation: Performing Lab: Notes/Report: [facility] ,Prostate Specific Antigen Scrn2.15<=4.00 ng/mLPerforming Lab:see noteML - [facility] LBGLYCOHEMOGLOBIN A1C Reviewed date:05/09/2025 07:22:42 PM Interpretation: Performing Lab: Notes/Report: [facility] ,Glycohemoglobin A1C5.14.5-6.2 % ADA RECOMMENDED LIMIT 4.0 - 6.0 ADA THERAPEUTIC TARGET < 7.0 ACTION SUGGESTED > 7.0 Estimated Average Hkrftbw946Melqpszrvc Lab:see noteML - [facility] LB Reason For Referral Diagnosis 1 Nevus (D22.9) Referral Organization [facility] Referring Provider First Name Neymar Referring [...] Question Answer Notes Patient is a nonsmoker Alcohol Screen (Audit-C) Question Answer Notes Did you have a drink containing alcohol in the p ast year? Yes How often did you have 6 or more drinks on one occasion in the past year?Never (0 point)How many drinks did you have on a typical day when you were drinking in the past year?1 or 2 drinks (0 point)How often did you have a drink containing alcohol in the past year?Weekly (3 points)Jtgjjp7DwohcirlbgisytNzobgfalUEYAA-T (Standard) Question Answer Notes Did you have [...] year?2 to 4 times a month (2 points)Poexpv9Papwdxhmtnkeqx Negative Problems Problem Type SNOMED Code ICD Code Onset Dates Problem Status W/U Status Risk Notes Problem Mixed hyperlipidemia (682326980) Mixed hy perlipidemia (E78.2) ActiveconfirmedProblemHemospermia (58565503)Hematospermia (R36.1)Activeconfirmed ProblemFatigue (54138342)Fatigue (R53.83)ActiveconfirmedProblemHypertension (23910817)Hypertension (I10)ActiveconfirmedProblemAnxiety (50248042)Anxiety (F41.9)ActiveconfirmedProblemDiastolic heart failure (790155470)Diastolic heart failure (I50.30)ActiveconfirmedProblemKidney stone (02192413)Kidney stone (N20.0)ActiveconfirmedProblemObese (858077604)Obese (E66.9)Activeconfirmed ProblemImpingement syndrome of shoulder region (490986671)Shoulder impingement (M75.40)ActiveconfirmedProblemBenign prostatic hyperplasia (956003294)Benign prostatic hyperplasia (N40.0)ActiveconfirmedProblemAdult health examination (858375202)Well adult exam (Z00.00)ActiveconfirmedProblemErectile dysfunction (disorder) (496848347)Impotence (N52.9)ActiveconfirmedProblemProstatitis (1911514)Prostatitis (N41.9)ActiveconfirmedProblemAortic aneurysm (disorder) (58157580)Enlarged aorta (I77.89)ActiveconfirmedProblemhypercholesterolemia (disorder) (36306011)Hypercholesteremia (E78.00)Activeconfirmed Vital Signs Blood pressure diastolic 88 mm Hg 05/09/2025 Uoutxb79 in05/09/2025lood pressure uuygaojv721 mm Hg05/09/20251667Rwjxqr084.8 lbs 05/09/2025BMI34.11 kg/m205/09/2025 Encounters Encounter Location Date Provider Diagnosis [facility] [address] [place] [address] 05/24/2024 Neymar Palacio Hematospermia R36.1 [facility] [address] [place] [address] 05/09/2025 Neymar Almontey Mixed hyperlipidemia E78.2 ; Hypertension I10 ; Diastolic heart failure I50.30 ; Benign prostatic hyperplasia N40.0 and Nevus D22.9 [facility] [address] [place] [address] 05/27/2024 Neymar Almontey [facility] [place] [address] 07/20/2024Doug HoyBenign prostatic hyperplasia N40.0[facility] [place] [address]/03/2025Doug Hoy Assessments Encounter Date Diagnosis (ICD Code) Assessment Notes Treatment Notes Treatment Clinical Notes Section Notes 05/24/2024 Hematospermia (ICD-10 - R36.1) 05/09/2025Mixed hyperlipidemia (ICD-10 - E78.2)05/09/2025Hypertension (ICD-10 - I10)5Benign prostatic hyperplasia (ICD-10 - N40.0)05/09/2025Diastolic heart failure (ICD-10 - I50.30)5Benign prostatic hyperplasia (ICD-10 - N40.0)05/09/2025Nevus (ICD-10 - [...] 02/05/2024 CULTURE URINE 05/24/2024 GLYCOHEMOGLOBIN A1C 02/05/2024 INSULIN 05/09/2025 LIPID PROFILE 03/30/2024 LIPID PROFILE 02/05/2024 LIVER PROFILE 03/30/2024 PROF 14(COMP METB) 02/05/2024 THYROID PROFILE WITH TSH 02/05/2024 THYROID PANEL (T4/TSH/FREE T3) 3 THYROID PANEL (T4/TSH/FREE T3) 5 PSA, SCREENING 05/09/2025 CMP (COMP MET RAMIRES) w/eGFR CKD-EPI 2024 CBC WITH DIFF 05/09/2025 Insurance Providers Payer Name Payer Address Payer Phone Subscriber Number Group Number Insured Name Patient Relationship to Insured Coverage Start Date Coverage End Date MMO ADVANTAGE CHOICE MEDICAR E HMO [address] [place] [address] [id number] Arin Kim - patient is the insured Medical (General) History Medical History History ICD Code Kidney stone N20.0 Diastolic heart failure I50.30 Enlarged aorta I77.89 Mixed hyperlipidemia E78.2 Benign prostatic hyperplasia N40.0 Shoulder impingement M75.40 Fatigue R53.83 Impotence N52.9 Hypertension I10 Prostatitis N41.9 Hypercholesteremia E78.00 Obese E66.9 Anxiety F41.9 Surgical History Surgery Date(Month/Year) [facility] morbid obesity Dr. Young 2019 Gallbladder Kidney stonesHospitalization History Reason Date(Month/Year) [facility] 02/27
--- OUTSIDE RECORDS SUMMARY | 2025-05-10 08:36 | XMS_ITS | Clinical Summary ---
Author Organization [facility] Address [address] [place] [address] Care Team Providers Care Mirror Inspector Name Role Phone Unavailable Primary Care Provider Unavailabl e Social History Tobacco UseTypesPacks/DayYears UsedDateSmoking Tobacco: Never AssessedSex and Gender InformationValueDate RecordedSex Assigned at BirthNot on fileLegal Sex Male09/18/2022 11:21 PM EDTGender IdentityNot on fileSexual OrientationNot on file Plan of Treatment Not on file Insurance * Guarantor: Jarrod Kim TypeRelation to PatientDate of BirthPhone Billing AddressPersonal/CateskSsdy1960 [address] [address]
--- OUTSIDE RECORDS SUMMARY | 2025-05-10 08:36 | XMS_ITS | Clinical Summary ---
Author Organization [facility] tem Address [id number] [address] 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 Name Role Phone Troy Palacio MD Primary Care Provider [phone] Allergies Active AllergyReactionsCriticalityNoted DateCommentsAmoxicillin-Pot Clavulanate Ktynpyjv84/12/2024Erythromycin Fthewtrxcwil34/01/2021 Medications MedicationSigDispense QuantityRefillsLast FilledStart DateEnd DateStatus tamsulosin [...] Take by mouth.Active Active Problems ProblemNoted DateDiagnosed FdlrCsuoi35/13/2024 Social History Tobacco UseTypesPacks/DayYears UsedDateSmoking Tobacco: NeverSmokeless [...] as a part of a household?No02/17/2024hildcareAnswerDate Recorded GsrdqadxjAkvefec40/12/2019EmploymentAnswerDate RecordedEmploymentUnknown 12/16/2018Hunger ScreeningAnswerDate RecordedWithin the past 12 months we worried whether our food would run out before we got money to buy more.Never True02/17/2024Within the past 12 months the food we bought just didn't last and we didn't have money to get more.Never True02/17/2024urpose - LifeAnswerDate RecordedPurpose and direction in tcflHcrqifj81/11/2021ex and Gender Information ValueDate RecordedSex Assigned at BirthNot on fileLegal ZfzClbt3202/09/2015 11:36 AM EDTGender IdentityNot on fileSexual OrientationNot on file Last Filed Vital Signs Vital SignReadingTime TakenCommentsBlood Sljldyhk753/7402/18/2024 12:00 PM EDT Iblnl496902/18/2024 12:00 PM QZIZvtownmicin56.7 ??C (98.1 ??F)02/18/2024 12:00 PM EDTRespiratory Zzyw363002/18/2024 12:00 PM EDTOxygen Qzqltykmzf61%02/18/2024 12:00 PM EDTInhaled Oxygen Concentration--Qhobzq818.5 kg (232 lb 8 oz)02/17/2024 9:00 PM BPLBqggqq379.7 cm (5' 8 )02/17/2024 9:21 PM EDTBody Mass Index35.35002/17/2024 9:00 PM EDT Plan of Treatment Health MaintenanceDue DateLast DoneCommentsDepression Lziwarjfo27/18/1971 DTaP,Tdap and Td Vaccines (1 - Tdap)1978Zoster (Shingles) Vaccine (1 of 2) 2009Fall Risk Vtceepzvj54/18/2024dult BMI Nelffwhll31/ Tobacco Lrqvhmxiy95OVID-19 Vaccine (2024- season) 504/, 10/12/2020Influenza Anypgel1803/07/2025RSV ( or age 60+ yrs) (1 - 1-dose 75+ series)2034 Medical Devices Not on file Insurance * Guarantor: Jarrod Kimccnick TypeRelation to PatientDate of PhoneBilling AddressPersonal/VovjvdLbnd1960 [address] [address] Advance Directives * Full Code (Latest Code Status on File) Date ActivatedDate InactivatedComments02/17/2024 5:50 PM02/18/2024 4:49 PM Care Teams Team MemberRelationshipSpecialtyStart DateEnd Date Troy Palacio MD [address] [place] [address] PCP - GeneralFamily Medicine02/16/24
--- OUTSIDE RECORDS SUMMARY | 2025-05-10 08:36 | XMS_ITS | Clinical Summary ---
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 Name Role Phone Unavailable Primary Care Provider Unavailabl e Social History Tobacco UseTypesPacks/DayYears UsedDateSmoking Tobacco: Never AssessedSex and Gender InformationValueDate RecordedSex Assigned at BirthNot on fileLegal Sex Male01/02/2022 9:42 PM EDTGender IdentityNot on fileSexual OrientationNot on file Last Filed Vital Signs Vital SignReadingTime TakenCommentsBlood Pressure--Pulse--Temperature-- Respiratory Rate--Oxygen Saturation--Inhaled Oxygen Concentration--Emdflq918 kg (285 lb)03/15/2020 9:53 AM OZEWqiilw847.7 cm (5' 8 )03/15/2020 9:53 AM EDTBody Mass Index43.3309 9:53 AM EDT Plan of Treatment Not on file
--- OUTSIDE RECORDS SUMMARY | 2025-05-10 08:41 | XMS_ITS | CCD ---
Author Organization [facility] Care Team Providers Care Refuge Manager Name Role Phone JUAN, DR CASTILLO Admitting Unavailable HOY, DR CASTILLO Attending Unavailable HOY, DR CASTILLO Primary Care Unavailable HOY, DR CASTILLO Consulting Unavailable JUANJOSEY, DR CASTILLO Admitting Unavailable HOY, DR CASTILLO Attending Unavailable HOY, DR CASTILLO Primary Care Unavailable HOY, DR CASTILLO Consulting Unavailable HOY, DR CASTILLO Admitting Unavailable HOY, DR CASTILLO Attending Unavailable JUANJOSEY, DR CASTILLO Primary Care Unavailable HOY, DR CASTILLO Consulting Unavailable PATRICIA LEMON Admitting Unavailable PATRICIA LEMON Attending Unavailable JUAN, DR CASTILLO Primary Care Unavailable PATRICIA LEMON Consulting Unavailable JUAN, DR CASTILLO Admitting Unavailable HOY, DR CASTILLO Attending Unavailable JUAN, DR CASTILLO Primary Care Unavailable JUAN, DR CASTILLO Consulting Unavailable ANNA MARTINEZ Primary Care Unavailable CHELA HICKEY Attending Unavailable CHELA HICKEY Attending Unavailable CHELA HICKEY Referring Unavailable ANNA MARTINEZ Primary Care Unavailable ANNA MARTINEZ Primary Care Unavailable STEFF FREGOSO Attending Unavailable SHAHLA REED Consulting Unavailable DEBBIE CARCAMO Admitting Unavailable KIM AMATO Consulting Unavailable Anna Martinez MD Primary Care Provider Allergies Allergy ClassificationReported Allergen(s)Allergy TypeDate of OnsetReaction(s) Facility (1 source)ErythromycinDrug Vadddme64-44-8645Csy [facility] Repository (3 sources)Erythromycin; Translations: [ERYTHROMYCIN LACTOBIONATE]Drug Allergy 84-90-3236NiqKdlnbm Repository (3 sources)AMOXICILLIN-POT CLAVULANATE; Translations: [AMOXICILLIN-POT CLAVULANATE]Propensity to adverse reactions to drug (disorder)87-23-3893Sjeesovp [facility] Repository Medications Completed/Discontinued Medications MedicationDrug Class(es)DatesSig (Normalized)Sig (Original)amLODIPine 5 mg oral tablet (1 source)Dihydropyridine Calcium Channel BlockeramLODIPine (NORVASC) 5 mg tablet daily. Suspendedcalcium carb and citrate-vitD3 (CITRACAL + D SLOW REL) 600 mg calcium- 500 units tablet extended release (1 source)take 1 tablet by mouth twice dailycalcium carb and citrate-vitD3 (CITRACAL + D SLOW REL) 600 mg calcium- 500 units tablet extended release Citracal-D3 Slow Release 600 mg calc-12.5 mcg (500 unit)tablet,ext rel Take 1 tablet twice a day by oral route. Suspendedmultivit-min/ferrous fumarate (MULTI VITAMIN ORAL) (1 source)multivit-min/ferrous fumarate (MULTI VITAMIN ORAL) Take by mouth. Suspendedtamsulosin hydrochloride 0.4 mg oral capsule (1 source)alpha-Adrenergic Blockertamsulosin (FLOMAX) 0.4 mg capsule daily. Suspended Problems Active Problems Problem ClassificationProblemDateDocumented DateEpisodic/ChronicAbdominal pain (3 sources)Unspecified abdominal pain; Translations: [Flank pain]Onset: 18-80-2731SlebbsbiFjyavloyg of lipid metabolism (1 source)Hyperlipidemia, unspecified; Translations: [HYPERLIPIDEMIA UNSPECIFIED]Onset: 92-60-7151WikkbztYcgfchfov hypertension (1 source)Essential (primary) hypertension; Translations: [ESSENTIAL PRIMARY HYPERTENSION]Onset: 83-10-8635JyrcxltWrfbaxlbsk obstruction without hernia (3 sources)Ileus, unspecified; Translations: [Intestinal obstruction co- occurrent and due to decreased peristalsis]Onset: 161922-44-3536Dodaefoz Other gastrointestinal disorders (1 source)Bariatric surgery status; Translations: [BARIATRIC SURGERY STATUS] Onset: 70-14-6796UuthpbfhZxnxg nutritional; endocrine; and metabolic disorders (1 source)Hyperuricemia without signs of inflammatory arthritis and tophaceous disease; Translations: [HU W/OSIGNS IA AND TOPHACEOUS DZ]Onset: 04-16-2022 EpisodicOther screening for suspected conditions (not mental disorders or infectious disease) (1 source)Encounter for screening for malignant neoplasm of prostate; Translations: [ENC SCREEN MALIG NEOPLASM PROSTATE]Onset: 52-82-4241Zhrqzoej Residual codes; unclassified (1 source)Edema, unspecified; Translations: [EDEMA UNSPECIFIED]Onset: 04-16-2022 EpisodicUnclassified (1 source)Flank Pain; Abdominal PainOnset: 83-24-4081Nueevnhyvdax (1 source)abdominal pain[place] [facility]nOnset: 02-17-2024 Past or Other Problems Problem ClassificationProblemDateDocumented DateEpisodic/ChronicOther skin disorders (4 sources)Generalized hyperhidrosis; Translations: [GENERALIZED HYPERHIDROSIS] Onset: 31-56-7055Qfvkuvcj Results Test NameValueInterpretationReference RangeFacilityCBC AND AUTO DIFFon 61-37-4771WPCVRITX BASOPHIL0.0 X10E9/LNormal0.0-0.2PTriHealth [facility] Comment on above:Performed By: #### CBCA, CMP #### [facility] ([id number]) [address] [place], [place] [address]ZCVZTWBB NEUTROPHIL2.9 X10E9/LNormal1.5-6.6ProGlenbeigh HospitalComment on above:Performed By: #### CBCA, CMP #### [facility] ([id number]) [address] [place], [place] [address]Iqpkzgtsk/100 WBC (Bld)0.5 %[facility] Comment on above:Performed By: #### CBCA, CMP #### [facility] ([id number]) [address] [place], [place] [address]Jzbcbjukwzd (Bld) [#/Vol]0.2 10*3/uLNormal0.0-0.4Mar[facility] HospitalComment on above:Performed By: #### CBCA, CMP #### [facility] ([id number]) [address], [address] [place], [place] [address]Dppwdkbnyec/100 WBC (Bld)3.3 %NormalMarion Hospital Comment on above:Performed By: #### CBCA, CMP #### [facility] ([id number]) [address] [place], [place] [address]Ecagnuiygvk distribution width (RBC) [Ratio]13.5 %Normal 11.5-15.0ProMccullough-Hyde Memorial Hospital HospitalComment on above:Performed By: #### CBCA, CMP #### [facility] ([id number]) [address] [place], [place] [address]Frcguhtbvb (Bld) [Volume fraction]39.4 %Ojelxx62-32YylAxdfks [place] HospitalComment on above:Performed By: #### CBCA, CMP #### [facility] ([id number]) [address] [place], [place] [address]Danchswumm (Bld) [Mass/Vol]13.8 g/hSTanrqf94.0-17.0ProMccullough-[facility] Hospital HospitalComment on above:Performed By: #### CBCA, CMP #### [facility] ([id number]) [address] [address] [place], [place] [address]Yypkkbhzcoh (Bld) [#/Vol]2.7 10*3/uLNormal1.0-3.5[facility] HospitalComment on above:Performed By: #### CBCA, CMP #### [facility] ([id number]) [address] [address] [place], [place] [address]Seprobzwmxj/100 WBC (Bld)41.4 %NormalMarion Hospital Comment on above:Performed By: #### CBCA, CMP #### [facility] ([id number]) [address] [address] [place], [place] [address]IJC (RBC) [Entitic mass]33.8 vrRktlhf05-20VtpAmcuhq [place] HospitalComment on above:Performed By: #### CBCA, CMP #### [facility] ([id number]) [address] [place], [place] [address]ZKBL (RBC) [Mass/Vol]35.0 g/ePYbzgum50-73GhrHynxhv [place] HospitalComment on above:Performed By: #### CBCA, CMP #### [facility] ([id number]) [address], [address] [place], [place] [address]UYM (RBC) [Entitic vol]96 gMBxcsga95-243OiyCzhjul [place] HospitalComment on above:Performed By: #### CBCA, CMP #### [facility] ([id number]) [address], [address] [place], [place] [address]Hrbjdusmn (Bld) [#/Vol]0.6 10*3/uLNormal0-0.9ProMccullough-[facility] HospitalComment on above:Performed By: #### CBCA, CMP #### [facility] ([id number]) [address] [place], [place] [address]Agmsxlvsa/100 WBC (Bld)9.7 %NormalMarion Hospital Comment on above:Performed By: #### CBCA, CMP #### [facility] ([id number]) [address] [place], [place] [address]Bvldhqmsyst/100 WBC (Bld)45.1 %[facility] Comment on above:Performed By: #### CBCA, CMP #### [facility] ([id number]) [address] [place], [place] [address]Ryukxcel mean volume (Bld) [Entitic vol]9.6 fLNormal7-12 [facility] HospitalComment on above:Performed By: #### CBCA, CMP #### [facility] ([id number]) [address] [place], [place] [address]Rjjrnvfel (Bld) [#/Vol]180 10*3/dPSeztmq627-546NcvJyibez [place] HospitalComment on above:Performed By: #### VELVET, CMP #### [facility] ([id number]) [address] [place], [place] [address]GPF COUNT4.08 X10E12/LLow4.10-5.70ProSt. John Of God Hospitalca [place] [facility] Comment on above:Performed By: #### CBCTavia, CMP #### [facility] ([id number]) [address] [place], [place] [address]CET (Bld) [#/Vol]6.5 10*3/uLNormal4.0-11.0ProSt. John Of God Hospitalca [place] HospitalComment on above:Performed By: #### CBCTavia, CMP #### [facility] ([id number]) [address] [place], [place] [address]HHWNHDSGULSUA METABOLIC PANELon 69-26-3915Qpgrswq [Mass/Vol]3.4 g/dLNormal3.2-5.3[facility] [place] HospitalComment on above:Performed By: #### VELVET, CMP #### [facility] ([id number]) [address] [place], [place] [address]ROF [Catalytic activity/Vol]97 U/CVwimtb86-301YmuBikoik [place] HospitalComment on above:Performed By: #### CBCTavia, CMP #### [facility] ([id number]) [address] [place], [place] [address]QUR [Catalytic activity/Vol]25 U/LNormal0-40[facility] [place] HospitalComment on above:Performed By: #### CBCA, CMP #### [facility] ([id number]) [address] [place], [place] [address]Edbbl gap [Moles/Vol]7 mmol/LNormal5-15ProSt. John Of God Hospitalca [place] [facility] Comment on above:Performed By: #### CBCA, CMP #### [facility] ([id number]) [address] [place], [place] [address]ZRV [Catalytic activity/Vol]25 U/LNormal0-41ProGlenbeigh HospitalComment on above:Performed By: #### CBCA, CMP #### [facility] ([id number]) [address] [place], [place] [address]Rzubukerx [Mass/Vol]0.7 mg/dLNormal0.3-1.2PTriHealth McCullough-Hyde Memorial HospitalComment on above:Performed By: #### CBCA, CMP #### [facility] ([id number]) [address] [place], [place] [address]Yacgtfg [Mass/Vol]8.2 mg/dLLow8.5-10.5PTriHealth [facility] Comment on above:Performed By: #### CBCA, CMP #### [facility] ([id number]) [address] [place], [place] [address]Nyedoqkm [Moles/Vol]107 mmol/RSdrlno89-167KhqVlkilm [place] HospitalComment on above:Performed By: #### CBCA, CMP #### [facility] ([id number]) [address] [place], [place] [address]BY6 [Moles/Vol]27 mmol/CAeicys21-75DtkNemabjTriHealth [facility] Comment on above:Performed By: #### CBCA, CMP #### [facility] ([id number]) [address] [place], [place] [address]Blzqvwospz [Mass/Vol]0.70 mg/dLNormal0.60-1.30ProGlenbeigh HospitalComment on above:Result Comment: METHOD TRACEABLE TO IDMS STANDARD Performed By: #### CBCA, CMP #### [facility] ([id number]) [address] [place], [place] [address]yZSR (CKD-EPI) NON-RACE DEPENDENT>90Normal>59ProGlenbeigh HospitalComment on above:Result Comment: Reported eGFR is based on the CKD-EPI 2020 equation that does not use a race coefficient.Performed By: #### VELVET, CMP #### [facility] ([id number]) [address] [address] [place], [place] [address]Vtsayzb [Mass/Vol]69 mg/eBFygiik24-89LscLwewtz [facility] Comment on above:Performed By: #### VELVET, CMP #### [facility] ([id number]) [address] [address]Zgqlkirnk [Moles/Vol]3.9 mmol/LNormal3.5-5.0ProGlenbeigh HospitalComment on above:Performed By: #### VELVET, CMP #### [facility] ([id number]) [address] [address]Dkypdni [Mass/Vol]5.8 g/dLLow6.0-8.0[facility] Comment on above:Performed By: #### VELVET, CMP #### [facility] ([id number]) [address] [address] [place], [place] [address]Bvwsth [Moles/Vol]141 mmol/STwahwp353-195XvySlricu [place] HospitalComment on above:Performed By: #### CBCTavia, CMP #### [facility] ([id number]) [address] [address] [place], [place] [address]Enua nitrogen [Mass/Vol]11 mg/dLNormal5-27ProGlenbeigh HospitalComment on above:Performed By: #### CBCA, CMP #### [facility] ([id number]) [address] [address] [place], [place] [address]YS ABDOM COMP SERIES W PA CHESTon 88-59-8789TR ABDOM COMP SERIES W PA CHESTXR ABDOM COMP SERIES W PA CHEST ABDOMEN RADIOGRAPH 02/18/2024 8:02 AM CLINICAL INDICATION: Abdominal distention, evaluate for obstruction. TECHNIQUE: Multiple abdominal radiographs obtained. Total 5 abdominal radiographs and PA chest. COMPARISON: No comparable prior. FINDINGS: Lungs: Chest radiograph shows normal cardiomediastinal silhouette. No hilar vascular congestion. Linear opacities at left lung base, likely atelectasis. Bilaterally no large effusion or pneumothorax.No focal infiltrates identified. Bowel: Air-filled bowel loops [...] within the distal colon. Single left mid abdomensmall bowel loop containing small amount of air, but no air-fluid levels. No free air. No pneumatosis intestinalis. Bones / soft tissue: No acute bony abnormalities. Degenerative changes involving the hip joints andthe lower lumbar spine. IMPRESSION: 1. No evident free air or definite obstruction. There are mildly prominent air- filled bowel loops in the epigastric region which appear to be transverse colon, although significantly decreased degreeof distention since 02/17/2024. Finalized by New Vela MD on 02/18/2024 8:56 AMNormalProMedina Hospital AND AUTO DIFFon 92-46-3646DPEGKKQJ BASOPHIL0.1 X10E9/LNormal0.0-0.2 [facility] HospitalComment on above:Performed By: #### CBCA, CMP, 3040-3 #### [facility] ([id number]) [address] [place], [place] [address]AGMSCAUK NEUTROPHIL6.2 X10E9/LNormal1.5-6.6Mar[facility] HospitalComment on above:Performed By: #### CBCA, CMP, 3040-3 #### [facility] ([id number]) [address] [place] [address]Pbrhmeyob/100 WBC (Bld)0.5 %NormalMarion Hospital Comment on above:Performed By: #### CBCA, CMP, 0-3 #### [facility] ([id number]) [address] [place], [place] [address]Ohfkbczoecc (Bld) [#/Vol]0.1 10*3/uLNormal0.0-0.4ProSt. John Of God Hospitalca [place] HospitalComment on above:Performed By: #### CBCA, CMP, 3039-3 #### [facility] ([id number]) [address] [place], [place] [address]Udztomfrmkc/100 WBC (Bld)1.2 %NormalMarion Hospital Comment on above:Performed By: #### CBCA, CMP, 3039-3 #### [facility] ([id number]) [address] [place], [place] [address]Mdyslkcwdxr distribution width (RBC) [Ratio]14.1 %Normal 11.5-15.0ProMccullough-[facility] HospitalComment on above:Performed By: #### CBCA, CMP, 3039-3 #### [facility] ([id number]) [address] [address] [place], [place] [address]Yzbwujadkw (Bld) [Volume fraction]46.1 %Cmucxy43-33XvuKiflkb [place] HospitalComment on above:Performed By: #### CBCA, CMP, 3039-3 #### [facility] ([id number]) [address] [place], [place] [address]Madzjacrzv (Bld) [Mass/Vol]15.8 g/uAPxwvsv21.0-17.0ProM[facility]ull[facility] HospitalComment on above:Performed By: #### CBCA, CMP, 0-3 #### [facility] ([id number]) [address] [place], [place] [address]Qjvbppvtuyn (Bld) [#/Vol]2.7 10*3/uLNormal1.0-3.5[facility] HospitalComment on above:Performed By: #### CBCA, CMP, 3040-3 #### [facility] ([id number]) [address] [place], [place] [address]Kbmagbubmjf/100 WBC (Bld)26.4 %NormalProMccullough-Hyde Memorial Hospital Hospital Comment on above:Performed By: #### CBCA, CMP, 0-3 #### [facility] ([id number]) [address] [place], [place] [address]IZJ (RBC) [Entitic mass]33.0 pmHacdwl36-52XgxVyqbai [place] HospitalComment on above:Performed By: #### CBCA, CMP, 3039-3 #### [facility] ([id number]) [address] [place], [place] [address]SYRQ (RBC) [Mass/Vol]34.2 g/fWJoovjs93-61WzeFtiglw [place] HospitalComment on above:Performed By: #### CBCA, CMP, 3040-3 #### [facility] ([id number]) [address] [place], [place] [address]MVY (RBC) [Entitic vol]97 bOJwumtl01-150BdnFxiuui [place] HospitalComment on above:Performed By: #### CBCA, CMP, 0-3 #### [facility] ([id number]) [address] [place], [place] [address]Ampybfbam (Bld) [#/Vol]1.2 10*3/uLHigh0-0.9ProSt. John Of God Hospitalca [place] HospitalComment on above:Performed By: #### CBCA, CMP, 0-3 #### [facility] ([id number]) [address] [place], [place] [address]Vkqweqcdl/100 WBC (Bld)11.5 %NormalMarion Hospital Comment on above:Performed By: #### CBCA, CMP, 0-3 #### [facility] ([id number]) [address] [place], [place] [address]Catxbwfyhkg/100 WBC (Bld)60.4 %NormalMarion Hospital Comment on above:Performed By: #### CBCA, CMP, 0-3 #### [facility] ([id number]) [address] [place], [place] [address]Hvhzlyas mean volume (Bld) [Entitic vol]9.1 fLNormal7-12 [facility] HospitalComment on above:Performed By: #### CBCA, CMP, 3039-3 #### [facility] ([id number]) [address] [place], [place] [address]Wpgglcyip (Bld) [#/Vol]194 10*3/sBYcakju349-639FtjEvknqo [place] HospitalComment on above:Performed By: #### CBCA, CMP, 0-3 #### [facility] ([id number]) [address] [place], [place] [address]VZK COUNT4.78 X10E12/LNormal4.10-5.70[facility] Comment on above:Performed By: #### CBCA, CMP, 0-3 #### [facility] ([id number]) [address] [place], [place] [address]JQM (Bld) [#/Vol]10.3 10*3/uLNormal4.0-11.0ProGlenbeigh HospitalComment on above:Performed By: #### CBCA, CMP, 0-3 #### [facility] ([id number]) [address] [place], [place] [address]HKSUAPDZCOXOW METABOLIC PANELon 31-01-4098Yawthwc [Mass/Vol]4.2 g/dLNormal3.2-5.3ProMedMain [facility] Center HospitalComment on above:Performed By: #### VELVET CMP, 3040-3 #### [facility] ([id number]) [address] [place], [place] [address]LQH [Catalytic activity/Vol]101 U/SHzxodw61-851NooJssbqd [place] HospitalComment on above:Performed By: #### VELVET CMP, 3040-3 #### [facility] ([id number]) [address] [place], [place] [address]NUF [Catalytic activity/Vol]27 U/LNormal0-40[facility] HospitalComment on above:Performed By: #### VELVET CMP, 0-3 #### [facility] ([id number]) [address] [place], [place] [address]Llatt gap [Moles/Vol]9 mmol/LNormal5-15ProM[facility] Hospital Comment on above:Performed By: #### VELVET CMP, 3040-3 #### [facility] ([id number]) [address] [place], [place] [address]QLD [Catalytic activity/Vol]45 U/LHigh0-41[facility] [place] HospitalComment on above:Performed By: #### VELVET, CMP, 3040-3 #### [facility] ([id number]) [address] [place], [place] [address]Lpnengiyk [Mass/Vol]0.7 mg/dLNormal0.3-1.2ProMedMain [facility] HospitalComment on above:Performed By: #### VELVET CMP, 3040-3 #### [facility] ([id number]) [address] [place], [place] [address]Mamnvai [Mass/Vol]8.2 mg/dLLow8.5-10.5PTriHealth [facility]ull[facility] Comment on above:Performed By: #### ZANE VERDIN, 3040-3 #### [facility] ([id number]) [address] [place], [place] [address]Mxtsoabi [Moles/Vol]107 mmol/GEwqrae84-148JdoSqqeft [place] HospitalComment on above:Performed By: #### ZANE VERDIN, 0-3 #### [facility] ([id number]) [address] [place], [place] [address]EN3 [Moles/Vol]25 mmol/SIizdee46-11ExpTfxaelTriHealth [facility] Comment on above:Performed By: #### ZANE VERDIN, 3039-3 #### [facility] ([id number]) [address] [place], [place] [address]Tazxfmrray [Mass/Vol]0.79 mg/dLNormal0.60-1.30ProGlenbeigh HospitalComment on above:Result Comment: METHOD TRACEABLE TO IDMS STANDARD Performed By: #### ZANE VERDIN, 3040-3 #### [facility] ([id number]) [address] [place], [place] [address]bFNV (CKD-EPI) NON-RACE DEPENDENT>90Normal>59ProGlenbeigh HospitalComment on above:Result Comment: Reported eGFR is based on the CKD-EPI 2021 equation that does not use a race coefficient.Performed By: #### ZANE VERDIN, 3040-3 #### [facility] ([id number]) [address] [place], [place] [address]Jcfkheb [Mass/Vol]83 mg/wEUkemkp79-73DjxAdhrmiMarion Hospital Comment on above:Performed By: #### ZANE VERDIN, 3040-3 #### [facility] ([id number]) [address] [place], [place] [address]Iykbtdkkh [Moles/Vol]4.0 mmol/LNormal3.5-5.0ProM[facility]ull[facility] HospitalComment on above:Performed By: #### ZANE VERDIN, 3040-3 #### [facility] ([id number]) [address] [place], [place] [address]Mtmyemp [Mass/Vol]6.8 g/dLNormal6.0-8.0ProM[facility] Hospital Comment on above:Performed By: #### ZANE VERDIN, 3040-3 #### [facility] ([id number]) [address] [place], [place] [address]Sqrtuk [Moles/Vol]141 mmol/ZXmnjzc525-133JelWwhezc [place] HospitalComment on above:Performed By: #### ZANE VERDIN, 3040-3 #### [facility] ([id number]) [address] [place], [place] [address]Hiyt nitrogen [Mass/Vol]13 mg/dLNormal5-27ProGlenbeigh HospitalComment on above:Performed By: #### ZANE VERDIN, 3040-3 #### [facility] ([id number]) [address] [place], [place] [address]VW ABDOMEN AND PELVIS WO CONTon 77-13-5393JH ABDOMEN AND PELVIS WO CONTCT ABDOMEN AND PELVIS WO CONT CLINICAL INFORMATION: [...] gastric bypass. Prominent gas-filled large bowel. Cecum measuresup to 12 cm. Transverse colon measures up [...] Dorian Jordan DO on 02/17/2024 12:21 AM I, Portillo Christopher MD have personally reviewed the image(s) and agree with and/or edited the report Finalized by Portillo Christopher MD on 02/17/2024 12:34 AMNormalProMedica Mammoth HospitalLIPASEon 76-77-9868Mzjqij [Catalytic activity/Vol]14 U/HMerzgl90-07 [facility] HospitalComment on above:Performed By: #### CBCA, CMP, 3040-3 #### [facility] ([id number]) [address], [address] [place], [place] [address]FEJ MACROSCOPIC NURon 36-40-5950KPWYWMHXV NURSmallAbnormalNEG [facility] HospitalComment on above:Performed By: #### NUM #### [facility] ([id number]) [address] [place], [place] [address]OAFYY/HGB NURNegativeNormalNEGProSt. John Of God Hospitalca [place] HospitalComment on above:Performed By: #### NUM #### [facility] ([id number]) [address] [place], [place] [address]HUIBFWH NURNegativeNormalNEGProSt. John Of God Hospitalca [place] HospitalComment on above:Performed By: #### NUM #### [facility] ([id number]) [address] [place], [place] [address]POQQIVP NUR15 mg/dLAbnormalNEGProMedica Dunlap Memorial HospitalComment on above:Performed By: #### NUM #### [facility] ([id number]) [address] [place], [place] [address]XCQUNCQCP ESTERASE NURNegativeNormalNEGMarion Hospital Comment on above:Performed By: #### NUM #### [facility] ([id number]) [address] [place], [place] [address]ZBWMYZD NURNegativeNormalNEGProSt. John Of God Hospitalca [place] HospitalComment on above:Performed By: #### NUM #### [facility] ([id number]) [address] [place], [place] [address]LW NUR5.3Bwzhyv8.0-8.5PTriHealth McCullough-Hyde Memorial HospitalComment on above: Performed By: #### NUM #### [facility] ([address] [place] [address]) [address] [place], [place] [address]OUPGTMP NURNegativeNormalNEGProGlenbeigh HospitalComment on above:Performed By: #### NUM #### [facility] ([id number]) [address] [place], [place] [address]HWXNWWKT GRAVITY HECTOR>=1.370Juxiwx6.003-1.035ProGlenbeigh HospitalComment on above:Performed By: #### NUM #### [facility] ([id number]) [address] [place], [place] [address]RAHKMLVFXXFS NUR0.2 eu/dLNormal<1.1PTriHealth [facility]ull[facility] Comment on above:Performed By: #### NUM #### [facility] ([id number]) [address] [place], [place] [address]Hcbja collection deviceon 91-48-1581IF EXTRA URINESER EXTRA URINE ORDER IN PROCESSNormalProSt. John Of God Hospitalca Dunlap Memorial HospitalXR ABDOMEN AP 1 VWon 58-60-8280EA ABDOMEN AP 1 VWXR ABDOMEN AP 1 VW Abdomen: HISTORY: Abdominal [...] by Josué Nielson MD on 02/17/2024 12:50 PMNormalProGlenbeigh HospitalCB AND AUTO DIFFon 18-83-7128AARUSHBN BASOPHIL0.1 X10E9/LNormal0.0-0.2 [facility] HospitalComment on above:Performed By: #### CBCA, CMP #### [facility] ([id number]) [address] [place] [address]PIUDZFIU NEUTROPHIL5.3 X10E9/LNormal1.5-6.6Ohio[facility] Hardin Memorial HospitalComment on above:Performed By: #### CBCA, CMP #### [facility] ([id number]) [address] [place] [address] 10547Hswdlwtqz/100 WBC (Bld)1.0 %[facility] Comment on above:Performed By: #### CBCA, CMP #### [facility] ([id number]) [address] [place] [address] 46755Xlxhkgufgqu (Bld) [#/Vol]0.1 10*3/uLNormal0.0-0.4Ohio[facility] Hardin Memorial HospitalComment on above:Performed By: #### CBCA, CMP #### [facility] ([id number]) [address] [place] [address] 14690Vjblbgwjsfl/100 WBC (Bld)0.8 %[facility] Comment on above:Performed By: #### CBCA, CMP #### [facility] ([id number]) [address] [place] [address] 00948Sfzcslmeduo distribution width (RBC) [Ratio]14.0 %Normal 11.5-15.0Ohio[facility] Hardin Memorial HospitalComment on above:Performed By: #### CBCA, CMP #### [facility] ([id number]) [address] [place] [address] 99786Lwnwgykjdc (Bld) [Volume fraction]45.5 %Ehbnkl05-50BgwCplsvxMemorial Hermann Pearland HospitalComment on above:Performed By: #### CBCA, CMP #### [facility] ([id number]) [address] [place] [address] 14832Vsgairmwrm (Bld) [Mass/Vol]15.7 g/qPEcjhvd84.0-17.0ProMemorial Hermann Pearland HospitalComment on above:Performed By: #### CBCA, CMP #### [facility] ([id number]) [address] [place] [address] 56706Rwwffpmcyqi (Bld) [#/Vol]2.5 10*3/uLNormal1.0-3.5PWood County HospitalComment on above:Performed By: #### CBCA, CMP #### [facility] ([id number]) [address] [place] [address] 10005Bhkqpdtdnlu/100 WBC (Bld)27.8 %NormalProMemorial Hermann Pearland Hospital Comment on above:Performed By: #### CBCA, CMP #### [facility] ([id number]) [address] [place] [address] 16612FOM (RBC) [Entitic mass]33.4 hgEkucut84-98LndGhtopkMemorial Hermann Pearland HospitalComment on above:Performed By: #### CBCA, CMP #### [facility] ([id number]) [address] [place] [address] 73846CIIM (RBC) [Mass/Vol]34.4 g/yVJqhraw98-99CwoCssyfsMemorial Hermann Pearland HospitalComment on above:Performed By: #### CBCA, CMP #### [facility] ([id number]) [address] [place] [address] 84955ESS (RBC) [Entitic vol]97 eKHexjcl05-760GyjEkwkkmOhioHealth Hardin Memorial HospitalComment on above:Performed By: #### CBCA, CMP #### [facility] ([id number]) [address] [place] [address] 65418Pmwwahijr (Bld) [#/Vol]1.0 10*3/uLHigh0-0.9Ohio[facility] Hardin Memorial HospitalComment on above:Performed By: #### CBCA, CMP #### [facility] ([id number]) [address] [place] [address] 17290Ejblcrqec/100 WBC (Bld)10.7 %[facility] Comment on above:Performed By: #### CBCA, CMP #### [facility] ([id number]) [address] [place] [address] 43532Krmftfplaro/100 WBC (Bld)59.7 %[facility] Comment on above:Performed By: #### CBCA, CMP #### [facility] ([id number]) [address] [place] [address] 609[address]Yckkyycz mean volume (Bld) [Entitic vol]10.0 fLNormal7-12 [facility] HospitalComment on above:Performed By: #### CBCA, CMP #### [facility] ([id number]) [address] [place] [address] 747[address]Gisnylzto (Bld) [#/Vol]232 10*3/fFXndxop541-628KzzMpuuri Fremont HospitalComment on above:Performed By: #### CBCA, CMP #### [facility] ([id number]) [address] [place] [address], [place] [address]QSB COUNT4.69 X10E12/LNormal4.10-5.70[facility] Comment on above:Performed By: #### VELVET, CMP #### [facility] ([id number]) [address] [place] [address] 21706OTQ (Bld) [#/Vol]8.9 10*3/uLNormal4.0-11.0ProMemorial Hermann Pearland HospitalComment on above:Performed By: #### VELVET, CMP #### [facility] ([id number]) [address] [place] [address] 12221XDNPKEJXDPWNB METABOLIC PANELon 78-29-7395Fnnvoey [Mass/Vol]4.3 g/dLNormal3.2-5.3PWood County HospitalComment on above:Performed By: #### VELVET, CMP #### [facility] ([id number]) [address] [place] [address], [place] [address]TRR [Catalytic activity/Vol]104 U/KLkulgj65-873ZpyBsizvgMemorial Hermann Pearland HospitalComment on above:Performed By: #### VELVET, CMP #### [facility] ([id number]) [address] [place] [address], [place] [address]OBQ [Catalytic activity/Vol]29 U/LNormal0-40ProMemorial Hermann Pearland HospitalComment on above:Performed By: #### VELVET, CMP #### [facility] ([id number]) [address] [place] [address], [place] [address]Bcfni gap [Moles/Vol]6 mmol/LNormal5-15ProMemorial Hermann Pearland HospitalComment on above:Performed By: #### VELVET, CMP #### [facility] ([id number]) [address] [place] [address], [place] [address]JOK [Catalytic activity/Vol]31 U/LNormal0-41ProMemorial Hermann Pearland HospitalComment on above:Performed By: #### VELVET, CMP #### [facility] ([id number]) [address] [place] [address], [place] [address]Hkuxkrsev [Mass/Vol]1.0 mg/dLNormal0.3-1.2PWood County HospitalComment on above:Performed By: #### VELVET, CMP #### [facility] ([id number]) [address] [place] [address], [place] [address]Hgbsefz [Mass/Vol]8.4 mg/dLLow8.5-10.5PWood County HospitalComment on above:Performed By: #### VELVET, CMP #### [facility] ([id number]) [address] [place] [address], [place] [address]Tvxwsbpe [Moles/Vol]105 mmol/QOlcvnq86-576HziHaisuhMemorial Hermann Pearland HospitalComment on above:Performed By: #### VELVET, CMP #### [facility] ([id number]) [address] [place] [address], [place] [address]NL5 [Moles/Vol]23 mmol/XGfwoph17-16YdfEzxoshWood County Hospital Comment on above:Performed By: #### VELVET, CMP #### [facility] ([id number]) [address] [place] [address], [place] [address]Dhygjnqiql [Mass/Vol]0.98 mg/dLNormal0.70-1.20ProMemorial Hermann Pearland HospitalComment on above:Result Comment: METHOD TRACEABLE TO IDMS STANDARD Performed By: #### VELVET, CMP #### [facility] ([id number]) [address] [place] [address]PRA/1.73 sq M.predicted among non-blacks MDRD (S/P/Bld) [Vol rate/Area]86 mL/min/{1.73_m2}Normal>59ProMemorial Hermann Pearland HospitalComment on above:Result Comment: Reported eGFR is based on the CKD-EPI 2020 equation that does not use a race coefficient.Performed By: #### VELVET, CMP #### [facility] ([id number]) [address] [place] [address], [place] [address]Njvggrh [Mass/Vol]99 mg/yUCjcype99-68ItyUebjaeOhioHealth Hardin Memorial Hospital Comment on above:Performed By: #### VELVET, CMP #### [facility] ([id number]) [address] [place] [address]Fyafybysn [Moles/Vol]3.5 mmol/LNormal3.5-5.0ProMemorial Hermann Pearland HospitalComment on above:Performed By: #### VELVET, CMP #### [facility] ([id number]) [address] [place] [address] 355[address]Xvbtbak [Mass/Vol]7.5 g/dLNormal6.0-8.0ProMemorial Hermann Pearland HospitalComment on above:Performed By: #### VELVET, CMP #### [facility] ([id number]) [address] [place] [address] 21385Qgbzgb [Moles/Vol]134 mmol/AXcazds688-271SaaEuuwcx Fremont HospitalComment on above:Performed By: #### VELVET, CMP #### [facility] ([id number]) [address] [place] [address] 723[address]Houv nitrogen [Mass/Vol]15 mg/dLNormal5-27ProMemorial Hermann Pearland HospitalComment on above:Performed By: #### VELVET, CMP #### [facility] ([id number]) [address] [place] [address]NDWCOLEMAN Viera 65-76-0015NEIHMEYVC NURSmallAbnormalNEG ProMCoast Plaza HospitalComment on above:Performed By: #### NUM #### [facility] ([id number]) [address] [place] [address], [place] [address]WTFBS/HGB NURNegativeNormalNEGProMedica Mammoth HospitalComment on above:Performed By: #### NUM #### [facility] ([id number]) [address] [place] [address], [place] [address]FIXNSCJ NURNegativeNormalNEGProMedica Mammoth HospitalComment on above:Performed By: #### NUM #### [facility] ([id number]) [address] [place] [address], [place] [address]QVXLXKX NURTraceAbnormalNEGProMedica Mammoth HospitalComment on above:Performed By: #### NUM #### [facility] ([id number]) [address] [place] [address], [place] [address]OAHXVTECM ESTERASE NURNegativeNormalNEGProMemorial Hermann Pearland HospitalComment on above:Performed By: #### NUM #### [facility] ([id number]) [address] [place] [address], [place] [address]JPSQTZO NURNegativeNormalNEGProMemorial Hermann Pearland HospitalComment on above:Performed By: #### NUM #### [facility] ([id number]) [address] [place] [address], [place] [address]NY NUR5.5Ianpyk0.0-8.5ProMedica Mammoth HospitalComment on above:Performed By: #### NUM #### [facility] ([id number]) [address] [place] [address], [place] [address]QQGDJMF NURNegativeNormalNEGProMedica Mammoth HospitalComment on above:Performed By: #### NUM #### [facility] ([id number]) [address] [place] [address], [place] [address]OBEYOFCK GRAVITY HECTOR>=1.029Ntzzep8.003-1.035ProMedica Mammoth HospitalComment on above:Performed By: #### NUM #### [facility] ([id number]) [address] [facility], [place], [place] [address]SFQZXNRKXHNV NUR0.2 eu/dLNormal<1.1ProMedAdventist Health [facility] Comment on above:Performed By: #### NUM #### [facility] ([id number]) [address] [facility], [place], [place] [address]CJH BLD IMMUNO SCREENon 82-08-8610WJBVMB BLOODNegativeNormal NEGATIVEThe [facility] Hospital LimaComment on above:Performed By: #### CRP #### [facility] [address] [place] [address] Dr. Malika De Los SantosINSULINon 08-56-4440Fwpzloe63.5 uIU/mLNormal2.6-24.9The [facility] Hospital LimaComment on above:Performed By: #### CRP #### [facility] [address] [place] [address] Dr. Malika Cardona AUTO DIFFon 54-66-4074LVDM #0.0 103/ulNormal0.0-0.1[facility] Community HospitalComment on above:Performed By: #### CRP #### [facility] [address] [place] [address] Dr. Malika De Los SantosBasophils/100 WBC (Bld)0.3 %Normal0.2-2.0[facility] Comment on above:Performed By: #### CRP #### [facility] [address] [place] [address] Dr. Malika Aragon #0.1 103/ulNormal0.0-0.7The [facility] Hospital LimaComment on above: Performed By: #### CRP #### [facility] [address] [place] [address] Dr. Malika Alegriaosinophils/100 WBC (Bld)2.0 %Normal0.9-7.0The [facility] Comment on above:Performed By: #### CRP #### [facility] [address] [place] [address] Dr. Malika Alegriarythrocyte distribution width (RBC) [Ratio]13.2 %Ifqexv39.0-15.0 The [facility] Arthur HospitalComment on above:Performed By: #### CRP #### [facility] [address] [place] [address] Dr. Malika De Los SantosHematocrit (Bld) [Volume fraction]44.8 %Dxjxix79.0-54.0The [facility] Hospital LimaComment on above:Performed By: #### CRP #### [facility] [address] [place] [address] Dr. Malika De Los SantosHemoglobin (Bld) [Mass/Vol]15.1 g/fJIdufwl29.0-18.0The [facility] Hospital LimaComment on above:Performed By: #### CRP #### [facility] [address] [place] [address] Dr. Malika Chan #0.01 10e3/ulNormal0.00-0.03The [facility] Hospital LimaComment on above:Performed By: #### CRP #### [facility] [address] [place] [address] Dr. Malika Chan %0.2 %Normal0.0-0.5The [facility] Hospital LimaComment on above: Performed By: #### CRP #### [facility] [address] [place] [address] Dr. Malika Medellin #2.2 103/ulNormal1.2-3.8The [facility] Hospital LimaComment on above:Performed By: #### CRP #### [facility] [address] [place] [address] Dr. Malika Giraldomphocytes/100 WBC (Bld)36.9 %Tkptmh20.5-60.0The [facility] Hospital LimaComment on above:Performed By: #### CRP #### [facility] [address] [place] [address] Dr. Malika MarinelliUAL DIFF REQNONormalThe [facility] Hospital LimaComment on above: Performed By: #### CRP #### [facility] [address] [place] [address] Dr. Malika Zavala (RBC) [Entitic mass]33.6 kaWlbhyb19.9-34.0The [facility] Hospital LimaComment on above:Performed By: #### CRP #### [facility] [address] [place] [address] Dr. Malika Duarte (RBC) [Mass/Vol]33.7 g/fGZoitgv45.9-35.2The [facility] LimaComment on above:Performed By: #### CRP #### [facility] [address] [place] [address] Dr. Malika Mark (RBC) [Entitic vol]99.6 fLCritically high80.0-94.0The [facility] Hospital LimaComment on above:Performed By: #### CRP #### [facility] [address] [place] [address] Dr. Malika Stovall #0.6 103/ulNormal0.3-0.8The [facility] Hospital LimaComment on above:Performed By: #### CRP #### [facility] [address] [place] [address] Dr. Malika Barajasocytes/100 WBC (Bld)10.3 %Normal1.7-12.0The [facility] Comment on above:Performed By: #### CRP #### [facility] [address] [place] [address] Dr. Malika Arenas #3.0 103/ulNormal1.4-6.5The [facility] Hospital LimaComment on above:Performed By: #### CRP #### [facility] [address] [place] [address] Dr. Malika Fischerutrophils/100 WBC (Bld)50.3 %Jqhpub79.0-75.0The [facility] Hospital LimaComment on above:Performed By: #### CRP #### [facility] [address] [place] [address] Dr. Malika Fosterlet mean volume (Bld) [Entitic vol]11.5 fLNormal9.5-13.5The [facility] Hospital LimaComment on above:Performed By: #### CRP #### [facility] [address] [address] [address] Malika De Los SantosPLT226 103/ecDkmktq692-820Afk [facility] LimaComment on above: Performed By: #### CRP #### [facility] [address] [address] [address] Malika De Los SantosRBC4.50 106/ulCritically low4.70-6.10The [facility] Hospital LimaComment on above:Performed By: #### CRP #### [facility] [address] [address] [address] Malika De Los SantosWBC5.9 103/ulNormal4.0-11.0The [facility] on above: Performed By: #### CRP #### [facility] [address] [place] [address] Dr. Malika De Los SantosFERRITINon 11-32-2769Evoqxvuv [Mass/Vol]199.0 ng/mLNormal 26.0-388.0The [facility] Hospital LimaComment on above:Performed By: #### B12FOL, FETIBC, FERR, VITAD #### [facility] [address] [place] [address] Dr. Malika De Los SantosGLYCOHEMOGLOBIN A1Con 35-31-9205IVV RECOMMENDATIONSEE BELOWNormal The [facility] Hospital LimaComselect specialty hospital on above:Result Comment: ADA RECOMMENDED LIMIT 4.0 - 6.0 ADA THERAPEUTIC TARGET < 7.0 ACTION SUGGESTED > 7.0Performed By: #### CRP #### [facility] [address] [place] [address] Dr. Malika De Los SantosGlucose [Mass/Vol]97 mg/dLNormalThe [facility] LimaComselect specialty hospital on above:Performed By: #### CRP #### [facility] [address] [address] [address] Malika De Los SantosHbA1c (Bld) [Mass fraction]5.0 %Normal4.5-6.2The [facility] Hospital LimaComment on above:Performed By: #### CRP #### [facility] [address] [place] [address] Dr. Malika Fam AND TIBCon 04-15-2022% KFCHXHJUGY18.0 %NormalPromedica Fostoria Community HospitalComment on above:Performed By: #### B12FOL, FETIBC, FERR, VITAD #### [facility] [address] [place] [address] Dr. Malika Fam [Mass/Vol]131.0 ug/yFFxkkcd10.0-175.0[facility] Comment on above:Performed By: #### B12FOL, FETIBC, FERR, VITAD #### [facility] [address] [place] [address] Dr. Malika Vides KJMAHN423.0 ug/sABwjqmf256.0-450.0[facility] Comment on above:Performed By: #### B12FOL, FETIBC, FERR, VITAD #### [facility] [address] [place] [address] Dr. Malika De Los SantosLIPID PROFILEon 07-98-9767PBLK-HDL RATIO NORMSKeenan Private HospitalComment on above:Result Comment: 3.3 - 4.4 LOW RISK 4.4 - 7.1 AVERAGE RISK 7.1 - 11.0 MODERATE RISK >11.0 HIGH RISKPerformed By: #### CRP #### [facility] [address] [place] [address] Dr. Malika Ortizesterol [Mass/Vol]196 mg/dLNormal<=200[facility] Comment on above:Performed By: #### CRP #### [facility] [address] [place] [address] Dr. Malika Ortizesterol in HDL [Mass/Vol]67 mg/dLCritically xjpk06-71DbmPromedica Fostoria Community HospitalComment on above:Performed By: #### CRP #### [facility] [address] [place] [address] Dr. Malika Ortizesterol in LDL [Mass/Vol]110.2 mg/dLOhioHealth Mansfield HospitalComment on above:Performed By: #### CRP #### [facility] [address] [place] [address] Dr. Yilan ChangCholesterol.total/Cholesterol in HDL [Mass ratio]2.9 {ratio} NormalPromedica Fostoria Community HospitalComment on above:Performed By: #### CRP #### [facility] [address] [address] [address] Malika Campbell NORMAL> or = 60 mg/dl - LOW CARDIOVASCULAR RISK <40 mg/dl - HIGH CARDIOVASCULAR RISKOhioHealth Mansfield HospitalComment on above:Performed By: #### CRP #### [facility] [address] [address] [address] Malika De Los SantosLDL CALC NORMALSEE BELOWOhioHealth Mansfield HospitalComment on above:Result Comment: <100 mg/dl OPTIMAL 100 - 129 mg/dl NEAR OR ABOVE OPTIMAL 130 - 159 mg/dl BORDERLINE HIGH 160 - 189 mg/dl HIGH >190 mg/dl VERY HIGH Performed By: #### CRP #### [facility] [address] [place] [address] Dr. Malika De Los SantosTriglyceride [Mass/Vol]94 mg/dLNormal<=150[facility] Comment on above:Performed By: #### CRP #### [facility] [address] [address] [address] Malika De Los SantosVLDL CALC18.8 mg/dLNoMercy Health Perrysburg HospitalComment on above: Performed By: #### CRP #### [facility] [address] [place] [address] Dr. Malika De Los SantosMAGNESIUMon 37-09-5086Qwtpcrjky [Mass/Vol]2.3 mg/dLNormal1.8-2.4 The [facility] Hospital LimaComment on above:Performed By: #### HIV12 #### [facility] [address] [place] [address] Dr. Malika De Los SantosPHOSPHORUSon 72-08-2024Ipdfipuqm [Mass/Vol]3.0 mg/dLNormal2.6-4.7 [facility] HospitalComment on above:Performed By: #### CRP #### [facility] [address] [place] [address] Dr. Malika De Los SantosPROF 14(COMP METB)on 35-78-5005Olfroxs [Mass/Vol]3.6 g/dLNormal 3.4-5.0The [facility] LimaComment on above:Performed By: #### CRP #### [facility] [address] [place] [address] Dr. Malika De Los SantosAlbumin/Globulin [Mass ratio]1.1 {ratio}NormalThe [facility] Hospital LimaComment on above:Performed By: #### CRP #### [facility] [address] [address] [address] Malika TidwellP [Catalytic activity/Vol]119 U/LCritically ebjz48-067Ldh [facility] LimaComment on above:Performed By: #### CRP #### [facility] [address] [place] [address] Dr. Malika Landeros [Catalytic activity/Vol]29 U/HVyorup75-94Uor [facility] LimaComment on above:Performed By: #### CRP #### [facility] [address] [place] [address] Dr. Malika Ramoson gap [Moles/Vol]8.1 mmol/LNormalThe [facility] LimaComment on above:Performed By: #### CRP #### [facility] [address] [place] [address] Dr. Malika De Los SantosAST [Catalytic activity/Vol]19 U/ODgndpk32-34Vgq [facility] LimaComment on above:Performed By: #### CRP #### [facility] [address] [place] [address] Dr. Malika De Los SantosBilirubin [Mass/Vol]0.7 mg/dLNormal0.2-1.0The [facility] Comment on above:Performed By: #### CRP #### [facility] [address] [place] [address] Dr. Malika De Los SantosCalcium [Mass/Vol]8.5 mg/dLNormal8.5-10.1The [facility] Comment on above:Performed By: #### CRP #### [facility] [address] [place] [address] Dr. Malika De Los SantosChloride [Moles/Vol]104 mmol/OUjqbfm41-900Ndd [facility] Comment on above:Performed By: #### CRP #### [facility] [address] [place] [address] Dr. Malika De Los SantosCO2 [Moles/Vol]32.2 mmol/LCritically high21.0-32.0[facility] HospitalComment on above:Performed By: #### CRP #### [facility] [address] [place] [address] Dr. Malika De Los SantosCreatinine [Mass/Vol]0.82 mg/dLNormal0.70-1.30The [facility] LimaComment on above:Performed By: #### CRP #### [facility] [address] [place] [address] Dr. Malika AlegriaGFR-AF [place]>60Normal>=60The [facility] Hospital LimaComment on above:Performed By: #### CRP #### [facility] [address] [place] [address] Dr. Malika AlegriaGFR-NON AF [place]>60Normal>=60The [facility] LimaComment on above:Performed By: #### CRP #### [facility] [address] [place] [address] Dr. Malika De Los SantosGlobulin (S) [Mass/Vol]3.4 g/dLNormalThe [facility] Hospital LimaComment on above:Performed By: #### CRP #### [facility] [address] [place] [address] Dr. Malika De Los SantosGlucose [Mass/Vol]94 mg/uLMvzrsz01-190Mlg [facility] Comment on above:Performed By: #### CRP #### [facility] [address] [address] [address] Malika De Los SantosPotassium [Moles/Vol]4.3 mmol/LNormal3.5-5.1The [facility] Comment on above:Performed By: #### CRP #### [facility] [address] [place] [address] Dr. Malika De Los SantosProtein [Mass/Vol]7.0 g/dLNormal6.4-8.2The [facility] Comment on above:Performed By: #### CRP #### [facility] [address] [place] [address] Dr. Malika De Los SantosSodium [Moles/Vol]140 mmol/[id number] [facility] Comment on above:Performed By: #### CRP #### [facility] [address] [place] [address] Dr. Malika De Los SantosUrea nitrogen [Mass/Vol]11.0 mg/dLNormal7.0-18.0[facility]:Performed By: #### CRP #### [facility] [address] [place] [address] Dr. Malika De Los SantosUrea nitrogen/Creatinine [Mass ratio]13.4 mg/mgNormalThe [facility]imaComment on above:Performed By: #### CRP #### [facility] [address] [place] [address] Dr. Malika De Los SantosURIC ACID SERUMon [id number] [Mass/Vol]5.9 mg/dLNormal 3.5-7.2The [facility] Hospital LimaComment on above:Performed By: #### CRP #### [facility] [address] [place] [address] Dr. Malika Kan B12 AND FOLATEon 67-99-9200Vxxasqpsv (Vitamin B12) [Mass/Vol] 380.0 pg/gDOknete444.0-986.0The [facility] Hospital LimaComment on above:Performed By: #### B12FOL, FETIBC, FERR, VITAD #### [facility] [address] [place] [address] Dr. Malika De Los SantosFOLATE13.90 ng/mLNormal8.60-58.90The [facility] LimaComment on above:Performed By: #### B12FOL, FETIBC, FERR, VITAD #### [facility] [address] [place] [address] Dr. Malika De Los SantosVITAMIN D 25 OHon 66-33-6031XTV D 25-OH33.9 ng/mLNormalThe [facility] Hospital LimaComment on above:Performed By: #### B12FOL, FETIBC, FERR, VITAD #### [facility] [address] [place] [address] Dr. Malika KIRKLAND [facility] on above: Result Comment: <20 ng/mL Vit D deficient 20 - <30 ng/mL Vit D insufficient 30 - 100 ng/mL Vit D sufficient >100 ng/mL Potential ToxicityPerformed By: #### B12FOL, FETIBC, FERR, VITAD #### [facility] [address] [place] [address] Dr. Malika Hills TB GOLD PLUS (NON-INC)on 18-71-9335XigmkucBhjlvuppdp performed.NormalGood [facility]aritan [facility] on above:Performed By: #### QNTTBG #### [facility] [address] [place] [address] Dr. Malika MotaComCleveland Clinic Medina HospitalComment on above:Result Comment: The QuantiFERON-TB Gold Plus result is determined by subtracting the Nil value from either TB antigen (Ag) tube. The mitogen tube serves as a control for the test.Performed By: #### QNTTBG #### [facility] [address] [place] [address] Dr. Malika Martellogen Value>10.00[facility] on above: Performed By: #### QNTTBG #### [facility] [address] [place] [address] Dr. Malika Clemente Value0.02 IU/mLNMetroHealth Parma Medical Center on above: Performed By: #### QNTTBG #### [facility] [address] [place] [address] Dr. Malika Walleriferon Gold PlusNegativeNormalNegativePromedica Fostoria [facility] Comment on above:Result Comment: Chemiluminescence immunoassay methodology Performed By: #### QNTTBG #### [facility] [address] [place] [address] Dr. Malika Madera Ag Value0.02 IU/mLNormalThe Port Arthur HospitalComment on above:Performed By: #### QNTTBG #### [facility] [address] [place] [address] Dr. Malika Huang2 Ag Value0.02 IU/mLNormalThe [facility] Hospital LimaComment on above:Performed By: #### QNTTBG #### [facility] [address] [place] [address] Dr. Malika De Los SantosHIV 1 AND 2 WITH REFLEXon 85-74-7855AWE Screen 4th Generation wRfxNon-ReactiveNormalNon ReactiveThe [facility] Hospital LimaComment on above: Performed By: #### HIV12 #### [facility] [address] [place] [address] Dr. Malika De Los SantosCRAnibal 69-70-6933JGJ6.1 mg/dLCritically high<=1.0The [facility] LimaComment on above:Performed By: #### CRP #### [facility] [address] [place] [address] Dr. Malika Craft RATE WESTERGRENon 25-65-3232SXD RATE40 mm/hrCritically high <=20The [facility] LimaComselect specialty hospital on above:Performed By: #### CRP #### [facility] [address] [place] [address] Dr. Malika De Los SantosTESTOSTERONE, TOTALon 33-37-8763Ddmmuawlwcud [Mass/Vol]801 ng/dL Wsxbmb724-319Mbe [facility] on above:Result Comment: Adult male reference interval is based on a population of healthy nonobese males (BMI <30) between 19 and 39 years old. Natty et.al. JCEM 2017,102;2325-0633. PMID: [id number].Performed By: #### TESTTOT #### [facility] [address] [place] [address] Dr. Malika De Los SantosCBC AUTO DIFFon 61-03-4485CSVQ #0.0 103/ulNormal0.0-0.1[facility] on above:Performed By: #### CBC #### [facility] [address] [place] [address] Dr. Malika De Los SantosBasophils/100 WBC (Bld)0.3 %Normal0.2-2.0The [facility] Comment on above:Performed By: #### CBC #### [facility] [address] [address] [address] Malika Aragno #0.1 103/ulNormal0.0-0.7The [facility] Hospital LimaComment on above: Performed By: #### CBC #### [facility] [address] [address] [address] Malika Alegriaosinophils/100 WBC (Bld)1.9 %Normal0.9-7.0The [facility] Comment on above:Performed By: #### CBC #### [facility] [address] [place] [address] Dr. Malika Alegriarythrocyte distribution width (RBC) [Ratio]13.5 %Uknqjd96.0-15.0 The [facility] Hospital LimaComment on above:Performed By: #### CBC #### [facility] [address] [place] [address] Dr. Malika De Los SantosHematocrit (Bld) [Volume fraction]44.3 %Fgbdmj33.0-54.0The [facility] Hospital LimaComment on above:Performed By: #### CBC #### [facility] [address] [place] [address] Dr. Malika De Los SantosHemoglobin (Bld) [Mass/Vol]14.9 g/dSVvngkv22.0-18.0The [facility] LimaComment on above:Performed By: #### CBC #### [facility] [address] [place] [address] Dr. Malika Chan #0.01 10e3/ulNormal0.00-0.03The [facility] LimaComment on above:Performed By: #### CBC #### [facility] [address] [place] [address] Dr. Malika Chan %0.1 %Normal0.0-0.5The [facility] Hospital LimaComment on above: Performed By: #### CBC #### [facility] [address] [address] [address] Malika Medellin #2.4 103/ulNormal1.2-3.8The [facility] Hospital LimaComment on above:Performed By: #### CBC #### [facility] [address] [address] [address] Malika Giraldomphocytes/100 WBC (Bld)35.5 %Ltebgo01.5-60.0The [facility] LimaComment on above:Performed By: #### CBC #### [facility] [address] [address] [address] Malika Santana DIFF REQNONormalThe [facility] Hospital LimaComment on above: Performed By: #### CBC #### [facility] [address] [place] [address] Dr. Malika Duarte (RBC) [Entitic mass]32.7 eqHwpfsy34.9-34.0The [facility] Hospital LimaComment on above:Performed By: #### CBC #### [facility] [address] [place] [address] Dr. Malika Duarte (RBC) [Mass/Vol]33.6 g/lTDdydvy48.9-35.2The [facility] Hospital LimaComment on above:Performed By: #### CBC #### [facility] [address] [place] [address] Dr. Malika Duarte (RBC) [Entitic vol]97.1 fLCritically high80.0-94.0The [facility] LimaComment on above:Performed By: #### CBC #### [facility] [address] [place] [address] Dr. Malika Stovall #0.7 103/ulNormal0.3-0.8The [facility] LimaComment on above:Performed By: #### CBC #### [facility] [address] [place] [address] Dr. Malika Barajasocytes/100 WBC (Bld)10.2 %Normal1.7-12.0The [facility] Comment on above:Performed By: #### CBC #### [facility] [address] [address] [address] Malika FischerUT #3.6 103/ulNormal1.4-6.5The Flower Hospitalment on above:Performed By: #### CBC #### [facility] [address] [place] [address] Dr. Malika Fischerutrophils/100 WBC (Bld)52.0 %Jsiirn79.0-75.0The [facility] LimaComment on above:Performed By: #### CBC #### [facility] [address] [place] [address] Dr. Malika De Los SantosPlatelet mean volume (Bld) [Entitic vol]11.8 fLNormal9.5-13.5The [facility] Hospital LimaComment on above:Performed By: #### CBC #### [facility] [address] [place] [address] Dr. Malika De Los SantosPLT224 103/jzNqxinz641-807Vwg [facility] LimaComment on above: Performed By: #### CBC #### [facility] [address] [place] [address] Dr. Malika De Los SantosRBC4.56 106/ulCritically low4.70-6.10The [facility] LimaComment on above:Performed By: #### CBC #### [facility] [address] [place] [address] Dr. Malika De Los SantosWBC6.8 103/ulNormal4.0-11.0The [facility] LimaComment on above: Performed By: #### CBC #### [facility] [address] [place] [address] Dr. Malika De Los SantosPROF 14(COMP METB)on 33-91-0522Nykklyf [Mass/Vol]3.5 g/dLNormal 3.5-5.0The [facility]imaComselect specialty hospital on above:Performed By: #### CRP #### [facility] [address] [place] [address] Dr. Malika De Los SantosAlbumin/Globulin [Mass ratio]1.1 {ratio}NormalThe [facility] Hospital LimaComment on above:Performed By: #### CRP #### [facility] [address] [address] [address] Malika TidwellP [Catalytic activity/Vol]122 U/TZslzxh43-964Lxe [facility] LimaComment on above:Performed By: #### CRP #### [facility] [address] [address] [address] Malika TidwellT [Catalytic activity/Vol]26 U/ZCrcypb01-72Eep [facility] LimaComment on above:Performed By: #### CRP #### [facility] [address] [address] [address] Malika Ramoson gap [Moles/Vol]8.9 mmol/LNormalThe [facility] Hospital LimaComment on above:Performed By: #### CRP #### [facility] [address] [address] [address] Malika De Los SantosAST [Catalytic activity/Vol]18 U/KNubbqx90-95Oww [facility] LimaComment on above:Performed By: #### CRP #### [facility] [address] [address] [address] Malika De Los SantosBilirubin [Mass/Vol]0.8 mg/dLNormal0.2-1.3The [facility] Comment on above:Performed By: #### CRP #### [facility] [address] [address] [address] Malika De Los SantosCalcium [Mass/Vol]8.8 mg/dLNormal8.4-10.2The [facility] Comment on above:Performed By: #### CRP #### [facility] [address] [address] [address] Malika De Los SantosChloride [Moles/Vol]104 mmol/IYqkyiq74-467Luv [facility] Comment on above:Performed By: #### CRP #### [facility] [address] [address] [address] Malika De Los SantosCO2 [Moles/Vol]31.1 mmol/LCritically high22.0-30.0The [facility] LimaComment on above:Performed By: #### CRP #### [facility] [address] [address] [address] Malika De Los SantosCreatinine [Mass/Vol]0.90 mg/dLNormal0.66-1.25The [facility] LimaComment on above:Performed By: #### CRP #### [facility] [address] [address] [address] Malika AlegriaGFR-AF [place]>60Normal>=60The [facility] LimaComment on above:Performed By: #### CRP #### [facility] [address] [address] [address] Malika AlegriaGFR-NON AF [place]>60Normal>=60The [facility] LimaComment on above:Performed By: #### CRP #### [facility] [address] [address] [address] Malika De Los SantosGlobulin (S) [Mass/Vol]3.1 g/dLNormalThe [facility] LimaComment on above:Performed By: #### CRP #### [facility] [address] [place] [address] Dr. Malika De Los SantosGlucose [Mass/Vol]93 mg/bRTzuiaf98-705UfcPromedica Fostoria Community Hospital Comment on above:Performed By: #### CRP #### [facility] [address] [place] [address] Dr. Malika De Los SantosPotassium [Moles/Vol]4.0 mmol/LNormal3.4-5.0[facility] Comment on above:Performed By: #### CRP #### [facility] [address] [place] [address] Dr. Malika De Los SantosProtein [Mass/Vol]6.6 g/dLNormal6.1-8.2[facility] Comment on above:Performed By: #### CRP #### [facility] [address] [place] [address] Dr. Malika De Los SantosSodium [Moles/Vol]140 mmol/NWsctru428-224IwoPromedica Fostoria Community Hospital Comment on above:Performed By: #### CRP #### [facility] [address] [address] [address] Malika Rhodes nitrogen [Mass/Vol]18.0 mg/dLNormal9.0-20.0Prom[facility]ostoria Community HospitalComment on above:Performed By: #### CRP #### [facility] [address] [place] [address] Dr. Malika De Los SantosUrea nitrogen/Creatinine [Mass ratio]20.0 mg/mgNoalThe [facility] Hospital LimaComment on above:Performed By: #### CRP #### [facility] [address] [place] [address] Dr. Malika De Los SantosIntraOperative Documentson 44-60-6456MhrhqKqqtdhdfq Documents [id number]#1.00CD:127[facility] HospitalCoding Summary.on 19-82-3737Glrxtg Summary. CD:430170PM:[id number]+PGhlYWQ+UG1AURSsJ31teUTtiE2HN6hKYX9BWZUHJRPWPB1CFB1um YG1CMvrK8UsjeJi [file] ZT0n (more content not included)...[facility] HospitalCoding Summary.on 38-66-7114Yqfizw Summary. CD:246627CC:[id number]+PGhlYWQ+XM1UQCWtK18uyUSznU2HU7yRZL9BKOYXGCEIYI4YFO7xz ON7SPcyB3VgjySi [file] ZTog (more content not included)...NormalC[facility] for Anesthesiaon 97-67-4500Ripvves for Anesthesia [id number]#1.00CD:127NormalRiverview Health Institutesent for Procedure/Surgeryon 27-12-4622Ohggeur for Procedure/Surgery [id number]#1.00CD:127[facility] Charles HospitalConsent for Procedure/Surgery [id number]#1.00CD:[address] [place], [place] [address]Discharge Instructionson 56-93-6276Uxonbuche Instructions [id number]#1.00CD:127[facility] HospitalIntraOperative Documentson 26-42-2150WcccxEpdacjfjo Documents [id number]#1.00CD:127[facility] Charles HospitalIntraOperative Documents [id number]#1.00CD:[address] [place], [place] [address]Main OR Intraoperative Recordon 37-22-4478Tmbv OR Intraoperative Record IntraOp Document Type FT Summary Primary Physician: Steven AMBRIZ MD Finalized Date/Time: 05/23/21 14:23:39 Pt. Name: JL OSMAN Mesa D.O.B./Sex: 1960 Male Med Rec #: [id number] Physician: Steven AMBRIZ MD Financial #: [id number] Pt. Type: A Room/Bed: [address] [address] Admit/Disch: 05/21/21 15:41:50 - 05/22/21 14:28:00 Institution: [...] Deng DO, Moshe AMBRIZ MD, Steven Freire CELLARS SUPERVISOR, Mary Castellon Role Performed Anesthesiologist of Surgeon [...] Kaitlyn Almeida RT(R), Sandra Davidson Role Performed Consultant Teacher - Primary Consultant Teacher - Primary Carpet Journeyman Time In 05/21/21 19:37:00 05/21/21 19:37:00 05/21/21 [...] Antibiotic No Time Out Jose Luis Deng DO, Moshe Given Maddison G, PB BELTRE, Stevne Ruffin, Tani CELLARS SUPERVISOR, Mary E, Ross CID, Evita Gardner RN, Juan Pablo Morrissey RT(R), Sandra Davidosn Time Out Complete 05/21/21 19:49:00 Outcomes Met? [...] and tissue Entry 1 Skin Integrity Intact, [place], Warm, and Skin Abnormality No Dry Outcomes Met? Yes Last Modified By: Cassy Hawkins RN 05/21/21 19:29:33 Post-Care Text: The patient is free from signs and symptoms of injury caused by extraneous objects Patient Positioning (more content not included)...NormalGalion Community HospitalInpatient Clinical Summaryon 21-10-6385Yeesunpzq Clinical Summary [address] [address] Clinical Summary Person Information: Name: OSMAN PARIKH Age: 61 Years : 1960 Sex: Male PCP: Anna Martinez MD Marital Status: Race: White Ethnicity: Non- or Language: Colombian Visit Id: Visit Reason: RETAIN L URETHRAL STENT Speciality: Acuity: Enc Type: Ambulatory/Same Day Surgery Med Service: Medical Arrival: 05/21/2021 15:41:50 Discharge: Dispo Type: Address: [address] [place] [id number] Provider Notes: Diagnosis: Problems Active BMI 31.0-31.9,adult [...] Physician: Follow up: With: Address: When: Steven Hatfield [address] [address] Business (1) Comments: Call for followup appointment in about six months with an abdominal X-ray prior to your visit. With: Address: When: Anna Martinez [address] [place] [address] [place] [address] Business (1) Patient Education Information: [facility]ervilleInpatient Patient Summaryon 05-22-2021 Inpatient Patient Summary [address] [address] Patient Discharge Instructions PERSON INFORMATION [...] None Follow up: With: Address: When: [address], [facility] [address] [place] [address] Business (1) Comments: Call for followup appointment in about six months with an abdominal X-ray prior to your visit. With: Address: When: Anna Martinez [address] [facility], [place] [address] [place] [address] Business (1) In the event that this physician does not participate in your insurance network, please consult with your insurance company to find a nearby participating provider. Comment: JL Carlson THOMAS W, have received the attached patient education materials/instructions and have verbalized understanding: Patient Signature Date Clinican/Nurse Signature Date HERE ARE THE MEDICATION CHANGES THAT OCCURRED DURING YOUR HOSPITAL STAY Medications to Continue Taking That Have Changed [employer] [address], [address], [place] [id number], [phone] START: ciprofloxacin (Cipro 500 mg Tab) 1 Tablets By Mouth 2 times a day. Refills: 0. Last Dose: Next Dose: Other Medications START: ciprofloxacin (Cipro 500 mg Tab) Take 1 tab day prior to procedure and 1 tab day of procdure- afterwards. Refills: 0. Last Dose: Next Dose: Medications to Continue with No Changes Other Medications allopurinol (allopurinol 100 mg Tab) 100 Milligram By Mouth every day. Last Dose: Next Dose: amlodipine (Norvasc) 5 Milligram By Mouth every day. Last Dose: Next Dose: calcium carbonate (calcium 500 mg tablets) 1 Tablets By Mouth every day. Last Dose: Next Dose: hyoscyamine (Levsin 0.125 mg oral tablet) 1 Tablets By Mouth 4 times a day as needed for spasm. Refills: 0. Last Dose: Next Dose: multivitamin with minerals (Multivitamin, Therapeutic w/ Minerals) 1 Tablets By Mouth every day., Opurity multivitamin specific for gastric bypass patients Last Dose: Next Dose: ondansetron (Zofran 4 mg Tab) 1 Tablets By Mouth every 8 hours as needed Nausea/Vomiting. Refills: 0. Last Dose: Next Dose: simvastatin (simvastatin 5 mg Tab) 20 Milligram By Mouth once a day (at bedtime). Last Dose: Next Dose: tamsulosin (Flomax) 0.4 Milligram By Mouth every day. Last Dose: Next Dose: tramadol (traMADOL 50 mg Tab) 1 Tablets By Mouth every 12 hours as needed for pain. Refills: 0. Last Dose: Next Dose: Comment: MEDICATION LIST PROVIDED FOR YOU IS [...] (traMADOL 50 mg Tab) (more content not included)...[facility] HospitalPatient Education - Texton 28-47-0627Flwfoof Education - Text ciprofloxacin (oral) (SIP eugenio FLOX a sin) Cipro, Proquin XR What is the most important information I should know about ciprofloxacin? Ciprofloxacin can cause serious side effects, including tendon problems, nerve damage, serious moodor behavior changes, or low blood sugar. Stop using this medicine and call your doctor at once if you have: headache, hunger, irritability, numbness, tingling, burning pain, confusion, agitation, paranoia, problems with memory or concentration, thoughts of suicide, or sudden pain or movement problems in any of your joints. In rare cases, ciprofloxacin may cause damage to your aorta, which could lead to dangerous bleedingor . Get emergency medical help if you have severe and constant pain in your chest, stomach, or back. What is ciprofloxacin? Ciprofloxacin is a fluoroquinolone (doqx-g-KURV-o-lone) antibiotic, it is used to treat different types of bacterial infections. It is also used to treat people who have been exposed to anthrax or certain types of plague. Ciprofloxacin extended-release is only approved for use in adults. Fluoroquinolone antibiotics can cause serious or disabling side effects that may not be reversible.Ciprofloxacin should be used only for infections that [...] you measure a dose. Use the dosing syringeprovided, or use a medicine dose-measuring device (not [...] infection that is resistant to medication. Ciprofloxacin willnot treat a viral infection such as the [...] more easily. Avoid sunligh (more content not included)...[facility] HospitalPre-Authorization for Medical Treatmenton 24-52-1009Vuf-Authorization for Medical Treatment [id number]#1.00CD:127NormalGalion Community HospitalProgress Note-Physicianon 84-36-5275Yfcaadgw Note-PhysicianPatient: OSMAN PARIKH Age: 61 years Sex: Male : 1960 Associated Diagnoses: None Author: Moshe Amaya Jr., DO Postoperative Information Post Operative Note: Post Anesthesia Care Unit. Anesthetic utilized: General. Health Status Allergies: Allergic Reactions (Selected) Severity Not Documented Erythromycin- Rash. NSAIDs- Gastric bypass operation. Problem list: All Problems Impotence / SNOMED CT 5209472135 / Confirmed Benign essential hypertension / SNOMED CT 5462060 / Confirmed Hypercholesterolemia / SNOMED CT 14266670 / Confirmed Anxiety / SNOMED CT 89021175 / Confirmed Kidney stone / SNOMED CT 467445562 / Confirmed BPH with urinary obstruction / SNOMED CT 7090176318 / Confirmed Hydronephrosis with ureteral calculus / SNOMED CT 0920376232 / Confirmed Gall stone / SNOMED CT 485243591 / Confirmed Deafness / SNOMED CT 45304546 / Confirmed Hypertension / SNOMED CT 4180809361 / Confirmed Hyperlipidemia / SNOMED CT 70645465 / Confirmed Dysuria / SNOMED CT 27892459 / Confirmed Gross hematuria / SNOMED CT 692668171 / Confirmed Frequency of urination / SNOMED CT 178064853 / Confirmed Nocturia / SNOMED CT 848036156 / Confirmed BMI 31.0-31.9,adult / SNOMED CT 729143497 / Confirmed Canceled: Impingement syndrome of shoulder / SNOMED CT 362733772 Canceled: Lipoma of arm / SNOMED CT 6526731004 Physical Examination Vital Signs 05/21/2021 20:36 EST [...] anesthetic complications noted. Plan Transfer/ Discharge: Condition stable.[facility] Charles HospitalComment on above:Result Comment: Electronically Signed By: Moshe Amaya Jr., DO\.br\Date and Time Signed: 05/22/21 07:43 ESTXR Abdomen 1 Viewon 29-68-7903EQ Abdomen 1 ViewExam Date/Time: 05/21/2021 20:24 EST Reason for Exam: [...] ODALIS Technologist: GEORGE Technical Comments Radiation Dose: Nicolasazahra in mGy = 5.2NMarietta Memorial Hospitalsent for Treatmenton 28-54-1359Lutmqnr for Treatment [id number]#1.00CD:127NormDelaware County HospitalConsent for [id number]#1.00CD:[address] [facility] HospitalInpatient Patient Summaryon 32-74-2363Lboviveka Patient Summary [address] [address] Clinical Summary Person Information Name: OSMAN PARIKH Age: 61 Years : 1960 Sex: Male PCP: Anna Martinez MD Marital Status: Race: White Ethnicity: Non- or Language: Colombian Visit Id: Visit Reason: KIDNEY STONE Speciality: Acuity: Enc Type: Outpatient Med Service: Surgery Arrival: 05/21/2021 13:35:37 Discharge: Dispo Type: Address: [address] [place] [id number] Provider Notes: Diagnosis: Problems Active BMI 31.0-31.9,adult [...] up: With: Address: When: Steven AMBRIZ [address], [address], [facility] [address] [place] [address] Business (1) Comments: We will admit you to the hospital and obtain an abdominal X-ray. I will then decide upon the next step. Please do not eat or drink anything for now. Patient Education Information:[facility] HospitalMain OR Intraoperative Recordon 97-55-8079Zwch OR Intraoperative RecordIntraOp Document Type FTURO Summary Primary Physician: Steven AMBRIZ MD Finalized Date/Time: 05/21/21 16:14:24 Pt. Name: PARIKHOSMAN D.O.B./Sex: 1960 Male Med Rec #: [id number] Physician: Steven AMBRIZ MD Financial #: [id number] Pt. Type: O Room/Bed: / Admit/Disch: 05/21/21 13:35:37 - Institution: Case Times FTURO Entry 1 Patient Times In Room 05/21/21 14:31:00 Out Room 05/21/21 15:10:00 Procedure Times Start 05/21/21 14:35:00 Stop 05/21/21 14:57:00 Anesthesia Times Last Modified By: Iza RN, FLACOOR, Anitra Arevalo 05/21/21 15:14:26 General Comments: pateint dressed and sitting in room. stent stuck half in and out. aviles inserted. dr ambriz checking surgical schedulle. pt family called by patient. 1513 r pb speaking with patient, 1518 PATIENT TO DIRECT ADMIT TO HOSPITAL PER DR AMBRIZ Case Attendance FTURO Entry 1 Entry 2 Entry 3 Case Attendee Steven AMBRIZ MD [place] CELLARS SUPERVISOR, Mary Couch RN, CNOR, Anitra Arevalo Role Performed Surgeon - Primary Scrub - Primary Consultant Teacher - Primary Time In 05/21/21 14:31:00 05/21/21 14:31:00 05/21/21 14:31:00 Time Out 05/21/21 15:02:00 05/21/21 15:02:00 05/21/21 15:02:00 Procedure CYSTOSCOPY LOCAL WITH CYSTOSCOPY LOCAL WITH CYSTOSCOPY LOCAL WITH STENT REMOVAL(Left) STENT REMOVAL(Left) STENT REMOVAL(Left) Comments Last Modified By: DAMIAN Couch RN, Lou Ann Blank RN, CNOR, Lou Ann Blank RN, CNOR, Lou Ann 05/21/21 15:02:33 05/21/21 15:02:33 05/21/21 15:02:33 Surgical Procedures FTURO Entry 1 Procedure Description Procedure CYSTOSCOPY LOCAL WITH Modifiers Left STENT REMOVAL Surgeon Description CYSTOSCOPY LOCAL WITH STENT REMOVAL Primary Procedure Yes Primary Surgeon Steven AMBRIZ MD Start 05/21/21 14:35:00 Stop 05/21/21 14:57:00 Anesthesia Type Local Surgical Service Urology Wound Class 2 - Clean-Contaminated Last Modified By: DAMIAN Couch RN, Lou Ann 05/21/21 15:02:09 General Case Data FTURO Pre-Care [...] Out Steven AMBRIZ MD, Verified (If Participants [place] REFUGIO, Mary Castellon, Applicable) DAMIAN Couch RN, Lou Ann Time [...] 16:13 DAMIAN Couch RN, Lou Ann 05/21/21 16:14[facility] I Recordon 29-30-1816Ffjh OR PACU I RecordPACU Phase I Document Type FT Summary Primary Physician: Steven AMBRIZ MD Finalized Date/Time: 05/21/21 21:07:52 Pt. Name: OSMAN PARIKH/Sex: 1960 Male Med Rec #: [id number] Physician: Steven AMBRIZ MD Financial #: [id number] Pt. Type: O Room/Bed: [place] [address] Admit/Disch: 05/21/21 15:41:50 - Institution: Case Times [...] individualized perioperative plan of care The patient's rightto privacy is maintained The patient's value system, [...] with or improved from baseline levels established preoperativelyThe patient's cardiovascular status is consistent with or improved from baseline levels established preoperatively The patient's cardiovascular status is consistent with or improved from baseline levels established preoperatively The patient demonstrates and/or reports adequate pain control throughout the perioperative period The patient received appropriate medication(s), safely administered during the perioperativeperiod Acuity Level PACU I FT Entry 1 Start Time 05/21/21 20:11:00 Stop Time 05/21/21 20:41:00 Acuity Level Acuity Level I Last Modified By: Shelia Canales RN 05/21/21 21:07:51 Finalized By: Shelia Canales RN Document Signatures Signed By: Shelia Canales RN 05/21/21 [facility]:07[facility] Recordon 82-99-5200Zesa OR Preoperative RecordPreOp Document Type FT Summary Primary Physician: Steven AMBRIZ MD Finalized Date/Time: 05/21/21 20:10:54 Pt. Name: OSMAN PARIKH/Sex: 1960 Male Med Rec #: [id number] Physician: Steven AMBRIZ MD Financial #: [id number] Pt. Type: O Room/Bed: 05/ Admit/Disch: 05/21/21 [...] Signatures Signed By: Cassy Hawkins RN 05/21/21 20:10[facility] OR Preoperative RecordHolding Area Document Type FTURO Summary Primary Physician: Steven AMBRIZ MD Finalized Date/Time: 05/21/21 14:33:05 Pt. Name: OSMAN PARIKH/Sex: 1960 Male Med Rec #: [id number] Physician: Steven AMBRIZ MD Financial #: [id number] Pt. Type: O Room/Bed: / Admit/Disch: 05/21/21 [...] or her perioperative plan of care The patient'sright to privacy is maintained Surgery Checklist FTURO [...] 14:00 DAMIAN Couch RN, Lou Ann 05/21/21 14:33[facility] TownshipMonitor Recordon 63-32-2451Cvxzaar Record [id number]#1.00CD:127NoK[facility]tering Health Washington TownshipOperative Reporton 05-59-8514Kkkudfynx ReportPatient: OSMAN PARIKH Age: 61 years Sex: Male : 1960 Associated Diagnoses: None Author: Steven AMBRIZ MD Postoperative Information Date/ Time: 05/21/2021 20:09:00 Postoperative Diagnosis: Kidney stones (AUI06-QA N20.0, Working, Medical), Foreign body in bladder,initial encounter (ONB78-RC T19.1XXA, Working, Medical). Performed by: Steven Ambriz [...] the end of the stent so as toprovide some moderate downward traction. I elected to immediately proceed with ureteroscopy. The ureteroscope was passed into the bladder and although this was a difficult to see I was able to gain ac cess with the aid of a safety wire [...] Loss: 0 ml. Complications: None. Anesthesia type: General.[facility] HospitalComment on above: Result Comment: Electronically Signed By: Steven AMBRIZ MD\.br\Date and Time Signed: 05/21/21 20:14 ESTOperative ReportPatient: OSMAN PARIKH Age: 61 years Sex: Male : 1960 Associated Diagnoses: None Author: Steven AMBRIZ MD Procedure Operative Information Details: Date/ Time: 05/21/2021 15:03:00. Pre-Op Dx: Urethral Stricture - Other Retained ureteral stent, left. Post-Op Dx: Same. Anesthesia Type: Local. Procedure: Local Cystoscopy, attempted stent removal without success. Aviles placement. . Complications: None. Risks/Benefits/Informed Consent: Surgical risks, benefits, details of the [...] removed to level of urethral meatus but couldnot pull stent further. Initial attempt at Aviles placement unsuccessful, then able to place. Stent tied to Aviles. . Aviles to leg bag. Due to retained stent, will admit to hospital. May need ureteroscopy, laser ablation. Will look at surgical schedule for today or tomorrow. . Postoperative Information Discharge: Patient is discharged home with antibiotic coverage, Follow up arranged.[facility] HospitalComment on above:Result Comment: Electronically Signed By: Steven AMBRIZ MD\.br\Date and Time Signed: 05/21/21 15:14 ESTOutpatient Surgery Discharge Instructionon 78-21-6770Xejanbjfmx Surgery Discharge Instruction [address] [address] Patient Discharge Instructions PERSON INFORMATION [...] Follow up: With: Address: When: Steven AMBRIZ [address] [place] [address], [address], [place] [id number] Business (1) Comments: We will admit you to the hospital and obtain an abdominal X-ray. I will then decide upon the next step. Please do not eat or drink anything for now. Comment: PATIENT EDUCATION INFORMATION Instructions: I, OSMAN PARIKH, have received the attached patient education materials/instructions and have verbalized understanding: May we do a follow up call? Yes No I was present when discharge instructions were given Patient Signature Date Clinican/Nurse Signature Date You may receive a survey from Byron Valencia asking you to rate your care experience. Your feedback is important and will help us understand what we do well and how we can improve the quality of care we provide to you, your loved ones and our community. It?s an honor to serve you. [facility] HospitalPatient Educationon 95-08-0149Wbeptrw EducationNormalGalion Community HospitalProgress Note-Physicianon 80-23-8596Izeiegzg Note-Physician Patient: OSMAN PARIKH Age: 61 years [...] afterwards, # 2 tab(s), Refills(s) 0, Pharmacy: [facility], 175, cm, 05/01/21 13:21:00 EDT, Height/Length Dosing, 96, kg, 05/01/21 13:21:00 EDT, Weight Dosing... Levsin 0.125 mg oral tablet: 0.125 mg = 1 tab(s), Oral, QID, PRN for spasm, # 40 tab(s), Refills(s)0, Pharmacy: [facility] Zofran 4 mg Tab: 4 mg = 1 tab(s), Oral, q8hr, PRN Nausea/Vomiting, # 30 tab(s), Refills(s) 0, Pharmacy: [facility] traMADOL 50 mg Tab: 50 mg = 1 tab(s), Oral, q12hr, PRN for pain, # 10 tab(s), Refills(s) 0, Pharmacy: [facility], 172.7, cm, 03/08/21 9:22:00 EDT, Height/Length [...] - Extracorporeal shockwave lithotripsy for renal calculus (398785804) on 04/19/2021 at 61 Years. ESWL (extracorporeal shockwave lithotripsy) of ureteric calculus (5739561955) on 04/19/2021 at 61 Years. ESWL (extracorporeal shockwave lithotripsy) of ureteric calculus (3652575456) on 03/22/2021 at 61 Years. ESWL (extracorporeal shockwave lithotripsy) of ureteric calculus (9924578609) on 03/22/2021 at 61 Years. Cystoscopy (81069008) on 02/04/2021 at 61 Years. Cystoscopic insertion of ureteric stent (941144567) on 02/04/2021 at 61 Years. Cholecystectomy (41085851). Renal lithotripsy (714098885). Gastric bypass (1513849707). Cholecystectomy (78475413). Social History Social & Psychosocial Habits Alcohol 02/04/2021 Use: Current Type: Beer, Liquor Frequency: 1-2 times per month Substance Abuse 11/10/2019 Risk Assessment: Denies Substance Abuse Comment: denies - 02/04/2021 14:53 - Christina CID, Norma Squires Tobacco 02/04/2021 Risk Assessment: (more content not included)...[facility] HospitalComment on above:Result Comment: Electronically Signed By: Moshe Amaya Jr., DO\.br\Date and Time Signed: 05/21/21 18:38 ESTXR Abdomen 1 Viewon 46-29-6811HG Abdomen 1 ViewExam Date/Time: 05/21/2021 17:09 EST Reason for Exam: [...] Cevallos MD, V. Transcribed by: ODALIS Technologist: [facility] CenterPre- Authorization for Medical Treatmenton 20-83-7580Hos-Authorization for Medical [id number]#1.00CD:127NormalFisher [facility] Educationon 97-06-2387Mjusvbo EducationKidney Stones Kidney stones are rock-like masses that [...] the ribs (flank pain). Pain usually spreads (radiates)to the groin. ? Needing to pee often [...] these instructions at home: Medicines ? Take cfuj-aci-jhklult and prescription medicines only as told by [...] 12/09/2008 Document Revised: 11/09/2019 Document Reviewed: 11/09/2019 [employer] Patient Education ? 2019 Lot18. Urology Kidney Stones (Inserted (more content not included)...[facility] HospitalUrology Office/Clinic Noteon 28-47-4790Vhhaiui Office/Clinic NoteChief Complaint Pt is here for a PO [...] Calculus of kidney) KUB done today at [facility] reviewed by myself and [facility] at today's visit - stones broke up nicely, difficult to see any remaining fragments. no indication for further lithotripsy. will schedule for stent removal. pt is gastric bypass pt - will need metabolic work-up ordered after stent removed. Ordered: Office Visit No Charge Follow-up With When Contact Information Juan BELTRE, Anna [address] [place] [address]- Additional Instructions: Patient Education Kidney Stones, Aqfp-md-Uqob Kidney Stones, Uruv-gk-Ukoy Problem List/Past Medical History Ongoing Anxiety Benign essential hypertension BMI 31.0-31.9,adult BPH with urinary obstruction Deafness Dysuria Frequency of urination Gall stone Gross hematuria Hydronephrosis with ureteral calculus Hypercholesterolemia Hyperlipidemia Hypertension Impotence Kidney stone Nocturia Historical No qualifying data Procedure/Surgical History ESWL (extracorporeal shockwave lithotripsy) of ureteric calculus (04/19/2021), ESWL - Extracorporeal shockwave lithotripsy for renal calculus (04/19/2021), ESWL (extracorporeal shockwave lithotripsy)of ureteric calculus (03/22/2021), ESWL (extracorporeal shockwave lithotripsy) of ureteric calculus(03/22/2021), Cystoscopic insertion of ureteric stent (02/04/2021), Cystoscopy [...] 10/31/2020 Recorded SARS-CoV-2 (COVID-19) Ad26 vaccine 10/12/[address] Charles HospitalComment on above:Result Comment: Electronically Signed By: SREEDHAR THORNTON PA-C.br\Date and Time Signed: 05/01/2114:20 EDTIntraOperative Documentson 27-35-2195TamytZxpsuxnkq Documents [id number]#1.00CD:127[facility] HospitalCoding Summary.on 85-95-9272Bnkdmh Summary. CD:915509NZ:[id number]+PGhlYWQ+TS8GNITxU20cyBCwtM9MY6yBDK9FPAEWVSENSM7FZW0fv LD9ZGfzF3WcmjQw [file] ZT0n (more content not included)...[facility] OR Intraoperative Recordon 67-36-6064Knlh OR Intraoperative RecordIntraOp Document Type FT Summary Primary Physician: Steven AMBRIZ MD Finalized Date/Time: 04/24/21 13:57:51 Pt. Name: OSMAN PARIKH /Sex: 1960 Male Med Rec #: [id number] Physician: Steven AMBRIZ MD Financial #: [id number] Pt. Type: A Room/Bed: [place] [address] Admit/Disch: 04/19/21 10:55:06 - 04/19/21 15:00:00 Institution: [...] 1 Entry 2 Entry 3 Case Attendee PB BELTRE, Steven Wilson RN, Aisha Fisher CELLARS SUPERVISOR, Yuliet Squires Role Performed Surgeon - Primary Consultant Teacher - Primary Scrub - Primary Time In 04/19/21 12:34:00 04/19/21 12:34:00 04/19/21 12:34:00 Time Out 04/19/21 13:08:00 04/19/21 13:08:00 04/19/21 13:08:00 Procedure EXTRACORPOREAL SHOCK EXTRACORPOREAL SHOCK EXTRACORPOREAL SHOCK WAVE LITHOTRIPSY(Left) WAVE LITHOTRIPSY(Left) WAVE LITHOTRIPSY(Left) Comments Last Modified By: Shamika Victor RN, RN, Shamika Curiel RN, I 04/19/21 13:08:56 04/19/21 13:08:56 04/19/21 13:08:56 Entry 4 Entry 5 Case Attendee Maya Soto RN, Dana I Role Performed ARCH [employer]USH[employer] PRESS OPERATOR Consultant Teacher - Relief Time In 04/19/21 12:34:00 04/19/21 12:34:00 Time Out 04/19/21 13:08:00 04/19/21 13:08:00 Procedure EXTRACORPOREAL SHOCK EXTRACORPOREAL SHOCK WAVE LITHOTRIPSY(Left) WAVE LITHOTRIPSY(Left) Comments supervised by Dr. Ball Last Modified By: Shamika Victor RN, RN, Dana I 04/19/21 13:08:56 04/19/21 13:08:56 General Comments: Vendor : Dilan Ela ESWL Perioperative Protocols FT Pre-Care Text: Implements [...] Out Aisha Wilson RN, Given Participants Shamika Victor RN, I, Maya Soto, Steven AMBRIZ MD Time Out Complete 04/19/21 12:40:00 Outcomes Met? Yes Last Modified By: Sahmika Victor RN, I 04/19/21 12:52:36 Post-Care Text: [...] and tissue Entry 1 Skin Integrity Intact, [place], Warm, and Skin Abnormality No Dry Outcomes [...] the patient for signs (more content not included)...NormalGalion Community HospitalPostoperative Documentson 34-27-7619Yqfyozjdmxxqp Documents [id number]#1.00CD:127NormalGalion Community HospitalProgress Note-Physicianon 29-87-6710Zewnyjbm Note-PhysicianPatient: OSMAN PARIKH Age: 61 years Sex: Male : 1960 Associated Diagnoses: None Author: Dandre Ball MD Preoperative Information Anesthesia history: Patient History: No personal or Family history of problems with anesthesia. Re-eval prior to induction: Inital eval reviewed: No significant interval change. Review of Systems Constitutional: Negative. Cardiovascular: Cardiovascular risk stratafacation reviewed, 1 FOS without difficulty, No chest pain. Respiratory: No SOB. Hematology/Lymphatics: Negative. Gastrointestinal: Negative. Musculoskeletal: Negative. Neurologic: Negative. [...] QID, PRN for spasm, # 40 tab(s), Refills(s)0, Pharmacy: [facility] Zofran 4 mg Tab: 4 mg = 1 tab(s), Oral, q8hr, PRN Nausea/Vomiting, # 30 tab(s), Refills(s) 0, Pharmacy: [facility] oxybutynin 5 mg Tab: 5 mg = 1 tab(s), Oral, BID, X 30 day(s), # 60 tab(s), Refills(s) 1, Pharmacy: [facility], 175, cm, 02/20/21 8:55:00 EDT, Height/Length Dosing, 96.4, kg, 02/20/21 8:55:00 EDT, Weight Dosing traMADOL 50 mg Tab: 50 mg = 1 tab(s), Oral, q12hr, PRN for pain, # 10 tab(s), Refills(s) 0, Pharmacy: [facility], 172.7, cm, 03/08/21 9:22:00 EDT, Height/Length [...] list: All Problems Hypertension / SNOMED CT 4883909121 / Confirmed Kidney stone / SNOMED CT 468628219 / Confirmed Impotence / SNOMED CT 3291128845 / Confirmed Nocturia / SNOMED CT 145420783 / Confirmed Hypercholesterolemia / SNOMED CT 98362799 / Confirmed Frequency of urination / SNOMED CT 327849915 / Confirmed BMI 31.0-31.9,adult / SNOMED CT 574687557 / Confirmed Deafness / SNOMED CT 78370808 / Confirmed Gross hematuria / SNOMED CT 095507460 / Confirmed Benign essential hypertension / SNOMED CT 5878405 / Confirmed Hydronephrosis with ureteral calculus / SNOMED CT 9361373096 / Confirmed Gall stone / SNOMED CT 889320562 / Confirmed BPH with urinary obstruction / SNOMED CT 6250695830 / Confirmed Anxiety / SNOMED CT 45700160 / Confirmed Dysuria / SNOMED CT 99146687 / Confirmed Hyperlipidemia / SNOMED CT 17104515 / Confirmed Canceled: Impingement syndrome of shoulder / SNOMED CT 030927098 Canceled: Lipoma of arm / SNOMED CT 7348755545 Histories Past Medical History: No active or resolved past medical history items have been selected or recorded. Procedure history: ESWL (extracorporeal shockwave lithotripsy) of ureteric calculus (3893459473) on 03/22/2021 at 61 Years. ESWL (extracorporeal shockwave lithotripsy) of ureteric calculus (5863642244) on 03/22/2021 at 61 Years. Cystoscopy (97126927) on 02/04/2021 at 61 Years. Cystoscopic insertion of ureteric stent (729860737) on 02/04/2021 at 61 Years. Cholecystectomy (57920966). Renal lithotripsy (924276350). Gastric bypass (7956320271). Cholecystectomy (40088038). Social History Social & Psychosocial Habits Alcohol 02/04/2021 Use: Current Type: Beer, Liquor Frequency: 1-2 times per month Substance Abuse 11/10/2019 Risk Assessment: Denies Substance Abuse Comment: denies - 02/04/2021 14:53 Norma Britt RN Tobacco [...] review: No qualifying data available . Plan [place] [employer] Anesthesiologists (ASA) physical status classification: Class II. Anesthetic Preoperative Plan Anesthesia: General. . Anesthetic plan, risks, benefits, and alternatives discussed with the patient and/or family. Patient verbalized understanding. Pt agrees with anesthet (more content not included)...[facility] HospitalComment on above:Result Comment: Electronically Signed By: Quinn BELTRE, Dandre\.br\Date and Time Signed: 04/23/21 16:41 EDTProgress Note-PhysicianPatient: OSMAN PARIKH Age: 61 years Sex: Male : 1960 Associated Diagnoses: None Author: Dandre Ball MD Postoperative Information Post Operative Note: Post Anesthesia Care Unit. Anesthetic utilized: General. Health Status Allergies: Allergic Reactions (All) Severity Not Documented Erythromycin- Rash. NSAIDs- Gastric bypass operation. Canceled/Inactive Reactions (All) No Known Allergies Problem list: All Problems Hypertension / SNOMED CT 9946367183 / Confirmed Kidney stone / SNOMED CT 584269931 / Confirmed Impotence / SNOMED CT 8551390032 / Confirmed Nocturia / SNOMED CT 691983762 / Confirmed Hypercholesterolemia / SNOMED CT 23372731 / Confirmed Frequency of urination / SNOMED CT 672602059 / Confirmed BMI 31.0-31.9,adult / SNOMED CT 666272010 / Confirmed Deafness / SNOMED CT 73298334 / Confirmed Gross hematuria / SNOMED CT 828213369 / Confirmed Benign essential hypertension / SNOMED CT 3571594 / Confirmed Hydronephrosis with ureteral calculus / SNOMED CT 4339641249 / Confirmed Gall stone / SNOMED CT 424706720 / Confirmed BPH with urinary obstruction / SNOMED CT 4709286796 / Confirmed Anxiety / SNOMED CT 22689165 / Confirmed Dysuria / SNOMED CT 09659139 / Confirmed Hyperlipidemia / SNOMED CT 70117765 / Confirmed Canceled: Impingement syndrome of shoulder / SNOMED CT 318704233 Canceled: Lipoma of arm / SNOMED CT 1657827048 Physical Examination Intake and Output adequate hydration [...] can be discharged from anesthesia care. Condition stable.[facility] HospitalComment on above:Result Comment: Electronically Signed By: Quinn BELTRE, Keli.br\Date and Time Signed: 04/23/21 16:39 EDTConsent for Anesthesiaon 69-23-4342Lxptrcb for Anesthesia [id number]#1.00CD:[address] [place], [place] [address]Discharge Instructionson 33-24-2463Nkkajpgxg Instructions [id number]#1.00CD:[address] [place], [place] [address]IntraOperative Documentson 46-49-7294BrkjvMujdhhehf Documents [id number]#1.00CD:[address] [place], [place] [address]Preoperative Documentson 01-07-7843Vbljcvidebrj Documents [id number]#1.00CD:127[facility] Charles HospitalConsent for Procedure/Surgeryon 90-20-8716Njimrfl for Procedure/Surgery [id number]#1.00CD:[address] [place], [place] [address]Consent for Treatmenton 00-36-4952Ysyxnnc for Treatment [id number]#1.00CD:[address] [place], [place] [address]H&P Updateon 04-19-2021H&P Update [id number]#1.00CD:[address] [place], [place] [address]Inpatient Patient Summaryon 35-01-8794Bwhmrlmcp Patient Summary [place] [id number] [facility] Clinical Discharge Instructions PERSON INFORMATION Name: OSMAN PARIKH PHYSICIANS Admitting Physician: Steven AMBRIZ MD Attending Physician: Steven AMBRIZ MD PCP: Juan BELTRE, Anna Discharge Diagnosis: Comment: PATIENT EDUCATION INFORMATION Instructions: Lithotripsy, Care After; Post Op Patient Instructions - FT (CUSTOM) Medication Leaflets: Follow up: With: Address: When: Steven PB [address], [address], [facility] [address] [place] [address] Business (1) Within 7 to 10 days Comments: Call for followup appointment with an abdominal X-ray prior to that visit. MEDICATION LIST New Medications [facility], [address] [place], [place] [address], [phone] acetaminophen-hydrocodone (acetaminophen-hydrocodone 325 mg-5 mg oral tablet) 1 Tablets [...] hours as needed for pain. Refills: 0. Comment:[facility] HospitalMain OR PACU I Recordon 17-44-3781Noob OR PACU I RecordPACU Phase I Document Type FT Summary Primary Physician: Steven AMBRIZ MD Finalized Date/Time: 04/19/21 14:08:13 Pt. Name: OSMAN PARIKH D.O.B./Sex: 1960 Male Med Rec #: [id number] Physician: Steven AMBRIZ MD Financial #: [id number] Pt. Type: A Room/Bed: [facility]/ Admit/Disch: 04/19/21 10:55:06 - Institution: Case Times [...] individualized perioperative plan of care The patient's rightto privacy is maintained The patient's value system, [...] with or improved from baseline levels established preoperativelyThe patient's cardiovascular status is consistent with or improved from baseline levels established preoperatively The patient's cardiovascular status is consistent with or improved from baseline levels established preoperatively The patient demonstrates and/or reports adequate pain control throughout the perioperative period The patient received appropriate medication(s), safely administered during the perioperativeperiod Acuity Level PACU I FT Entry 1 Start Time 04/19/21 13:10:00 Stop Time 04/19/21 13:40:00 Acuity Level Acuity Level I Last Modified By: Beth Wolff RN 04/19/21 14:08:12 Finalized By: Beth Wolff RN Document Signatures Signed By: Beth Wolff RN 04/19/21 14:08[facility]anaK[facility] TownshipMain OR PACU II Recordon 18-48-8387Tusa OR PACU II RecordPACU Phase II Document Type FT Summary Primary Physician: Steven AMBRIZ MD Finalized Date/Time: 04/19/21 15:12:28 Pt. Name: OSMAN PARIKH Moshe BryantB./Sex: 1960 Male Med Rec #: [id number] Physician: Steven AMBRIZ MD Financial #: [id number] Pt. Type: A Room/Bed: 08/07 Admit/Disch: 04/19/21 10:55:06 - Institution: Case Times [...] and monitors body temperature Evaluates postoperative respiratory statusEvaluates postoperative cardiac status Evaluates postoperative neurological status [...] individualized perioperative plan of care The patient's rightto privacy is maintained The patient's value system, [...] with or improved from baseline levels established preoperativelyThe patient's cardiovascular status is consistent with or improved from baseline levels established preoperatively The patient's neurological status is consistent with or improved from baseline levels established preoperatively The patient demonstrates and/or reports adequate pain control throughout the perioperative period The patient received appropriate medication(s), safely administered during the perioperativeperiod Finalized By: Esha Victoria RN Document Signatures Signed By: Esha Victoria RN 04/19/21 15:12NoKettering Health Washington TownshipMain OR Preoperative Recordon 92-66-4782Lcjm OR Preoperative RecordPreOp Document Type FT Summary Primary Physician: Steven AMBRIZ MD Finalized Date/Time: 04/19/21 12:58:00 Pt. Name: PARIKHOSMAN /Sex: 1960 Male Med Rec #: [id number] Physician: Steven AMBRIZ MD Financial #: [id number] Pt. Type: A Room/Bed: [place] [address] Admit/Disch: 04/19/21 10:55:06 - Institution: Case Times [...] Signed By: Shamika Victor RN, I 04/19/21 12:57NoKettering Health Washington TownshipMonitor Record on 69-76-8138Ncwtzxv [id number]:[address] [facility] HospitalOperative Reporton 22-27-9429Edvjlntvc Report Patient: PARIKHOSMAN HAYNES Age: 61 years Sex: Male : 1960 Associated Diagnoses: None Author: Steven AMBRIZ MD Postoperative Information Date/ Time: 04/19/2021 13:17:00 Postoperative Diagnosis: Kidney stones (ISF77-OI N20.0, Working, Medical). Performed by: Steven Ambriz [...] additional procedures, heart and lung problems under anesthesia,among others. He understands the remote risk of [...] Dornier delta 3 lithotripsy table. The stones wereeasily seen in the left lower pole. A total of 2500 shocks are given, per protocol up to level 10. Shocks are dispersed mainly amongst the lower pole and the lower midportion of the left kidney. There appears to be excellent stone fragmentation. He tolerates it well. [facility] back to [facility] in satisfactory condition, stable vital signs. Plan IV for discharge home with plans to follow-up in the office within the next 2 to 3 weeks with a KUB. Discussed all this with the patient's postoperatively and she is in agreement with the plan. I did provide a refill of 10 pills of [place] for postoperative pain management.. Estimated Blood Loss: 0 ml. Complications: None. Anesthesia type: General. Shock level should read: up to level 7rmalGalion Community HospitalComment on above:Result Comment: Electronically Signed By: Steven AMBRIZ MD\.br\Date and Time Signed: 04/19/21 14:02 EDTOutpatient Surgery Discharge Instructionon 84-84-3060Vpqsfocphu Surgery Discharge Instruction [place] [id number] Patient Discharge Instructions PERSON INFORMATION Name: OSMAN [...] to keep the urine clear. I did senda prescription to your pharmacy for some pain medication. I will see you next week with an abdominal x-ray prior to the visit. IF UNABLE TO CONTACT YOUR PHYSICIAN AND YOU FEEL IT IS AN EMERGENCY, GO TO THE NEAREST EMERGENCY ROOM OR CALL 911 IJL THOMAS W, have received the attached patient education materials/instructions and have verbalized understanding: May we do a follow up call? Yes No I was present when discharge instructions were given Patient Signature Date Clinican/Nurse Signature Date Follow up: With: Address: When: Steven [address], [address], [facility] [address] [facility] [place] [address] Business (1) Within 7 to 10 days Comments: Call for followup appointment with an abdominal X-ray prior to that visit. Pharmacy Information: Other: [facility] You may receive a survey from [email or web address] asking you to rate your care experience. Your feedback is important and will help us understand what we do well and how we can improve the quality of care we provide to you, your loved ones and our community. It?s an honor to serve you. Thank you for choosing [facility] HERE ARE THE MEDICATION CHANGES THAT OCCURRED DURING YOUR HOSPITAL STAY New Medications [facility], [address] [place] [id number], [phone] acetaminophen-hydrocodone (acetaminophen-hydrocodone 325 mg-5 mg oral tablet) 1 Tablets [...] these instructions at home: Medicines ? Take aihv-eud-jlnvcjk and prescription medicines only as told by your health care provider. ? If you were prescribed an antibiotic medici (more content not included)... [facility] HospitalPatient Education - Texton 01-26-3005Liyauzf Education - Text Nephrology Lithotripsy, Care After [...] these instructions at home: Medicines ? Take zuxu-vzc-kauyzmo and prescription medicines only as told by [...] in a certain position (postural drainage) and tapfirmly (percuss) over your kidney area to help stone fragments pass. Follow instructions as told bywayne health care provider. ? If directed, strain all urine through the strainer that was provided by your health care provider. ? Keep all fragments for your health care provider to see. Any stones that are found may be sent toa medical lab for examination. The stone may [...] ? Get help ri (more content not included)...[facility] HospitalXR Abdomen 1 Viewon 75-32-8684ZL Abdomen 1 ViewExam Date/Time: 04/19/2021 11:27 EDT Reason for Exam: [...] Gilbert Gaxiola M.D. Transcribed by: ODALIS Technologist: [facility] CenterProgress Note-Physicianon 58-09-5676Wvensjbt Note-PhysicianPatient: OSMAN PARIKH Age: 61 years Sex: Male : 1960 Associated Diagnoses: None Author: Dandre Ball MD Preoperative Information Anesthesia history: Patient History: No personal or Family history of problems with anesthesia. Re-eval prior to induction: Inital eval reviewed: No significant interval change. Review of Systems Constitutional: Negative. Cardiovascular: Cardiovascular risk stratafacation reviewed, 1 FOS without difficulty, No chest pain. Respiratory: No SOB. Hematology/Lymphatics: Negative. Gastrointestinal: Negative. Musculoskeletal: Negative. Neurologic: Negative. [...] QID, PRN for spasm, # 40 tab(s), Refills(s)0, Pharmacy: [facility] Zofran 4 mg Tab: 4 mg = 1 tab(s), Oral, q8hr, PRN Nausea/Vomiting, # 30 tab(s), Refills(s) 0, Pharmacy: [facility] oxybutynin 5 mg Tab: 5 mg = 1 tab(s), Oral, BID, X 30 day(s), # 60 tab(s), Refills(s) 1, Pharmacy: [facility], 175, cm, 02/20/21 8:55:00 EDT, Height/Length Dosing, 96.4, kg, 02/20/21 8:55:00 EDT, Weight Dosing traMADOL 50 mg Tab: 50 mg = 1 tab(s), Oral, q12hr, PRN for pain, # 10 tab(s), Refills(s) 0, Pharmacy: [facility], 172.7, cm, 03/08/21 9:22:00 EDT, Height/Length [...] list: All Problems Hypertension / SNOMED CT 2335915494 / Confirmed Kidney stone / SNOMED CT 556784182 / Confirmed Impotence / SNOMED CT 8105531514 / Confirmed Nocturia / SNOMED CT 057403230 / Confirmed Hypercholesterolemia / SNOMED CT 15701370 / Confirmed Frequency of urination / SNOMED CT 486582270 / Confirmed BMI 31.0-31.9,adult / SNOMED CT 153621254 / Confirmed Deafness / SNOMED CT 98454419 / Confirmed Gross hematuria / SNOMED CT 010087941 / Confirmed Benign essential hypertension / SNOMED CT 3593866 / Confirmed Hydronephrosis with ureteral calculus / SNOMED CT 6299142742 / Confirmed Gall stone / SNOMED CT 273335600 / Confirmed BPH with urinary obstruction / SNOMED CT 9580746183 / Confirmed Anxiety / SNOMED CT 23921783 / Confirmed Dysuria / SNOMED CT 18152470 / Confirmed Hyperlipidemia / SNOMED CT 84904612 / Confirmed Canceled: Impingement syndrome of shoulder / SNOMED CT 224008312 Canceled: Lipoma of arm / SNOMED CT 4338955100 Histories Past Medical History: No active or resolved past medical history items have been selected or recorded. Procedure history: ESWL (extracorporeal shockwave lithotripsy) of ureteric calculus (0228533381) on 03/22/2021 at 61 Years. ESWL (extracorporeal shockwave lithotripsy) of ureteric calculus (3258896739) on 03/22/2021 at 61 Years. Cystoscopy (24488136) on 02/04/2021 at 61 Years. Cystoscopic insertion of ureteric stent (005414080) on 02/04/2021 at 61 Years. Cholecystectomy (54271891). Renal lithotripsy (054460457). Gastric bypass (8457992325). Cholecystectomy (62609848). Social History Social & Psychosocial Habits Alcohol 02/04/2021 Use: Current Type: Beer, Liquor Frequency: 1-2 times per month Substance Abuse 11/10/2019 Risk Assessment: Denies Substance Abuse Comment: denies - 02/04/2021 14:53 Norma Britt RN Tobacco 02/04/2021 Risk Assessment: Denies Tobacco Use 02/20/2021 Tobacco Use: Never (less than 100 in l Smokeless tobacco use: Never Comment: denies - 02/04/2021 14:53 Norma Britt RN 03/30/2021 [...] review: No qualifying data available . Plan [place] [employer] Anesthesiologists (ASA) physical status classification: Class II. Anesthetic Preoperative Plan Anesthesia: General. . Anesthetic plan, risks, benefits, and alternatives discussed with the patient and/or family. Patient verbalized understanding. Pt agrees with anesthet (more content not included)...[facility] HospitalComment on above:Result Comment: Electronically Signed By: Quinn BELTRE Yvette Allen Shen 99-18-0107VHV - [id number]:127NoKettering Health Washington TownshipAmbulatory Clinical Summaryon 67-83-4495Eoyqxbnwkr Clinical Summary{7p-27-6j-81-1g-69-39-88-e8-a8-58-45-e6-21-43-50}CD:[id number] Health St. Charles HospitalPatient Educationon 96-54-9016Qkqkldk EducationNutrition Calorie Counting for Weight Loss Calories are [...] sure to eat fewer calories than your bodyneeds, you should lose weight. Ask your health care provider what a healthy weight is for you. For calorie counting to work, you will need to eat the right number of calories in a day in order to lose a healthy amount of weight per week. A dietitian can help you determine how many calories youneed in a day and will give you [...] label. If a food does not have aNutrition Facts label, try to look up the calories online or ask your dietitian for help. Remember that calories are listed per serving. If you choose to have more than one serving of a food, you will have to multiply the calories per serving by the amount of servings you plan to eat. Forexample, the label on a package of bread [...] you how many calories you have left forthe day to meet your goal. What are [...] juices have a lot of calories, yet donot fill you up. ? Eat nutritious foods and avoid empty calories. Empty calories are calories you get from foods or beverages that do not have many vitamins or protein, such as candy, sweets, and soda. It is better to have a nutritious high-calorie food (such as an avocado) than a food with few nutrients (such as abag of chips). ? Know how many calories [...] serving sizes. You could (more content not included)...[facility] HospitalPre-Authorization for Medical Treatmenton 06-72-9730Ocv-Authorization for Medical Treatment [id number]#1.00CD:127NormalGalion Community HospitalUrology Office/Clinic Noteon 66-28-2191Lgxhkau Office/Clinic NoteChief Complaint Pt is here for PO ESWL [...] denies hematuria, denies discharge, denies urinary frequency, deniesurinary hesitancy, denies nocturia, denies incontinence, denies genital [...] few left renal calculi measuring up to 8mm.There were previously three stones, now there are two. Will schedule left ESWL. The procedure risks, benefits, details and treatment alternatives have been discussed with the patient. These include blood in the urine, infection, bleeding around the kidney, kidney bruising, inability to break up the stone, need for blood transfusion, blockage from stonefragments, and need for additional procedures, among others. [...] to split the shocks between the upper poleand lower pole calculus. They still understand that a ureteroscopic and nephroscopic approach may still be indicated with possible laser ablation and basket extraction in the future. Follow-up With When Contact Information PB BELTRE, Steven Ruffin, URL [address] [facility] [place] [address]- Additional Instructions: Patient Education Calorie Counting for Weight Loss Tonja Carlson , personally scribed for Dr. Ambriz on [...] shockwave lithotripsy) of ureteric calculus (03/22/2021), ESWL (extracorporealshockwave lithotripsy) of ureteric calculus (03/22/2021), Cystoscopic insertion of ureteric stent (02/04/2021), Cystoscopy (02/04/2021), Cholecystectomy, Cholecystectomy, Gastric bypass, Renal lithotr (more content not included)...[facility] Charles HospitalComment on above:Result Comment: Electronically Signed By: Steven AMBRIZ MD\.br\Date and Time Signed: 03/30/21 10:58 EDT\.br\Electronically Co-Signed By: Tonja Moeller MA\.br\Date and Time Co-Signed: 03/30/21 10:51 EDTCoding Summary.on 03-27-2021 Coding Summary. CD:[id number]:[id number]+PGhlYWQ+PT5VPZGnZ21xxBWtaM3FE2kGZC7WHNKRMRYESU5PRU4la GZ5TDiwA3EpiwLm [file] ZTog (more content not included)...[facility] IntraOperative Documentson 25-17-3220PzcuiRlgtnkpmj Documents [id number]#1.00CD:127NormDelaware County HospitalPostoperative Documentson 65-38-9984Icubnllsmyzng Documents [id number]#1.00CD:127[facility] Charles HospitalCoding Summary.on 51-31-6599Qhempn Summary. CD:922872NJ:8868491VMd7iPa+PGhlYWQ+ZR6JEZJlS65kpKXhhU6HX8kTQK2BZCFWMGZJKR1SWQ2me TH3IBahF7HraaDd [file] ZT0n (more content not included)...[facility] Charles HospitalConsent for Anesthesiaon 87-37-2867Flvrjqx for Anesthesia [id number]:127NoappleAnson Community Hospitalshital [facility] HospitalDischarge Instructionson 01-82-7129Hqzwmxjxn Instructions [id number]:127NokamaljitAnson Community Hospitalshital [facility] HospitalMain OR Intraoperative Recordon 93-96-6288Lzgv OR Intraoperative Record IntraOp Document Type FT Summary Primary Physician: Steven AMBRIZ MD Finalized Date/Time: 03/23/21 08:32:26 Pt. Name: OSMAN PARIKH /Sex: 1960 Male Med Rec #: [id number] Physician: Steven AMBRIZ MD Financial #: [id number] Pt. Type: A Room/Bed: [place] [address] Admit/Disch: 03/22/21 05:45:57 - 03/22/21 11:50:00 Institution: [...] 1 Entry 2 Entry 3 Case Attendee Danielle Flynn CRNA, MD, Steven HAAS RN, SREEDHAR Bright Role Performed Anesthesiologist Surgeon - Primary Consultant Teacher - Primary Dietitian Therapeutic Time In 03/22/21 09:13:00 03/22/21 09:13:00 03/22/21 09:13:00 Time Out 03/22/21 09:53:00 03/22/21 09:49:00 03/22/21 09:53:00 Procedure EXTRACORPOREAL SHOCK EXTRACORPOREAL SHOCK EXTRACORPOREAL SHOCK WAVE LITHOTRIPSY(Left) WAVE LITHOTRIPSY(Left) WAVE LITHOTRIPSY(Left) Comments Dr. Amaya Supervising Mark CID in room from [phone] for collar cutter break. [place] Last Modified By: SREEDHAR HAAS RN, RN, SREEDHAR ARTHUR RN 03/22/21 09:53:37 03/22/21 09:53:37 03/22/21 09:53:37 Entry 4 Case Attendee Louis HUFF Kaitlyn A Role Performed Staff - Other Time In 03/22/21 09:13:00 Time Out 03/22/21 09:53:00 Procedure EXTRACORPOREAL SHOCK WAVE LITHOTRIPSY(Left) Comments Last Modified By: SREEDHAR HAAS RN 03/22/21 09:53:37 General Comments: Dilan Mahmood - ESWL Rep Pepe Ambriz - 4th [...] Outcomes Met? Yes Last Modified By: SREEDHAR HASA RN 03/22/21 09:23:09 Post-Care Text: The patient is free from signs and symptoms of infection Skin Assessment (Pre Procedure) FT Pre-Care Text: Implements protective measures to prevent skin/ tissue injury due to thermal or mechanical sources Evaluates for signs and symptoms of physical injury to skin and tissue Entry 1 Skin Integrity Intact, [place], Warm, and Skin Abnormality No Dry Outcomes [...] Body Position Supine WAVE (more content not included)...[facility] Charles HospitalPreoperative Documentson 24-28-1237Qdyerebnhfdp Documents [id number]#1.00CD:127[facility] St. Charles HospitalConsent for Procedure/Surgeryon 26-10-3318Ykethfp for Procedure/Surgery [id number]#1.00CD:127[facility] Charles HospitalH&P Updateon 03-22-2021H&P Update [id number]#1.00CD:127[facility] Charles HospitalInpatient Patient Summaryon 14-54-3426Iirxupmhn Patient Summary [address] [address] [facility] Clinical Discharge Instructions PERSON INFORMATION Name: OSMAN PARIKH [facility]#:[id number] PHYSICIANS Admitting Physician: Steven AMBRIZ MD Attending Physician: Steven AMBRIZ MD PCP: Juan BELTRE, Anna Discharge Diagnosis: Comment: PATIENT EDUCATION INFORMATION Instructions: Post Op Patient Instructions - FT (Custom) (Custom) Medication Leaflets: Follow up: With: Address: When: Steven AMBRIZ [address], [address], [facility] [address] [place] [address] [facility] (1) Within 7 to 10 days Comments: Call for followup appointment with an abdominal X-ray prior to your visit. MEDICATION LIST New Medications [facility], [address] [place], [place] [id number], [phone] acetaminophen-hydrocodone (acetaminophen-hydrocodone 325 mg-5 mg oral tablet) 1 Tablets [...] hours as needed for pain. Refills: 0. Comment:[facility] Charles HospitalMain OR PACU I Recordon 65-31-7518Gbhz OR PACU I RecordPACU Phase I Document Type FT Summary Primary Physician: Steven AMBRIZ MD Finalized Date/Time: 03/22/21 10:49:22 Pt. Name: OSMAN PARIKH /Sex: 1960 Male Med Rec #: [id number] Physician: Steven AMBRIZ MD Financial #: [id number] Pt. Type: A Room/Bed: [facility]/ Admit/Disch: 03/22/21 05:45:57 - Institution: Case [...] individualized perioperative plan of care The patient's rightto privacy is maintained The patient's value system, [...] with or improved from baseline levels established preoperativelyThe patient's cardiovascular status is consistent with or improved from baseline levels established preoperatively The patient's cardiovascular status is consistent with or improved from baseline levels established preoperatively The patient demonstrates and/or reports adequate pain control throughout the perioperative period The patient received appropriate medication(s), safely administered during the perioperativeperiod Acuity Level PACU I FT Entry 1 Start Time 03/22/21 09:54:00 Stop Time 03/22/21 10:24:00 Acuity Level Acuity Level I Last Modified By: Jackie Motley RN 03/22/21 10:42:48 Finalized By: Jackie Motley RN Document Signatures Signed By: Jackie Motley RN 03/22/21 10:49NormappleAnson Community Hospitalshital [facility] HospitalMain OR PACU II Recordon 37-55-1912Emwd OR PACU II RecordPACU Phase II Document Type FT Summary Primary Physician: Steven AMBRIZ MD Finalized Date/Time: 03/22/21 17:20:00 Pt. Name: OSMAN PARIKH Moshe Glass./Sex: 1960 Male Med Rec #: [id number] Physician: Steven AMBRIZ MD Financial #: [id number] Pt. Type: A Room/Bed: [facility]/ Admit/Disch: 03/22/21 05:45:57 - Institution: Case [...] and monitors body temperature Evaluates postoperative respiratory statusEvaluates postoperative cardiac status Evaluates postoperative neurological status [...] individualized perioperative plan of care The patient's rightto privacy is maintained The patient's value system, [...] with or improved from baseline levels established preoperativelyThe patient's cardiovascular status is consistent with or improved from baseline levels established preoperatively The patient's neurological status is consistent with or improved from baseline levels established preoperatively The patient demonstrates and/or reports adequate pain control throughout the perioperative period The patient received appropriate medication(s), safely administered during the perioperativeperiod Finalized By: Jazmin Solis RN Document Signatures Signed By: Jazmin Solis RN 03/22/21 17:20NoKettering Health Washington TownshipMain OR Preoperative Recordon 93-86-3670Guve OR Preoperative RecordPreOp Document Type FT Summary Primary Physician: Steven AMBRIZ MD Finalized Date/Time: 03/22/21 09:28:09 Pt. Name: OSMAN PARIKH Moshe /Sex: 1960 Male Med Rec #: [id number] Physician: Steven AMBRIZ MD Financial #: [id number] Pt. Type: A Room/Bed: [place] [address] Admit/Disch: 03/22/21 05:45:57 - Institution: Case Times [...] Signatures Signed By: SREEDHAR HAAS RN 03/22/21 09:28NoKettering Health Washington TownshipMonitor Recordon 61-36-6904Zuxfefw Record [id number]:127NormalGalion Community HospitalOperative Reporton 83-83-3154Yezoykrmf ReportPatient: OSMAN PARIKH Age: 61 years Sex: Male : 1960 Associated Diagnoses: None Author: Steven AMBRIZ MD Postoperative Information Date/ Time: 03/22/2021 10:18:00 Postoperative Diagnosis: Kidney stones (KGD60-LV N20.0, Working, Medical). Performed by: Steven Ambriz MD. Findings: Procedure: ESWL left renal calculus Anesthesia: MAC, Dr. Amaya Indications: This is a 61-year-old male [...] delta 3 lithotripter table. Under a combination ofC arm fluoroscopic imaging and real-time ultrasound of the stone is visualized in the left upper pole as are the stones in the lower pole. The entire shockwave treatment was applied to the left upperpole per protocol up to level 6. There appears to be excellent fragmentation of this calculus. The stent is remaining in adequate position. Tolerates the procedure well and [place] and then back to PACU in satisfactory condition, stable vital signs. Plan to be for discharge home with plans to follow-up in the office within the next 7 to 10 days with a KUB. Discussed all this with his postop. Prescription sent for [place] for postoperative pain and discomfort and he already has tramadol and oxybutynin at home.. Estimated Blood Loss: 0 ml. Complications: None. Anesthesia type: General.[facility]. Charles HospitalComment on above: Result Comment: Electronically Signed By: Steven AMBRIZ MD\.br\Date and Time Signed: 03/22/21 10:23 EDTOutpatient Surgery Discharge Instructionon 03-22-2021 Outpatient Surgery Discharge Instruction [place] [id number] Patient Discharge Instructions PERSON INFORMATION Name: OSMAN [...] hrs. . Push fluids to keep the urineclear. IF UNABLE TO CONTACT YOUR PHYSICIAN AND YOU FEEL IT IS AN EMERGENCY, GO TO THE NEAREST EMERGENCY ROOM OR CALL 911 IJL THOMAS W, have received the attached patient education materials/instructions and have verbalized understanding: May we do a follow up call? Yes No I was present when discharge instructions were given Patient Signature Date Clinican/Nurse Signature Date Follow up: With: Address: When: Steven AMBRIZ [address] [place], [place] [address], [address], [facility] [address] [place] [address] Business (1) Within 7 to 10 days [...] to serve you. Thank you for choosing [facility] HERE ARE THE MEDICATION CHANGES THAT OCCURRED DURING YOUR HOSPITAL STAY New Medications [facility], [address] [place] [id number], [phone] acetaminophen-hydrocodone (acetaminophen-hydrocodone 325 mg-5 mg oral tablet) 1 Tablets [...] Refills: 0. PATIENT EDUCATION INFORMATION Instructions: Medication Leaflets:[facility] HospitalPatient Education - Texton 54-04-2554Mfpmoxp Education - Text [facility] HospitalProgress Note-Physicianon 90-62-5615Subvrxjo Note-PhysicianPatient: OSMAN PARIKH Age: 61 years Sex: Male : 1960 Associated Diagnoses: None Author: Moshe Amaya Jr., DO Postoperative Information Post Operative Note: Post Anesthesia Care Unit. Anesthetic utilized: General. Health Status Allergies: Allergic Reactions (Selected) Severity Not Documented Erythromycin- Rash. NSAIDs- Gastric bypass operation. Problem list: All Problems Hypertension / SNOMED CT 1102739566 / Confirmed Kidney stone / SNOMED CT 465337313 / Confirmed Impotence / SNOMED CT 6562305497 / Confirmed Nocturia / SNOMED CT 440455929 / Confirmed Hypercholesterolemia / SNOMED CT 63784185 / Confirmed Frequency of urination / SNOMED CT 275714110 / Confirmed BMI 31.0-31.9,adult / SNOMED CT 261046826 / Confirmed Deafness / SNOMED CT 10776418 / Confirmed Gross hematuria / SNOMED CT 582898302 / Confirmed Benign essential hypertension / SNOMED CT 9788064 / Confirmed Hydronephrosis with ureteral calculus / SNOMED CT 6398448355 / Confirmed Gall stone / SNOMED CT 336553285 / Confirmed 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 Plan Transfer/ Discharge: Condition stable.[facility] Charles HospitalComment on above:Result Comment: Electronically Signed By: Moshe Amaya Jr., DO\.br\Date and Time Signed: 03/22/21 15:17 EDTProgress Note-PhysicianPatient: OSMAN PARIKH Age: 61 years Sex: Male [...] QID, PRN for spasm, # 40 tab(s), Refills(s)0, Pharmacy: [facility] Zofran 4 mg Tab: 4 mg = 1 tab(s), Oral, q8hr, PRN Nausea/Vomiting, # 30 tab(s), Refills(s) 0, Pharmacy: [facility] oxybutynin 5 mg Tab: 5 mg = 1 tab(s), Oral, BID, X 30 day(s), # 60 tab(s), Refills(s) 1, Pharmacy: [facility], 175, cm, 02/20/21 8:55:00 EDT, Height/Length Dosing, 96.4, kg, 02/20/21 8:55:00 EDT, Weight Dosing traMADOL 50 mg Tab: 50 mg = 1 tab(s), Oral, q12hr, PRN for pain, # 10 tab(s), Refills(s) 0, Pharmacy: [facility], 172.7, cm, 03/08/21 9:22:00 EDT, Height/Length Dosing, 95.2, kg, 03/08/21 9:22:00 EDT, Weight Dosing traMADOL 50 mg Tab: 50 mg = 1 tab(s), Oral, q6hr, PRN for pain, # 20 tab(s), Refills(s) 0, Pharmacy: [facility] Documented Medications Documented Flomax: 0.4 mg, [...] disease Father Diabetes Grandparent Procedure history: Cystoscopy (18595956) on 02/04/2021 at 61 Years. Cystoscopic insertion of ureteric stent (653283699) on 02/04/2021 at 61 Years. Cholecystectomy (04339187). Renal lithotripsy (331240609). Gastric bypass (3058950153). Cholecystectomy (11521714). Social History Social & Psychosocial Habits Alcohol [...] in l Smokeless tobacco use: Never Comment: denies - 02/04/2021 14:53 Norma Britt RN Physical Examination Airway: Mallampati classification: II (soft [...] Auto 52.4 % Lymph Auto 35.9 % Isanti Auto 8.8 % Eos Auto 2.4 % Basophil Auto 0.5 % Neutro Absolute 3.0 E9/L Lymph Absolute 2.1 E9/L [place] Absolute 0.5 E9/L Eos Absolute 0.1 E9/L Basophil Absolute 0.0 E9/L PT 12. (more content not included)...[facility] HospitalComment on above:Result Comment: Electronically Signed By: Moshe Amaya Jr., DO\.br\Date and Time Signed: 03/22/21 07:43 EDTXR Abdomen 1 Viewon 69-64-6505MX Abdomen 1 ViewExam Date/Time: 03/22/2021 06:14 EDT Reason for Exam: [...] Signed by: Gilbert Gaxiola M.D. Transcribed by: OADLIS Technologist: [facility] Immunization Recordson 07-99-4740Vcbookbbqjdj Records [id number]#1.00CD:127[facility] HospitalC Urineon 08-08-6097Vzynixwd identified Cx Nom (U)Microbiology PROCEDURE: Urine Culture [R1] SOURCE: U CleanCatch BODY SITE: COLLECTED DATE/TIME: 03/08/2021 09:42 EDT RECEIVED DATE/TIME: 03/08/2021 11:06 EDT START DATE/TIME: 03/08/2021 11:06 EDT FREE TEXT SOURCE: PB BELTRE, Steven AMBRIZ MD, Steven Ruffin FINAL REPORTS Final Report [] Verified Date/Time: 03/10/2021 09:46 EDT 100 cfu/ml Mixed skin contaminants Performing Locations R1: This test was performed at: [facility], [address] [place] [address], [address] [place] [address], XzxgsnVajkpwMercy Health St. Charles HospitalComment on above:Performed By: #### [id number], [id number] ####[address] [address]MP Chest 2 Viewson 57-78-6738OD Chest 2 ViewsExam Date/Time: 03/08/2021 10:04 EDT Reason for Exam: [...] Nain Saxena M.D. Transcribed by: ODALIS Technologist: [facility] HospitalAuto Diffon 52-12-0729Ufvewvfwn/100 WBC (Bld)0.5 %Normal0.0-2.0[facility] Comment on above:Order Comment: Order Added by Discern Expert.Performed By: #### 8797326, 43122362, 2357917, 86988838, 0229988 ####[address] [place], [place] [address]Zhiabqsyv/Leukocytes Auto (Bld) [Pure # fraction]0.0 E9/LNormal0.0-0.2FAdams County Regional Medical CenterComment on above: Order Comment: Order Added by Discern Expert.Performed By: #### 8894214, 52275008, 2626462, 15789847, 3716246 ####[facility] [address] [place], [place] [address]Bkqphyojzpc/100 WBC (Bld)2.4 %Normal 0.0-8.0[facility] HospitalComment on above:Order Comment: Order Added by Discern Expert.Performed By: #### 8202588, 73185448, 8421093, 00947317, 4822158 ####[facility] [address] [place] [address] Eosinophils/Leukocytes Auto (Bld) [Pure # fraction]0.1 E9/LNormal0.0-0.5FAdams County Regional Medical CenterComment on above:Order Comment: Order Added by Discern Expert.Performed By: #### 6129568, 18576752, 8076714, 63215321, 6066455 ####[facility] [address] [place] [address] Lymphocytes/100 WBC (Bld)35.9 %Dpaphm30.0-50.0[facility] HospitalComment on above:Order Comment: Order Added by Discern Expert.Performed By: #### 0740037, 61114580, 2950941, 49006792, 3182212 ####[facility] [address] [place], [place] [address]Yprxlpymsld/Leukocytes Auto (Bld) [Pure # fraction]2.1 E9/LNormal1.0-4.0[facility] HospitalComment on above:Order Comment: Order Added by Discern Expert.Performed By: #### 2179101, 23286278, 1786160, 65944606, 1185164 ####[facility] [address] [place], [place] [address]Dyokvmbds/100 WBC (Bld)8.8 %Normal 4.0-14.0[facility] HospitalComment on above:Order Comment: Order Added by Discern Expert.Performed By: #### 3912133, 72818248, 0497372, 88283911, 7576889 ####[address] [place], [place] [address]Kfzfgzzgs/Leukocytes Auto (Bld) [Pure # fraction]0.5 E9/LNormal0.2-1.0 [facility] HospitalComment on above:Order Comment: Order Added by Discern Expert.Performed By: #### 5513669, 81027602, 1355293, 62013018, 6857495 ####[address] [address] Neutrophils/100 WBC (Bld)52.4 %Dmszie24.0-75.0[facility] HospitalComment on above:Order Comment: Order Added by Discern Expert.Performed By: #### 0371319, 94130527, 5296515, 81915367, 7274876 ####[address] [address]Wbangvtpbua/Leukocytes Auto (Bld) [Pure # fraction]3.0 E9/LNormal2.0-7.5FAdams County Regional Medical CenterComment on above:Order Comment: Order Added by Discern Expert.Performed By: #### 3293946, 35136448, 5598175, 36713026, 4773632 ####[facility] [address] [place], [place] [address]WIVxv 23-80-0975Sbeoj gap [Moles/Vol]12 mmol/LNormal6-16[facility] HospitalComment on above:Performed By: #### 1598276, 77440162, 2425152, 65455848, 0620647 ####[facility] [address] [place], [place] [address]Stmgjih [Mass/Vol]8.9 mg/dLNormal 8.9-11.1FAdams County Regional Medical CenterComment on above:Performed By: #### 7999527, 52971887, 6807809, 70607210, 4388261 ####[facility] [address] [facility] [place] [address]Pwopflwz [Moles/Vol]106 mmol/LNormal 101-111[facility] HospitalComment on above:Performed By: #### 2164572, 80578429, 3945141, 92234244, 3187247 ####[facility] [address] [facility] [place] [address]FI6 [Moles/Vol]28 mmol/JFqlxzo79-99 [facility] HospitalComment on above:Performed By: #### 2395029, 39327664, 8615034, 85096430, 2651569 ####[facility] [address] [place], [place] [address]Fhjqlwdwwk [Mass/Vol]0.8 mg/dLNormal 0.5-1.3FAdams County Regional Medical CenterComment on above:Performed By: #### 5317963, 84889802, 6759547, 02906126, 1758870 ####[facility] [address] [facility] [address]Olmxefl [Mass/Vol]95 mg/pBJmpbpr67-428 [facility] HospitalComment on above:Result Comment: If this glucose result represents a fasting glucose, interpretation should refer tothe following reference range: 55-99 mg/dLPerformed By: #### 5236334, 43310534, 4565466, 58485394, 0566598 ####[facility] [address] [place], [place] [address]Pxgrwlqrl [Moles/Vol]3.7 mmol/LNormal3.5-5.3FAdams County Regional Medical CenterComment on above:Performed By: #### 0485954, 55933230, 2157039, 87629885, 9699570 ####[facility] [address] [facility], [place] [address]Wureke [Moles/Vol]142 mmol/SKuzsch578-340AlyrebGalion Community HospitalComment on above:Performed By: #### 7060562, 59775614, 5304325, 85424141, 9878454 ####[facility] [address] [place], [place] [address]Hnpz nitrogen [Mass/Vol]10 mg/dLNormal5-21[facility] HospitalComment on above:Performed By: #### 2600709, 51011765, 8274053, 98908298, 4637477 ####[facility] [address] [place], [place] [address]Xmmp nitrogen/Creatinine [Mass ratio]12 No AnnrzZczlff01-29 [facility] HospitalComment on above:Performed By: #### 0141331, 20629448, 6795459, 60335890, 2947943 ####[facility] [address] [place], [place] [address]EUT w/ Auto Diffon 20-18-0838Yrlzvtufkki distribution width (RBC) [Ratio]14.1 %Mtmrru26.9-14.2FAdams County Regional Medical Center Comment on above:Performed By: #### 5138481, 76280348, 2767994, 81346487, 9035465 ####[facility] [address] [place], [place] [address]Najtfbticu (Bld) [Volume fraction]43.7 %Qvwngy54.7-49.0[facility] HospitalComment on above:Performed By: #### 4095471, 37478287, 5003597, 58523446, 8506254 ####[facility] [address] [place], [place] [address]Zzsyuyaifk (Bld) [Mass/Vol]14.9 g/kNBnavdd02.5-17.5FAdams County Regional Medical CenterComment on above:Performed By: #### 8149051, 95428362, 4411020, 51629217, 3956571 ####[facility] [address] [place], [place] [address]OYV (RBC) [Entitic mass]32.7 ydMbxdja83.0-34.0[facility] Comment on above:Performed By: #### 0512932, 27724160, 4348314, 80338917, 6095475 ####[address] [place], [place] [address]JSBO (RBC) [Mass/Vol]34.1 g/xIPhwtaj76.4-36.0[facility] Comment on above:Performed By: #### 1674650, 01000310, 0409469, 02872116, 6291809 ####[address] [address]UYB (RBC) [Entitic vol]95.7 lQWlwogx47.0-100.0[facility] Comment on above:Performed By: #### 2072406, 21285872, 3597285, 60591563, 6450837 ####[address] [address]Dpkuyndv mean volume (Bld) [Entitic vol]9.8 fLNormal6.4-10.8[facility] HospitalComment on above:Performed By: #### 9234952, 34253027, 3410981, 41402719, 3268570 ####[address] [address]Mdqgjcqmy (Bld) [#/Vol]222.0 E9/OPbqeam862.0-500.0[facility] HospitalComment on above:Performed By: #### 6782313, 15980616, 0438698, 02157951, 6648864 ####[address] [address]RHP (Bld) [#/Vol]4.6 E12/LNormal4.3-5.9[facility] HospitalComment on above:Performed By: #### 2115912, 02220989, 5913497, 64903661, 2008077 ####[address] [address]WBS corrected for nucl RBC Auto (Bld) [#/Vol]5.7 E9/LNormal 4.0-11.0[facility] HospitalComment on above:Performed By: #### 3593623, 95924801, 4477501, 23276502, 9670750 ####[facility] [address] [place], [place] [address]Xaqypxo for Treatmenton 03-08-2021 Consent for [id number]#1.00CD:127Normal [facility] HospitalPT & PTTon 68-99-1123zDGS Coag (PPP) [Time]36.1 second(s)Brnwzi87.1-36.5FAdams County Regional Medical CenterComment on above:Result Comment: Heparin therapeutic range (represented by Anti-Factor Xa activity of 0.2 - 0.4 U/mL) corresponds to PTT of 56.6 - 109.0 sec.Performed By: #### 5091481, 03853934, 5706293, 43736147, 8380592 ####[facility] [address] [place], [place] [address]OTR Coag (PPP) [Relative time]1.1 {INR} Invalid Interpretation CodeGalion Community HospitalComment on above:Result Comment: INR results are specifically intended to assess patients stabilized on long-term Anticoagulation therapy suggested INR?s ?Less Intensive Anticoagulation? 2.0 ? 3.0 Conventional Range 3.0 ? 4.5Performed By: #### 5180479, 90332977, 1538622, 38658411, 2028174 ####[facility] [address] [place], [place] [address]OK Coag (PPP) [Time]12.8 second(s)Awjgah87.2-12.9[facility] HospitalComment on above:Performed By: #### 4696586, 28145050, 6368436, 75361099, 3861347 ####[facility] [address] [place], [place] [address]YT With Cult Reflexon 38-39-0619Vtdbsaeo LM Ql (Urine sed)3+ /HPFAbnormalTraceGalion Community HospitalComment on above: Performed By: #### 7530440, 98161119 ####[address] [place], [place] [address]Hleputsrn Ql (U)1+AbnormalNegative [facility] HospitalComment on above:Performed By: #### 3254047, 79891251 ####[address] [address] Clarity (U)CLOUDYAbnormalClearFAdams County Regional Medical CenterComment on above: Performed By: #### 9733936, 60612524 ####[address] [address]Mqpeo (U)DARK YELLOAbnormalYellow [facility] HospitalComment on above:Performed By: #### 6154913, 47954776 ####[address] [address] Epithelial cells.squamous LM.HPF (Urine sed) [#/Area]3-6Oxvqcz7-2UkpttxAdams County Regional Medical CenterComment on above:Performed By: #### 0458358, 04771297 ####[address] [address]Bwgzkmu Test strip (U) [Mass/Vol]NegativeNormalNegKindred Hospital DaytonComment on above:Performed By: #### 3550711, 91854997 ####[address] [address]Rwrwvksykl Ql (U)3+AbnormalNegative [facility] HospitalComment on above:Performed By: #### 3420742, 61715212 ####[address] [address] Ketones (U) [Mass/Vol]NegativeNormalNegativeGalion Community HospitalComment on above:Performed By: #### 4432540, 67589547 ####[address] [address]Apzpjyl.plasma/[place].RBC (Bld) [Mass ratio]>37Oywscesl3-7Vgqenq [facility] HospitalComment on above:Performed By: #### 8496735, 38787692 ####[address] [address]Aqxxj Ql (Urine sed)1+NormalGalion Community HospitalComment on above:Performed By: #### 8881179, 97437761 ####[address] [address]Njueyxa Ql (U)Negative NormalNegativeGalion Community HospitalComment on above:Performed By: #### 2621384, 19513070 ####[address] [address]rX (U)5.5 [pH]Invalid Interpretation Code5.0-9.0[facility] HospitalComment on above:Performed By: #### 8401809, 99443437 ####[place] [address] [address]Zsqfoxz (U) [Mass/Vol]2+AbnormalNegativeGalion Community HospitalComment on above: Performed By: #### 7420997, 24631537 ####[address] [address]Pxantuyo gravity (U) [Rel density] 1.025Invalid Interpretation Code1.005-1.030[facility] HospitalComment on above:Performed By: #### 0218107, 34315003 ####[place] [address] [address]Pjmm of Urine collection methodClean CatchNormalGalion Community HospitalComment on above:Performed By: #### 4805299, 42017454 ####[address] [address]Ilbcpowmyudt Qn (U)0.2 {Mary Anne'U}/dLNormal0.0-1.0[facility] HospitalComment on above:Performed By: #### 0005157, 96528489 ####[facility] [address] [place], [place] [address]UKK Auto Ql (U)1+AbnormalNegativeGalion Community HospitalComment on above: Performed By: #### 3616133, 06346316 ####[facility] [address] [place], [place] [address]XGU LM.HPF (Urine sed) [#/Area]6-15 Abnormal0-5FAdams County Regional Medical CenterComment on above:Performed By: #### 7956359, 04847365 ####[facility] [address] [place], [place] [address]fZWEet 23-44-7152YKB/1.73 sq M.predicted among blacks MDRD (S/P/Bld) [Vol rate/Area]mL/min/{1.73_m2}Normal>=59[facility] Comment on above:Order Comment: Order added by Discern Expert.Result Comment: eGFR is race adjusted. AA=.Performed By: #### 0438577, 14909850, 2278855, 12346387, 4759120 ####[facility] [address] [place], [place] [address]RKU/1.73 sq M.predicted among non-blacks MDRD (S/P/Bld) [Vol rate/Area]mL/min/{1.73_m2}Normal>=59[facility] Comment on above:Order Comment: Order added by Discern Expert.Result Comment: Chronic kidney disease could be indicated at eGFR's of less than 60 mL/min/1.73m2. Kidney failure is indicated at less than 15 mL/min/1.73m2. Performed By: #### 6764686, 65309887, 5931636, 13410259, 8836400 ####[facility] [address] [place], [place] [address]Ngy- Authorization for Medical Treatmenton 39-22-1308Yyd-Authorization for Medical [id number]#1.00CD:127[facility] HospitalFormson 14-83-5560Xvjqn [id number]#1.00CD:127[facility] HospitalRAD - MISCon 16-65-7996AWV - MISC [id number]#1.00CD:127[facility] HospitalRAD - [id number]#1.00CD:127[facility] HospitalAmbulatory Clinical Summaryon 59-93-2038Jqrqeosmmo Clinical Summary{8j-mz-68-zx-f1-r5-20-mq-55-96-27-q7-81-42-01-45}CD:425237QufftxZnbtogMercy Health St. Charles HospitalPatient Educationon 46-47-0336Vzpytgm EducationNutrition Calorie Counting for Weight Loss Calories are [...] sure to eat fewer calories than your bodyneeds, you should lose weight. Ask your health care provider what a healthy weight is for you. For calorie counting to work, you will need to eat the right number of calories in a day in order to lose a healthy amount of weight per week. A dietitian can help you determine how many calories youneed in a day and will give you [...] label. If a food does not have aNutrition Facts label, try to look up the calories online or ask your dietitian for help. Remember that calories are listed per serving. If you choose to have more than one serving of a food, you will have to multiply the calories per serving by the amount of servings you plan to eat. Forexample, the label on a package of bread [...] you how many calories you have left forthe day to meet your goal. What are [...] juices have a lot of calories, yet donot fill you up. ? Eat nutritious foods and avoid empty calories. Empty calories are calories you get from foods or beverages that do not have many vitamins or protein, such as candy, sweets, and soda. It is better to have a nutritious high-calorie food (such as an avocado) than a food with few nutrients (such as abag of chips). ? Know how many calories [...] serving sizes. You could (more content not included)...NormalGalion Community HospitalUrology Office/Clinic Noteon 65-77-1932Wqocqch Office/Clinic NoteChief Complaint New Pt. 2 week follow up [...] stone, need for blood transfusion, blockage from stonefragments, and need for additional procedures, among others. [...] with multiple stones. The stone in question itselfcould need at least 3000 shocks on its own and then he has 2 other stones in the kidney. This may ne cessitate a repeat lithotripsy and most likely an eventual retrograde ureteroscopic/nephroscopic approach as well. He will finish the current tamsulosin without a refill on this medication. Follow-up With When Contact Information PB BELTRE, Steven Ruffin, URL Additional Instructions: Patient Education Kidney Stones, Izag-wp-Erng Calorie Counting for Weight Loss I, Melia Sun, personally scribed for Dr. Ambriz on 02/20/2021 [...] Cholecystectomy, Gastric byp (more content not included)... [facility] HospitalComment on above:Result Comment: Electronically Signed By: Steven AMBRIZ MD\.br\Date and Time Signed: 02/20/21 09:22 EDT\.br\Electronically Co-Signed By: Melia Sun\.br\Date and Time Co- Signed: 02/20/21 09:17 EDTCoding Summary.on 56-33-4761Uwxncd Summary. CD:193651OB:[id number]+PGhlYWQ+EO8XTTDmE64vjOLldY3FR8dSJW1LUQZQCOJZXP9XXM3im ZT9PYfrT2UkygOg [file] ZT0n (more content not included)...[facility] HospitalProgress Note-Physicianon 17-79-8174Nxbdgawo Note-PhysicianPatient: OSMAN PARIKH Age: 61 years Sex: Male : 1960 Associated Diagnoses: None Author: Aakash Mcdaniels Jr, DO Preoperative Information Time patient last ate or drank:=== (npo 8 hours) Anesthesia history: Patient history: No prior anesthesia problems. Re-evaluation prior to induction: Completed, Initial evaluation reviewed. Review of Systems Respiratory: No shortness of breath. Cardiovascular: No chest pain. Hematology/Lymphatics: No bruising tendency, No bleeding tendency. Health [...] Oral, q6hr PRN Pain, Routine, Start date 02/05/2112:13:00 EDT allopurinol 100 mg Tab: 100 mg = 1 tab(s), Tab, Oral, Daily, Routine, Start date 02/05/21 9:00:00 EDT, 02/04/21 13:36:00 EDT ceftriaxone additive + Sodium Chloride 0.9% intravenous solution 50 mL: 1,000 mg = 1 EA, Injection,IV Piggyback, q24hr, Routine, Start date 02/04/21 13:00:00 [...] day(s), # 21 cap(s), Refills(s) 0, Pharmacy: [facility] Levsin 0.125 mg oral tablet: 0.125 mg = 1 tab(s), Oral, QID, PRN for spasm, # 40 tab(s), Refills(s)0, Pharmacy: [facility] Zofran 4 mg Tab: 4 mg = 1 tab(s), Oral, q8hr, PRN Nausea/Vomiting, # 30 tab(s), Refills(s) 0, Pharmacy: [facility] traMADOL 50 mg Tab: 50 mg = 1 tab(s), Oral, q6hr, PRN for pain, # 20 tab(s), Refills(s) 0, Pharmacy: [facility] Documented Medications Documented Flomax: 0.4 mg, Oral, Daily, Refills(s) 0, Urinary discomfort Norvasc: 5 mg, Oral, Daily, Refills(s) 0, High blood pressure allopurinol: 100 mg, Oral, Daily, Keep taking the medication if you were taking prior to admission at [facility], Refills(s) 0, Gout pain simvastatin: 20 mg, Oral, Once a day (at bedtime), Keep taking the medication if you were taking prior to admission at [facility], Refills(s) 0, High cholesterol Problem list: All Problems Anxiety / SNOMED CT 24810817 / Confirmed Benign essential hypertension / SNOMED CT 1225252 / Confirmed Lipoma of arm / SNOMED CT 5173850972 / Confirmed Hypercholesterolemia / SNOMED CT 07007609 / Confirmed Impingement syndrome of shoulder / SNOMED CT 161522719 / Confirmed Impotence / SNOMED CT 8071524628 / Confirmed Histories Past Medical History: No active or resolved past medical history items have been selected or recorded. Family History: Hypertension Father Mother Primary malignant neoplasm of lung Father Diabetes mellitus type 2 Father COPD Mother Primary malignant neoplasm of female breast Mother Procedure history: Cholecystectomy (61506266). Renal lithotripsy (310016480). Gastric bypass (7467309956). Social History Social & Psychosocial Habits Alcohol [...] 146 mmHg HI Diast (more content not included)...[facility] HospitalComment on above:Result Comment: Electronically Signed By: Aakash Mcdaniels Jr, DO\.br\Date and Time Signed: 02/12/21 07:49 EDTProgress Note-PhysicianPatient: OSMAN PARIKH Age: 61 years Sex: Male : 1960 Associated Diagnoses: None Author: Aakash Mcdaniels Jr, DO Postoperative Information Post Operative Note: Post Anesthesia Care Unit. Anesthetic utilized: General. Health Status Allergies: Allergic Reactions (Selected) Severity Not Documented Erythromycin- Rash. Problem list: All Problems Anxiety / SNOMED CT 87902143 / Confirmed Benign essential hypertension / SNOMED CT 7242478 / Confirmed Lipoma of arm / SNOMED CT 5269860579 / Confirmed Hypercholesterolemia / SNOMED CT 58240400 / Confirmed Impingement syndrome of shoulder / SNOMED CT 223816598 / Confirmed Impotence / SNOMED CT 9964394222 / Confirmed Physical Examination Vital Signs 02/04/2021 [...] nausea and vomiting. Plan Transfer/ Discharge: Condition stable.[facility] HospitalComment on above:Result Comment: Electronically Signed By: Aakash Mcdaniels Jr, DO\.br\Date and Time Signed: 02/12/21 07:49 EDTInsurance Correspondenceon 02-09-2021 Insurance CorrespondenceED: osman H/P: elva Profit: done PIS (OBS/IN): ASU/Mis D/C PACU 02/04 9182 Chgs: done D/C: done VTE: 3 hep - done MCG: - obs renal (02/04 not review/complete per TC UR) Tele: no ICU: no >2mn: <2mn Insurance: Mis DEAN (tests): cysto sent to [facility] 02/09 MM: doneNormalGalion Community HospitalIntraOperative Documentson 02-06-2021 IntraOperative [id number]#1.00CD:[address] [facility] HospitalConsent for Anesthesiaon 49-70-3634Fsphqlf for [id number]#1.00CD:127[facility]anaKettering Health Washington TownshipConsent for Procedure/Surgeryon 63-53-0922Pvakmul for Procedure/[id number]#1.00CD:[address] [place], [place] [address]Discharge Instructionson 15-84-1192Fwbzcxrvh [id number]#1.00CD:[address] [place], [place] [address]Insurance Correspondence Officeon 65-98-4755Jhjkgqcbb Correspondence [id number]#1.00CD:[address] [place], [place] [address]IntraOperative Documentson 75-74-4379HokosPdzsxjkhn [id number]#1.00CD:127[facility] HospitalMain OR Intraoperative Recordon 40-32-0145Wqhh OR Intraoperative RecordIntraOp Document Type FT Summary Primary Physician: Steven AMBRIZ MD Finalized Date/Time: 02/05/21 14:32:32 Pt. Name: JL OSMAN Mesa D.O.B./Sex: 1960 Male Med Rec #: [id number] Physician: Conor STEVENSON MD Financial #: [id number] Pt. Type: O Room/Bed: S332/01 Admit/Disch: 02/04/21 11:41:19 - 02/04/21 19:12:00 Institution: [...] 1 Entry 2 Entry 3 Case Attendee PB BELTRE, Steven HAAS RN, SREEDHAR Myers CST, Kaitlyn Squires Role Performed Surgeon - Primary Consultant Teacher - Primary Scrub - Primary Time In 02/04/21 16:33:00 02/04/21 16:33:00 02/04/21 16:33:00 Time Out 02/04/21 17:01:00 02/04/21 17:01:00 02/04/21 17:01:00 Procedure CYSTOSCOPY RETROGRADE CYSTOSCOPY RETROGRADE CYSTOSCOPY RETROGRADE STENT INSERTION STENT INSERTION STENT INSERTION Comments Last Modified By: WALDO CID, SREEDHAR HAAS RN, SREEDHAR ARTHUR RN 02/04/21 17:11:34 02/04/21 17:11:34 02/04/21 17:11:34 Entry 4 Entry 5 Case Attendee Aakash Mcdaniels Jr, DO, Amy Role Performed Anesthesiologist of Carpet Journeyman Record Time In 02/04/21 16:33:00 02/04/21 16:33:00 [...] Applicable) PreOp Antibiotic See Comments Time Out Stevne AMBRIZ MD, Given Participants WALDO CID, Louis PIERRE CST, Arslan Gutiérrez Jr, DO, James A, Ott, Amy Time Out Complete 02/04/21 16:46:00 Outcomes Met? Yes Last Modified By: SREEDHAR HAAS RN 02/04/21 17:21:07 Post-Care Text: The patient is free from signs and symptoms of injury caused by extraneous objects General Comments: CEFTRIAXONE GIVEN AT 1441. 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 Yes Last Modified By: SREEDHAR HAAS RN 02/04/21 17:12:07 Post-Care Text: The patient is free from signs and symptoms of injury caused by extraneous objects Patient Positioning FT Pre-Care Text: Identifies physical alterations that require additional precautions for procedure-specific positioning, verifies presence of prosthetics or corrective devices, positions the patient, ev (more content notincluded)...[facility] Records on 61-24-5156Najozdg [id number]#1.00CD:[address] [facility] HospitalConsent for Treatmenton 44-97-2197Mbatzwd for [id number]#[id number]:127NormalGalion Community HospitalConsultation Noteon 47-73-8110Kxggjxzfoybr NotePatient: OSMAN PARIKH Age: 61 years Sex: Male : 1960 Associated Diagnoses: None Author: Steven AMBRIZ MD Chief Complaint 02/04/2021 14:33 EDT Flank pain Thank for consultation on this 61-year-old white male who has a positive prior history of kidney stones, having been seen by Dr. Lam about 4 to 5 years ago. Patient presented to the [place] emergency room where a CT scan was [...] was severe and he requested transfer to [facility]. I had spoken with the emergency room physician and then with Dr. Monzon, who agreed to admit the patient to his service. The patient has not had associated fever, chills. Entire past medical history, past surgical history, systems review, family history, social history,medications, allergies are as noted in history and physical dictated by Dr. Monzon earlier today andare unchanged. Health Status Allergies: Allergic Reactions (Selected) Severity Not Documented Erythromycin- Rash., Allergies (1) Active Reaction erythromycin Rash Current medications: (Selected) Prescriptions Prescribed Keflex 500 mg Cap: 500 mg = 1 cap(s), Oral, q8hr, X 7 day(s), # 21 cap(s), Refills(s) 0, Pharmacy: [facility] Levsin 0.125 mg oral tablet: 0.125 mg = 1 tab(s), Oral, QID, PRN for spasm, # 40 tab(s), Refills(s)0, Pharmacy: [facility] Zofran 4 mg Tab: 4 mg = 1 tab(s), Oral, q8hr, PRN Nausea/Vomiting, # 30 tab(s), Refills(s) 0, Pharmacy: [facility] traMADOL 50 mg Tab: 50 mg = 1 tab(s), Oral, q6hr, PRN for pain, # 20 tab(s), Refills(s) 0, Pharmacy: [facility] Documented Medications Documented Flomax: 0.4 mg, Oral, Daily, Refills(s) 0, Urinary discomfort Norvasc: 5 mg, Oral, Daily, Refills(s) 0, High blood pressure allopurinol: 100 mg, Oral, Daily, Keep taking the medication if you were taking prior to admission at [facility], Refills(s) 0, Gout pain simvastatin: 20 mg, Oral, Once a day (at bedtime), Keep taking the medication if you were taking prior to admission at [facility], Refills(s) 0, High cholesterol, Home Medications (8) [...] Impingement syndrome of shoulder / SNOMED CT 472223068 / Confirmed Impotence / SNOMED CT 2327568882 / Confirmed Benign essential hypertension / SNOMED CT 1334126 / Confirmed Hypercholesterolemia / SNOMED CT 86803924 / Confirmed Anxiety / SNOMED CT 05457544 / Confirmed Lipoma of arm / SNOMED CT 8069716788 / Confirmed, Active Problems (6) Anxiety Benign essential hypertension Hypercholesterolemia Impingement syndrome of shoulder Impotence Lipoma of arm Histories Past Medical History: No active or resolved past medical history items have been selected or recorded. Family History: Hypertension Father Mother Primary malignant neoplasm of lung Father Diabetes mellitus type 2 Father COPD Mother Primary malignant neoplasm of female breast Mother Procedure history: Cholecystectomy (84345666). Renal lithotripsy (597319396). Gastric bypass (9794359942). Social History Social & Psychosocial Habits Alcohol [...] Groin/ inguinal region: Bi (more content not included)...[facility] Charles HospitalComment on above:Result Comment: Electronically Signed By: PB BELTRE, Steven Ruffin\.br\Date and Time Signed: 02/04/21 16:33 EDTInpatient Clinical Summaryon 90-42-9557Owqlolaow Clinical Summary [place] [id number] Clinical Summary Person Information: Name: OSMAN PARIKH Age: 61 Years : 1960 Sex: Male PCP: Anna Martinez MD Marital Status: Race: White Ethnicity: Non- or Language: Colombian Visit Id: Visit Reason: Urital Stone Speciality: Acuity: Enc Type: Observation Med Service: Medical Arrival: 02/04/2021 11:41:19 Discharge: Dispo Type: Address: [address] [place] [id number] Provider Notes: Diagnosis: 1:Kidney stone; 2:Hydronephrosis; 3:Benign essential hypertension; 4:Hypercholesterolemia; 5:BPH (benign prostatic hyperplasia); 6:Chronic GERD; 7:Gout; 8:Sequential compression device (SCD) in placeon patient Problems Active Lipoma of arm Anxiety [...] you were taking prior to admission at [facility]. amlodipine (Norvasc) 5 Milligram By Mouth every [...] you were taking prior to admission at [facility]. tamsulosin (Flomax) 0.4 Milligram By Mouth every day. tramadol (traMADOL 50 mg Tab) 1 Tablets By Mouth every 6 hours as needed for pain. Refills: 0. Care Team Members: Attending Physician: Yunior Monzon MD Consulting Physician: Steven AMBRIZ MD Referring Physician: Follow up: With: Address: When: Steven Hatfield [address], [address], [address] [address] Business (1) Within 2 weeks Comments: Call for followup appointment Call physician if symptoms worsen With: Address: When: Anna Juan [address] [facility], [facility], [place] [address] Business (1) Within 1 week Patient Education Information: Laser Therapy for Kidney Stones, Care After; Kidney Stones Keflex, hyoscyamineNormalAnson Community Hospitaler [facility] HospitalInpatient Patient Summaryon 31-00-8993Lextskziy Patient Summary [address] [address] Patient Discharge Instructions PERSON INFORMATION Name: OSMAN PARIKH Date of : 1960 Current Date: 02/04/2021 18:34:29 PHYSICIANS Admitting Physician: Nicolás BELTRE, Yunior Nichole Primary Care Physician: Anna Martinez MD PCP Comment: Discharge Diagnosis: 1:Kidney stone; 2:Hydronephrosis; 3:Benign essential hypertension; 4:Hypercholesterolemia; 5:BPH (benign prostatic hyperplasia); 6:Chronic GERD; 7:Gout; 8:Sequential compression device (SCD) in place on patient Condition at Discharge: OSMAN Floyd has been given the following list of [...] None Follow up: With: Address: When: Steven [address], [address], [address] [address] Business (1) Within 2 weeks Comments: Call for followup appointment Call physician if symptoms worsen With: Address: When: Anna Martinez [address] [place] [address], [place] [address] Business (1) Within 1 week In the event that this physician does not participate in your insurance network, please consult with your insurance company to find a nearby participating provider. Comment: JL Carlson THOMAS W, have received the attached patient education materials/instructions and have verbalized understanding: Patient Signature Date Clinican/Nurse Signature Date HERE ARE THE MEDICATION CHANGES THAT OCCURRED DURING YOUR HOSPITAL STAY Medications to Continue Taking That Have Changed Other Medications START: allopurinol 100 Milligram By Mouth every day. Keep taking the medication if you were taking prior to admission at [facility]. Last Dose: Next Dose: STOP: allopurinol 100 Milligram By Mouth every day. START: simvastatin 20 Milligram By Mouth once a day (at bedtime). Keep taking the medication if youwere taking prior to admission at [facility]. Last Dose: Next Dose: STOP: simvastatin 20 Milligram By Mouth once a day (at bedtime). Medications to Continue with No Changes [facility], [address] [place], [place] [id number], [phone] cephalexin (Keflex 500 mg Cap) 1 Capsules By Mouth every 8 hours for 7 Days. Refills: 0. Last Dose: Next Dose: hyoscyamine (Levsin 0.125 mg oral tablet) 1 Tablets By Mouth 4 times a day as needed for spasm. Refills: 0. Last Dose: Next Dose: ondansetron (Zofran 4 mg Tab) 1 Tablets By Mouth every 8 hours as needed Nausea/Vomiting. Refills: 0. Last Dose: Next Dose: tramadol (traMADOL 50 mg Tab) 1 Tablets By Mouth every 6 hours as needed for pain. Refills: 0. Last Dose: Next Dose: Other Medications amlodipine (Norvasc) 5 Milligram By Mouth every day. Last Dose: Next Dose: tamsulosin (Flomax) 0.4 Milligram By Mouth every day. Last Dose: Next Dose: Comment: MEDICATION LIST PROVIDED FOR YOU IS A LIST OF YOUR CURRENT MEDICATIONS. PLEASE CARRY THIS WITH YOU AT ALL TIMES. allopurinol 100 Milligram By Mouth every day. Keep taking the medication if you were taking prior to admission at [facility]. amlodipine (Norvasc) 5 Milligram By Mouth every [...] you were taking prior to admission at [facility]. tamsulosin (Flomax) 0.4 Milligram By Mouth every day. tramadol (traMADOL 50 mg Tab) 1 Tablets By Mouth every 6 hours as needed for pain. Refills: 0. Pharmacy Information: Other: [facility] [place] Comment: PATIENT EDUCATION INFORMATION Instructions: Laser Therapy for Kidney Stones, Care After This sheet gives you information about how to care for yourself afte (more content not included)...[facility] HospitalMain OR PACU I Recordon 23-63-0140Sdeq OR PACU I RecordPACU Phase I Document Type FT Summary Primary Physician: Steven AMBRIZ MD Finalized Date/Time: 02/04/21 17:34:28 Pt. Name: OSMAN PARIKHO.B./Sex: 1960 Male Med Rec #: [id number] Physician: Nicolás BELTRE, Yunior Nichole Financial #: [id number] Pt. Type: O Room/Bed: [place] [address] Admit/Disch: 02/04/21 11:41:19 - Institution: Case Times [...] I Outcomes Met? Yes Last Modified By: WiedenhefStacey owens RN 02/04/21 17:34:21 Post-Care Text: The patient demonstrates knowledge of the expected response to the operative or invasive procedure The patient's care is consistent with the individualized perioperative plan of care The patient's rightto privacy is maintained The patient's value system, [...] with or improved from baseline levels established preoperativelyThe patient's cardiovascular status is consistent with or improved from baseline levels established preoperatively The patient's cardiovascular status is consistent with or improved from baseline levels established preoperatively The patient demonstrates and/or reports adequate pain control throughout the perioperative period The patient received appropriate medication(s), safely administered during the perioperativeperiod Acuity Level PACU I FT Entry 1 Start Time 02/04/21 17:02:00 Stop Time 02/04/21 17:32:00 Acuity Level Acuity Level I Last Modified By: Stacey San RN 02/04/21 17:34:27 Finalized By: Stacey San RN Document Signatures Signed By: Stacey San RN 02/04/21 17:34NoKettering Health Washington TownshipMonitor Recordon 37-85-3075Xaqkscc Record [id number]:127NoKettering Health Washington TownshipOperative Reporton 06-86-6430Iaxtlltqz ReportPatient: OSMAN PARIKH Age: 61 years Sex: Male : 1960 Associated Diagnoses: None Author: Steven AMBRIZ MD Postoperative Information Date/ Time: 02/04/2021 17:01:00 Postoperative Diagnosis: Status post gastric bypass for obesity (EWE05-VK Z98.84, Working, Medical), Hydronephrosis with ureteral calculus (WIT79-CP N13.2, Working, Medical), BPH (benign prostatic hyperplasia) (YXX65-HV N40.0, Discharge, Medical). Performed by: Pb BELTRE, Steven Nguyen. Findings: Procedure: Cystoscopy Left retrograde pyelogram Left double-J stent placement under fluoroscopic guidance Anesthesia: General, LMA, Dr. Mcdaniels, 2% Xylocaine jelly per urethra Indications: This is a 61-year-old white male with a history of kidney stones in the past. He is status post gastric bypass back in April 2020. He had presented to the emergency room at [facility] and then subsequently transferred to [facility] for further management.I discussed the case with the emergency room physician and with here at [facility]. The patient and his are fully aware the risk benefits details of this procedure including riskof bleeding, infection, need for additional procedures, stent [...] is placed per urethra. A well-lubricated 22 Kazakh cystourethroscope with 30 degree lens then passed into the bladder without difficulty. Anterior urethra was within normal limits. No lesions and no scar. The prostatic urethra is minimally hypertrophied in thelateral lobes. But this is not a close bladder outlet. 3 cm long. Once into the bladder panendoscopy reveals no tumors, no stones, no diverticuli. Orifices normal x2. There is no inflammation around the left ureteral orifice. Utilizing a 6 Kazakh open-ended ureteral catheter left retrograde pyelogram was performed. The ureter is normal without filling defect all the way up to the level of the left ureteropelvic junction area where there is a filling defect noted consistent with the stone previously seen on CAT scan. Apparently there was confusion relaying themessage to the patient and his where the stone was located. The stone was not well visualized, raising the possibility of a uric acid constituents he. With this finding and with hydronephrosis documented, I placed a 0.035 guidewire through the open-ended catheter up into the kidney. Over that then a 4.7 Kazakh Bard inlay double-J stent is then passed over the wire into the kidney beyond the stone and into the left renal pelvis. The wire was removed and there is good curl of the stent within the left renal pelvis and the urinary bladder. There is no obvious purulent drainage. The patient tolerates it well. The bladder was emptied scope removedand the procedure was terminated. He is [facility] and then back to PACU in satisfactory condition, stable vital signs. Plan will be for transfer back to the floor for postoperative management. Depending on how he does clinically, he could theoretically be discharged later this evening or tomorrow and then followed upin the office for further evaluation and management. KUB should be obtained to be sure this is not a calcium stone and again as noted suspicion high for uric acid stone. Discussed all this with his postoperatively and she is in agreement with the plan.. Estimated Blood Loss: 0 ml. Complications: None. Anesthesia type: General.[facility] Charles HospitalComment on above: Result Comment: Electronically Signed By: Steven AMBRIZ MD\.br\Date and Time Signed: 02/04/21 17:06 EDTPatient Education - Texton 99-22-8770Nscgnsd Education - TextNephrology Laser Therapy for Kidney Stones, Care After [...] these instructions at home: Medicines ? Take zyoc-pzp-mvwwtiw and prescription medicines only as told by [...] or treat constipation, such as: ? Take kbhm-hgs-pmsdosb or prescription medicines. ? Eat foods that [...] of blood in your urine. ? Take nysu-but-gcddirz and prescription medicines only as told by [...] 07/19/2016 Document Revised: 03/04/2019 Document Reviewed: 03/04/2019 [employer] Patient Education ? 2020 [employer] Kidney Stones Kidney stones are solid, rock-like deposits that form inside of the kidneys. The kidneys are a pairof organs that make urine. A kidney stone [...] The following factors ma (more content not included)...[facility] Charles HospitalXR Urography Retrograde Lefton 66-72-0259AI Urography Retrograde LeftExam Date/Time: 02/04/2021 17:10 EDT Reason for Exam: [...] ODALIS Technologist: JED Technical Comments Radiation Dose: Kar in mGy = 1.1NormalGalion Community Hospital Encounters Encounter DateEncounter TypeCare ProviderFacilityStart: 02-18-2024 End: 82-22-5810Opouezree encounterCherie Century City HospitalorganMayo Memorial HospitalMedica Butterfield CenterComment on above:Abdominal PainStart: 02-17-2024 End: 58-25-6069dhehksscslPWYQQCE M HOYProMedica Lyndonville HospitalStart: 02-16-2024 End: 48-29-5224Rglkphxgk department patient visitPAUL R [facility]-Tuscaloosaca [facility] HospitalStart: 04-17-2022 End: 97-77-9171baputnlvqgXJ ANNA HOYFacility:S6Pbiqp: 91-41-7023Zltztjixl for general adult medical examination without abnormal findingsPETER [facility], Inctart: 04-15-2022 End: 25-87-9082Pxsafhjky for general adult medical examination without abnormal findingsPETER LALORFacility:A4Lnjrn: 04-15-2022 End: 10-64-4178rexdovpgwgVCBBW LALORFacility:J7Mgjdb: 06-27-2021 End: 71-30-6491rjxdiegeemPD ANNA HOYFacility:G0Uhxoa: 06-12-2021 End: 06-09-5559owogjfoupyTB ANNA HOYFacility:H1 Procedures DateProcedureProcedure DetailPerforming ClinicianStart: 07-13-2734OAN screening DR ANNA Stocktonment on above:Performed By: #### PSASC #### [facility] [address] [place] [address] Dr. Malika De Los Santos Plan of Treatment DateCare ActivityDetailAuthorStart: 92-99-2019Uhtdy BMI ScreeningAdult BMI ScreeningProSt. John Of God Hospitalca Health SystemStart: 11-53-6534Jucmfnq ScreeningTobacco ScreeningProSt. John Of God Hospitalca Health SystemStart: 38-38-9895Irutwpvfp vaccinationInfluenza VaccineProSt. John Of God Hospitalca Health SystemStart: 99-58-8517Qdzv Risk ScreeningFall Risk ScreeningProSt. John Of God Hospitalca Health SystemStart: 39-37-7709FVDBD-19 Vaccine ( season)COVID-19 Vaccine ( season)[facility] SystemStart: 80-31-8580Pkidzdwkbobxkp of varicella zoster vaccineZoster (Shingles) Vaccine (1 of 2)[facility] SystemStart: 50-69-4406ROkN,Tdap and Td Vaccines (1 - Tdap)DTaP,Tdap and Td Vaccines (1 - Tdap)[facility] SystemStart: 87-46-4126Quuds BMI Follow Up PlanAdult BMI Follow Up PlanProFulton County Health Centertart: 95-05-4517Lkopflsddz ScreeningDepression ScreeningProFulton County Health Centertart: 1960Medicare Annual Wellness VisitMedicare Annual Wellness VisitCorey Hospital Payers DatePayer CategoryPayerPolicy [id number] HEALTH PLANS MEDICARE DEVOTED HEALTH MEDICARE ADVANTAGE [id number] 2024-[facility] [phone] [address] [place], [place] [id number] 2024Medicare [id number] [id number] 2.0.1.378220.3.57[id number] 2.0.1.739169.3.57[id number] 2.0.1.468543.3.57[id number] 2.840.1.178988.3.57[id number] 2.840.1.319841.3.57[id number] 2.16.840.1.150837.3.57[id number] 2.16.840.1.621462.3.579.2.1286 Social History DateTypeDetailFacilityStart: 51-97-3226Czmjjsd smoking status NHISNever smoked tobaccoOhioHealth Mansfield Hospital SystemStart: 70-76-8801Kzjhlqj use and exposureSmokeless tobacco non-userOhioHealth Mansfield Hospital SystemStart: 08-17-2020 End: 27-36-4587Ogmwvay of Social functionProMercy Health Defiance Hospital SystemStart: 08-17-2020 End: 08-35-6130IQM UtilitiesOhioHealth Mansfield Hospital SystemHas the electric, gas, oil, or water company threatened to shut off services in your home in past 12MoNo [facility] Polatis SystemIn the past 12 months, has lack of transportation kept you from medical appointments or from getting medications?NoPOhio State Health System SystemStart: 89-49-5731Zas assigned at birthNot on fileAvita Health System Bucyrus HospitalAplicor System Note 02-18-2024 Note Date & XzszZpopHwklpdcg70-18-8134 Miscellaneous Notes* Telephone Encounter - Heather Olmedo - 02/18/2024 5:52 AM EDT FE01--[phone] [facility] Cine mikael Parikh 58 room OBS-23 abdominal pain * Telephone Encounter - Heather Olmedo - 02/18/2024 5:52 AM EDT OC19--I sent Loan Whelan a secure chat message to call [email or web address] documented in this encounterCorey Hospital Telephone encounter Note 02-18-2024 Note Date & WgobCixgPsawbqtq86-17-9660 Telephone encounter Note* Telephone Encounter - Heather Olmedo - 02/18/2024 5:52 AM EDT EV16--[phone] TT Cine re Osman Parikh 59 room OBS-23 abdominal pain Bump TechnologiesKettering Health [facility] Telephone encounter Note 02-18-2024 Note Date & AvgbXnsoBhzsjjia34-99-8270 Telephone encounter Note* Telephone Encounter - Heather Olmedo - 02/18/2024 5:52 AM EDT OC19--I sent Loan Whelan a secure chat message to call [email or web address] History and physical note 05-23-2021 Note Date & PfkxCwviHsrskkxi90-56-6690 Note [id number]:127[facility] Clinical Note 05-22-2021 Note Date & NxxzEljbEynbaqnz27-91-8667 NoteRONNI Rogers entered the room to discuss dc planning. DME discussed. PCP/Insurance reviewed. Patient is alert and involved in plan of care. Contact information provided and whiteboard updated. OBS status discussed. No further needs. [place] with [place] 05/22. CRM to follow.[facility] HospitalComment on above:Result Comment: Electronically Signed By: Sue Lopez.br\Date and Time Signed: 05/22/21 09:37 EST History and physical note 05-21-2021 Note Date & YpzqRoqbJmvrkwxz21-13-9909 NotePatient: OSMAN PARIKH Age: 61 years Sex: Male : 1960 Associated Diagnoses: None Author: Steven AMBRIZ MD Chief Complaint This patient was just seen [...] afterwards, # 2 tab(s), Refills(s) 0, Pharmacy: [facility], 175, cm, 05/01/21 13:21:00 EDT, Height/Length Dosing, 96, kg, 05/01/21 13:21:00 EDT, Weight Dosing... Levsin 0.125 mg oral tablet: 0.125 mg = 1 tab(s), Oral, QID, PRN for spasm, # 40 tab(s), Refills(s)0, Pharmacy: [facility] Zofran 4 mg Tab: 4 mg = 1 tab(s), Oral, q8hr, PRN Nausea/Vomiting, # 30 tab(s), Refills(s) 0, Pharmacy: [facility] traMADOL 50 mg Tab: 50 mg = 1 tab(s), Oral, q12hr, PRN for pain, # 10 tab(s), Refills(s) 0, Pharmacy: [facility], 172.7, cm, 03/08/21 9:22:00 EDT, Height/Length [...] list: All Problems Impotence / SNOMED CT 7192453073 / Confirmed Benign essential hypertension / SNOMED CT 0934585 / Confirmed Hypercholesterolemia / SNOMED CT 76102103 / Confirmed Anxiety / SNOMED CT 18688721 / Confirmed Kidney stone / SNOMED CT 792959330 / Confirmed BPH with urinary obstruction / SNOMED CT 8419593917 / Confirmed Hydronephrosis with ureteral calculus / SNOMED CT 6045678812 / Confirmed Gall stone / SNOMED CT 180455831 / Confirmed Deafness / SNOMED CT 63780171 / Confirmed Hypertension / SNOMED CT 8268854634 / Confirmed Hyperlipidemia / SNOMED CT 97314971 / Confirmed Dysuria / SNOMED CT 23984299 / Confirmed Gross hematuria / SNOMED CT 452700221 / Confirmed Frequency of urination / SNOMED CT 255259740 / Confirmed Nocturia / SNOMED CT 439030222 / Confirmed BMI 31.0-31.9,adult / SNOMED CT 558842049 / Confirmed Canceled: Impingement syndrome of shoulder / SNOMED CT 031119258 Canceled: Lipoma of arm / SNOMED CT 4014797585, Active Problems (16) Anxiety Benign essential hypertension BMI 31.0-31.9,adult BPH with urinary obstruction Deafness Dysuria Frequency of urination Gall stone Gross hematuria Hydronephrosis with ureteral calculus Hypercholesterolemia Hyperlipidemia Hypertension Impotence Kidney stone Nocturia Histories Past Medical His (more content not included)...[facility] Comment on above:Result Comment: Electronically Signed By: PB BELTRE, Steven Lopez.br\Date and Time Signed: 05/21/21 16:23 EST History and physical note 04-03-2021 Note Date & [id number] Note [id number]:127[facility] History and physical note 03-13-2021 Note Date & [id number] Note [id number]:127[facility] History and physical note 02-05-2021 Note Date & [id number] NoteBasic Information Accompanied by: Family member Source of [...] due to kidney stone. Patient was found tohave Moderate to severe L hydronephrosis with 8mm [...] pain, # 20 tab(s), Refills(s) 0, Pharmacy: [id number] 2. Hydronephrosis (N13.30: Unspecified hydronephrosis) Management [...] mL, Susp-Oral, Oral, q6hr PRN Indigestion, Routine, Startdate 02/04/21 12:13:00 EDT ceftriaxone + Sodium Chloride 0.9% intravenous solution 50 mL, 1,000 mg = 1 EA, Injection, IV Piggyback, q24hr, Routine, Start date 02/04/21 13:00:00 EDT, 100 mL/hr, Infuse over 30 minute(s) cephalexin, 500 mg = 1 cap(s), Oral, q8hr, X 7 day(s), # 21 cap(s), Refills(s) 0, Pharmacy: [facility] hydrALAZINE, 10 mg = 0.5 mL, Injection, IV Push, q6hr PRN Other (see comment), Routine, Start date 02/04/21 12:13:00 EDT HYDROmorphone, 0.5 mg = 0.5 mL, Injection, IV Push, q2hr PRN Pain, Routine, Start date 02/04/21 13:31:00 EDT, 02/04/21 13:31:00 EDT hyoscyamine, 0.125 mg = 1 tab(s), Oral, QID, PRN for spasm, # 40 tab(s), Refills(s) 0, Pharmacy: [facility] ketorolac, 15 mg = 1 mL, Injection, IV Push, q6hr PRN Pain for 5 day(s), Stop date 02/09/21 13:30:00 EDT, Routine, Start date 02/04/21 13:31:00 EDT, 02/04/21 13:31:00 EDT ondansetron, 4 mg = 1 tab(s), Oral, q8hr, PRN Nausea/Vomiting, # 30 tab(s), Refills(s) 0, Pharmacy:[facility] ondansetron, 4 mg = 2 mL, [...] Urology Intake and Output (more content not included)...[facility] Comment on above:Result Comment: Electronically Signed By: ELVA BELTRE, Conor P\.br\Date and Time Signed: 02/05/21 09:04 EDT Instructions Note Date & TypeNoteFacilityInstructionsNot on filedocumented in this encounter [facility] Summary Purpose Family History No Family History Records FoundNo Family History Records FoundNo Family History Records FoundNo Family History Records Found Advance Directives Date ActivatedDate InactivatedComments02/17/2024 5:50 PM Additional Source Comments (unrecognized sect ion and content) No Status Records FoundNo Status Records FoundNo Status Records FoundNo Status Records Found INFORMATION SOURCE (unrecogn ized section and content) DATE CREATED AUTHOR 08/11/2021 [facility] DATE CREATED AUTHOR AUTHOR'S ORGANIZ ATION 04/17/2022 [facility] DATE CREATED AUTHOR AUTHOR'S ORGANIZ ATION 02/18/2024 [facility] DATE CREATED AUTHOR AUTHOR'S ORGANIZ ATION 02/18/2024 [facility] Reason for Visit (unrecogniz ed section and content) ReasonOnset DateCommentsAbdominal Pain02/18/2024 Care Teams (unrecognized sec tion and content) Team MemberRelationshipSpecialtyStart DateEnd Date [place] [address] PCP - GeneralFamily Medicine02/16/24 FOR RECORDS PERTAINING TO PATIENTS WHO ARE [...] BE BASED ON THE PRIMARY CLINICAL RECORDS. [facility] [employer]. provides no warranty or guarantee of the accuracy or completeness of information in this document.
== END 2025-05-10 08:31 | disposition home or self-care (01) ==
LOC: LAB 08:30
PROVIDERS: PCP Family Medicine; Visit Provider Family Medicine
DX: E78.2 Mixed hyperlipidemia (principal); I50.30 Unspecified diastolic (congestive) heart failure; N40.0 Benign prostatic hyperplasia without lower urinary tract symptoms; E78.5 Hyperlipidemia, unspecified; R73.09 Other abnormal glucose; Z12.12 Encounter for screening for malignant neoplasm of rectum; E03.9 Hypothyroidism, unspecified; Z12.5 Encounter for screening for malignant neoplasm of prostate; D50.9 Iron deficiency anemia, unspecified; I11.0 Hypertensive heart disease with heart failure
CPT/HCPCS: G0328